=== PATIENT | male | born 1935 ===

== ENCOUNTER 2020-10-13 09:55 | Day surgery (SDC) | payer MEDICARE, SELFPAY ==
[2020-10-07 11:21] VITALS: BMI 21.2
--- NOTE | 2020-10-10 13:15 | MHC.SHP ---
Pre-Procedural Eval Section A The patient is an INPATIENT: No The History & Physical has been completed within 30 days and I have reviewed it.: Yes Section B Chief Complaint: Cataract Right Eye, Glaucoma Allergies: Allergies Allergy/AdvReac Type Severity Reaction Status Date / Time lisinopril Allergy Unknown Unknown Verified 10/07/20 10:38 Plan Diagnosis/Plan: Unchanged I have reviewed the history and physical and performed a pertinent physical examination on my patient. No changes have occurred unless specified.
--- NOTE | 2020-10-13 11:50 | HO.ANESPROP2 ---
HPI - Anesthesia Eval Consult details Narrative: 84 yo male patient for Right cataract extraction, IOL insertion PMFSH Active Problems Active Problems: All Active Problems (Updated 10/07/20 @ 11:04 by Sonia Herrera) Heart block (Acute) Normally functioning cardiac pacemaker present (Acute) Past Medical History Medical History (Updated 10/13/20 @ 12:31 by Patti Walsh) Barretts esophagus GERD (gastroesophageal reflux disease) Heart block Hiatal hernia History of back pain History of prostate cancer HTN (hypertension) Hypercholesterolemia Normally functioning cardiac pacemaker present Parkinsons disease Second degree heart block TIA (transient ischemic attack) Family History Family history of problems with anesthesia: No Surgical History Surgical History History of esophagogastroduodenoscopy (EGD) History of parathyroidectomy History of permanent cardiac pacemaker placement History of repair of hip fracture History of tonsillectomy Hx of colonoscopy Hx of prostatectomy History of Problems with Anesthesia: No Social History Social History Housing Other:: Resides at [facility] Are you a primary nurse wound care to a significant other at home: No Do you presently have visiting nurse or other home services: Yes (Has Home Health Aide from [employer]) Smoking Status: Never smoker Use of substances other than those prescribed or required for medical reasons: No Have you been hit, kicked, punched, or otherwise hurt by someone within the past year? If so, by whom?: No Advance Directives: No Advance Directives Information Provided: No Advance Directives on File: No Recently lost weight without trying: No Meds Allergies Allergy/AdvReac Type Severity Reaction Status Date / Time lisinopril Allergy Unknown Unknown Verified 10/07/20 10:38 Active Medications: Current Medications Generic Name Dose Route Start Last Admin Trade Name Freq PRN Reason Stop Dose Admin Sodium Chloride 500 mls @ 50 mls/hr 10/13/20 06:00 Ns IV 10/13/20 15:59 .Q10H IESHA Lactated Ringer's 500 mls @ 50 mls/hr 10/13/20 07:15 Lr IV .Q10H IESHA Povidone Iodine 1 appl 10/13/20 11:23 Povidone Iodine 5 % Ophth Soln 30 Ml Bottle EYE-RIGHT PREOP PRN Pre-Op Surgical Implant Prophy Home Medications Medication Instructions Recorded Confirmed Last Taken Type aspirin [Aspir-81] 81 mg PO DAILY 10/07/20 10/07/20 Unknown History calcitriol 0.5 mcg PO DAILY 10/07/20 10/07/20 Unknown History carbidopa-levodopa 1 tab PO BID 10/07/20 10/07/20 Unknown History furosemide 20 mg PO DAILY 10/07/20 10/07/20 Unknown History latanoprost drp 10/07/20 Unknown History melatonin 10 mg PO BEDTIME PRN 10/07/20 10/07/20 Unknown History omeprazole 1 cap PO DAILY 10/07/20 10/07/20 Unknown History timolol maleate 10/07/20 Unknown History triamcinolone acetonide appl TOPICAL 10/07/20 Unknown History Exam Exam Date and Time: October 13, 2020 1150 Height,Weight and Vital Signs: Height 5 ft 8 in Weight 63.503 kg Vital Signs Temp Pulse Resp BP Pulse Ox 10/13/20 12:11 97.1 F 69 18 162/79 H 99 Airway Mallampati Class: II TM Dist: >3cm Neck ROM: Limited Heart: RRR Lungs: CTAB Assessment and Plan Assessment Anesthesia Assessment: Anesthesia Plan Discussed and Chart Reviewed Final Anesthetic Review NPO: Yes ASA Class: III Final Preanesthetic Review: No Changes in Pt Med Stat, Meds/Allgs Chart Reviewed, Consent Obtained/Reviewed and Anes Risks/Benef Reviewed Patient Risk: Intermediate Procedure Risk: Low Assessment/Block/Sedation in SS: Assess/Block/Sedation-SS Anesthetic Plan Anesthetic Plan: MAC: Disposition: Standard PACU
[2020-10-13] MEDS: Tetracaine HCl/PF 0.5% Oph Sol 4 ML DROPS 1 DROP EYE-RIGHT (11:52)
[2020-10-13] MEDS: Tropicamide 1 % Ophth Sol 3 ML BTL 1 DROP EYE-RIGHT ×3 (11:57→12:04)
[2020-10-13] MEDS: Phenylephrine HCL 2.5% Oph SoL 2 ML BOTTLE 1 DROP EYE-RIGHT ×3 (11:59→12:06)
[2020-10-13 12:11] VITALS: BP 162/79; PULSE 69; RESP 18; TEMP 36.2; O2SAT 99
[2020-10-13] MEDS: Lactated Ringers 500 ML 50 ML IV (12:18)
--- NOTE | 2020-10-13 12:36 | P.PCNO_ITS ---
Ophthalmology Procedure Procedure Date of Service: 10/13/20 Ophthalmology Viscoelastic: Healon Duet Dual Pack Pro Ophthalmology Lenses: TECNIS [id number] (13.5) Procedure Notes: PREOPERATIVE DIAGNOSIS: Decreased visual acuity right eye secondary to cataract and glaucoma. POSTOPERATIVE DIAGNOSIS: Same PROCEDURE: Right cataract extraction with intraocular lens insertion and trabec ulectomy, right eye SURGEON: Dao Robledo M.D. ANESTHESIA: Topical/MAC ESTIMATED BLOOD LOSS: None COMPLICATIONS: None After obtaining informed consent, the patient was brought to the operating room suite and placed in the supine position. After adequate sedation per anesthesia, topical drops of Tetracaine were given to the right eye. The eye was then prepped and draped in the usual sterile fashion. The operating room microscope was then positioned over the right eye and a lid speculum placed. 2% Lidocaine was instilled subconjunctivally. After awaiting 30 seconds, a paracentesis was created superiorly. Hemostasis was then achieved using wet field cautery. Mitomycin .4mg/ml was then placed in the conjunctival pocket and held in place for two minutes. The subconjunctival pocket was then irrigated copiously with 20 mls of BSS. Paracentesis was then created. Viscoelastic was then instilled into the anterior chamber. A crescent blade was then utilized to create a partial thickness sclera wound followed by advancement to clear cornea with the crescent blade. A keratome was then utilized to enter the anterior chamber. Capsulotomy forceps were then utilized to create a continuous circular tear capsulotomy. Hydrodissection and hydrodelineation were carried out until adequate mobilization of the nucleus occurred. Phacoemulsification was utilized to remove the dense central nucleus followed by removal of remnant cortical material utilizing the automated aspiration irrigation unit. Viscoelastic was then instilled into the posterior capsular bag followed by placement of a posterior chamber intraocular lens. Attention was then directed to create a trabeculectomy. A Shahida punch was then utilized to create the trabeculectomy. The residual Viscoelastic was then removed utilizing the automated IA machine. The egress of aqueous was evaluated and found to be appropriate. The conjunctiva was then closed with a 9-0 vicryl suture. BSS was then instilled into the anterior chamber creating a superior bleb, without obvious leakage. Intracameral injection of Vigamox 0.3%, 0.1 ml and subtenon injection of Kenalog-40 0.2 ml was given followed by an atropine drop. The patient tolerated the procedure well and will be followed up in the a.m.
[2020-10-13 13:33] VITALS: BP 173/81; PULSE 68; RESP 20; TEMP 37.1; O2SAT 98
== END 2020-10-13 14:19 | disposition home or self-care (01) ==
PROVIDERS: PCP Internal Medicine; Visit Provider Ophthalmology
PROC: (CPT 66984; principal; 2020-10-13 12:30)
DX: H25.11 Age-related nuclear cataract, right eye (principal); H40.1131 Primary open-angle glaucoma, bilateral, mild stage; Z95.0 Presence of cardiac pacemaker; I10 Essential (primary) hypertension; Z79.899 Other long term (current) drug therapy; Z87.891 Personal history of nicotine dependence
CPT/HCPCS: 66984; 66170; J2250; J3010; J3300; J7315; V2632

== ENCOUNTER 2020-10-27 10:48 | Day surgery (SDC) | payer MEDICARE, SELFPAY ==
[2020-10-27] VITALS (7 sets, daily range): BP systolic 113–178; BP diastolic 54–81; PULSE 60–75; RESP 16–19; TEMP 36.7–36.8; O2SAT 96–98; BMI 23.3
--- NOTE | 2020-10-27 12:52 | P.CONAN_ITS ---
COUNT INCLUDES THE [facility] Active Problems Active Problems: All Active Problems (Updated 10/13/20 @ 12:31 by Patti boland) Heart block (Acute) Normally functioning cardiac pacemaker present (Acute) Past Medical History Medical History (Updated 10/13/20 @ 12:31 by Patti Walsh) Barretts esophagus GERD (gastroesophageal reflux disease) Heart block Hiatal hernia History of back pain History of prostate cancer HTN (hypertension) Hypercholesterolemia Normally functioning cardiac pacemaker present Parkinsons disease Second degree heart block TIA (transient ischemic attack) Surgical History Surgical History (Updated 10/23/20 @ 11:25 by Sonia Herrera) History of esophagogastroduodenoscopy (EGD) History of parathyroidectomy History of permanent cardiac pacemaker placement History of repair of hip fracture History of tonsillectomy Hx of colonoscopy Hx of prostatectomy Hx of right cataract extraction Social History Social History Smoking Status: Former smoker Use of substances other than those prescribed or required for medical reasons: No Advance Directives: No Advance Directives Information Provided: Yes Recently lost weight without trying: No Meds Allergies Allergy/AdvReac Type Severity Reaction Status Date / Time lisinopril Allergy Unknown Unknown Verified 10/07/20 10:38 Home Medications Medication Instructions Recorded Confirmed Last Taken Type aspirin [Aspir-81] 81 mg PO DAILY 10/07/20 10/07/20 Unknown History calcitriol 0.5 mcg PO DAILY 10/07/20 10/07/20 Unknown History carbidopa-levodopa 1 tab PO BID 10/07/20 10/07/20 Unknown History furosemide 20 mg PO DAILY 10/07/20 10/07/20 Unknown History latanoprost drp 10/07/20 Unknown History melatonin 10 mg PO BEDTIME PRN 10/07/20 10/07/20 Unknown History omeprazole 1 cap PO DAILY 10/07/20 10/07/20 Unknown History timolol maleate 10/07/20 Unknown History triamcinolone acetonide appl TOPICAL 10/07/20 Unknown History Exam Exam Date and Time: October 27, 2020 1252 Height,Weight and Vital Signs: Height 5 ft 6 in Weight 65.771 kg Last Vital Signs Temp 98.2 F 10/27/20 12:39 Pulse 60 10/27/20 12:39 Resp 16 10/27/20 12:39 BP 178/81 H 10/27/20 12:39 Pulse Ox 97 10/27/20 12:39 Airway Mallampati Class: III TM Dist: >3cm Neck ROM: Full Heart: RRR Lungs: CTA BL Assessment and Plan Assessment Anesthesia Assessment: Anesthesia Plan Discussed and Chart Reviewed Final Anesthetic Review NPO: Yes ASA Class: III Final Preanesthetic Review: No Changes in Pt Med Stat and Consent Obtained/Reviewed Patient Risk: Intermediate Procedure Risk: Intermediate Anesthetic Plan Anesthetic Plan: MAC: Disposition: Standard PACU
[2020-10-27] MEDS: Lactated Ringers 500 ML 20 ML IVCONT (13:07)
--- NOTE | 2020-10-27 20:58 | OP_ITS ---
SURGEON: Dao Robledo MD PREOPERATIVE DIAGNOSIS: Prolapsed iris through the trabeculectomy. POSTOPERATIVE DIAGNOSIS: Prolapsed iris through the trabeculectomy. PROCEDURE PERFORMED: Redeposition of iris tissue. ESTIMATED BLOOD LOSS: COMPLICATIONS: ANESTHESIA: MAC. ASSISTANTS: SPECIMENS: DESCRIPTION OF PROCEDURE: After obtaining informed consent, the patient was brought into the operating room suite and placed in supine position. After the right eye being prepped and draped in usual sterile fashion, the lid speculum was placed in the operating room, microscope positioned over the right eye. Paracentesis was then done, followed by instillation of lidocaine MPF 0.5 mL, followed by placement of Miochol. There was no movement of the iris out of the wound. We elected to take down the conjunctival sutures holding the superior bleb in place, and gently dissected away the iris from the conjunctiva. Viscoelastic was utilized to assist in positioning and placing the iris tissue back into the eye. 6-0 Vicryl was utilized to tighten the flap of the trabeculectomy. The conjunctiva was then closed with the 6-0 Vicryl as well. Vigamox 0.1 mL was then instilled intracamerally into the anterior chamber. The patient tolerated the procedure well. The speculum was removed and a shield was placed, and the patient will be seen in followup. Dao Robledo MD KH/MODL / [id number] MTDD
== END 2020-10-27 14:55 | disposition home or self-care (01) ==
PROVIDERS: PCP Internal Medicine; Visit Provider Ophthalmology
PROC: (CPT 66680; principal; 2020-10-27 13:30)
DX: S05.21XA Ocular laceration and rupture with prolapse or loss of intraocular tissue, right eye, initial encounter (principal); Z96.1 Presence of intraocular lens; H40.1131 Primary open-angle glaucoma, bilateral, mild stage; I10 Essential (primary) hypertension; G20 Parkinson's disease; I44.1 Atrioventricular block, second degree; Z95.0 Presence of cardiac pacemaker; Z79.899 Other long term (current) drug therapy; X58.XXXA Exposure to other specified factors, initial encounter; Y92.9 Unspecified place or not applicable; Y93.9 Activity, unspecified; Y99.8 Other external cause status; Z86.73 Personal history of transient ischemic attack (TIA), and cerebral infarction without residual deficits
CPT/HCPCS: 66680; J3010

== ENCOUNTER 2020-11-17 09:25 | Day surgery (SDC) | payer MEDICARE, SELFPAY ==
[2020-10-07 11:27] VITALS: BMI 21.2
--- NOTE | 2020-11-13 07:54 | MHC.SHP ---
Pre-Procedural Eval Section A The patient is an INPATIENT: No The History & Physical has been completed within 30 days and I have reviewed it.: Yes Section B Chief Complaint: Cataract Left Eye, glaucoma Allergies: Allergies Allergy/AdvReac Type Severity Reaction Status Date / Time lisinopril Allergy Unknown Unknown Verified 10/07/20 10:38 Plan Diagnosis/Plan: Unchanged I have reviewed the history and physical and performed a pertinent physical examination on my patient. No changes have occurred unless specified.
--- NOTE | 2020-11-14 08:40 | P.CONAN_ITS ---
Documented by User: Fanny Leblanc 11/14/20 08:41 HPI - Anesthesia Eval Consult details Narrative: 85yo M for Left Cataract Extraction IOL Insertion Right eye 10/13/20 with TIVA: Fent 50, Midaz 1 PMFSH Active Problems Active Problems: All Active Problems (Updated 10/13/20 @ 12:31 by Patti Walsh) Heart block (Acute) Normally functioning cardiac pacemaker present (Acute) Past Medical History Medical History Barretts esophagus GERD (gastroesophageal reflux disease) Heart block Hiatal hernia History of back pain History of prostate cancer HTN (hypertension) Hypercholesterolemia Normally functioning cardiac pacemaker present Parkinsons disease Second degree heart block TIA (transient ischemic attack) Surgical History Surgical History History of esophagogastroduodenoscopy (EGD) History of eye surgery History of parathyroidectomy History of permanent cardiac pacemaker placement History of repair of hip fracture History of tonsillectomy Hx of colonoscopy Hx of prostatectomy Hx of right cataract extraction Social History Social History Housing Other:: Resides in [facility] Are you a primary healthcare specialist to a significant other at home: No Do you presently have visiting nurse or other home services: Yes (TALENT DEVELOPMENT ANALYST- from [employer]) Smoking Status: Former smoker Use of substances other than those prescribed or required for medical reasons: No Have you been hit, kicked, punched, or otherwise hurt by someone within the past year? If so, by whom?: No Advance Directives Information Provided: No Advance Directives on File: No Recently lost weight without trying: No Meds Allergies Allergy/AdvReac Type Severity Reaction Status Date / Time lisinopril Allergy Unknown Unknown Verified 10/07/20 10:38 Home Medications Medication Instructions Recorded Confirmed Last Taken Type aspirin [Aspir-81] 81 mg PO DAILY 10/07/20 10/07/20 Unknown History calcitriol 0.5 mcg PO DAILY 10/07/20 10/07/20 Unknown History carbidopa-levodopa 1 tab PO BID 10/07/20 10/07/20 Unknown History furosemide 20 mg PO DAILY 10/07/20 10/07/20 Unknown History latanoprost drp 10/07/20 Unknown History melatonin 10 mg PO BEDTIME PRN 10/07/20 10/07/20 Unknown History omeprazole 1 cap PO DAILY 10/07/20 10/07/20 Unknown History timolol maleate 10/07/20 Unknown History triamcinolone acetonide appl TOPICAL 10/07/20 Unknown History Exam Exam Date and Time: November 14, 2020 0840 Height,Weight and Vital Signs: Height 5 ft 8 in Weight 63.503 kg Assessment and Plan Assessment Anesthesia Assessment: Chart Reviewed Documented by User: Patti Walsh 11/17/20 13:15 PMFSH Past Medical History Medical History Barretts esophagus GERD (gastroesophageal reflux disease) Heart block Hiatal hernia History of back pain History of prostate cancer HTN (hypertension) Hypercholesterolemia Normally functioning cardiac pacemaker present Parkinsons disease Second degree heart block TIA (transient ischemic attack) Family History Family history of problems with anesthesia: No Surgical History Surgical History History of esophagogastroduodenoscopy (EGD) History of eye surgery History of parathyroidectomy History of permanent cardiac pacemaker placement History of repair of hip fracture History of tonsillectomy Hx of colonoscopy Hx of prostatectomy Hx of right cataract extraction History of Problems with Anesthesia: No Social History Social History Housing Other:: Resides in [facility] Are you a primary healthcare specialist to a significant other at home: No Do you presently have visiting nurse or other home services: Yes (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) Smoking Status: Former smoker Use of substances other than those prescribed or required for medical reasons: No Have you been hit, kicked, punched, or otherwise hurt by someone within the past year? If so, by whom?: No Advance Directives Information Provided: No Advance Directives on File: No Recently lost weight without trying: No Meds Allergies Allergy/AdvReac Type Severity Reaction Status Date / Time lisinopril Allergy Unknown Unknown Verified 10/07/20 10:38 Home Medications Medication Instructions Recorded Confirmed Last Taken Type aspirin [Aspir-81] 81 mg PO DAILY 10/07/20 10/07/20 Unknown History calcitriol 0.5 mcg PO DAILY 10/07/20 10/07/20 Unknown History carbidopa-levodopa 1 tab PO BID 10/07/20 10/07/20 Unknown History furosemide 20 mg PO DAILY 10/07/20 10/07/20 Unknown History latanoprost drp 10/07/20 Unknown History melatonin 10 mg PO BEDTIME PRN 10/07/20 10/07/20 Unknown History omeprazole 1 cap PO DAILY 10/07/20 10/07/20 Unknown History timolol maleate 10/07/20 Unknown History triamcinolone acetonide appl TOPICAL 10/07/20 Unknown History Exam Height,Weight and Vital Signs: Vital Signs Temp Pulse Resp BP Pulse Ox 97.1 F 67 16 178/86 H 98 11/17/20 11:05 11/17/20 11:05 11/17/20 11:05 11/17/20 11:05 11/17/20 11:05 Narrative Narrative: A little vague, hard of hearing but responds appropriately when redirected. Airway Mallampati Class: II TM Dist: >3cm Neck ROM: Full Heart: RRR Lungs: CTAB Assessment and Plan Assessment Anesthesia Assessment: Anesthesia Plan Discussed and Chart Reviewed Final Anesthetic Review NPO: Yes ASA Class: III Final Preanesthetic Review: No Changes in Pt Med Stat, Meds/Allgs Chart Reviewed, Consent Obtained/Reviewed and Anes Risks/Benef Reviewed Patient Risk: Intermediate Procedure Risk: Low Assessment/Block/Sedation in SS: Assess/Block/Sedation-SS Anesthetic Plan Anesthetic Plan: MAC: Disposition: Standard PACU
[2020-11-17 11:05] VITALS: BP 178/86; PULSE 67; RESP 16; TEMP 36.2; O2SAT 98
[2020-11-17] MEDS: Tetracaine HCl/PF 0.5% Oph Sol 4 ML DROPS 1 DROP EYE-LEFT (11:13)
[2020-11-17] MEDS: Tropicamide 1 % Ophth Sol 3 ML BTL 1 DROP EYE-LEFT ×3 (11:14→11:32)
[2020-11-17] MEDS: Phenylephrine HCL 2.5% Oph SoL 2 ML BOTTLE 1 DROP EYE-LEFT ×3 (11:17→11:34)
[2020-11-17] MEDS: Lactated Ringers 500 ML 50 ML IV (11:47)
--- NOTE | 2020-11-17 13:06 | HO.PNOPHT ---
Ophthalmology Procedure Procedure Date of Service: 11/17/20 Ophthalmology Viscoelastic: Healon Duet Dual Pack Pro Ophthalmology Lenses: TECNIS [id number] (14.5) Procedure Notes: PREOPERATIVE DIAGNOSIS: Decreased visual acuity left eye secondary to cataract and glaucoma POSTOPERATIVE DIAGNOSIS: Same PROCEDURE: Left cataract extraction with intraocular lens insertion and trabeculectomy, left eye SURGEON: Dao Robledo M.D. ANESTHESIA: Topical/MAC ESTIMATED BLOOD LOSS: None COMPLICATIONS: None After obtaining informed consent, the patient was brought to the operating room suite and placed in the supine position. After adequate sedation per anesthesia, topical drops of Tetracaine were given to the left eye. The eye was then prepped and draped in the usual sterile fashion. The operating room microscope was then positioned over the left eye and a lid speculum placed. 2% Lidocaine was instilled subconjunctivally. After awaiting 30 seconds, a paracentesis was created superiorly. Hemostasis was then achieved using wet field cautery. Mitomycin .4mg/ml was then placed in the conjunctival pocket and held in place for two minutes. The subconjunctival pocket was then irrigated copiously with 20 mls of BSS. Paracentesis was then created. Viscoelastic was then instilled into the anterior chamber. A crescent blade was then utilized to create a partial thickness sclera wound followed by advancement to clear cornea with the crescent blade. A keratome was then utilized to enter the anterior chamber. Capsulotomy forceps were then utilized to create a continuous circular tear capsulotomy. Hydrodissection and hydrodelineation were carried out until adequate mobilization of the nucleus occurred. Phacoemulsification was utilized to remove the dense central nucleus followed by removal of remnant cortical material utilizing the automated aspiration irrigation unit. Viscoelastic was then instilled into the posterior capsular bag followed by placement of a posterior chamber intraocular lens. Attention was then directed to create a trabeculectomy. A Shahida punch was then utilized to create the trabeculectomy. The residual Viscoelastic was then removed utilizing the automated IA machine. The egress of aqueous was evaluated and found to be appropriate. The conjunctiva was then closed with a 9-0 vicryl suture. BSS was then instilled into the anterior chamber creating a superior bleb, without obvious leakage. Intracameral injection of Vigamox 0.3%, 0.1 ml and subtenon injection of Kenalog-40 0.2 ml was given followed by an atropine drop. The patient tolerated the procedure well and will be followed up in the a.m.
[2020-11-17 13:08] VITALS: BP 160/70; PULSE 86; RESP 16; TEMP 36.7; O2SAT 95
[2020-11-17] MEDS: Acetaminophen 325 MG TABLET 650 MG PO (13:15)
[2020-11-17 13:23] VITALS: BP 148/72; PULSE 80; RESP 18; O2SAT 96
[2020-11-17 13:28] VITALS: BP 141/76; PULSE 84; RESP 16; O2SAT 97
== END 2020-11-17 13:53 | disposition home or self-care (01) ==
PROVIDERS: PCP Internal Medicine; Visit Provider Ophthalmology
PROC: (CPT 66984; principal; 2020-11-17 12:20)
DX: H25.12 Age-related nuclear cataract, left eye (principal); H40.1131 Primary open-angle glaucoma, bilateral, mild stage; I10 Essential (primary) hypertension; G20 Parkinson's disease; Z86.73 Personal history of transient ischemic attack (TIA), and cerebral infarction without residual deficits; Z79.82 Long term (current) use of aspirin; Z79.899 Other long term (current) drug therapy; Z95.0 Presence of cardiac pacemaker
CPT/HCPCS: 66984; 66170; J2250; J3010; J3300; J7315; V2632

== ENCOUNTER → 2021-04-14 13:34 | Outpatient (BNVA) | payer MEDICARE, SELFPAY | PROVIDERS: PCP Internal Medicine; Visit Provider Internal Medicine | DX: Z45.018 Encounter for adjustment and management of other part of cardiac pacemaker (principal); I35.9 Nonrheumatic aortic valve disorder, unspecified; I47.2 Ventricular tachycardia | CPT/HCPCS: 93005; 99212 ==

== ENCOUNTER → 2022-04-13 13:06 | Outpatient (BNVA) | payer MEDICARE, SELFPAY | PROVIDERS: PCP Internal Medicine; Visit Provider Internal Medicine | DX: Z45.018 Encounter for adjustment and management of other part of cardiac pacemaker (principal); I35.9 Nonrheumatic aortic valve disorder, unspecified; I47.2 Ventricular tachycardia | CPT/HCPCS: 93005; 93280; 99212 ==

== ENCOUNTER 2023-01-03 12:53 | Emergency (ER) | payer MEDICARE, SELFPAY ==
--- NOTE | ~2023-01-03 | XR_ITS ---
EXAMINATION: Right ankle and right foot. CLINICAL INDICATION. Pain COMPARISON: None. TECHNIQUE: right ankle 2 views. Right foot 3 views. FINDINGS: Right foot: There is moderate hallux valgus deformity first MTP joint. There is no visible fracture, dislocation or subluxation. No bony erosive changes. No acute fracture or dislocation seen. The soft tissues are normal. There is diffuse osteopenia. Right ankle: The ankle mortise and subtalar joints are normal. No visible acute fracture, dislocation or subluxation seen.. There is diffuse osteopenia minimal medial ankle soft tissue swelling. XR/XR foot RT 2V IMPRESSION: 1. No acute fracture or dislocation right foot or right ankle. . 2. Moderate hallux valgus deformity first MTP joint. 3. Mild medial ankle soft tissue swelling. There is diffuse osteopenia in right foot and right ankle
--- NOTE | ~2023-01-03 | XR_ITS ---
EXAMINATION: Right ankle and right foot. CLINICAL INDICATION. Pain COMPARISON: None. TECHNIQUE: right ankle 2 views. Right foot 3 views. FINDINGS: Right foot: There is moderate hallux valgus deformity first MTP joint. There is no visible fracture, dislocation or subluxation. No bony erosive changes. No acute fracture or dislocation seen. The soft tissues are normal. There is diffuse osteopenia. Right ankle: The ankle mortise and subtalar joints are normal. No visible acute fracture, dislocation or subluxation seen.. There is diffuse osteopenia minimal medial ankle soft tissue swelling. XR/XR ankle RT 2V IMPRESSION: 1. No acute fracture or dislocation right foot or right ankle. . 2. Moderate hallux valgus deformity first MTP joint. 3. Mild medial ankle soft tissue swelling. There is diffuse osteopenia in right foot and right ankle
[2023-01-03 13:07] VITALS: BP 127/64; BP 138/81; PULSE 103; PULSE 70; RESP 18; TEMP 37; O2SAT 92; O2SAT 96; BMI 26.7
[2023-01-03 13:12] VITALS: BP 138/81; PULSE 103; RESP 18; TEMP 37; O2SAT 97
--- NOTE | 2023-01-03 13:14 | PC.NURSE ---
alert but slow to respond. 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 patient unable to ambualte. Able to move toes on both feet. feels sensations in both feet. ADAPTED PHYSICAL EDUCATION AIDE and resident report no trauma.
--- OUTSIDE RECORDS SUMMARY | 2023-01-03 13:30 | XMS_ITS | Continuity of Care Document ---
Author Name Unknown Organization [facility] ter Address [address] [place] [id number]- Care Team Providers Care Primary Substance Abuse Counselor Name Role Phone Dante Thomas MD Primary Care Physician [phone] Encounter [facility] [place] Date(s): 09/26/19 - 09/26/[address] [address]- [facility] Attending Physician: Dante Thomas MD Allergies, Adverse Reactions, Alerts Substance Reaction Severity Status lisinopril COUGH Active Immunizations Given and Recorded Vaccine Date Status Refusal Reason influenza virus vaccine, inactivated 05/07/19 Marquis rded influenza virus vaccine, inactivated 05/08/18 Marquis rded influenza virus vaccine, inactivated 05/08/15 Marquis rded pneumococcal 23-valent vaccine 05/24/17 Recorded pneumococcal 13-valent vaccine 07/07/12 Recorded Medications aspirin 81 mg oral tablet 2 tablet = 162 mg, By Mouth, Daily, # 30 tablet, 0 Refills, Maintenance, 12/14/18 15:59:57 EDT, Tablet Start Date: 12/14/18 Status: Ordered calcitriol 0.5 mcg oral capsule See Instructions, TAKE ONE CAPSULE BY MOUTH DAILY, # 30 Unknown, 5 Refills, Maintenance, [facility] # [facility], 168, cm, 07/19/19 11:25:00 EST, Height Start Date: 09/06/19 Status: Ordered calcitriol 0.5 mcg oral capsule 1 capsule = 0.5 mcg, By Mouth, Daily, # 30 capsule, 5 Refills, Maintenance, 02/21/19 11:47:18 EDT Start Date: 02/21/19 Status: Ordered cephalexin monohydrate 500 mg oral capsule 1 capsule = 500 mg, By Mouth, 3 times a day, # 21 capsule, 0 Refills, Maintenance, 07/19/19 11:56:42 EST, 168, cm, 07/19/19 11:25:06 EST, Height Start Date: 07/19/19 Status: Ordered docusate sodium 100 mg oral capsule 100 mg, 1, capsule, By Mouth, 2 times a day, PRN, # 20 capsule, Refills 0, Maintenance, for constipation, 09/22/18 11:34:15 EST Start Date: 09/22/18 Status: Ordered furosemide 20 mg oral tablet See Instructions, 1 tablet By Mouth Daily on Tuesday, Tuesday, and Tuesday., # 40 tablet, Refills 3, Tot. Refills 3, Maintenance, 04/19/19 11:34:16 EDT, Instructions Replace Required Details, Route to Pharmacy Electronically, [id number]... Start Date: 04/19/19 Status: Ordered ipratropium nasal 21 mcg/inh spray See Instructions, USE 2 SPRAYS IN EACH NOSTRIL TWO TIMES A DAY, # 30 mL, 0 Refills, Acute, [facility] # [facility], 43, USE 2 SPRAYS IN EACH NOSTRIL TWO TIMES A DAY, 168, cm, 07/19/19 11:25:00 EST, Height Start Date: 09/24/19 Status: Ordered Melatonin 10 mg oral capsule 1 capsule = 10 mg, By Mouth, Daily at bedtime, 0 Refills, Maintenance, 09/26/19 10:38:00 EST Start Date: 09/26/19 Status: Ordered melatonin 10 mg oral capsule 1 capsule = 10 mg, By Mouth, Daily at bedtime, # 30 capsule, 0 Refills, Maintenance, 09/26/19 11:00:00 EST Start Date: 09/26/19 Status: Ordered omeprazole 20 mg oral delayed release tablet 1 tablet = 20 mg, By Mouth, Daily, # 90 tablet, 1 Refills, Maintenance, 04/19/19 11:32:57 EDT, EC Tablet Start Date: 04/19/19 Status: Ordered Sinemet 25 mg-100 mg oral tablet 1 tablet, By Mouth, 3 times a day, # 270 tablet, 0 Refills, Maintenance, 06/04/19 9:31:03 EDT, Tablet Start Date: 06/04/19 Status: Ordered Timolol 0.5% Ophth See Instructions, 1 drop into affected eye qd, Refills 0, Maintenance, 08/02/18 10:29:56 EST, Instructions Replace Required Details Start Date: 08/02/18 Status: Ordered Travatan Z 0.004% ophthalmic solution See Instructions, 1 drops into affected eye Daily in PM, 0 Refills, Maintenance, 08/02/18 10:22:49 EST, Solution Start Date: 08/02/18 Status: Ordered triamcinolone 0.1% topical cream See Instructions, APPLY TOPICALLY TWO TIMES A DAY, # 60 Gm, 0 Refills, Maintenance, 09/10/19 9:18:00 EST, [facility] # [facility], 30, APPLY TOPICALLY TWO TIMES A DAY, 168, cm, 07/19/19 11:25:00 EST, Height Start Date: 09/10/19 Status: Ordered Tylenol 325 mg oral tablet 325 mg, 1, tablet, By Mouth, Daily at bedtime, Refills 0, Maintenance, 08/14/18 11:35:59 EST Start Date: 08/14/18 Status: Ordered Problem List Condition Effective Dates Status Health Status Inform ant Abnormal weight loss(Confirmed) Active Anemia(Confirmed) Active Barretts esophagus(Confirmed) Active Chronic kidney disease, stag e 3(Confirmed) Active Traumatic closed nondisplace d fracture of shaft of left clavicle with delayed healing(Confirmed) Active Atrial ectopy(Confirmed) Active Essential hypertension(Confirmed) Active First degree AV block(Confirmed) Active Glaucoma(Confirmed) Active H/O fracture of right hip(Confirmed) Active Hypercholesterolemia(Confirmed) Active Hyperparathyroidism(Confirmed) Active Lethargy(Confirmed) Active Prostate cancer(Confirmed) Active Pancreatic mass(Confirmed) Active Rhinorrhea(Confirmed) Active Parkinsons disease(Confirmed) Active Peripheral edema(Confirmed) Active Kidney mass(Confirmed) Active Right bundle branch block(Confirmed) Active Vitamin D deficiency(Confirmed) Active Social History Social History Type Response Smoking Status Former smoker, quit more than 30 days ago entered on: 08/14/18 Sex
--- OUTSIDE RECORDS SUMMARY | 2023-01-03 13:30 | XMS_ITS | Continuity of Care Document ---
Author Name Unknown Organization [facility] Curtis lt Address [address] [place] [address]- Care Team Providers Care Pierce And Shave Press Operator Name Role Phone Dante Thomas MD Primary Care Physician [phone] [place] [facility] Date(s): 03/31/22 - 05/22/22 [facility] [address] [place] [address]- Attending Physician: Dante Thomas MD Allergies, Adverse Reactions, Alerts Substance Reaction Severity Status lisinopril COUGH Active Immunizations Given and Recorded Vaccine Date Status Refusal Reason SARS-CoV-2 mRNA ([id number]) vax 11/27/21 Recorded SARS-CoV-2 (COVID-19) mRNA BNT-162b2 vac 05/11/21 Recorded SARS-CoV-2 (COVID-19) mRNA BNT-162b2 vac 09/11/20 Recorded SARS-CoV-2 (COVID-19) mRNA BNT-162b2 vac 08/21/20 Recorded Influenza Virus Vaccine (oldterm) 06/08/20 Recorde d influenza virus vaccine, inactivated 05/07/19 Marquis rded influenza virus vaccine, inactivated 05/26/18 Marquis rded influenza virus vaccine, inactivated 1 05/08/18 Re corded influenza virus vaccine, inactivated 05/08/18 Marquis rded influenza virus vaccine, inactivated 05/17/17 Marquis rded influenza virus vaccine, inactivated 05/10/16 Marquis rded influenza virus vaccine, inactivated 05/08/15 Marquis rded pneumococcal 23-valent vaccine 05/24/17 Recorded pneumococcal 13-valent vaccine 07/07/12 Recorded 1Result Comment: DUPLICATE Medications aspirin 81 mg oral delayed release tablet 81 mg, 1, tablet, By Mouth, Daily, # 90 tablet, Refills 0, Tot. Refills 0, Maintenance, 10/09/20 11:05:00 EST, Do Not Route, Partial fill upon patient request if the prescription is for a schedule IIopioid drug., 168, cm, 10/09/20 10:22:00 EST, Height Start Date: 10/09/20 Status: Ordered calcitriol 0.5 mcg oral capsule 1 capsule, By Mouth, Daily, # 90 capsule, 3 Refills, [facility] # [facility], 168, cm, 07/29/21 10:00:00 EST, Height Start Date: 03/02/22 Status: Ordered Cranberry 0 Refills, Maintenance, 10/09/20 10:26:00 EST, Partial fill upon patient request if the prescription is for a schedule II opioid drug. Start Date: 10/09/20 Status: Ordered Dulcolax Tablet 5 mg, By Mouth, Daily, Refills 0, Maintenance, 12/26/19 10:45:00 EDT Start Date: 12/26/19 Status: Ordered ipratropium nasal 21 mcg/inh spray See Instructions, USE 2 SPRAYS IN EACH NOSTRIL TWO TIMES A DAY, # 3 each, 3 Refills, Maintenance, 03/01/22 10:13:00 EDT, [facility] # [facility], USE 2 SPRAYS IN EACH NOSTRIL TWO TIMES A DAY, 168, cm, 07/29/21 10:00:00 EST, Height Start Date: 03/01/22 Status: Ordered magic mouthwash magic mouthwash, See Instructions, PRN Pain , Mild, # 100 mL, Refills 0, Tot. Refills 0, Maintenance, (30mg benadryl, 30ml lidocaine, 30ml maalox) 5-10ml every 4 hours PRN mouth pain, 07/29/21 11:25:00 EST, Compound, 168, cm, 07/29/21 10:00:00 EST, He... Start Date: 07/29/21 Status: Ordered melatonin 5 mg oral tablet 1 tablet = 5 mg, By Mouth, Daily at bedtime, 0 Refills, Maintenance, 04/30/21 9:17:00 EDT, Partial fill upon patient request if the prescription is for a schedule II opioid drug. Start Date: 04/30/21 Status: Ordered metoprolol 50 mg oral tablet, extended release 50 mg, 1, tablet, By Mouth, Daily at bedtime, Refills 0, Maintenance, 04/30/21 9:37:00 EDT, Partialfill upon patient request if the prescription is for a schedule II opioid drug. Start Date: 04/30/21 Status: Ordered MiraLax oral powder for reconstitution = 17 Gm, By Mouth, Daily, dissolve in water before taking, # 255 Gm, 5 Refills, Maintenance, 02/09/20 18:07:00 EDT, REC Powder, [facility] # [facility], 17 Gm By Mouth Daily,Instr:dissolve in water before taking, 168, cm, 12/26/19 10:39:00 EDT, Height Start Date: 02/09/20 Status: Ordered Mucinex = 600 mg, By Mouth, Every 12 hours, 0 Refills, Maintenance, 10/09/20 10:26:00 EST, Partial fill upon patient request if the prescription is for a schedule II opioid drug. Start Date: 10/09/20 Status: Ordered omeprazole 20 mg oral enteric coated capsule See Instructions, TAKE 1 CAPSULE BY MOUTH ONCE DAILY., # 90 capsule, 1 Refills, [facility] # [facility], 168, cm, 07/29/21 10:00:00 EST, Height Start Date: 12/11/21 Status: Ordered Sinemet 25 mg-100 mg oral tablet 1.5 tablets, By Mouth, 3 times a day, # 45 tablet, 0 Refills, Maintenance, 10/09/20 11:06:00 EST, Partial fill upon patient request if the prescription is for a schedule II opioid drug., 168, cm, 10/09/20 10:22:00 EST, Height Start Date: 10/09/20 Status: Ordered triamcinolone 0.1% topical cream See Instructions, APPLY TOPICALLY TWO TIMES A DAY, # 60 Gm, 1 Refills, Maintenance, 10/09/21 11:07:00 EST, [facility] # [facility], APPLY TOPICALLY TWO TIMES A DAY, 168, cm, 01/14/21 11:31:00 EDT, Height Start Date: 10/09/21 Status: Ordered Tylenol 325 mg oral tablet 325 mg, 1, tablet, By Mouth, Daily at bedtime, Refills 0, Maintenance, 08/14/18 11:35:59 EST Start Date: 08/14/18 Status: Ordered Problem List Condition Confirmation Course Effective Dates Status Health Status Informant Abnormal weight loss Confirmed Active Anemia Confirmed Active Barretts esophagus Confirmed Active Cataracts, bilateral Confirmed Active Chronic kidney disease, stage 3a 1 Confirmed Active Traumatic closed nondisplaced fracture of shaft of left clavicle with delayed healing Confirmed Active Constipation Confirmed Active Atrial ectopy Confirmed Active Essential hypertension Confirmed Active First degree AV block Confirmed Active Glaucoma Confirmed Active H/O fracture of right hip Confirmed Active Hypercholesterolemia Confirmed Active Hyperlipidemia Confirmed Active Hyperparathyroidism Confirmed Active Impaired fasting glucose Confirmed Active Lethargy Confirmed Active Prostate cancer Confirmed Active Pancreatic mass Confirmed Active Rhinorrhea Confirmed Active Parkinsons disease Confirmed Active Peripheral edema Confirmed Active Kidney mass Confirmed Active Right bundle branch block Confirmed Active Vitamin D deficiency Confirmed Active 1Per chart review meeting GFR criteria Social History Social History Type Response Smoking Status Former smoker, quit more than 30 days ago entered on: 08/14/18 Sex Patient Care team information Personnel Name: Martha BRYANT, Dante Lopez Address: Address: [address] [place] [id number]
--- OUTSIDE RECORDS SUMMARY | 2023-01-03 13:30 | XMS_ITS | Continuity of Care Document ---
Author Name Unknown Organization [facility] Address [address] [place] [address]- Care Team Providers Care City Collector Name Role Phone Martha BRYANT, Dante Lopez Primary Care Physician Encounter [facility] [place] Date(s): 12/11/21 - 01/10/22 [facility] Adult [address] [place] [address]- Allergies, Adverse Reactions, Alerts Substance Reaction Severity Status lisinopril COUGH Active Immunizations Given and Recorded Vaccine Date Status Refusal Reason SARS-CoV-2 (COVID-19) mRNA BNT-162b2 vac 05/11/21 Recorded SARS-CoV-2 (COVID-19) mRNA BNT-162b2 vac 09/11/20 Recorded SARS-CoV-2 (COVID-19) mRNA BNT-162b2 vac 08/21/20 Recorded Influenza Virus Vaccine (oldterm) 06/08/20 Recorde d influenza virus vaccine, inactivated 05/07/19 Marquis rded influenza virus vaccine, inactivated 05/26/18 Marquis rded influenza virus vaccine, inactivated 1 05/08/18 Re corded influenza virus vaccine, inactivated 05/17/17 Marquis rded [...] capsule, By Mouth, Daily, # 90 capsule, 1 Refills, [facility] # [facility], 168, cm, 07/29/21 10:00:00 EST, Height Start Date: 08/31/21 Status: Ordered Cranberry 0 Refills, Maintenance, 10/09/20 [...] TWO TIMES A DAY, # 3 each, 5 Refills, Maintenance, 10/09/20 11:09:00 EST, [facility] # [facility], USE 2 SPRAYS IN EACH NOSTRIL TWO TIMES A DAY, 168, cm, 10/09/20 10:22:00 EST, Height Start Date: 10/09/20 Status: Ordered magic mouthwash magic mouthwash, See [...] Refills, Maintenance, 02/09/20 18:07:00 EDT, REC Powder, [facility] # [facility], 17 Gm By Mouth [...] ONCE DAILY., # 90 capsule, 1 Refills, [facility] # [facility], 168, cm, 07/29/21 10:00:00 [...] Gm, 1 Refills, Maintenance, 10/09/21 11:07:00 EST, [facility] # [facility], APPLY TOPICALLY TWO TIMES [...] loss(Confirmed) Active Anemia(Confirmed) Active Barretts esophagus(Confirmed) Active Cataracts, bilateral(Confirmed) Active Chronic kidney disease, stag e 3(Confirmed) Active Traumatic closed nondisplace d fracture of shaft of left clavicle with delayed healing(Confirmed) Active Constipation(Confirmed) Active Atrial ectopy(Confirmed) Active Essential hypertension(Confirmed) Active First degree AV block(Confirmed) Active Glaucoma(Confirmed) Active H/O fracture of right hip(Confirmed) Active Hypercholesterolemia(Confirmed) Active Hyperlipidemia(Confirmed) Active Hyperparathyroidism(Confirmed) Active Impaired fasting glucose(Confirmed) Active Lethargy(Confirmed) Active Prostate cancer(Confirmed) Active Pancreatic mass(Confirmed) Active Rhinorrhea(Confirmed) Active Parkinsons disease(Confirmed) Active Peripheral edema(Confirmed) Active Kidney mass(Confirmed) Active Right bundle branch block(Confirmed) Active Vitamin D deficiency(Confirmed) Active Social History Social History Type Response Smoking Status Former smoker, quit more than 30 days ago entered on: 08/14/18 Sex
--- OUTSIDE RECORDS SUMMARY | 2023-01-03 13:30 | XMS_ITS | Continuity of Care Document ---
Author Name Unknown Organization [facility] Address [address] [place] [address]- Care Team Providers Care Grinder Set Up Operator Gear Tool Name Role Phone Martha BRYANT, Dante Lopez Primary Care Physician [phone] En[facility] [place] Date(s): 09/17/20 - 10/17/20 [facility] Adult [address] [place] [address]- Allergies, Adverse Reactions, Alerts Substance Reaction Severity Status lisinopril COUGH Active Immunizations Given and Recorded Vaccine Date Status Refusal Reason Influenza Virus Vaccine (oldterm) 06/08/20 Recorde d influenza virus vaccine, inactivated 05/07/19 Marquis rded influenza virus vaccine, inactivated 05/08/18 Marquis rded influenza virus vaccine, inactivated 05/08/15 Marquis rded pneumococcal 23-valent vaccine 05/24/17 Recorded pneumococcal 13-valent vaccine 07/07/12 Recorded Medications aspirin 81 mg oral delayed release [...] 1 capsule, By Mouth, Daily, # 90 Unknown, 1 Refills, Maintenance, 09/02/20 14:42:00 EST, [facility], 168, cm, 07/28/20 11:06:00 EST, Height Start Date: 09/02/20 Status: Ordered Cranberry 0 Refills, Maintenance, 10/09/20 [...] each, 5 Refills, Maintenance, 10/09/20 11:09:00 EST, [facility] # [facility], USE 2 SPRAYS IN EACH NOSTRIL TWO TIMES A DAY, 168, cm, 10/09/20 10:22:00 EST, Height Start Date: 10/09/20 Status: Ordered latanoprost 0.005% ophthalmic solution 1 drops, Eyes, Both, Daily before dinner, # 2.5 mL, 0 Refills, Maintenance, 10/09/20 11:07:00 EST, Partial fill upon patient request if the prescription is for a schedule II opioid drug., 168, cm, 10/09/20 10:22:00 EST, Height Start Date: 10/09/20 Status: Ordered melatonin 10 mg oral capsule 1 capsule = 10 mg, By Mouth, Daily at bedtime, # 30 capsule, 0 Refills, Maintenance, 09/26/19 11:00:00 EST Start Date: 09/26/19 Status: Ordered MiraLax oral powder for reconstitution = 17 Gm, By Mouth, Daily, dissolve in water before taking, # 255 Gm, 5 Refills, Maintenance, 02/09/20 18:07:00 EDT, REC Powder, [facility] # [facility], 17 Gm By Mouth Daily,Instr:dissolve in water before taking, 168, cm, 12/26/19 10:39:00 EDT, Height Start Date: 02/09/20 Status: Ordered Mucinex = 600 mg, By Mouth, Every 12 hours, 0 Refills, Maintenance, 10/09/20 10:26:00 EST, Partial fill upon patient request if the prescription is for a schedule II opioid drug. Start Date: 10/09/20 Status: Ordered omeprazole 20 mg oral delayed release tablet 1 tablet = 20 mg, By Mouth, Daily, # 90 tablet, 3 Refills, Maintenance, 04/10/20 13:29:00 EDT, EC Tablet, [facility] # [facility], 168, cm, 03/13/20 11:52:00 EDT, Height Start Date: 04/10/20 Status: Ordered Sinemet 25 mg-100 mg oral tablet 1.5 tablets, By Mouth, 3 times a day, # 45 tablet, 0 Refills, Maintenance, 10/09/20 11:06:00 EST, Partial fill upon patient request if the prescription is for a schedule II opioid drug., 168, cm, 10/09/20 10:22:00 EST, Height Start Date: 10/09/20 Status: Ordered Timolol 0.5% Ophth See Instructions, 1 drop into affected eye qd, Refills 0, Maintenance, 08/02/18 10:29:56 EST, Instructions Replace Required Details Start Date: 08/02/18 Status: Ordered triamcinolone 0.1% topical cream See Instructions, APPLY TOPICALLY TWO TIMES A DAY, # 60 Unknown, 11 Refills, Physician Stop 10/09/21 11:07:00 EST, 10/09/20 11:06:00 EST, 30, 168, cm, 10/09/20 10:22:00 EST, Height Start Date: 10/09/20 Stop Date: 10/09/21 Status: Ordered triamcinolone 0.1% topical cream See Instructions, APPLY TOPICALLY TWO TIMES A DAY, # 60 Unknown, 11 Refills, Physician Stop 10/09/21 11:08:00 EST, 10/09/21 11:07:00 EST, [facility] # [facility], 30, APPLY TOPICALLY TWO TIMES A DAY, 168, cm, 10/09/20 10:22:00 EST, Height Start Date: 10/09/21 Stop Date: 10/09/21 Status: Ordered Tylenol 325 mg [...]
--- OUTSIDE RECORDS SUMMARY | 2023-01-03 13:30 | XMS_ITS | Continuity of Care Document ---
Author Name Unknown Organization [facility] Address [address] [place] [address]- Care Team Providers Care Buffer Automatic Name Role Phone Martha BRYANT, Dante Lopez Primary Care Physician Encounter [facility] Date(s): 03/18/22 - 04/17/22 [facility] Adult [address] [place] [address]- Allergies, Adverse Reactions, Alerts Substance Reaction Severity Status lisinopril COUGH Active Immunizations Given and Recorded Vaccine Date Status Refusal Reason SARS-CoV-2 mRNA ([id number]) vax 11/27/21 Recorded SARS-CoV-2 (COVID-19) mRNA BNT-162b2 [...] Daily, # 90 capsule, 3 Refills, [facility] # [facility], 168, cm, 07/29/21 [...] 3 Refills, Maintenance, 03/01/22 10:13:00 EDT, [facility] # [facility], USE 2 SPRAYS [...] Refills, Maintenance, 02/09/20 18:07:00 EDT, REC Powder, [facility] # [facility], 17 Gm By Mouth [...] ONCE DAILY., # 90 capsule, 1 Refills, [facility] # [facility], 168, cm, 07/29/21 10:00:00 [...] Gm, 1 Refills, Maintenance, 10/09/21 11:07:00 EST, [facility] # [facility], APPLY TOPICALLY TWO TIMES [...] 30 days ago entered on: 08/14/18 Sex Care Team Personnel Name: Martha BRYANT, Dante Lopez Address: [address] [place] [id number]
--- OUTSIDE RECORDS SUMMARY | 2023-01-03 13:30 | XMS_ITS | Continuity of Care Document ---
Author Name Unknown Organization [facility] Address [address] [place] [address]- Care Team Providers Care Carton Maker Name Role Phone Martha BRYANT, Dante Lopez Primary Care Physician Encounter [facility] [place] Date(s): 02/02/21 - 03/04/21 [facility] Adult [address] [place] [address]- Allergies, Adverse Reactions, Alerts Substance Reaction Severity Status lisinopril COUGH Active Immunizations Given and Recorded Vaccine Date Status Refusal Reason SARS-CoV-2 (COVID-19) mRNA BNT-162b2 vac 09/11/20 Recorded [...] Unknown, 1 Refills, Maintenance, 09/02/20 14:42:00 EST, [facility], 168, cm, 07/28/20 11:06:00 EST, Height Start Date: 09/02/20 Status: Ordered cephalexin monohydrate 500 mg oral tablet 1 tablet = 500 mg, By Mouth, 3 times a day, # 21 tablet, 0 Refills, Maintenance, 02/02/21 15:56:00 EDT, [facility], Partial fill upon patient request if the prescription is for a schedule IIopioid drug., 168, cm, 01/14/21 11:31:00 EDT, Height Start Date: 02/02/21 Status: Ordered Cranberry 0 Refills, Maintenance, 10/09/20 [...] each, 5 Refills, Maintenance, 10/09/20 11:09:00 EST, [facility] # [facility], USE 2 SPRAYS [...] Refills, Maintenance, 02/09/20 18:07:00 EDT, REC Powder, [facility] # [facility], 17 Gm By Mouth Daily,Instr:dissolve in water before taking, 168, cm, 12/26/19 10:39:00 EDT, Height Start Date: 02/09/20 Status: Ordered Mucinex = 600 mg, By Mouth, Every 12 hours, 0 Refills, Maintenance, 10/09/20 10:26:00 EST, Partial fill upon patient request if the prescription is for a schedule II opioid drug. Start Date: 10/09/20 Status: Ordered MyKidz Iron oral liquid 0 Refills, Maintenance, 01/14/21 19:16:00 EDT, Partial fill upon patient request if the prescription is for a schedule II opioid drug. Start Date: 01/14/21 Status: Ordered omeprazole 20 mg oral delayed release tablet 1 tablet = 20 mg, By Mouth, Daily, # 90 tablet, 3 Refills, Maintenance, 04/10/20 13:29:00 EDT, EC Tablet, [facility] # [facility], 168, cm, 03/13/20 11:52:00 [...] Stop 10/09/21 11:08:00 EST, 10/09/21 11:07:00 EST, [facility] # 50, 30, APPLY TOPICALLY TWO TIMES A DAY, 168, cm, 10/09/20 10:22:00 EST, Height Start Date: 10/09/21 Stop Date: 10/09/21 Status: Ordered triamcinolone 0.1% topical cream See Instructions, APPLY TOPICALLY TWO TIMES A DAY, # 60 Gm, 1 Refills, Maintenance, 10/09/21 11:07:00 EST, [facility], APPLY TOPICALLY TWO TIMES [...]
--- OUTSIDE RECORDS SUMMARY | 2023-01-03 13:30 | XMS_ITS | Continuity of Care Document ---
Author Name Unknown Organization [facility] Curtis lt Address [address] [place] [address]- Care Team Providers Care Channel Marketing Specialist Name Role Phone Martha BRYANT, Dante Lopez Primary Care Physician [phone] [place] [facility] [place] 08[place]/20 [facility] Adult [address] [place] [address]- Attending Physician: Admtr, Ar8 Admitting Physician: Admtr, Ar8 Referring Physician: Admtr, Ar8 Allergies, Adverse Reactions, Alerts Substance Reaction Severity [...] TAKE ONE CAPSULE BY MOUTH DAILY, # 90 capsule, 1 Refills, 03/10/20 8:47:00 EDT, [facility] # [facility], 168, cm, 12/26/19 10:39:00 EDT, Height Start Date: 03/10/20 Status: Ordered Dulcolax Tablet 5 mg, By Mouth, Daily, Refills 0, Maintenance, 12/26/19 10:45:00 EDT Start Date: 12/26/19 Status: Ordered furosemide 20 mg oral tablet See Instructions, 1 tablet By Mouth Daily on Tuesday, Tuesday, and Tuesday., # 40 tablet, Refills 3, Tot. Refills 3, Maintenance, 04/30/20 12:02:00 EDT, Instructions Replace Required Details, Route to Pharmacy Electronically, [facility] # [facility], 168,... Start Date: 04/30/20 Status: Ordered ipratropium nasal 21 mcg/inh spray See Instructions, USE 2 SPRAYS IN EACH NOSTRIL TWO TIMES A DAY, # 3 each, 1 Refills, Maintenance, 06/03/20 10:39:00 EDT, [facility] # 50, USE 2 SPRAYS IN EACH NOSTRIL TWO TIMES A DAY, 168, cm, 03/13/20 11:52:00 EDT, Height Start Date: 06/03/20 Status: Ordered melatonin 10 mg oral capsule 1 capsule = 10 mg, By Mouth, Daily at bedtime, # 30 capsule, 0 Refills, Maintenance, 09/26/19 11:00:00 EST Start Date: 09/26/19 Status: Ordered MiraLax oral powder for reconstitution = 17 Gm, By Mouth, Daily, dissolve in water before taking, # 255 Gm, 5 Refills, Maintenance, 02/09/20 18:07:00 EDT, REC Powder, [facility] # 50, 17 Gm By Mouth Daily,Instr:dissolve in water before taking, 168, cm, 12/26/19 10:39:00 EDT, Height Start Date: 02/09/20 Status: Ordered omeprazole 20 mg oral delayed release tablet 1 tablet = 20 mg, By Mouth, Daily, # 90 tablet, 3 Refills, Maintenance, 04/10/20 13:29:00 EDT, EC Tablet, [facility] # 50, 168, cm, 03/13/20 [...] TWO TIMES A DAY, # 60 Unknown, 0 Refills, Acute, [facility] #[facility], 30, APPLY TOPICALLY TWO TIMES A DAY, 168, cm, 07/28/20 11:06:00 EST, Height Start Date: 08/12/20 Status: Ordered Tylenol 325 mg oral tablet [...]
--- OUTSIDE RECORDS SUMMARY | 2023-01-03 13:30 | XMS_ITS | Continuity of Care Document ---
Author Name Unknown Organization [facility] Curtis lt Address [address] [place] [address]- Care Team Providers Care Nut Sheller Machine Operator Name Role Phone Dante Thomas MD Primary Care Physician Encounter [facility] [place] Date(s): 08/15/20 - 09/14/20 [facility] Adult [address] [place] [address]- Allergies, Adverse Reactions, Alerts Substance Reaction Severity [...] EST, Height Start Date: 09/02/20 Status: Ordered Dulcolax Tablet 5 mg, By Mouth, Daily, Refills 0, Maintenance, 12/26/19 10:45:00 EDT Start Date: 12/26/19 Status: Ordered furosemide 20 mg oral tablet See Instructions, 1 tablet By Mouth Daily on Tuesday, Tuesday, and Tuesday., # 40 tablet, Refills 3, Tot. Refills 3, Maintenance, 04/30/20 12:02:00 EDT, Instructions Replace Required Details, Route to Pharmacy Electronically, [facility] # [facility], 168,... Start Date: 04/30/20 Status: Ordered ipratropium nasal 21 mcg/inh spray See Instructions, USE 2 SPRAYS IN EACH NOSTRIL TWO TIMES A DAY, # 3 each, 1 Refills, Maintenance, 06/03/20 10:39:00 EDT, [facility] # 50, USE 2 [...] Refills, Maintenance, 02/09/20 18:07:00 EDT, REC Powder, [facility] # 50, 17 Gm By Mouth Daily,Instr:dissolve in water before taking, 168, cm, 12/26/19 10:39:00 EDT, Height Start Date: 02/09/20 Status: Ordered omeprazole 20 mg oral delayed release tablet 1 tablet = 20 mg, By Mouth, Daily, # 90 tablet, 3 Refills, Maintenance, 04/10/20 13:29:00 EDT, EC Tablet, [facility] # 50, 168, cm, 03/13/20 11:52:00 [...]
--- OUTSIDE RECORDS SUMMARY | 2023-01-03 13:30 | XMS_ITS | Continuity of Care Document ---
Author Name Unknown Organization [facility] Curtis lt Address [address] [place] [address]- Care Team Providers Care Lead Application Architect Name Role Phone Dante Thomas MD Primary Care Physician [place] [facility] [place](s[place] 04/05/22 - 04/12/22 [facility] Adult [address] [place] [address]- Attending Physician: Dante Thomas MD Allergies, Adverse Reactions, Alerts Substance Reaction Severity Status lisinopril COUGH Active Immunizations Given and Recorded Vaccine Date Status Refusal Reason SARS-CoV-2 mRNA ([id number]-hydu-kgswy) vax 11/27/21 Recorded SARS-CoV-2 (COVID-19) mRNA BNT-162b2 [...] Mouth, Daily, # 90 capsule, 3 Refills, [facility] # 50, 168, cm, 07/29/21 [...] each, 3 Refills, Maintenance, 03/01/22 10:13:00 EDT, [facility] # 50, USE 2 SPRAYS [...] Refills, Maintenance, 02/09/20 18:07:00 EDT, REC Powder, [facility] # 50, 17 Gm By Mouth [...] ONCE DAILY., # 90 capsule, 1 Refills, [facility] # 50, 168, cm, 07/29/21 10:00:00 [...] Gm, 1 Refills, Maintenance, 10/09/21 11:07:00 EST, [facility] # 50, APPLY TOPICALLY TWO TIMES [...] branch block(Confirmed) Active Vitamin D deficiency(Confirmed) Active Vital Signs Most recent to oldest [Reference Range]: 1 Height 168.00 cm (04/05/22 12:51 PM) Weight 80.8 kg (04/05/22 12:51 PM) Body Mass Index [18.5-24.99] 28.63 *H* (04/05/22 12:51 PM) Weight Obtained Via Standing scale (04/05/22 12:51 PM) Social History Social History Type Response Smoking Status Former smoker, quit more than 30 days ago entered on: 08/14/18 Sex Care Team Personnel Name: Dante Thomas MD Address: [address] [place] [id number]
--- OUTSIDE RECORDS SUMMARY | 2023-01-03 13:31 | XMS_ITS | Continuity of Care Document ---
Author Name Unknown Organization [facility] Curtis lt Address [address] [place] [address]- Care Team Providers Care Aerial Photographer Name Role Phone Martha BRYANT, Dante Lopez Primary Care Physician Encounter [facility] [place] Date(s): 05/12/22 - 06/11/22 [facility] Adult [address] [place] [address]- Allergies, Adverse Reactions, Alerts Substance Reaction Severity Status lisinopril COUGH Active Immunizations Given and Recorded Vaccine Date Status Refusal Reason SARS-CoV-2 mRNA (xbwwxty-scat-tyobl) vax 11/27/21 Recorded SARS-CoV-2 (COVID-19) mRNA BNT-162b2 [...] Refills, Maintenance, 02/09/20 18:07:00 EDT, REC Powder, [facility] # 50, 17 Gm [...] oral enteric coated capsule See Instructions, TAKE ONE CAPSULE BY MOUTH ONCE DAILY, # 90 capsule, 0 Refills, Maintenance, 06/07/22 15:41:00 EDT, [facility] # 50, 168, cm, 04/05/22 12:51:00 EDT, Height Start Date: 06/07/22 Status: Ordered Sinemet 25 mg-100 mg oral [...] Name: Martha BRYANT, Dante Lopez Address: Address: [address] [place] [id number]
--- OUTSIDE RECORDS SUMMARY | 2023-01-03 13:31 | XMS_ITS | Continuity of Care Document ---
Author Name Unknown Organization [facility] Curtis lt Address [address] [place] [address]- Care Team Providers Care Junior Oracle Dba Name Role Phone Martha BRYANT, Dante Lopez Primary Care Physician [phone] Encounter [facility] [place] Date(s): 02/09/20 - 03/10/20 [facility] Adult [address] [place] [address]- [facility] Allergies, Adverse Reactions, Alerts Substance Reaction Severity [...] 90 capsule, 1 Refills, 03/10/20 8:47:00 EDT, [facility] # 50, 168, cm, 12/26/19 10:39:00 [...] Replace Required Details, Route to Pharmacy Electronically, [id number]... Start Date: 04/19/19 Status: Ordered ipratropium nasal 21 mcg/inh spray See Instructions, USE 2 SPRAYS IN EACH NOSTRIL TWO TIMES A DAY, # 30 mL, 0 Refills, Acute, [facility] # 50, 30, USE 2 SPRAYS IN EACH NOSTRIL TWO TIMES A DAY, 168, cm, 12/26/19 10:39:00 EDT, Height Start Date: 01/07/20 Status: Ordered melatonin 10 mg oral capsule 1 capsule = 10 mg, By Mouth, Daily at bedtime, # 30 capsule, 0 Refills, Maintenance, 09/26/19 11:00:00 EST Start Date: 09/26/19 Status: Ordered MiraLax oral powder for reconstitution = 17 Gm, By Mouth, Daily, dissolve in water before taking, # 255 Gm, 5 Refills, Maintenance, 02/09/20 18:07:00 EDT, REC Powder, [facility] # 50, 17 Gm By Mouth Daily,Instr:dissolve in water before taking, 168, cm, 12/26/19 10:39:00 EDT, Height Start Date: 02/09/20 Status: Ordered omeprazole 20 mg oral delayed release tablet 1 tablet = 20 mg, By Mouth, Daily, # 90 tablet, 0 Refills, Maintenance, 01/07/20 11:52:00 EDT, EC Tablet, [facility] # 50, 168, cm, 12/26/19 10:39:00 EDT, Height Start Date: 01/07/20 Status: Ordered Sinemet 25 mg-100 mg oral [...] DAY, # 60 Gm, 0 Refills, Maintenance, 01/29/20 12:57:00 EDT, [facility] # [facility], APPLY TOPICALLY TWO TIMES A DAY, 168, cm, 12/26/19 10:39:00 EDT, Height Start Date: 01/29/20 Status: Ordered Tylenol 325 mg oral tablet [...]
--- OUTSIDE RECORDS SUMMARY | 2023-01-03 13:31 | XMS_ITS | Continuity of Care Document ---
Author Name Unknown Organization [facility] Curtis lt Address [address] [place] [address]- Care Team Providers Care Clothespin Drier Operator Name Role Phone Martha BRYANT, Dante Lopez Primary Care Physician [phone] En[place] [facility] [place] Date(s): 03/13/20 - 04/12/20 [facility] Adult [address] [place] [address]- [facility] Attending Physician: Admtr, Ar8 Admitting Physician: Admtr, [...] Replace Required Details, Route to Pharmacy Electronically, [id number]... Start Date: 04/19/19 Status: Ordered ipratropium nasal 21 mcg/inh spray See Instructions, USE 2 SPRAYS IN EACH NOSTRIL TWO TIMES A DAY, # 30 mL, 0 Refills, Acute, [facility] # 50, 30, USE [...] Refills, Maintenance, 02/09/20 18:07:00 EDT, REC Powder, [facility] # 50, 17 Gm By Mouth Daily,Instr:dissolve in water before taking, 168, cm, 12/26/19 10:39:00 EDT, Height Start Date: 02/09/20 Status: Ordered omeprazole 20 mg oral delayed release tablet 1 tablet = 20 mg, By Mouth, Daily, # 90 tablet, 3 Refills, Maintenance, 04/10/20 13:29:00 EDT, EC Tablet, [facility] # 50, 168, cm, [...] DAY, # 60 Gm, 0 Refills, Maintenance, 03/28/20 9:43:00 EDT, [facility] # [facility], APPLY TOPICALLY TWO TIMES A DAY, 168, cm, 03/13/20 11:52:00 EDT, Height Start Date: 03/28/20 Status: Ordered Tylenol 325 mg oral tablet [...]
--- OUTSIDE RECORDS SUMMARY | 2023-01-03 13:31 | XMS_ITS | Continuity of Care Document ---
Author Name Unknown Organization [facility] Curtis lt Address [address] [place] [address]- Care Team Providers Care Port Engineer Name Role Phone Martha BRYANT, Dante Lopez Primary Care Physician Encounter [facility] Date(s): 04/30/20 - 05/30/20 [facility] Adult [address] [place] [address]- [facility] Allergies, Adverse Reactions, Alerts Substance [...] 90 capsule, 1 Refills, 03/10/20 8:47:00 EDT, [facility] # 50, 168, [...] Replace Required Details, Route to Pharmacy Electronically, [facility] # 50, 168,... Start Date: 04/30/20 Status: Ordered ipratropium nasal 21 mcg/inh spray See Instructions, USE 2 SPRAYS IN EACH NOSTRIL TWO TIMES A DAY, # 30 mL, 0 Refills, Acute, [facility] # 50, 30, [...] Refills, Maintenance, 02/09/20 18:07:00 EDT, REC Powder, [facility] # 50, 17 Gm By Mouth Daily,Instr:dissolve in water before taking, 168, cm, 12/26/19 10:39:00 EDT, Height Start Date: 02/09/20 Status: Ordered omeprazole 20 mg oral delayed release tablet 1 tablet = 20 mg, By Mouth, Daily, # 90 tablet, 3 Refills, Maintenance, 04/10/20 13:29:00 EDT, EC Tablet, [facility] # 50, 168, [...] A DAY, # 60 Gm, 0 Refills, Acute, [facility] # [facility], 30, APPLY TOPICALLY TWO TIMES A DAY, 168, cm, 03/13/20 11:52:00 EDT, Height Start Date: 05/15/20 Status: Ordered Tylenol 325 mg oral tablet [...]
--- OUTSIDE RECORDS SUMMARY | 2023-01-03 13:31 | XMS_ITS | Continuity of Care Document ---
Author Name Unknown Organization [facility] Curtis lt Address [address] [place] [address]- Care Team Providers Care Smoking Pipe Mounter Name Role Phone Dante Thomas MD Primary Care Physician Encounter [facility] Date(s): 09/07/22 - 10/07/22 [facility] Adult [address] [place] [address]- Allergies, Adverse Reactions, Alerts Substance Reaction Severity Status lisinopril COUGH Active Immunizations Given and Recorded Vaccine Date Status Refusal Reason tetanus/diphtheria/pertussis, acel(Tdap) 09/14/22 Given influenza virus vaccine, inactivated 05/21/22 Marquis rded influenza virus vaccine, inactivated 05/07/19 Marquis rded influenza virus vaccine, inactivated 05/26/18 Marquis rded influenza virus vaccine, inactivated 1 05/08/18 Re corded influenza virus vaccine, inactivated 05/08/18 Marquis rded influenza virus vaccine, inactivated 05/17/17 Marquis rded influenza virus vaccine, inactivated 05/10/16 Marquis rded influenza virus vaccine, inactivated 05/08/15 Marquis rded [id number] 12y+ bivalent booster vax 05/21/22 Recorded SARS-CoV-2 mRNA ([id number]-yike-tkqlo) vax 11/27/21 Recorded SARS-CoV-2 (COVID-19) mRNA BNT-162b2 vac 05/11/21 Recorded SARS-CoV-2 (COVID-19) mRNA BNT-162b2 vac 09/11/20 Recorded SARS-CoV-2 (COVID-19) mRNA BNT-162b2 vac 08/21/20 Recorded Influenza Virus Vaccine (oldterm) 06/08/20 Recorde d pneumococcal 23-valent vaccine 05/24/17 Recorded pneumococcal 13-valent vaccine 07/07/12 Recorded 1Result Comment: DUPLICATE Medications Albuterol (Eqv-ProAir HFA) 90 mcg/inh inhalation aerosol 2 puffs, Inhalation, 4 times a day, PRN NEEDED FOR WHEEZING, # 8.5 Gm, 0 Refills, Maintenance, 09/28/22 10:54:00 EST, [facility] # [facility], 25, INHALE 2 PUFFS BY MOUTH 4 TIMES A DAY NEEDED FOR WHEEZING, 168, cm, 09/14/22 10:23:00 EST, Height Start Date: 09/28/22 Status: Ordered aspirin 81 mg oral delayed release tablet [...] Mouth, Daily, # 90 capsule, 3 Refills, [facility] # [facility], 168, cm, 07/29/21 [...] each, 3 Refills, Maintenance, 03/01/22 10:13:00 EDT, [facility], USE 2 SPRAYS IN [...] Refills, Maintenance, 02/09/20 18:07:00 EDT, REC Powder, [facility] # 50, 17 Gm By Mouth Daily,Instr:dissolve in water before taking, 168, cm, 12/26/19 10:39:00 EDT, Height Start Date: 02/09/20 Status: Ordered Mucinex = 600 mg, By Mouth, Every 12 hours, 0 Refills, Maintenance, 10/09/20 10:26:00 EST, Partial fill upon patient request if the prescription is for a schedule II opioid drug. Start Date: 10/09/20 Status: Ordered nitrofurantoin macrocrystals 100 mg oral capsule 1 capsule = 100 mg, By Mouth, 2 times a day, # 14 capsule, 0 Refills, Maintenance, 09/19/22 16:52:00 EST, [facility] # 50, Partial fill upon patient request if the prescription is for a schedule II opioid drug., 168, cm, 09/14/22 10:23:00 EST, Height Start Date: 09/19/22 Status: Ordered omeprazole 20 mg oral enteric coated capsule See Instructions, TAKE ONE CAPSULE BY MOUTH ONCE DAILY, # 90 capsule, 0 Refills, Maintenance, 09/05/22 15:12:00 EST, [facility] # [facility], 168, cm, 04/05/22 12:51:00 EDT, Height Start Date: 09/05/22 Status: Ordered Sinemet 25 mg-100 mg oral [...] Gm, 1 Refills, Maintenance, 10/09/21 11:07:00 EST, [facility] # 50, APPLY TOPICALLY TWO TIMES [...] on: 08/14/18 Sex Patient Care team information Care Team Personnel Name: Dante Thomas MD Position: S Primary Care Physician Member Role: PCP Address: Address: [address] [place] [id number]- Care Team Related Persons Name: RAJAN PISANO Name: LAURA PISANO Name: GABBY PISANO
--- OUTSIDE RECORDS SUMMARY | 2023-01-03 13:31 | XMS_ITS | Continuity of Care Document ---
Author Name Unknown Organization [facility] Curtis lt Address [address] [place] [address]- Care Team Providers Care Vending Machine Collector Name Role Phone Dante Thomas MD Primary Care Physician [phone] Encounter [facility] [place] Date(s): 07/19/19 - 07/26/19 [facility] Adult [address] [place] [address]- [facility] Attending Physician: Dante Thomas MD Allergies, Adverse [...] Replace Required Details, Route to Pharmacy Electronically, [id number]... Start Date: 04/19/19 Status: Ordered ipratropium nasal 21 mcg/inh spray 2 sprays, Nares, Both, 2 times a day, # 1 each, 0 Refills, Maintenance, 02/26/19 14:05:28 EDT, 2 sprays Nares, Both 2 times a day Start Date: 02/26/19 Status: Ordered omeprazole 20 mg oral delayed [...] A DAY, # 60 Gm, 0 Refills, Soft Stop, 07/19/19 11:55:41EST, APPLY TOPICALLY TWO TIMES A DAY, 168, cm, 07/19/19 11:25:06 EST, Height Start Date: 07/19/19 Status: Ordered Tylenol 325 mg oral tablet [...] oldest [Reference Range]: 1 Height 168.00 cm (07/19/19 11:25 AM) Weight 75.3 kg (07/19/19 11:25 AM) Oxygen Saturation [94-100 %] 96 % (07/19/19 11:25 AM) Pulse Rate [55-90 bpm] 67 bpm (07/19/19 11:25 AM) Body Mass Index [18.5-24.99] 26.68 *H* (07/19/19 11:25 AM) Blood Pressure [90-138/55-84 mm Hg] 124/ 66mm Hg (07/19/19 11:25 AM) Respiratory Rate [16-30 br/min] 16 br/mi n (07/19/19 11:25 AM) Mode of Delivery (Oxygen) Room air (07/19/19 11:25 AM) Blood pressure sites Arm, right (07/19/19 11:25 AM) Weight Obtained Via Standing scale (07/19/19 11:25 AM) Social History Social History Type Response Smoking Status Former smoker, quit more than 30 days ago entered on: 08/14/18 Sex
--- OUTSIDE RECORDS SUMMARY | 2023-01-03 13:31 | XMS_ITS | Continuity of Care Document ---
Author Name Unknown Organization [facility] Curtis lt Address [address] [place] [address]- Care Team Providers Care Captain/Check Airman Name Role Phone Dante Thomas MD Primary Care Physician Encounter [facility] [place] Date(s): 07/28/20 - 08/04/20 [facility] Adult [address] [place] [address]- Attending Physician: Dante Thomas MD Allergies, Adverse [...] Replace Required Details, Route to Pharmacy Electronically, [facility] # [facility], 168,... Start Date: 04/30/20 Status: Ordered ipratropium nasal 21 mcg/inh spray See Instructions, USE 2 SPRAYS IN EACH NOSTRIL TWO TIMES A DAY, # 3 each, 1 Refills, Maintenance, 06/03/20 10:39:00 EDT, [facility] # 50, USE 2 SPRAYS [...] Refills, Maintenance, 02/09/20 18:07:00 EDT, REC Powder, [facility] # 50, 17 Gm By Mouth Daily,Instr:dissolve in water before taking, 168, cm, 12/26/19 10:39:00 EDT, Height Start Date: 02/09/20 Status: Ordered omeprazole 20 mg oral delayed release tablet 1 tablet = 20 mg, By Mouth, Daily, # 90 tablet, 3 Refills, Maintenance, 04/10/20 13:29:00 EDT, EC Tablet, [facility] # 50, 168, cm, 03/13/20 [...] oldest [Reference Range]: 1 Height 168.00 cm (07/28/20 11:06 AM) Social History Social History Type Response Smoking Status Former smoker, quit more than 30 days ago entered on: 08/14/18 Sex
--- OUTSIDE RECORDS SUMMARY | 2023-01-03 13:31 | XMS_ITS | Continuity of Care Document ---
Author Name Unknown Organization [facility] Curtis lt Address [address] [place] [address]- Care Team Providers Care Soft Hat Binder Name Role Phone Martha BRYANT, Dante Lopez Primary Care Physician Encounter [facility] [place] Date(s): 07/27/21 - 08/26/21 [facility] Adult [address] [place] [address]- Allergies, Adverse Reactions, Alerts Substance Reaction Severity [...] Mouth, Daily, # 90 capsule, 1 Refills, Maintenance, 03/17/21 10:53:00 EDT, [facility] # 50, 168, cm, 01/14/21 11:31:00 EDT, Height Start Date: 03/17/21 Status: Ordered Cranberry 0 Refills, Maintenance, 10/09/20 [...] each, 5 Refills, Maintenance, 10/09/20 11:09:00 EST, [facility] # 50, USE 2 SPRAYS [...] Refills, Maintenance, 02/09/20 18:07:00 EDT, REC Powder, [facility] # 50, 17 Gm By Mouth [...] See Instructions, TAKE ONE CAPSULE BY MOUTH EVERY DAY, # 90 capsule, 0 Refills, [facility] # 50, 168, cm, 06/02/21 9:10:00 EDT, Height Start Date: 06/16/21 Status: Ordered Sinemet 25 mg-100 mg oral [...] Gm, 1 Refills, Maintenance, 10/09/21 11:07:00 EST, [facility] # 50, APPLY TOPICALLY TWO TIMES [...]
--- OUTSIDE RECORDS SUMMARY | 2023-01-03 13:31 | XMS_ITS | Continuity of Care Document ---
Author Name Unknown Organization [facility] Curtis lt Address [address] [place] [address]- Care Team Providers Care Pickling Tank Operator Name Role Phone Dante Thomas MD Primary Care Physician Encounter [facility] [place] Date(s): 08/22/19 - 12/20/19 [facility] Adult [address] [place] [address]- [facility] Attending Physician: Dante Thomas MD [...] Replace Required Details, Route to Pharmacy Electronically, [id number]... Start Date: 04/19/19 Status: Ordered ipratropium nasal 21 mcg/inh spray See Instructions, USE 2 SPRAYS IN EACH NOSTRIL TWO TIMES A DAY, # 30 mL, 0 Refills, Acute, [facility] # [facility], 43, USE 2 SPRAYS IN EACH NOSTRIL TWO TIMES A DAY, 168, cm, 09/26/19 10:35:00 EST, Height Start Date: 12/04/19 Status: Ordered Melatonin 10 mg oral capsule [...] Daily, # 90 tablet, 0 Refills, Maintenance, 10/04/19 8:44:00 EST, EC Tablet, [facility], 168, cm, 09/26/19 10:35:00 EST, Height Start Date: 10/04/19 Status: Ordered Sinemet 25 mg-100 mg oral [...] TOPICALLY TWO TIMES A DAY, 168, cm, 09/26/19 10:35:00 EST, Height Start Date: 11/01/19 Status: Ordered Tylenol 325 mg oral tablet [...]
--- OUTSIDE RECORDS SUMMARY | 2023-01-03 13:31 | XMS_ITS | Continuity of Care Document ---
Author Name Unknown Organization [facility] Curtis lt Address [address] [place] [address]- Care Team Providers Care Hanging Flags Decorator Name Role Phone Dante Thomas MD Primary Care Physician [phone] Encounter [facility] [place] Date(s): 06/02/21 - 06/09/21 [facility] Adult [address] [place] [address]- Attending Physician: Dante Thomas MD Allergies, Adverse [...] capsule, 1 Refills, Maintenance, 03/17/21 10:53:00 EDT, [facility] # [facility], 168, cm, 01/14/21 11:31:00 [...] each, 5 Refills, Maintenance, 10/09/20 11:09:00 EST, [facility] # 50, USE 2 SPRAYS IN EACH NOSTRIL TWO TIMES A DAY, 168, cm, 10/09/20 10:22:00 EST, Height Start Date: 10/09/20 Status: Ordered melatonin 5 mg oral tablet [...] Refills, Maintenance, 02/09/20 18:07:00 EDT, REC Powder, [facility] # 50, 17 Gm By Mouth [...] EVERY DAY, # 90 capsule, 0 Refills, Maintenance, 03/20/21 16:23:00 EDT, [facility] # 50, 168, cm, 01/14/21 11:31:00 EDT, Height Start Date: 03/20/21 Status: Ordered Sinemet 25 mg-100 mg oral [...] Gm, 1 Refills, Maintenance, 10/09/21 11:07:00 EST, [facility] # 50, APPLY TOPICALLY [...] oldest [Reference Range]: 1 Height 168.00 cm (06/02/21 9:10 AM) Weight 68.18 kg (06/02/21 9:10 AM) Body Mass Index [18.5-24.99] 24.16 (06/02/21 9:10 AM) Weight Obtained Via Standing scale (06/02/21 9:10 AM) Social History Social History Type Response Smoking Status Former smoker, quit more than 30 days ago entered on: 08/14/18 Sex
--- OUTSIDE RECORDS SUMMARY | 2023-01-03 13:31 | XMS_ITS | Continuity of Care Document ---
Author Name Unknown Organization [facility] Curtis lt Address [address] [place] [address]- Care Team Providers Care Primer Expeditor And Drier Name Role Phone Martha BRYANT, Dante Lopez Primary Care Physician Encounter [facility] Date(s): 06/07/22 - 07/07/22 [facility] Adult [address] [place] [address]- Allergies, Adverse Reactions, Alerts Substance Reaction Severity Status lisinopril COUGH Active Immunizations Given and Recorded Vaccine Date Status Refusal Reason SARS-CoV-2 mRNA (afanftz-omvv-nbgma) vax 11/27/21 Recorded SARS-CoV-2 (COVID-19) mRNA BNT-162b2 [...] tablet, Refills 0, Tot. Refills 0, Maintenance, 03/04/21 11:05:00 EST, Do Not Route, Partial fill upon patient request if the prescription is for a schedule IIopioid drug., 168, cm, 10/09/20 10:22:00 EST, Height Start Date: 10/09/20 Status: Ordered calcitriol 0.5 mcg oral capsule 1 capsule, By Mouth, Daily, # 90 capsule, 3 Refills, [facility] # [facility], 168, cm, 07/29/21 [...] each, 3 Refills, Maintenance, 03/01/22 10:13:00 EDT, [facility] # 50, USE 2 [...] Refills, Maintenance, 02/09/20 18:07:00 EDT, REC Powder, [facility] # 50, 17 Gm By [...] capsule, 0 Refills, Maintenance, 06/07/22 15:41:00 EDT, [facility] # 50, 168, cm, 04/05/22 12:51:00 [...] Gm, 1 Refills, Maintenance, 10/09/21 11:07:00 EST, [facility] # 50, APPLY TOPICALLY TWO TIMES [...] Care Physician Member Role: PCP Address: Address: [address] [place] [id number] Care Team Related Persons Name: RAJAN PISANO Name: LAURA PISANO Name: GABBY PISANO
--- OUTSIDE RECORDS SUMMARY | 2023-01-03 13:31 | XMS_ITS | Continuity of Care Document ---
Author Name Unknown Organization [facility] Curtis lt Address [address] [place] [address]- Care Team Providers Care Leave Manager Name Role Phone Martha BRYANT, Dante Lopez Primary Care Physician Encounter [facility] [place] Date(s): 03/18/22 - 04/17/22 [facility] Adult [address] [place] [address]- Allergies, Adverse Reactions, Alerts Substance Reaction Severity Status lisinopril COUGH Active Immunizations Given and Recorded Vaccine Date Status Refusal Reason SARS-CoV-2 mRNA (gtdojsl-ccsc-lfosv) vax 11/27/21 Recorded SARS-CoV-2 (COVID-19) mRNA BNT-162b2 [...] Mouth, Daily, # 90 capsule, 3 Refills, [facility] # [facility], 168, cm, 07/29/21 [...] each, 3 Refills, Maintenance, 03/01/22 10:13:00 EDT, [facility] # [...] Refills, Maintenance, 02/09/20 18:07:00 EDT, REC Powder, [facility] # [facility], 17 Gm By Mouth [...] ONCE DAILY., # 90 capsule, 1 Refills, [facility] # [facility], 168, cm, 07/29/21 10:00:00 [...] Gm, 1 Refills, Maintenance, 10/09/21 11:07:00 EST, [facility] # [facility], APPLY TOPICALLY TWO TIMES [...] Personnel Name: Martha BRYANT, Dante Lopez Address: [address] [place] [id number]
--- OUTSIDE RECORDS SUMMARY | 2023-01-03 13:31 | XMS_ITS | Continuity of Care Document ---
Author Name Unknown Organization [facility] Curtis lt Address [address] [place] [address]- Care Team Providers Care Cold Header Operator Name Role Phone Martha BRYANT, Dante Lopez Primary Care Physician [phone] Encounter [facility] Date(s): 03/25/22 - 04/24/22 [facility] Adult [address] [place] [address]- Allergies, Adverse Reactions, Alerts Substance Reaction Severity Status lisinopril COUGH Active Immunizations Given and Recorded Vaccine Date Status Refusal Reason SARS-CoV-2 mRNA (pewgqqi-nosx-llvkc) vax 11/27/21 Recorded SARS-CoV-2 (COVID-19) mRNA BNT-162b2 [...] Mouth, Daily, # 90 capsule, 3 Refills, [facility] # [facility], 168, cm, 07/29/21 10:00:00 [...] each, 3 Refills, Maintenance, 03/01/22 10:13:00 EDT, [facility] # 50, USE 2 SPRAYS IN [...] Refills, Maintenance, 02/09/20 18:07:00 EDT, REC Powder, [facility] # [facility], 17 Gm By Mouth [...] ONCE DAILY., # 90 capsule, 1 Refills, [facility] # 50, 168, cm, 07/29/21 10:00:00 [...] Gm, 1 Refills, Maintenance, 10/09/21 11:07:00 EST, [facility] # 50, APPLY TOPICALLY TWO TIMES [...] Personnel Name: Martha BRYANT, Dante Lopez Address: [address] [place] [id number]
--- OUTSIDE RECORDS SUMMARY | 2023-01-03 13:31 | XMS_ITS | Continuity of Care Document ---
Author Name Unknown Organization [facility] Curtis lt Address [address] [place] [address]- Care Team Providers Care Medication Aide Name Role Phone Dante Thomas MD Primary Care Physician [phone] Encounter [facility] [place] Date(s): 09/26/19 - 10/03/19 [facility] Adult [address] [place] [address]- [facility] Attending Physician: Dante Thomsa MD Allergies, Adverse Reactions, Alerts Substance Reaction [...] Replace Required Details, Route to Pharmacy Electronically, [id number]... Start Date: 04/19/19 Status: Ordered ipratropium nasal [...] Gm, 0 Refills, Maintenance, 09/10/19 9:18:00 EST, [facility] # [facility], 30, APPLY TOPICALLY TWO [...] oldest [Reference Range]: 1 Height 168.00 cm (09/26/19 10:35 AM) Oxygen Saturation [94-100 %] 96 % (09/26/19 10:35 AM) Pulse Rate [55-90 bpm] 91 bpm *H* (09/26/19 10:35 AM) Blood Pressure [90-138/55-84 mm Hg] 106/ 62mm Hg (09/26/19 10:35 AM) Temperature [96.8-100.4 DegF] 98.0 DegF (09/26/19 10:35 AM) Mode of Delivery (Oxygen) Room air (09/26/19 10:35 AM) Blood pressure sites Arm, right (09/26/19 10:35 AM) Temperature Route Oral (09/26/19 10:35 AM) Social History Social History Type Response Smoking Status Former smoker, quit more than 30 days ago entered on: 08/14/18 Sex
--- OUTSIDE RECORDS SUMMARY | 2023-01-03 13:31 | XMS_ITS | Continuity of Care Document ---
Author Name Unknown Organization [facility] Curtis lt Address [address] [place] [address]- Care Team Providers Care Sql Engineer Name Role Phone Martha BRYANT, Dante Lopez Primary Care Physician [place] [facility] [place] 10[place]20[place]21 [place] 11/19/21 [facility] Adult [address] [place] [address]- Attending Physician: Admastrid, Edward8 Admitting Physician: AdmtrSeun Referring Physician: Admtr, Ar8 Allergies, Adverse Reactions, [...] Mouth, Daily, # 90 capsule, 1 Refills, [facility] # [...] Refills, Maintenance, 10/09/20 11:09:00 EST, [facility] # [facility], [...] Maintenance, 02/09/20 18:07:00 EDT, REC Powder, [facility] # 50, 17 Gm By [...] EVERY DAY, # 90 capsule, 0 Refills, 09/10/21 6:58:00 EST, [facility] # 50, 168, cm, 07/29/21 10:00:00 EST, Height Start Date: 09/10/21 Status: Ordered Sinemet 25 mg-100 mg oral [...] 1 Refills, Maintenance, 10/09/21 11:07:00 EST, [facility] # 50, APPLY TOPICALLY TWO [...]
--- OUTSIDE RECORDS SUMMARY | 2023-01-03 13:31 | XMS_ITS | Continuity of Care Document ---
Author Name Unknown Organization [facility] Curtis lt Address [address] [place] [address]- Care Team Providers Care Marine Diesel Technician Name Role Phone Martha BRYANT, Dante Lopez Primary Care Physician Encounter [facility] Date(s): 04/10/20 - 05/10/20 [facility] Adult [address] [place] [address]- [facility] Allergies, Adverse Reactions, Alerts Substance Reaction Severity [...] 90 capsule, 1 Refills, 03/10/20 8:47:00 EDT, [facility] # 50, 168, [...] Replace Required Details, Route to Pharmacy Electronically, [facility] # 50, 168,... Start Date: 04/30/20 Status: Ordered ipratropium nasal 21 mcg/inh spray See Instructions, USE 2 SPRAYS IN EACH NOSTRIL TWO TIMES A DAY, # 30 mL, 0 Refills, Acute, [facility] # 50, 30, [...] 02/09/20 18:07:00 EDT, REC Powder, [facility] # 50, 17 Gm By Mouth Daily,Instr:dissolve in water before taking, 168, cm, 12/26/19 10:39:00 EDT, Height Start Date: 02/09/20 Status: Ordered omeprazole 20 mg oral delayed release tablet 1 tablet = 20 mg, By Mouth, Daily, # 90 tablet, 3 Refills, Maintenance, 04/10/20 13:29:00 EDT, EC Tablet, [facility] # 50, 168, [...]
--- OUTSIDE RECORDS SUMMARY | 2023-01-03 13:31 | XMS_ITS | Continuity of Care Document ---
Author Name Unknown Organization [facility] Curtis lt Address [address] [place] [address]- Care Team Providers Care Chain Sales Consultant Name Role Phone Dante Thomas MD Primary Care Physician Encounter [facility] [place] Date(s): 09/08/22 - 10/08/22 [facility] Adult [address] [place] [address]- Allergies, Adverse Reactions, Alerts Substance Reaction Severity [...] influenza virus vaccine, inactivated 05/08/15 Marquis rded [id number] 12y+ bivalent booster vax 05/21/22 Recorded SARS-CoV-2 mRNA (firtfti-jtdf-olhat) vax 11/27/21 Recorded SARS-CoV-2 (COVID-19) mRNA BNT-162b2 [...] Gm, 0 Refills, Maintenance, 09/28/22 10:54:00 EST, [facility] # [facility], 25, INHALE 2 PUFFS [...] each, 3 Refills, Maintenance, 03/01/22 10:13:00 EDT, [facility], USE 2 SPRAYS [...] capsule, 0 Refills, Maintenance, 09/19/22 16:52:00 EST, [facility] # [facility], Partial fill upon patient request if the prescription is for a schedule II opioid drug., 168, cm, 09/14/22 10:23:00 EST, Height Start Date: 09/19/22 Status: Ordered omeprazole 20 mg oral enteric coated capsule See Instructions, TAKE ONE CAPSULE BY MOUTH ONCE DAILY, # 90 capsule, 0 Refills, Maintenance, 09/05/22 15:12:00 EST, [facility] # [facility], 168, cm, 04/05/22 12:51:00 [...] Gm, 1 Refills, Maintenance, 10/09/21 11:07:00 EST, [facility] # 50, APPLY TOPICALLY TWO TIMES [...] Care Physician Member Role: PCP Address: Address: [address] [place] [address]- Care Team Related Persons Name: RAJAN PISANO Name: LAURA PISANO Name: GABBY PISANO
--- OUTSIDE RECORDS SUMMARY | 2023-01-03 13:31 | XMS_ITS | Continuity of Care Document ---
Author Name Unknown Organization [facility] Curtis lt Address [address] [place] [address]- Care Team Providers Care Nurses Educator Name Role Phone Dante Thomas MD Primary Care Physician Encounter [facility] [place] Date(s): 10/10/20 - 02/07/21 [facility] Adult [address] [place] [address]- Attending Physician: Dante Thomas MD Allergies, Adverse [...] Unknown, 1 Refills, Maintenance, 09/02/20 14:42:00 EST, [facility] # [facility], 168, cm, 07/28/20 11:06:00 EST, Height Start Date: 09/02/20 Status: Ordered cephalexin monohydrate 500 mg oral tablet 1 tablet = 500 mg, By Mouth, 3 times a day, # 21 tablet, 0 Refills, Maintenance, 02/02/21 15:56:00 EDT, [facility] # [facility], Partial fill [...] Refills, Maintenance, 10/09/20 11:09:00 EST, [facility] # 50, USE 2 SPRAYS [...] 02/09/20 18:07:00 EDT, REC Powder, [facility] # 50, 17 Gm By [...] 04/10/20 13:29:00 EDT, EC Tablet, [facility] # 50, 168, cm, 03/13/20 [...] Stop 10/09/21 11:08:00 EST, 10/09/21 11:07:00 EST, [facility] # 50, 30, APPLY TOPICALLY [...]
--- OUTSIDE RECORDS SUMMARY | 2023-01-03 13:31 | XMS_ITS | Continuity of Care Document ---
Author Name Unknown Organization [facility] Curtis lt Address [address] [place] [address]- Care Team Providers Care Plasma Processor Name Role Phone Dante Thomas MD Primary Care Physician En[place] [facility] [place] Date(s): 04/17/21 - 08/15/21 [facility] Adult [address] [place] [address]- Attending Physician: Dante Thomas MD Allergies, Adverse [...] capsule, 1 Refills, Maintenance, 03/17/21 10:53:00 EDT, [facility] # [facility], 168, cm, 01/14/21 11:31:00 [...] each, 5 Refills, Maintenance, 10/09/20 11:09:00 EST, [facility] # [facility], USE 2 SPRAYS IN [...] Refills, Maintenance, 02/09/20 18:07:00 EDT, REC Powder, [facility] # 50, 17 Gm By Mouth [...] EVERY DAY, # 90 capsule, 0 Refills, [facility] # [facility], 168, cm, 06/02/21 9:10:00 [...] Gm, 1 Refills, Maintenance, 10/09/21 11:07:00 EST, [facility] # [facility], APPLY TOPICALLY TWO TIMES [...]
--- OUTSIDE RECORDS SUMMARY | 2023-01-03 13:31 | XMS_ITS | Continuity of Care Document ---
Author Name Unknown Organization [facility] Curtis lt Address [address] [place] [address]- Care Team Providers Care Fisheries Manager Name Role Phone Dante Thomas MD Primary Care Physician [phone] Encounter [facility] [place] Date(s): 09/14/22 - 09/21/22 [facility] Adult [address] [place] [address]- Attending Physician: Dante Thomas MD Allergies, Adverse [...] influenza virus vaccine, inactivated 05/08/15 Marquis rded [id number] 12y+ bivalent booster vax 05/21/22 Recorded SARS-CoV-2 mRNA (vficdax-czjj-nmeym) vax 11/27/21 Recorded SARS-CoV-2 (COVID-19) mRNA BNT-162b2 [...] Mouth, Daily, # 90 capsule, 3 Refills, [facility] # [facility], 168, cm, 07/29/21 [...] each, 3 Refills, Maintenance, 03/01/22 10:13:00 EDT, [facility] # [facility], USE [...] capsule, 0 Refills, Maintenance, 09/19/22 16:52:00 EST, [facility] # 50, Partial fill upon patient request if the prescription is for a schedule II opioid drug., 168, cm, 09/14/22 10:23:00 EST, Height Start Date: 09/19/22 Status: Ordered omeprazole 20 mg oral enteric coated capsule See Instructions, TAKE ONE CAPSULE BY MOUTH ONCE DAILY, # 90 capsule, 0 Refills, Maintenance, 09/05/22 15:12:00 EST, [facility], 168, cm, 04/05/22 12:51:00 [...] Gm, 1 Refills, Maintenance, 10/09/21 11:07:00 EST, [facility] # [facility], APPLY TOPICALLY TWO TIMES A DAY, 168, cm, 01/14/21 11:31:00 EDT, Height Start Date: 10/09/21 Status: Ordered Tylenol 325 mg oral tablet 325 mg, 1, tablet, By Mouth, Daily at bedtime, Refills 0, Maintenance, 08/14/18 11:35:59 EST Start Date: 08/14/18 Status: Ordered Ventolin HFA 108 mcg/inh inhalation aerosol with adapter 2 puffs, Inhalation, 4 times a day, PRN for wheezing, # 8.5 Gm, 0 Refills, Maintenance, 09/08/22 16:54:00 EST, Aerosol, [facility] # [facility], Partial fill upon patient request if the prescription is for a schedule II opioid drug., 168, cm, 04/05/22 12:... Start Date: 09/08/22 Status: Ordered Problem List Condition Confirmation Course [...] Active 1Per chart review meeting GFR criteria Vital Signs Most recent to oldest [Reference Range]: 1 Height 168.00 cm (09/14/22 10:23 AM) Weight 80.9 kg (09/14/22 10:23 AM) Oxygen Saturation [94-100 %] 96 % (09/14/22 10:23 AM) Pulse Rate [55-90 bpm] 60 bpm (09/14/22 10:23 AM) Body Mass Index [18.5-24.99 kg/m2] 28.66 kg/m2 *H* (09/14/22 10:23 AM) Blood Pressure [90-138/55-84 mm Hg] 104/ 78mm Hg (09/14/22 10:23 AM) Temperature [96.8-100.4 DegF] 98.6 DegF (09/14/22 10:23 AM) Mode of Delivery (Oxygen) Room air (09/14/22 10:23 AM) Blood pressure sites Arm, right (09/14/22 10:23 AM) Temperature Route Oral (09/14/22 10:23 AM) Weight Obtained Via Standing scale (09/14/22 10:23 AM) Social History Social History Type Response Smoking Status Former smoker, quit more than 30 days ago entered on: 08/14/18 Sex Patient Care team information Care Team Personnel Name: Martha BRYANT, Dante Lopez Position: S Primary Care Physician Member Role: PCP Address: Address: [address] [place] [address]- Care Team Related Persons Name: RAJAN PISANO Name: LAURA PISANO Name: GABBY PISANO
--- OUTSIDE RECORDS SUMMARY | 2023-01-03 13:31 | XMS_ITS | Continuity of Care Document ---
Author Name Unknown Organization [facility] Curtis lt Address [address] [place] [address]- Care Team Providers Care Ground Support Equipment Mechanic Name Role Phone Dante Thomas MD Primary Care Physician [place] [facility] [place] Date(s): 12/06/22 - 12/13/22 [facility] [place] Adult [address] [place] [address]- Attending Physician: Dante Thomas MD Allergies, Adverse [...] influenza virus vaccine, inactivated 05/08/15 Marquis rded [id number] 12y+ bivalent booster vax 05/21/22 Recorded SARS-CoV-2 mRNA (vilkkfp-mnrh-vehrq) vax 11/27/21 Recorded SARS-CoV-2 (COVID-19) mRNA BNT-162b2 [...] PRN NEEDED FOR WHEEZING, # 8.5 Gm, 2 Refills, Maintenance, 10/17/22 20:49:00 EDT, [facility] # [facility], 25, INHALE 2 PUFFS BY MOUTH 4 TIMES A DAY NEEDED FOR WHEEZING, 168, cm, 09/14/22 10:23:00 EST, Height Start Date: 10/17/22 Status: Ordered aspirin 81 mg oral delayed [...] Mouth, Daily, # 90 capsule, 3 Refills, [facility] # [facility], 168, cm, 07/29/21 10:00:00 [...] each, 3 Refills, Maintenance, 03/01/22 10:13:00 EDT, [facility] # [facility], USE 2 SPRAYS IN [...] Refills, Maintenance, 02/09/20 18:07:00 EDT, REC Powder, [facility] # [facility], 17 Gm By Mouth [...] capsule, 0 Refills, Maintenance, 09/19/22 16:52:00 EST, [facility] # [facility], Partial fill upon patient request if the prescription is for a schedule II opioid drug., 168, cm, 09/14/22 10:23:00 EST, Height Start Date: 09/19/22 Status: Ordered omeprazole 20 mg oral enteric coated capsule 1 capsule, By Mouth, Daily, # 90 capsule, 0 Refills, Maintenance, 12/02/22 8:28:00 EDT, [facility] # [facility], 168, cm, 09/14/22 10:23:00 EST, Height Start Date: 12/02/22 Status: Ordered Sinemet 25 mg-100 mg oral [...] Gm, 1 Refills, Maintenance, 10/09/21 11:07:00 EST, [facility] # [facility], APPLY TOPICALLY TWO TIMES [...] oldest [Reference Range]: 1 Height 168.00 cm (12/06/22 11:28 AM) Weight 80.9 kg (12/06/22 11:28 AM) Oxygen Saturation [94-100 %] 95 % (12/06/22 11:28 AM) Pulse Rate [55-90 bpm] 55 bpm (12/06/22 11:28 AM) Body Mass Index [18.5-24.99 kg/m2] 28.66 kg/m2 *H* (12/06/22 11:28 AM) Blood Pressure [90-138/55-84 mm Hg] 107/ 58mm Hg (12/06/22 11:28 AM) Mode of Delivery (Oxygen) Room air (12/06/22 11:28 AM) Blood pressure sites Arm, right (12/06/22 11:28 AM) Temperature Route Oral (12/06/22 11:28 AM) Weight Obtained Via Standing scale (12/06/22 11:28 AM) Social History Social History Type Response Smoking Status Former smoker, quit more than 30 days ago entered on: 08/14/18 Sex Patient Care team information Care Team Personnel Name: Martha BRYANT, Dante Lopez Position: S Primary Care Physician Member Role: PCP Address: Address: [address] [place] [address]- Care Team Related Persons Name: RAJAN PISANO Name: LAURA PISANO Name: GABBY PISANO
--- OUTSIDE RECORDS SUMMARY | 2023-01-03 13:31 | XMS_ITS | Continuity of Care Document ---
Author Name Unknown Organization [facility] Curtis lt Address [address] [place] [address]- Care Team Providers Care Life Claims Examiner Name Role Phone Martha BRYANT, Dante Lopez Primary Care Physician [place] [facility] [place]s): 05/27/21 - 06/26/21 [facility] Adult [address] [place] [address]- Allergies, Adverse Reactions, Alerts Substance Reaction Severity [...] Refills, Maintenance, 03/17/21 10:53:00 EDT, [facility] # [facility], 168, cm, 01/14/21 11:31:00 [...] Refills, Maintenance, 10/09/20 11:09:00 EST, [facility] # 50, USE [...] EVERY DAY, # 90 capsule, 0 Refills, [facility] # [facility], 168, cm, 06/02/21 9:10:00 [...] Refills, Maintenance, 10/09/21 11:07:00 EST, [facility] # 50, APPLY [...]
--- OUTSIDE RECORDS SUMMARY | 2023-01-03 13:31 | XMS_ITS | Continuity of Care Document ---
Author Name Unknown Organization [facility] Curtis lt Address [address] [place] [address]- Care Team Providers Care Machine Stone Polisher Name Role Phone Martha BRYANT, Dante Lopez Primary Care Physician Encounter [facility] Date(s): 03/31/22 - 04/30/22 [facility] Adult [address] [place] [address]- Allergies, Adverse Reactions, Alerts Substance Reaction Severity Status lisinopril COUGH Active Immunizations Given and Recorded Vaccine Date Status Refusal Reason SARS-CoV-2 mRNA (fopsedx-kumo-vukzf) vax 11/27/21 Recorded SARS-CoV-2 (COVID-19) mRNA BNT-162b2 [...] # 90 capsule, 3 Refills, [facility] # [facility], 168, cm, 07/29/21 [...] Refills, Maintenance, 03/01/22 10:13:00 EDT, [facility] # 50, USE 2 SPRAYS [...] Refills, Maintenance, 02/09/20 18:07:00 EDT, REC Powder, [facility] # [facility], 17 Gm By Mouth [...] ONCE DAILY., # 90 capsule, 1 Refills, [facility] # [facility], 168, cm, 07/29/21 10:00:00 [...] Gm, 1 Refills, Maintenance, 10/09/21 11:07:00 EST, [facility] # 50, APPLY TOPICALLY TWO TIMES [...] Personnel Name: Martha BRYANT, Dante Lopez Address: [address] [place] [id number]
--- OUTSIDE RECORDS SUMMARY | 2023-01-03 13:31 | XMS_ITS | Continuity of Care Document ---
Author Name Unknown Organization [facility] Curtis lt Address [address] [place] [address]- Care Team Providers Care Non Destructive Testing Technician Name Role Phone Martha BRYANT, Dante Lopez Primary Care Physician [phone] [place] [facility] [place] 09/23/20 - 11/22/20 [facility] Adult [address] [place] [address]- Attending Physician: Jaimie BRYANT, Jarret Valdes Referring Physician: Dao Robledo MD Allergies, Adverse Reactions, Alerts Substance Reaction [...] each, 5 Refills, Maintenance, 10/09/20 11:09:00 EST, [facility] # [facility], USE 2 SPRAYS IN [...] Refills, Maintenance, 02/09/20 18:07:00 EDT, REC Powder, [facility] # [facility], 17 Gm By Mouth [...] Refills, Maintenance, 04/10/20 13:29:00 EDT, EC Tablet, [facility] # [facility], 168, cm, 03/13/20 11:52:00 [...] Stop 10/09/21 11:08:00 EST, 10/09/21 11:07:00 EST, [facility] # 50, 30, APPLY TOPICALLY TWO [...]
--- OUTSIDE RECORDS SUMMARY | 2023-01-03 13:31 | XMS_ITS | Continuity of Care Document ---
Author Name Unknown Organization [facility] Curtis lt Address [address] [place] [address]- Care Team Providers Care Possum Trapper Name Role Phone Martha BRYANT, Dante Lopez Primary Care Physician [phone] [place] [facility] [place](s): 10/09/20 - 10/16/20 [facility] Adult [address] [place] [address]- Attending Physician: Jaimie BRYANT, Jarret Valdes Allergies, Adverse Reactions, Alerts Substance Reaction Severity [...] each, 5 Refills, Maintenance, 10/09/20 11:09:00 EST, [facility] # [facility], USE [...] Refills, Maintenance, 04/10/20 13:29:00 EDT, EC Tablet, [facility] # [facility], 168, cm, 03/13/20 11:52:00 [...] Stop 10/09/21 11:08:00 EST, 10/09/21 11:07:00 EST, [facility] # 50, 30, APPLY TOPICALLY TWO [...] oldest [Reference Range]: 1 Height 168.00 cm (10/09/20 10:22 AM) Oxygen Saturation [94-100 %] 97 % (10/09/20 10:22 AM) Pulse Rate [55-90 bpm] 60 bpm (10/09/20 10:22 AM) Blood Pressure [90-138/55-84 mm Hg] 130/ 70mm Hg (10/09/20 10:22 AM) Temperature [96.8-100.4 DegF] 98.2 DegF (10/09/20 10:22 AM) Blood pressure sites Arm, left (10/09/20 10:22 AM) Temperature Route Oral (10/09/20 10:22 AM) Weight Obtained Via Standing scale (10/09/20 10:22 AM) Social History Social History Type Response Smoking Status Former smoker, quit more than 30 days ago entered on: 08/14/18 Sex
--- OUTSIDE RECORDS SUMMARY | 2023-01-03 13:31 | XMS_ITS | Continuity of Care Document ---
Author Name Unknown Organization [facility] Curtis lt Address [address] [place] [address]- Care Team Providers Care Eyewear Consultant Name Role Phone Martha BRYANT, Dante Lopez Primary Care Physician Encounter [facility] [place] Date(s): 03/22/22 - 04/21/22 [facility] Adult [address] [place] [address]- Allergies, Adverse Reactions, Alerts Substance Reaction Severity Status lisinopril COUGH Active Immunizations Given and Recorded Vaccine Date Status Refusal Reason SARS-CoV-2 mRNA (tfczlom-zhbv-tjyvp) vax 11/27/21 Recorded SARS-CoV-2 (COVID-19) mRNA BNT-162b2 [...] Refills, Maintenance, 02/09/20 18:07:00 EDT, REC Powder, [facility] # [facility], 17 Gm By Mouth [...] ONCE DAILY., # 90 capsule, 1 Refills, [facility], 168, cm, 07/29/21 10:00:00 [...] Gm, 1 Refills, Maintenance, 10/09/21 11:07:00 EST, [facility] # [facility], APPLY TOPICALLY TWO TIMES [...] Personnel Name: Martha BRYANT, Dante Lopez Address: [address] [place] [address]
--- OUTSIDE RECORDS SUMMARY | 2023-01-03 13:31 | XMS_ITS | Continuity of Care Document ---
Author Name Unknown Organization [facility] Curtis Address [address] [place] [address]- Care Team Providers Care Aligning Inspector Name Role Phone Martha BRYANT, Dnate Lopez Primary Care Physician Encounter [facility] [place] Date(s): 10/10/20 - 11/09/20 [facility] Adult [address] [place] [address]- Allergies, Adverse Reactions, Alerts Substance Reaction Severity [...] each, 5 Refills, Maintenance, 10/09/20 11:09:00 EST, [facility] # [facility], USE 2 [...] Refills, Maintenance, 02/09/20 18:07:00 EDT, REC Powder, [facility] # [facility], 17 Gm By [...] Refills, Maintenance, 04/10/20 13:29:00 EDT, EC Tablet, [facility] # [facility], 168, cm, 03/13/20 11:52:00 [...] Stop 10/09/21 11:08:00 EST, 10/09/21 11:07:00 EST, [facility] # [facility], 30, APPLY TOPICALLY TWO [...]
--- OUTSIDE RECORDS SUMMARY | 2023-01-03 13:31 | XMS_ITS | Continuity of Care Document ---
Author Name Unknown Organization [facility] Curtis lt Address [address] [place] [address]- Care Team Providers Care Client Account Representative Name Role Phone Dante Thomas MD Primary Care Physician [place] [facility] [place] 10/21/22 [facility] Adult [address] [place] [address]- Allergies, Adverse Reactions, Alerts Substance Reaction Severity [...] influenza virus vaccine, inactivated 05/08/15 Marquis rded [id number] 12y+ bivalent booster vax 05/21/22 Recorded SARS-CoV-2 mRNA (vqfdipz-nfrj-ksnpu) vax 11/27/21 Recorded SARS-CoV-2 (COVID-19) mRNA BNT-162b2 [...] Gm, 2 Refills, Maintenance, 10/17/22 20:49:00 EDT, [facility] # [facility], 25, INHALE 2 PUFFS [...] Mouth, Daily, # 90 capsule, 3 Refills, [facility] # [facility], 168, cm, 07/29/21 10:00:00 [...] each, 3 Refills, Maintenance, 03/01/22 10:13:00 EDT, [facility], USE 2 SPRAYS [...] Refills, Maintenance, 02/09/20 18:07:00 EDT, REC Powder, [facility] # [facility], 17 Gm By Mouth [...] capsule, 0 Refills, Maintenance, 09/19/22 16:52:00 EST, [facility] # [facility], Partial fill upon patient request if the prescription is for a schedule II opioid drug., 168, cm, 09/14/22 10:23:00 EST, Height Start Date: 09/19/22 Status: Ordered omeprazole 20 mg oral enteric coated capsule See Instructions, TAKE ONE CAPSULE BY MOUTH ONCE DAILY, # 90 capsule, 0 Refills, Maintenance, 09/05/22 15:12:00 EST, [facility] # [facility], 168, cm, 04/05/22 12:51:00 [...] Gm, 1 Refills, Maintenance, 10/09/21 11:07:00 EST, [facility] # [facility], APPLY TOPICALLY TWO TIMES [...] Care Physician Member Role: PCP Address: Address: [address] [place] [address]- Care Team Related Persons Name: RAJAN PISANO Name: LAURA PISANO Name: GABBY PISANO
--- OUTSIDE RECORDS SUMMARY | 2023-01-03 13:31 | XMS_ITS | Continuity of Care Document ---
Author Name Unknown Organization [facility] Curtis lt Address [address] [place] [address]- Care Team Providers Care Rn Transitional Name Role Phone Dante Thomas MD Primary Care Physician Encounter [facility] [place] Date(s): 09/30/22 - 10/30/22 [facility] Adult [address] [place] [address]- Allergies, Adverse Reactions, Alerts Substance Reaction Severity [...] influenza virus vaccine, inactivated 05/08/15 Marquis rded [id number] 12y+ bivalent booster vax 05/21/22 Recorded SARS-CoV-2 mRNA (zsyguad-zgtj-vnmob) vax 11/27/21 Recorded SARS-CoV-2 (COVID-19) mRNA BNT-162b2 [...] Gm, 2 Refills, Maintenance, 10/17/22 20:49:00 EDT, [facility] # [facility], 25, INHALE 2 PUFFS [...] Mouth, Daily, # 90 capsule, 3 Refills, [facility] # [facility], 168, cm, 07/29/21 10:00:00 [...] each, 3 Refills, Maintenance, 03/01/22 10:13:00 EDT, [facility] # [facility], USE 2 SPRAYS [...] capsule, 0 Refills, Maintenance, 09/05/22 15:12:00 EST, [facility] # [facility], 168, cm, 04/05/22 12:51:00 [...] Gm, 1 Refills, Maintenance, 10/09/21 11:07:00 EST, [facility] # [facility], APPLY TOPICALLY TWO TIMES [...] Care Physician Member Role: PCP Address: Address: [address] [place] [address]- Care Team Related Persons Name: RAJAN PISANO Name: LAURA PISANO Name: GABBY PISANO
--- OUTSIDE RECORDS SUMMARY | 2023-01-03 13:31 | XMS_ITS | Continuity of Care Document ---
Author Name Unknown Organization [facility] Curtis lt Address [address] [place] [address]- Care Team Providers Care Director Sales And Marketing Name Role Phone Dante Thomas MD Primary Care Physician [phone] Encounter [facility] [place] Date(s): 03/13/20 - 03/20/20 [facility] Adult [address] [place] [address]- [facility] Attending Physician: Dante Thomas MD Allergies, Adverse [...] 90 capsule, 1 Refills, 03/10/20 8:47:00 EDT, [facility] # [facility], 168, cm, 12/26/19 10:39:00 [...] Replace Required Details, Route to Pharmacy Electronically, [id number]... Start Date: 04/19/19 Status: Ordered ipratropium nasal 21 mcg/inh spray See Instructions, USE 2 SPRAYS IN EACH NOSTRIL TWO TIMES A DAY, # 30 mL, 0 Refills, Acute, [facility], 30, USE 2 SPRAYS [...] EDT, Height Start Date: 02/09/20 Status: Ordered Sinemet 25 mg-100 mg oral [...] Gm, 0 Refills, Maintenance, 01/29/20 12:57:00 EDT, [facility] # [facility], APPLY [...] oldest [Reference Range]: 1 Height 168.00 cm (03/13/20 11:52 AM) Social History Social History Type Response Smoking Status Former smoker, quit more than 30 days ago entered on: 08/14/18 Sex
--- OUTSIDE RECORDS SUMMARY | 2023-01-03 13:31 | XMS_ITS | Continuity of Care Document ---
Author Name Unknown Organization [facility] Curtis lt Address [address] [place] [address]- Care Team Providers Care Insulation Supervisor Name Role Phone Dante Thomas MD Primary Care Physician Encounter [facility] [place] Date(s): 07/29/21 - 08/05/21 [facility] Adult [address] [place] [address]- Attending Physician: Dante Thomas MD Allergies, Adverse [...] capsule, 1 Refills, Maintenance, 03/17/21 10:53:00 EDT, [facility] # [facility], 168, cm, 01/14/21 11:31:00 [...] each, 5 Refills, Maintenance, 10/09/20 11:09:00 EST, [facility] # [facility], USE 2 SPRAYS IN [...] Refills, Maintenance, 02/09/20 18:07:00 EDT, REC Powder, [facility] # [facility], 17 Gm By Mouth [...] EVERY DAY, # 90 capsule, 0 Refills, [facility] # [facility], 168, [...] Gm, 1 Refills, Maintenance, 10/09/21 11:07:00 EST, [facility] # [facility], APPLY TOPICALLY [...] oldest [Reference Range]: 1 Height 168.00 cm (07/29/21 10:00 AM) Oxygen Saturation [94-100 %] 96 % (07/29/21 10:00 AM) Pulse Rate [55-90 bpm] 95 bpm *H* (07/29/21 10:00 AM) Blood Pressure [90-138/55-84 mm Hg] 114/ 58mm Hg (07/29/21 10:00 AM) Respiratory Rate [16-30 br/min] 16 br/mi n (07/29/21 10:00 AM) Temperature [96.8-100.4 DegF] 97.5 DegF (07/29/21 10:00 AM) Mode of Delivery (Oxygen) Room air (07/29/21 10:00 AM) Blood pressure sites Arm, right (07/29/21 10:00 AM) Temperature Route Oral (07/29/21 10:00 AM) Weight Obtained Via Standing scale (07/29/21 10:00 AM) Social History Social History Type Response Smoking Status Former smoker, quit more than 30 days ago entered on: 08/14/18 Sex
--- OUTSIDE RECORDS SUMMARY | 2023-01-03 13:31 | XMS_ITS | Continuity of Care Document ---
Author Name Unknown Organization [facility] [place] Curtis lt Address [address] [place] [address]- Care Team Providers Care [facility] Shift Lead Name Role Phone Martha BRYANT, Dante Lopez Primary Care Physician [place] [facility] [place](s): 12/10/20 - 01/09/21 [facility] [place] Adult [address] [place] [address]- Allergies, Adverse Reactions, Alerts Substance Reaction Severity [...] Refills, Maintenance, 04/10/20 13:29:00 EDT, EC Tablet, [facility] # [facility], 168, cm, 03/13/20 11:52:00 [...] Stop 10/09/21 11:08:00 EST, 10/09/21 11:07:00 EST, [facility] # [facility], 30, APPLY TOPICALLY TWO [...]
--- OUTSIDE RECORDS SUMMARY | 2023-01-03 13:32 | XMS_ITS | Continuity of Care Document ---
Author Name Unknown Organization [facility] Curtis lt Address [address] [place] [address]- Care Team Providers Care University Relations Vice President Name Role Phone Dante Thomas MD Primary Care Physician [place] [facility] [place] 12/26/19 - 01/02/20 [facility] Adult [address] [place] [address]- [facility] Attending Physician: Dante Thomas MD Allergies, [...] EST, Height Start Date: 09/06/19 Status: Ordered Dulcolax Tablet 5 mg, By Mouth, Daily, Refills 0, Maintenance, 12/26/19 10:45:00 EDT Start Date: 12/26/19 Status: Ordered furosemide 20 mg oral tablet See Instructions, 1 tablet By Mouth Daily on Tuesday, Tuesday, and Tuesday., # 40 tablet, Refills 3, Tot. Refills 3, Maintenance, 04/19/19 11:34:16 EDT, Instructions Replace Required Details, Route to Pharmacy Electronically, [id number]... Start Date: 04/19/19 Status: Ordered ipratropium nasal 21 mcg/inh spray See Instructions, USE 2 SPRAYS IN EACH NOSTRIL TWO TIMES A DAY, # 30 mL, 0 Refills, Acute, [facility] # [facility], 43, USE 2 SPRAYS IN EACH NOSTRIL TWO TIMES A DAY, 168, cm, 09/26/19 10:35:00 EST, Height Start Date: 12/04/19 Status: Ordered melatonin 10 mg oral capsule 1 capsule = 10 mg, By Mouth, Daily at bedtime, # 30 capsule, 0 Refills, Maintenance, 09/26/19 11:00:00 EST Start Date: 09/26/19 Status: Ordered MiraLax oral powder for reconstitution = 17 Gm, By Mouth, Daily, dissolve in water before taking, # 255 Gm, 1 Refills, Maintenance, 12/26/19 11:56:00 EDT, REC Powder, [facility] # [facility], 17 Gm By Mouth Daily,Instr:dissolve in water before taking, 168, cm, 12/26/19 10:39:00 EDT, Height Start Date: 12/26/19 Status: Ordered omeprazole 20 mg oral delayed release tablet 1 tablet = 20 mg, By Mouth, Daily, # 90 tablet, 0 Refills, Maintenance, 10/04/19 8:44:00 EST, EC Tablet, [facility] # [facility], 168, cm, 09/26/19 10:35:00 [...] cm, 09/26/19 10:35:00 EST, Height Start Date: 12/21/19 Status: Ordered Tylenol 325 mg oral tablet [...] oldest [Reference Range]: 1 Height 168.00 cm (12/26/19 10:39 AM) Social History Social History Type Response Smoking Status Former smoker, quit more than 30 days ago entered on: 08/14/18 Sex
--- OUTSIDE RECORDS SUMMARY | 2023-01-03 13:32 | XMS_ITS | Continuity of Care Document ---
Author Name Unknown Organization [facility] Curtis lt Address [address] [place] [address]- Care Team Providers Care Hospital Pharmacy Director Name Role Phone Dante Thomas MD Primary Care Physician [place] [facility] [place](s): 01/14/21 - 01/21/21 [facility] Adult [address] [place] [address]- Attending Physician: Dante Thomas MD Allergies, Adverse [...] Unknown, 1 Refills, Maintenance, 09/02/20 14:42:00 EST, [facility] # [facility], 168, cm, 07/28/20 11:06:00 [...] each, 5 Refills, Maintenance, 10/09/20 11:09:00 EST, [facility] # [facility], USE 2 [...] Refills, Maintenance, 02/09/20 18:07:00 EDT, REC Powder, [facility] # [facility], 17 Gm [...] Refills, Maintenance, 04/10/20 13:29:00 EDT, EC Tablet, [facility] # [facility], 168, cm, [...] Stop 10/09/21 11:08:00 EST, 10/09/21 11:07:00 EST, [facility] # [facility], 30, APPLY TOPICALLY TWO TIMES A DAY, 168, cm, 10/09/20 10:22:00 EST, Height Start Date: 10/09/21 Stop Date: 10/09/21 Status: Ordered triamcinolone 0.1% topical cream See Instructions, APPLY TOPICALLY TWO TIMES A DAY, # 60 Gm, 1 Refills, Maintenance, 10/09/21 11:07:00 EST, [facility], APPLY TOPICALLY TWO [...] branch block(Confirmed) Active Vitamin D deficiency(Confirmed) Active Procedures Procedure Date Related Diagnosis Body Site Status Cataract extraction 1 Com pleted 1BILATERAL 2020 DR SMITH Vital Signs Most recent to oldest [Reference Range]: 1 Height 168.00 cm (01/14/21 11:31 AM) Weight 66.7 kg (01/14/21 11:31 AM) Oxygen Saturation [94-100 %] 95 % (01/14/21 11:31 AM) Pulse Rate [55-90 bpm] 70 bpm (01/14/21 11:31 AM) Body Mass Index [18.5-24.99] 23.63 (01/14/21 11:31 AM) Blood Pressure [90-138/55-84 mm Hg] 116/ 72mm Hg (01/14/21 11:31 AM) Respiratory Rate [16-30 br/min] 16 br/mi n (01/14/21 11:31 AM) Temperature [96.8-100.4 DegF] 98.0 DegF (01/14/21 11:31 AM) Mode of Delivery (Oxygen) Room air (01/14/21 11:31 AM) Blood pressure sites Arm, right (01/14/21 11:31 AM) Temperature Route Oral (01/14/21 11:31 AM) Weight Obtained Via Standing scale (01/14/21 11:31 AM) Social History Social History Type Response Smoking Status Former smoker, quit more than 30 days ago entered on: 08/14/18 Sex
--- OUTSIDE RECORDS SUMMARY | 2023-01-03 13:32 | XMS_ITS | Continuity of Care Document ---
Author Name Unknown Organization [facility] Curtis lt Address [address] [place] [address]- Care Team Providers Care Technical Implementation Lead Name Role Phone Martha BRYANT, Dante Lopez Primary Care Physician [phone] [place] [facility] [place](s): 10/08/20 - 11/07/20 [facility] Adult [address] [place] [address]- Allergies, Adverse Reactions, Alerts Substance Reaction Severity [...] each, 5 Refills, Maintenance, 10/09/20 11:09:00 EST, [facility] # [facility], USE 2 SPRAYS [...] Refills, Maintenance, 04/10/20 13:29:00 EDT, EC Tablet, [facility], 168, cm, 03/13/20 11:52:00 [...] Stop 10/09/21 11:08:00 EST, 10/09/21 11:07:00 EST, [facility] # [facility], 30, APPLY TOPICALLY TWO [...]
--- OUTSIDE RECORDS SUMMARY | 2023-01-03 13:32 | XMS_ITS | Continuity of Care Document ---
Author Name Unknown Organization [facility] Curtis lt Address [address] [place] [address]- Care Team Providers Care Recruitment Specialist Name Role Phone Martha BRYANT, Dante Lopez Primary Care Physician [phone] Encounter [facility] Date(s): 04/10/20 - 05/10/20 [facility] Adult [address] [place] [address]- [facility] Allergies, Adverse Reactions, Alerts Substance Reaction [...] 90 capsule, 1 Refills, 03/10/20 8:47:00 EDT, [facility] # [facility], 168, cm, 12/26/19 10:39:00 [...] Replace Required Details, Route to Pharmacy Electronically, [facility] # [facility], 168,... Start Date: 04/30/20 Status: Ordered ipratropium nasal 21 mcg/inh spray See Instructions, USE 2 SPRAYS IN EACH NOSTRIL TWO TIMES A DAY, # 30 mL, 0 Refills, Acute, [facility] # [facility], 30, USE 2 SPRAYS [...] Refills, Maintenance, 04/10/20 13:29:00 EDT, EC Tablet, [facility] # [facility], 168, cm, [...]
--- OUTSIDE RECORDS SUMMARY | 2023-01-03 13:32 | XMS_ITS | Continuity of Care Document ---
Author Name Unknown Organization [facility] Curtis lt Address [address] [place] [address]- Care Team Providers Care Gluing Machine Offbearer Name Role Phone aMrtha BRYANT, Dante Lopez Primary Care Physician En[place] [facility] [place] Date(s): 03/28/20 - 04/27/20 [facility] Adult [address] [place] [address]- [facility] Allergies, Adverse Reactions, Alerts Substance [...] 90 capsule, 1 Refills, 03/10/20 8:47:00 EDT, [facility] # [facility], 168, cm, 12/26/19 [...] Replace Required Details, Route to Pharmacy Electronically, [id number]... Start Date: 04/19/19 Status: Ordered ipratropium nasal 21 mcg/inh spray See Instructions, USE 2 SPRAYS IN EACH NOSTRIL TWO TIMES A DAY, # 30 mL, 0 Refills, Acute, [facility] # [facility], 30, USE 2 [...] Refills, Maintenance, 02/09/20 18:07:00 EDT, REC Powder, [facility] # [facility], 17 Gm By Mouth Daily,Instr:dissolve in water before taking, 168, cm, 12/26/19 10:39:00 EDT, Height Start Date: 02/09/20 Status: Ordered omeprazole 20 mg oral delayed release tablet 1 tablet = 20 mg, By Mouth, Daily, # 90 tablet, 3 Refills, Maintenance, 04/10/20 13:29:00 EDT, EC Tablet, [facility] # [facility], 168, cm, [...]
--- OUTSIDE RECORDS SUMMARY | 2023-01-03 13:32 | XMS_ITS | Continuity of Care Document ---
Author Name Unknown Organization [facility] Curtis lt Address [address] [place] [address]- Care Team Providers Care Twisting Department End Finder Name Role Phone Martha BRYANT, Dante Lopez Primary Care Physician [phone] Encounter [facility] [place] Date(s): 02/02/21 - 03/04/21 [facility] Adult [address] [place] [address]- Allergies, Adverse Reactions, Alerts Substance Reaction Severity [...]
--- OUTSIDE RECORDS SUMMARY | 2023-01-03 13:32 | XMS_ITS | Continuity of Care Document ---
Author Name Unknown Organization [facility] Curtis lt Address [address] [place] [address]- Care Team Providers Care Leadership Coach Name Role Phone Martha BRYANT, Dante Lopez Primary Care Physician [place] [facility] [place] Date(s): 12/01/22 - 12/31/22 [facility] Adult [address] [place] [address]- Allergies, Adverse Reactions, Alerts Substance Reaction Severity [...] influenza virus vaccine, inactivated 05/08/15 Marquis rded [id number] 12y+ bivalent booster vax 05/21/22 Recorded SARS-CoV-2 mRNA (zrgaxbb-aemh-hortz) vax 11/27/21 Recorded SARS-CoV-2 (COVID-19) mRNA BNT-162b2 [...] Gm, 2 Refills, Maintenance, 10/17/22 20:49:00 EDT, [facility] # [facility], 25, INHALE 2 PUFFS [...] Mouth, Daily, # 90 capsule, 3 Refills, [facility] # [facility], 168, cm, 07/29/21 10:00:00 [...] each, 3 Refills, Maintenance, 03/01/22 10:13:00 EDT, [facility] # [facility], USE 2 SPRAYS IN [...] Refills, Maintenance, 02/09/20 18:07:00 EDT, REC Powder, [facility] # [facility], 17 Gm By Mouth [...] capsule, 0 Refills, Maintenance, 09/19/22 16:52:00 EST, [facility] # [facility], Partial fill upon patient request if the prescription is for a schedule II opioid drug., 168, cm, 09/14/22 10:23:00 EST, Height Start Date: 09/19/22 Status: Ordered omeprazole 20 mg oral enteric coated capsule 1 capsule, By Mouth, Daily, # 90 capsule, 0 Refills, Maintenance, 12/02/22 8:28:00 EDT, [facility] # [facility], 168, cm, 09/14/22 10:23:00 [...] Gm, 1 Refills, Maintenance, 10/09/21 11:07:00 EST, [facility] # [facility], APPLY TOPICALLY TWO TIMES [...] Personnel Name: Dante Thomas MD Position: S Physician - Primary Care Member Role: PCP Address: Address: [address] [place] [address]- Care Team Related Persons Name: RAJAN PISANO Name: LAURA PISANO Name: GABBY PISANO
--- OUTSIDE RECORDS SUMMARY | 2023-01-03 13:32 | XMS_ITS | Continuity of Care Document ---
Author Name Unknown Organization [facility] Curtis lt Address [address] [place] [address]- Care Team Providers Care Annual Giving Director Name Role Phone Dante Thomas MD Primary Care Physician Encounter [facility] [place] Date(s): 07/29/21 - 11/19/21 [facility] Adult [address] [place] [address]- Attending Physician: Dante Thomas MD Allergies, Adverse [...] Refills, Maintenance, 02/09/20 18:07:00 EDT, REC Powder, [facility] # [facility], 17 Gm By Mouth [...] 90 capsule, 0 Refills, 09/10/21 6:58:00 EST, [facility] # [facility], 168, cm, 07/29/21 10:00:00 [...] Gm, 1 Refills, Maintenance, 10/09/21 11:07:00 EST, [facility] # [facility], APPLY TOPICALLY TWO TIMES [...]
--- OUTSIDE RECORDS SUMMARY | 2023-01-03 13:32 | XMS_ITS | Continuity of Care Document ---
Author Name Unknown Organization [facility] Curtis lt Address [address] [place] [address]- Care Team Providers Care Rehabilitation Case Coordinator Name Role Phone Dante Thomsa MD Primary Care Physician [phone] En[place] [facility] [place](s): 03/12/20 - 03/19/20 [facility] Adult [address] [place] [address]- [facility] Attending [...] capsule, 1 Refills, 03/10/20 8:47:00 EDT, [facility] # [facility], 168, cm, 12/26/19 10:39:00 [...] Replace Required Details, Route to Pharmacy Electronically, [id number]... Start Date: 04/19/19 Status: Ordered ipratropium nasal 21 mcg/inh spray See Instructions, USE 2 SPRAYS IN EACH NOSTRIL TWO TIMES A DAY, # 30 mL, 0 Refills, Acute, [facility], 30, USE 2 [...] Refills, Maintenance, 02/09/20 18:07:00 EDT, REC Powder, [facility] # [facility], 17 Gm By [...] Gm, 0 Refills, Maintenance, 01/29/20 12:57:00 EDT, [facility] # [facility], APPLY TOPICALLY TWO [...] oldest [Reference Range]: 1 Height 168.00 cm (03/12/20 9:03 AM) Social History Social History Type Response Smoking Status Former smoker, quit more than 30 days ago entered on: 08/14/18 Sex
--- OUTSIDE RECORDS SUMMARY | 2023-01-03 13:32 | XMS_ITS | Continuity of Care Document ---
Author Name Unknown Organization [facility] Curtis lt Address [address] [place] [address]- Care Team Providers Care Gear Changer Name Role Phone Dante Thomas MD Primary Care Physician [phone] Encounter [facility] [place] Date(s): 09/28/19 - 01/26/20 [facility] Adult [address] [place] [address]- [facility] Attending Physician: Dante Thomas MD [...] By Mouth Daily on Tuesday, Tuesday, and Mikel., # 40 tablet, Refills 3, Tot. Refills 3, Maintenance, 04/19/19 11:34:16 EDT, Instructions Replace Required Details, Route to Pharmacy Electronically, [id number]... Start Date: 04/19/19 Status: Ordered ipratropium nasal [...] Refills, Maintenance, 12/26/19 11:56:00 EDT, REC Powder, [facility] # [facility], 17 Gm By Mouth Daily,Instr:dissolve in water before taking, 168, cm, 12/26/19 10:39:00 EDT, Height Start Date: 12/26/19 Status: Ordered omeprazole 20 mg oral delayed release tablet 1 tablet = 20 mg, By Mouth, Daily, # 90 tablet, 0 Refills, Maintenance, 01/07/20 11:52:00 EDT, EC Tablet, [facility] [...]
--- OUTSIDE RECORDS SUMMARY | 2023-01-03 13:32 | XMS_ITS | Continuity of Care Document ---
Author Name Unknown Organization [facility] Curtis lt Address [address] [place] [address]- Care Team Providers Care Senior Actuarial Analyst Name Role Phone Martha BRYANT, Dante Lopez Primary Care Physician [phone] Encounter [facility] Date(s): 02/28/22 - 03/30/22 [facility] Adult [address] [place] [address]- Allergies, Adverse Reactions, Alerts Substance Reaction Severity Status lisinopril COUGH Active Immunizations Given and Recorded Vaccine Date Status Refusal Reason SARS-CoV-2 mRNA ([id number]) vax 11/27/21 Recorded SARS-CoV-2 (COVID-19) mRNA BNT-162b2 [...] Refills, Maintenance, 02/09/20 18:07:00 EDT, REC Powder, [facility] # [facility], 17 Gm By Mouth [...] ONCE DAILY., # 90 capsule, 1 Refills, [facility], 168, cm, 07/29/21 10:00:00 [...] Gm, 1 Refills, Maintenance, 10/09/21 11:07:00 EST, [facility] # [facility], APPLY TOPICALLY TWO TIMES [...]
--- OUTSIDE RECORDS SUMMARY | 2023-01-03 13:32 | XMS_ITS | Patient Health Record ---
Author Name Unknown Organization 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 [id number] Problem Venous insufficiency of both lower extremities I87.2 confirmed [id number] ALLERGIES Allergen (clinical drug ingredient) Drug/Non Drug Allergy documented on EMR Reaction Allergy Type Onset Date Status lisinopril Lisinopril Unknown Drug Allergy Activ e ENCOUNTERS from 1934 to 2023-01-03 Encounter Location Date Provider Diagnosis [address] [address] December, Kailey Odonnell Tinea unguium B35.1 ; Pain in toe of left foot M79.675 ; Pain in toe of right foot M79.674 and Unspecified atherosclerosis of soboba arteries of extremities, bilateral legs I70.[address] [address] Nov, Kailey Odonnell [address] [address] Aug, Kailey Odonnell Tinea unguium B35.1 ; Pain in toe of left foot M79.675 ; Pain in toe of right foot M79.674 and Unspecified atherosclerosis of soboba arteries of extremities, bilateral legs I70.[address] [address] Feb, Tony Jones [address] [address] Oct, Tony Jones Tinea unguium B35.1 ; Pain in toe of left foot M79.675 ; Pain in toe of right foot M79.674 ; Unspecified atherosclerosis of soboba arteries of extremities, bilateral legs I70.203 and Venous insufficiency of both lower extremities I87.[address] [address] Sep, [facility] [address] [address] Aug, Kailey Perica [address] [address] May, Tony Jones Tinea unguium B35.1 ; Pain in toe of left foot M79.675 ; Pain in toe of right foot M79.674 and Unspecified atherosclerosis of soboba arteries of extremities, bilateral legs I70.[address] [address] Mar, Kailey Uribebrian Generalized edema R60.1 ; Ingrown nail L60.0 ; Tinea unguium B35.1 ; Pain in toe of left foot M79.675 and Pain in toe of right foot M79.674 IMMUNIZATIONS Vaccine Route Administration Date Status COVID-19 Pfizer BioNTech Vaccine Unknown May 11, 2021 Administered SOCIAL HISTORY Tobacco Use: Social History Observation Description Date Details (start date - stop date) Former Smoker Sex Assigned At : Social History Observation Description Sex Assigned At Unknown Alcohol Screen Question Answer Notes Did you have a drink containing alcohol in the p ast year? No Points 0 Interpretation Negative Tobacco Use/Smoking Question Answer Notes Additional Findings: Tobacco Non-User Ex-cigaret te smoker Are you a: former smoker Tobacco use other than smoking: Question Answer Notes Are you an other tobacco user? No REASON FOR REFERRAL No Information VITAL SIGNS from 1934 to 2023-01-03 Height 5 ft 6 in in December, Weight 170 lbs December, BMI 27.44 kg/m2 December, MEDICATIONS Medication SIG (Take, Route, Frequency, Duration) Notes Start Date End Date Status Ipratropium [place] 0.03 % 2 sprays in each nostril Nasally Twice a day for 30 day(s) Active Stool Softener 2x daily as needed Active Metoprolol Succinate 50 MG 1 capsule Orally Once a day for 30 day(s) Active Sinemet 150mg, 2x daily Acti ve Cranberry Extract Ac tive Triamcinolone Acetonide 0.1 % 1 application Externally Once a day Active Aspirin 81 MG 1 tablet Orally Once a day for 30 day(s) Active Melatonin 10 MG as directed Orally Active zzzCompression Stockings 20-30mm Hg . . . for . Active Omeprazole 20 MG 1 capsule 30 minutes before morning meal Orally Once a day for 30 day(s) Active REASON FOR VISIT No Information MEDICAL (GENERAL) HISTORY Type Description Date Medical History Anxiety Medical History Back,Hip,and Knee pain Medical History Cancer Medical History Cataracts Medical History Depression Medical History Glaucoma Medical History Kidney disease Medical History Parkinsons disease Medical History Psoriasis/eczema Medical History Reflux ( GERD) Medical History chronic sinusitis Medical History Joint implants/screws Surgical History tonsillectomy Surgical History prostatectomy, cancer 2006 Surgical History pacemaker 03/2018 Surgical History 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 04/2018 Surgical History broken hip surgery 07/2018 Surgical History cataract removal - glaucoma cur ed 10/2020 MENTAL STATUS No Information ASSESSMENTS Encounter Date Diagnosis Assessment Notes Treatment Notes Treatment Clinical Notes December, Pain in toe of left foot (ICD-10 - M79.675) December, Tinea unguium (ICD-1 0 - B35.1) December, Pain in toe of right foot (ICD-10 - M79.674) December, Unspecified atherosclerosis of soboba arteries of extremities, bilateral legs (ICD-10 - I70.203) Aug, Tinea unguium (ICD-1 0 - B35.1) Aug, Pain in toe of left foot (ICD-10 - M79.675) Aug, Pain in toe of right foot (ICD-10 - M79.674) Aug, Unspecified atherosclerosis of soboba arteries of extremities, bilateral legs (ICD-10 - I70.203) Feb, Tinea unguium (ICD-1 0 - B35.1) Feb, Pain in toe of left foot (ICD-10 - M79.675) Feb, Pain in toe of right foot (ICD-10 - M79.674) Feb, Unspecified atherosclerosis of soboba arteries of extremities, bilateral legs (ICD-10 - I70.203) Feb, Venous insufficiency of both lower extremities (ICD-10 - I87.2) Oct, Pain in toe of left foot (ICD-10 - M79.675) Oct, Tinea unguium (ICD-1 0 - B35.1) Oct, Pain in toe of right foot (ICD-10 - M79.674) Oct, Unspecified atherosclerosis of soboba arteries of extremities, bilateral legs (ICD-10 - I70.203) Oct, Venous insufficiency of both lower extremities (ICD-10 - I87.2) Aug, Pain in toe of left foot (ICD-10 - M79.675) Aug, Tinea unguium (ICD-1 0 - B35.1) Aug, Pain in toe of right foot (ICD-10 - M79.674) Aug, Unspecified atherosclerosis of soboba arteries of extremities, bilateral legs (ICD-10 - I70.203) May, Pain in toe of left foot (ICD-10 - M79.675) May, Tinea unguium (ICD-1 0 - B35.1) May, Pain in toe of right foot (ICD-10 - M79.674) May, Unspecified atherosclerosis of soboba arteries of extremities, bilateral legs (ICD-10 - I70.203) Mar, Ingrown nail (ICD-10 - L60.0) Mar, Generalized edema (ICD-10 - R60.1) Mar, Tinea unguium (ICD-1 0 - B35.1) Mar, Pain in toe of left foot (ICD-10 - M79.675) 06 Aug, 2021 Pain in toe of right foot (ICD-10 - M79.674) PLAN OF TREATMENT Next Appt Details 3 Months Reason: Provider Name:Kailey torres, 2023-03-09 11:00:00 AM, [address] [place], [address], Insurance Providers Payer Name Payer Address Payer Phone Insured Name Patient Relationship to Insured Coverage Start Date Coverage End Date Subscriber Number Group Number Medicare National Govt Sv[employer] [address] [facility] [phone] Nichole Traylor Self - patient is the insured [id number] [employer] Blue [employer] [address] [facility] [address] [phone] Nichole Traylor Self - patient is the insured [id number]
--- OUTSIDE RECORDS SUMMARY | 2023-01-03 13:32 | XMS_ITS | Continuity of Care Document ---
Author Name Unknown Organization [facility] [place] Address [address] [place] [address]- Care Team Providers Care Engine Mechanic Name Role Phone Dante Thomas MD Primary Care Physician Encounter [facility] Date(s): 04/30/21 - 05/07/21 [facility] Adult [address] [place] [address]- Attending Physician: Dante Thomas MD Allergies, Adverse [...] capsule, 1 Refills, Maintenance, 03/17/21 10:53:00 EDT, [facility], [...] 01/14/21 Status: Ordered omeprazole 20 mg oral enteric coated capsule See Instructions, TAKE ONE CAPSULE BY MOUTH EVERY DAY, # 90 capsule, 0 Refills, Maintenance, 03/20/21 16:23:00 EDT, [facility], 168, cm, 01/14/21 11:31:00 [...] Gm, 1 Refills, Maintenance, 10/09/21 11:07:00 EST, [facility] # [facility], APPLY TOPICALLY TWO TIMES [...] oldest [Reference Range]: 1 Height 168.00 cm (04/30/21 9:04 AM) Weight 68.18 kg (04/30/21 9:04 AM) Oxygen Saturation [94-100 %] 95 % (04/30/21 9:04 AM) Pulse Rate [55-90 bpm] 60 bpm (04/30/21 9:04 AM) Body Mass Index [18.5-24.99] 24.16 (04/30/21 9:04 AM) Blood Pressure [90-138/55-84 mm Hg] 116/ 56mm Hg (04/30/21 9:04 AM) Respiratory Rate [16-30 br/min] 16 br/mi n (04/30/21 9:04 AM) Temperature [96.8-100.4 DegF] 98.1 DegF (04/30/21 9:04 AM) Mode of Delivery (Oxygen) Room air (04/30/21 9:04 AM) Blood pressure sites Arm, right (04/30/21 9:04 AM) Temperature Route Temporal (04/30/21 9:04 AM) Weight Obtained Via Standing scale (04/30/21 9:04 AM) Social History Social History Type Response Smoking Status Former smoker, quit more than 30 days ago entered on: 08/14/18 Sex
--- OUTSIDE RECORDS SUMMARY | 2023-01-03 13:32 | XMS_ITS | Continuity of Care Document ---
Author Name Unknown Organization [facility] Curtis [place] Address [address] [place] [address]- Care Team Providers Care Product Assembler Name Role Phone Dante Thomas MD Primary Care Physician [place] [facility]21 - 05/27/21 [facility] Adult [address] [place] [address]- Allergies, Adverse Reactions, Alerts Substance Reaction Severity [...] Refills, Maintenance, 03/17/21 10:53:00 EDT, [facility], 168, cm, 01/14/21 [...] capsule, 0 Refills, Maintenance, 03/20/21 16:23:00 EDT, [facility], 168, cm, 01/14/21 11:31:00 [...] Gm, 1 Refills, Maintenance, 10/09/21 11:07:00 EST, [facility] # [facility], APPLY TOPICALLY TWO TIMES [...]
--- OUTSIDE RECORDS SUMMARY | 2023-01-03 13:32 | XMS_ITS | Continuity of Care Document ---
Author Name Unknown Organization [facility] [place] Curtis [place] Address [address] [place] [address]- Care Team Providers Care Licensed Sales Producer Name Role Phone Dante Thomas MD Primary Care Physician Encounter [facility] Date(s): 03/11/22 - 03/18/22 [facility] [place] Adult [address] [place] [address]- Attending Physician: Dante Thomas MD Allergies, Adverse Reactions, Alerts Substance Reaction Severity Status lisinopril COUGH Active Immunizations Given and Recorded Vaccine Date Status Refusal Reason SARS-CoV-2 mRNA ([id number]-smzk-jymzq) vax 11/27/21 Recorded SARS-CoV-2 (COVID-19) mRNA BNT-162b2 [...] Mouth, Daily, # 90 capsule, 3 Refills, [facility], 168, [...] each, 3 Refills, Maintenance, 03/01/22 10:13:00 EDT, [facility], [...] Refills, Maintenance, 02/09/20 18:07:00 EDT, REC Powder, [facility], 17 Gm By Mouth [...] ONCE DAILY., # 90 capsule, 1 Refills, [facility], 168, cm, 07/29/21 10:00:00 [...] Gm, 1 Refills, Maintenance, 10/09/21 11:07:00 EST, [facility], APPLY TOPICALLY TWO TIMES A DAY, 168, cm, 01/14/21 11:31:00 EDT, Height Start Date: 10/09/21 Status: Ordered Tylenol 325 mg oral tablet 325 mg, 1, tablet, By Mouth, Daily at bedtime, Refills 0, Maintenance, 08/14/18 11:35:59 EST Start Date: 1/7/19 Status: Ordered Problem List Condition Effective Dates [...] oldest [Reference Range]: 1 Height 168.00 cm (03/11/22 10:30 AM) Weight 80.8 kg (03/11/22 10:30 AM) Oxygen Saturation [94-100 %] 98 % (03/11/22 10:30 AM) Pulse Rate [55-90 bpm] 86 bpm (03/11/22 10:30 AM) Body Mass Index [18.5-24.99] 28.63 *H* (03/11/22 10:30 AM) Blood Pressure [90-138/55-84 mm Hg] 110/ 68mm Hg (03/11/22 10:30 AM) Temperature [96.8-100.4 DegF] 97.7 DegF (03/11/22 10:30 AM) Mode of Delivery (Oxygen) Room air (03/11/22 10:30 AM) Blood pressure sites Arm, right (03/11/22 10:30 AM) Weight Obtained Via Standing scale (03/11/22 10:30 AM) Social History Social History Type Response Smoking Status Former smoker, quit more than 30 days ago entered on: 08/14/18 Sex
--- OUTSIDE RECORDS SUMMARY | 2023-01-03 13:32 | XMS_ITS | Continuity of Care Document ---
Author Name Unknown Organization [facility] Curtis [place] Address [address] [place] [address]- Care Team Providers Care Mold Repair Technician Name Role Phone Martha BRYANT, Dante Lopez Primary Care Physician [phone] [place]counter [facility] [place](s): 03/17/21 - 04/16/21 [facility] Adult [address] [place] [address]- Allergies, Adverse Reactions, Alerts Substance Reaction Severity [...] 1 Refills, Maintenance, 03/17/21 10:53:00 EDT, [facility], 168, cm, 01/14/21 11:31:00 EDT, Height Start Date: 03/17/21 Status: Ordered cephalexin monohydrate 500 mg oral tablet 1 tablet = 500 mg, By Mouth, 3 times a day, # 21 tablet, 0 Refills, Maintenance, 02/02/21 15:56:00 EDT, [facility], Partial fill upon [...] 5 Refills, Maintenance, 10/09/20 11:09:00 EST, [facility], USE 2 SPRAYS [...] EDT, REC Powder, [facility], 17 Gm By Mouth [...] capsule, 0 Refills, Maintenance, 03/20/21 16:23:00 EDT, [facility], 168, cm, 01/14/21 [...] Stop 10/09/21 11:08:00 EST, 10/09/21 11:07:00 EST, [facility], 30, APPLY TOPICALLY TWO TIMES A DAY, 168, cm, 10/09/20 10:22:00 EST, Height Start Date: 10/09/21 Stop Date: 10/09/21 Status: Ordered triamcinolone 0.1% topical cream See Instructions, APPLY TOPICALLY TWO TIMES A DAY, # 60 Gm, 1 Refills, Maintenance, 10/09/21 11:07:00 EST, [facility], APPLY TOPICALLY [...]
--- OUTSIDE RECORDS SUMMARY | 2023-01-03 13:32 | XMS_ITS | Continuity of Care Document ---
Author Name Unknown Organization [facility] Curtis [place] Address [address] [place] [address]- Care Team Providers Care Frame Catcher Name Role Phone Dante Thomas MD Primary Care Physician Encounter [facility] [place] Date(s): 11/13/20 - 12/13/20 [facility] Adult [address] [place] [address]- Allergies, Adverse Reactions, Alerts Substance Reaction Severity [...] 10/09/20 11:09:00 EST, [facility] # [...] Maintenance, 04/10/20 13:29:00 EDT, EC Tablet, [facility], [...] Stop 10/09/21 11:08:00 EST, 10/09/21 11:07:00 EST, [facility], 30, APPLY TOPICALLY TWO [...]
--- NOTE | 2023-01-03 13:37 | ED_ITS ---
HPI - Extremity Injury (Lower) General Chief Complaint: Extremity Injury, Lower Stated Complaint: right foot pain, per ems Time Seen by Provider: 01/03/23 13:02 Source: patient Mode of arrival: EMS Limitations: no limitations History of Present Illness HPI Narrative: Patient comes to emergency room complaining of right-sided foot pain. Patient states that approximately 3 days ago his foot started hurting on the dorsum, denies any injury. Patient states that today he was unable to ambulate due to the pain. Denies fever chills. Related Data Home Medications Medication Instructions Recorded Confirmed aspirin 81 mg tablet,delayed 81 mg PO DAILY 10/07/20 04/13/22 release calcitriol 0.5 mcg capsule 0.5 mcg PO DAILY 10/07/20 04/13/22 omeprazole 20 mg capsule,delayed 1 cap PO DAILY 10/07/20 04/13/22 release triamcinolone acetonide 0.1 % appl topical 10/07/20 04/13/22 topical cream carbidopa 25 mg-levodopa 100 mg 1.5 tab PO TID 04/14/21 04/13/22 tablet cranberry 400 mg capsule 400 mg PO DAILY 04/14/21 04/13/22 docusate sodium 100 mg capsule 100 mg PO BID 04/14/21 04/13/22 (Stool Softener) melatonin 5 mg capsule 5 mg PO DAILY 04/14/21 04/13/22 Previous Rx's Medication Instructions Recorded metoprolol succinate 50 mg 50 mg PO DAILY #90 tabs 06/28/22 tablet,extended release 24 hr meloxicam 7.5 mg tablet 7.5 mg PO DAILY #7 tabs 01/03/23 prednisone 20 mg tablet 20 mg PO DAILY #5 tabs 01/03/23 tramadol 50 mg tablet 50 mg PO BID PRN pain #6 tabs 01/03/23 Allergies Allergy/AdvReac Type Severity Reaction Status Date / Time lisinopril Allergy Unknown Unknown Verified 04/13/22 13:21 Review of Systems Review of Systems: Constitutional : No Weight loss, No Fever, No Chills, No Night Sweats, No Fatigue, No Malaise ENT/Mouth : No Hearing loss, No Ear Pain, No Nasal Congestion, No Sinus Pain, No Hoarseness, No sore throat, No Rhinorrhea, No Swallowing Difficulty Eyes: No Eye Pain, No Swelling, No Redness, No Foreign Body, No Discharge, No Vision Changes Cardiovascular : No Chest Pain, No SOB, No Dyspnea on Exertion, No Orthopnea, No Edema, No Palpitations Respiratory : No Cough, No Sputum, No Wheezing, No Smoke Exposure, No Dyspnea Gastrointestinal : No Nausea, No Vomiting, No Diarrhea, No Constipation, No abdominal Pain, No Hematochezia, No Melena Genitourinary : no irregular bleeding, No Dysuria, No Urinary Frequency, No Anjel turia, No Urinary Incontinence, No Urgency, No Flank Pain, No Urinary Flow Changes, No Hesitancy Musculoskeletal : Complaining pain in the dorsum the right foot, No Myalgias, No Joint Swelling Skin : No Skin Lesions, No rash Neuro : No Weakness, No Numbness, No Paresthesias, No Loss of Consciousness, No Dizziness, No Headache Psych : No Anxiety/Panic, No Depression, No SI/HI/AH/VH, No Social Issues, Heme/Lymph: No Bruising, No Bleeding,No Lymphadenopathy Endocrine : No Polyuria, No Polydipsia, No Temperature Intolerance [facility] Past Medical History Medical History Barretts esophagus GERD (gastroesophageal reflux disease) Heart block Hiatal hernia History of back pain History of prostate cancer HTN (hypertension) Hypercholesterolemia 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 Mother No problems noted. Social History Social History Housing Other:: Resides in [facility] Are you a primary managed care manager to a significant other at home: No Do you presently have visiting nurse or other home services: Yes (SUBSTANCE ABUSE SERVICES DIRECTOR[facility] Alcohol intake: former Patient Tobacco Use Status: Never used Tobacco Smoked in Last 30 Days: No Advance Directives: Yes Advance Directives on File: Yes Advance Directives Date on File: 10/28/20 Physical Exam Vital Signs: Vital Signs: Last Vital Signs Temp 98.6 F 01/03/23 13:12 Pulse 97 01/03/23 14:45 Resp 20 01/03/23 14:45 BP 159/72 H 01/03/23 14:45 Pulse Ox 97 01/03/23 14:45 O2 Del Method Nasal Cannula 01/03/23 14:45 O2 Flow Rate 2 01/03/23 14:45 Oxygen Flow Rate 2 01/03/23 13:07 BMI result Body Mass Index 26.7 Const: Other: Appearance: Alert. Oriented X3. No acute distress. Eyes: Pupils equal, round and reactive to light. ENT: Pharynx normal. Neck: Normal inspection. Neck supple. No lymph nodes noted. No crepitus CVS: Normal heart rate and rhythm. Pulses normal. Normal S1 and S2 Respiratory: No respiratory distress. Breath sounds normal. No Wheezing. No rales Abdomen: Soft and nontender. No rigidity. No distention. Skin: Skin warm and dry. See extremity below Extremities: No lower extremity edema. No Lacerations. No Rash, dorsum of right foot is erythematous, there is swelling present compared to the other foot, warm to touch, patient complains of pain to very slight touch. No pain over the medial or lateral malleoli, no pain on the heel Neuro: Oriented X 3. No motor deficit. No sensory deficit. Moving all extremities. No slurred speech. CN 2 through 12 grossly intact Psych: calm, cooperative, normal affect Course Course Course Narrative: -of patient's labs and imaging pending Medical Decision Making Medical Decision Making [facility] Narrative: -x-rays of the foot and ankle my interpretation: No fracture or dislocation -white blood cell count within normal limits, uric acid slightly elevated -he does not seem to have cellulitis, most likely gout. Patient given prednisone in the emergency room -patient's only in the dorsum of foot. Patient has no pain in the toes, ankle or above, DVT not suspected Differential Diagnosis Differential Diagnoses: The differential diagnosis associated with the presentation includes (Gout, cellulitis) Lab Data [facility] Lab Attestation statement: I reviewed the patient's lab results. 01/03/23 14:08 01/03/23 14:08 Labs: Lab Results 01/03/23 01/03/23 01/03/23 Range/Units 14:08 14:08 14:10 WBC 7.0 (4.8-10.8) X10*3/uL RBC 4.40 L (4.60-5.80) X10*6/uL Hgb 13.6 L (14.0-18.0) g/dl Hct 41.0 L (42.0-52.0) % MCV 93.2 (80.0-98.0) fL MCH 30.9 (27.0-33.0) pg MCHC 33.2 (31.0-36.0) g/dl RDW 13.0 (11.0-16.0) % Plt Count 180 (160-400) X10*3/uL MPV 9.1 L (9.4-12.4) fL Immature Gran % (Auto) 0.3 (0.0-0.4) % Neut % (Auto) 71.8 (45-73) % Lymph % (Auto) 13.3 L (20-40) % [place] % (Auto) 12.9 H (2-11) % Eos % (Auto) 1.1 (0-4) % Baso % (Auto) 0.6 (0-2) % Lymph # (Auto) 0.9 L (1.2-4.9) X10*3/uL [place] # (Auto) 0.9 (0.1-1.2) X10*3/uL Eos # (Auto) 0.1 (0.0-0.4) X10*3/uL Baso # (Auto) 0.0 (0.0-0.2) X10*3/uL Abs Immat Gran (auto) 0.02 (0.00-0.03) X10*3/uL Absolute Neuts (auto) 5.0 (2.0-8.3) x10*3/uL Absolute Nucleated RBC 0.000 (0.0-0.012) X10*3/uL Nucleated RBC % (auto) 0.0 (0.0-0.2) /100WBC Sodium 137 (135-145) mmol/L Potassium 4.4 (3.3-5.1) mmol/L Chloride 103 (96-108) mmol/L Carbon Dioxide 26 (22-29) mmol/L Anion Gap 12 (12-20) BUN 27 H (9-16) mg/dL Creatinine 1.47 H (0.5-1.4) mg/dL Estim Creat Clear Calc 32.4 Estimated GFR 45 Random Glucose 114 (60-115) mg/dL Lactic Acid 1.1 (0.5-2.0) mmol/L Uric Acid 8.1 H (3.4-7.0) mg/dL Calcium 9.1 (8.4-10.2) mg/dL Total Bilirubin 1.0 (0.0-1.0) mg/dL Direct Bilirubin 0.3 (0.0-0.5) mg/dL AST 16 (5-37) U/L ALT < 5 (0-40) U/L Alkaline Phosphatase 104 (39-117) U/L C-Reactive Protein 4.54 H (< or = 0.50) mg/dL Total Protein 6.9 (6.5-8.0) g/dL Albumin 3.7 (3.5-5.0) g/dL Discharge Plan Discharge Clinical Impression: Gout attack Patient Disposition: Home, Self-Care Instructions: Gout (ED) Additional Instructions: Please follow-up with your primary care physician tomorrow. If you have any worsening or new symptoms, please return to the emergency room or call 911 Prescriptions: New prednisone 20 mg tablet 20 mg PO DAILY Qty: 5 0RF meloxicam 7.5 mg tablet 7.5 mg PO DAILY Qty: 7 0RF tramadol 50 mg tablet 50 mg PO BID PRN (Reason: pain) Qty: 6 0RF Rx Instructions: Avoid taking tramadol, only if ibuprofen does not work No Action metoprolol succinate 50 mg tablet extended release 24 hr 50 mg PO DAILY Qty: 90 3RF triamcinolone acetonide 0.1 % cream topical calcitriol 0.5 mcg capsule 0.5 mcg PO DAILY omeprazole 20 mg capsule,delayed release(DR/EC) 1 cap PO DAILY aspirin [Aspir-81] 81 mg Tablet,Delayed Release (Dr/Ec) 81 mg PO DAILY carbidopa-levodopa 25-100 mg tablet 1.5 tab PO TID melatonin 5 mg capsule 5 mg PO DAILY cranberry 400 mg capsule 400 mg PO DAILY Rx Instructions: administer with a meal docusate sodium [Stool Softener] 100 mg capsule 100 mg PO BID
--- NOTE | 2023-01-03 13:58 | PC.NURSE ---
Difficult IV stick, tech to attempt (third tech to attempt) Pt came with IV from EMS, patent
--- NOTE | 2023-01-03 14:12 | MHC.EDTECH ---
Labs and cultures drawn and sent
[2023-01-03 14:14] LABS: MANUAL DIFF FLAG NO
[2023-01-03 14:16] LABS: Basophils Percent Auto 0.6 % (0-2); Eosinophils Absolute Auto 0.1 X10*3/uL (0.0-0.4); Eosinophils Percent Auto 1.1 % (0-4); Hemoglobin 13.6 g/dl (14.0-18.0); Imm Gran Abs Auto 0.02 X10*3/uL (0.00-0.03); Imm Gran Pct Auto 0.3 % (0.0-0.4); Lymphocytes Absolute Auto 0.9 X10*3/uL (1.2-4.9); Lymphocytes Percent Auto 13.3 % (20-40); Mean Corpuscular HGB Conc 33.2 g/dl (31.0-36.0); Mean Corpuscular Hemoglobin 30.9 pg (27.0-33.0); Mean Corpuscular Volume 93.2 fL (80.0-98.0); Mean Platelet Volume 9.1 fL (9.4-12.4); Monocytes Absolute Auto 0.9 X10*3/uL (0.1-1.2); Monocytes Percent Auto 12.9 % (2-11); Neutrophils Percent Auto 71.8 % (45-73); Platelet Count 180 X10*3/uL (160-400)
[2023-01-03 14:27] LABS: Lactic Acid 1.1 mmol/L (0.5-2.0)
[2023-01-03 14:32] LABS: Alanine Aminotransferase < 5 U/L (0-40); Albumin Level 3.7 g/dL (3.5-5.0); Alkaline Phosphatase 104 U/L (39-117); Anion Gap 12 (12-20); Aspartate Amino Transferase 16 U/L (5-37); Bilirubin Direct 0.3 mg/dL (0.0-0.5); Blood Urea Nitrogen 27 mg/dL (9-16); C Reactive Protein 4.54 mg/dL (< or = 0.50); Calcium 9.1 mg/dL (8.4-10.2); Carbon Dioxide 26 mmol/L (22-29); Chloride 103 mmol/L (96-108); Creatinine Clr Calc Pharmacy 32.4; Estimated Glomerular Filt Rate 45; Glucose Random 114 mg/dL (60-115); Potassium 4.4 mmol/L (3.3-5.1); Sodium 137 mmol/L (135-145); Total Protein 6.9 g/dL (6.5-8.0); Uric Acid 8.1 mg/dL (3.4-7.0)
[2023-01-03 14:45] VITALS: BP 159/72; PULSE 97; RESP 20; O2SAT 97
[2023-01-03 15:03] LABS: Erythrocyte Sedimentation Rate 53 MM/HR (0-15)
[2023-01-03] MEDS: predniSONE 20 MG TABLET 60 MG PO (15:52)
[2023-01-03] MEDS: Ibuprofen 600 MG TABLET PO (15:52)
--- NOTE | 2023-01-03 16:00 | PC.NURSE ---
Alert and oriented. Medicated per orders. Son and supervisory cbp officer aware of discharge instructions as well as patient.
--- NOTE | 2023-01-03 16:09 | PC.NURSE ---
report given to [facility]
== END 2023-01-03 16:00 | disposition home or self-care (01) ==
PROVIDERS: Emergency Provider Emergency Medicine; PCP Internal Medicine
DX: M10.071 Idiopathic gout, right ankle and foot (principal); M79.671 Pain in right foot; Z79.899 Other long term (current) drug therapy
CPT/HCPCS: 36415; 73600; 73620; 80048; 80076; 83605; 84550; 85025; 85652; 86140; 87040; 99284

== ENCOUNTER 2023-03-26 12:38 | Inpatient (IN) | payer MEDICARE, SELFPAY ==
--- NOTE | ~2023-03-26 | MR_ITS ---
EXAMINATION: MR BRAIN WITHOUT CONTRAST CLINICAL INFORMATION: Transient ischemic attack. Encephalopathy. COMPARISON: CT angiogram of the head and neck 03/26/2023. TECHNIQUE: Multiplanar MR imaging of the brain was performed without contrast. FINDINGS: There is loss of parenchymal volume with ex vacuo enlargement of the ventricles. There are numerous foci of T2 FLAIR signal hyperintensity within the periventricular white matter, basal ganglia, thalami, and stacia. No acute territorial infarct. No pathological magnetic susceptibility artifact. Intracranial vascular flow voids are grossly maintained. There is no intracranial mass effect or midline shift. No abnormal extra-axial collection. Midline structures including the cervicomedullary junction are normal. No acute bone marrow signal changes. There is no mastoid or middle ear effusion. Mild paranasal sinus disease primarily affecting the ethmoid air cells. Globes and orbits are symmetric. MR/MR head/brain wo con IMPRESSION: There is global parenchymal volume loss and numerous chronic small vessel ischemic changes within the periventricular white matter, basal ganglia, thalami, and stacia. No evidence of acute territorial infarct or hemorrhage.
--- NOTE | ~2023-03-26 | CT_ITS ---
EXAMINATION: CT ANGIOGRAM HEAD CT ANGIOGRAM NECK CLINICAL INFORMATION: weakness COMPARISON: Head CT 05/28/2019 TECHNIQUE: Test bolus sequences followed by intravenous administration 70 mL of Omnipaque 350. Helical imaging was performed in the axial plane from the aortic arch to the skull vertex. Delayed postcontrast imaging of the head was also performed. The data was processed at the biotechnologist's workstation for generation of MIP sequences. Angled MIPs and volume rendered reformatted images were also generated at an offline 3D workstation. Stenoses are assessed in accordance with Llamas et al. Quantification of Carotid Stenosis on CT Angiography. AJR 2006. 27(1):13-19. This CT examination was performed using dose optimization techniques as appropriate, variously including the following: *Automated exposure control *Adjustment of mA and/or kV according to patient size (this includes techniques or standardized protocols for targeted exams where dose is matched to indication/reason for exam; i.e. extremities or head) *Use of iterative reconstruction technique DLP: 2220 mGy-cm FINDINGS: CT HEAD: Progression of significant global cerebral volume loss with a predilection for the left greater than right temporal lobes and disproportionate ventriculomegaly favored to be on the basis of deep white matter volume loss. Redemonstrated confluent periventricular and deep white matter hypoattenuation, nonspecific but most suggestive of severe chronic microangiopathy, again seen chronic lacunar infarcts within the deep brooks nuclei. Query new hypodensity within the left pontomesencephalic junction suspicious for age-indeterminate ischemia (image 51, series 21). No acute intracranial hemorrhage or extra-axial fluid collection. Partially empty sella. No mass lesion, significant mass effect, or herniation pattern. No pathologic intra-axial enhancement or regional oligemia. Increased AP dimension of the globe suggestive of axial myopia. Angulated rightward deviation of the nasal septum. Paranasal sinuses and mastoid air cells are well aerated. Osseous structures are intact. Increased plaque-like dermal thickening along the right temporal scalp and a 1.0 cm, previously 0.6 cm for which correlation with direct inspection is advised. CTA HEAD: Significant venous contamination compromises diagnostic assessment. Severe long segment and likely occlusive stenoses of the left P2 and P3 KNOCKER OUT with oligemia of the distal left KNOCKER OUT territory. Moderate stenosis of the right P2 KNOCKER OUT. Mild focal stenosis of the left A1 JULIANA. Extradural origin of the right PICA, a normal anatomic. Dolichoectasia of anterior and posterior circulation related to chronic underlying hypertension. 2 mm inferiorly projecting saccular aneurysm versus infundibulum arising from the terminal segment of the left ICA. No high flow vascular malformations. Timing of the contrast bolus allows assessment of the major dural venous sinuses, which all opacify normally CTA NECK: Classic 3 vessel branching pattern of the aortic arch. Mild atherosclerotic disease of the aortic arch and great vessel origins. Origins of the great vessels are widely patent. Fibrofatty plaque/mural thickening of the common carotid arteries which remain widely patent. Fibrofatty plaque of the right greater than left carotid bifurcations with associated calcifications on the right contributes to mild (less than 50%) luminal narrowing of the right proximal ICA without significant stenosis on the left. The left vertebral artery is dominant. Nondiagnostic assessment of the bilateral vertebral artery origins and proximal V1 segments, with otherwise preserved opacification throughout their extracranial course. Right main pulmonary artery up to 3.5 cm compatible with chronic pulmonary hypertension. CT NECK: Advanced bilateral TMJ osteoarthrosis. Surgical clips along the posterior aspect of the right thyroid gland. Biapical pleural parenchymal scarring. Multilevel cervical spondylosis. CT/CT angio head neck IMPRESSION: 1. Query new hypodensity within the left pontomesencephalic junction suspicious for age-indeterminate ischemia (image 51, series 21) on a background of advanced presumably chronic microangiopathic changes. Redemonstrated chronic lacunar infarcts within the basal ganglia. 2. Severe long segment and likely occlusive stenoses of the left P2 and P3 KNOCKER OUT with oligemia of the distal left KNOCKER OUT territory. Moderate stenosis of the right P2 KNOCKER OUT. 3. 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 4. Nondiagnostic assessment of the bilateral vertebral artery origins and proximal V1 segments, without significant steno-occlusive disease in the neck 5. Progression of significant global cerebral volume loss with a predilection for the left greater than right temporal lobes and disproportionate ventriculomegaly favored to be on the basis of deep white matter volume loss. 6. Increased plaque-like dermal thickening along the right temporal scalp and a 1.0 cm, previously 0.6 cm for which correlation with direct inspection is advised. 7. Right main pulmonary artery up to 3.5 cm compatible with chronic pulmonary hypertension. This critical result was discussed with Dr. Fernando at 4:00 PM on 03/26/2023 and it was ascertained that the content and urgency of the report was understood at the time of direct communication.
--- NOTE | ~2023-03-26 | XR_ITS ---
EXAMINATION: XR CHEST CLINICAL INFORMATION: Cough. COMPARISON: Chest 05/28/2019 TECHNIQUE: Frontal view of the chest was obtained. FINDINGS: There is mild elevated right hemidiaphragm. Otherwise both lungs are somewhat expanded and clear. The heart size is enlarged. Pulmonary vascularity is normal. There are dual pacer electrodes in right atrium and right ventricle. XR/XR chest 1V IMPRESSION: Mild cardiomegaly. No acute process seen.
--- NOTE | 2023-03-26 12:40 | ECG_ITS ---
Test Reason : AMS Blood Pressure : / mmHG Vent. Rate : 076 BPM Atrial Rate : 076 BPM P-R Int : 256 ms QRS Dur : 138 ms QT Int : 398 ms P-R-T Axes : 005 -25 -39 degrees QTc Int : 447 ms Sinus rhythm with 1st degree A-V block Right bundle branch block T wave abnormality, consider inferolateral ischemia Abnormal ECG When compared with ECG of 28-MAY-2019 12:21, T wave inversion now evident in Lateral leads Referred By: Faith Fernando Electronically Signed By:JOSEPHINE MCGEE
[2023-03-26 12:48] VITALS: BP 170/74; BP 173/73; PULSE 70; PULSE 77; RESP 16; TEMP 37.1; O2SAT 90; BMI 27.3
--- NOTE | 2023-03-26 12:50 | ED.NEUROSD ---
HPI - Neuro Symptoms/Deficit General Chief Complaint: Altered Mental Status Stated Complaint: Poss stroke per EMS Time Seen by Provider: 03/26/23 12:40 Source: patient and EMS Mode of arrival: EMS Limitations: no limitations History of Present Illness HPI Narrative: 87 yo male with PMH of NSVT, heart block, GERD, TIA, parkinsons, here with c/o confusion, difficulty with speech, and possible R eyelid drooping last seen last night ([facility]) - EMS notes he felt hot to touch and temporal temp was 100.8. They were told he was treated for UTI on 03/23 but unsure where (not at [facility] after calling). He has a cough. He is confused to the time but otherwise intact he states he just doesn't feel well and cannot tell me much more. EMS denies any other history. son denies he was diagnosed with UTI Onset (ago): unknown (seen last normal last night) Timing confirmed by: caregiver Location: speech and right face History of same: No Severity: mild Quality: weak Relieving factors: none Exacerbating factors: none Context: other (unsure) On Anticoagulants: No Associated symptoms: cough, loss of appetite and malaise Treatments Prior to Arrival: none Related Data Home Medications Medication Instructions Recorded Confirmed aspirin 81 mg tablet,delayed 81 mg PO DAILY 10/07/20 04/13/22 release calcitriol 0.5 mcg capsule 0.5 mcg PO DAILY 10/07/20 04/13/22 omeprazole 20 mg capsule,delayed 1 cap PO DAILY 10/07/20 04/13/22 release triamcinolone acetonide 0.1 % appl topical 10/07/20 04/13/22 topical cream carbidopa 25 mg-levodopa 100 mg 1.5 tab PO TID 04/14/21 04/13/22 tablet cranberry 400 mg capsule 400 mg PO DAILY 04/14/21 04/13/22 docusate sodium 100 mg capsule 100 mg PO BID 04/14/21 04/13/22 (Stool Softener) melatonin 5 mg capsule 5 mg PO DAILY 04/14/21 04/13/22 Previous Rx's Medication Instructions Recorded metoprolol succinate 50 mg 50 mg PO DAILY #90 tabs 06/28/22 tablet,extended release 24 hr meloxicam 7.5 mg tablet 7.5 mg PO DAILY #7 tabs 01/03/23 prednisone 20 mg tablet 20 mg PO DAILY #5 tabs 01/03/23 tramadol 50 mg tablet 50 mg PO BID PRN pain #6 tabs 01/03/23 Allergies Allergy/AdvReac Type Severity Reaction Status Date / Time lisinopril Allergy Unknown Unknown Verified 04/13/22 13:21 Review of Systems Review of Systems: Constitutional : No Weight loss, No Fever, No Chills, pos fatigue pos malaise ENT/Mouth : No sore throat, No Rhinorrhea Eyes: No Swelling, No Redness Cardiovascular : No Chest Pain, No SOB, NoEdema Respiratory : pos Cough, No Sputum, No Wheezing Gastrointestinal : Positive Nausea, no Vomiting, no Diarrhea, no abdominal Pain, No Hematochezia, No Melena Genitourinary : No Dysuria, No Urinary Frequency, No Hematuria, No Urgency Musculoskeletal : No joint pain, No Myalgias, No Joint Swelling Skin : No Skin Lesions, No rash Neuro : pos Weakness, No Numbness, No Dizziness, No Headache All other systems reviewed and are negative. [facility] Past Medical History Source: old records reviewed Medical History Barretts esophagus GERD (gastroesophageal reflux disease) Heart block Hiatal hernia History of back pain History of prostate cancer HTN (hypertension) Hypercholesterolemia 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 Mother No problems noted. Social History Social History Housing Other:: Resides in [facility] Are you a primary child care associate teacher to a significant other at home: No Do you presently have visiting nurse or other home services: Yes ([employer]SE[employer]- from [employer]) Alcohol intake: former Patient Tobacco Use Status: Never used Tobacco Smoked in Last 30 Days: No Use of substances other than those prescribed or required for medical reasons: No Advance Directives: Yes Advance Directives on File: Yes Advance Directives Date on File: 10/28/20 Physical Exam Vital Signs: Vital Signs: Last Vital Signs Temp 97.8 F 03/26/23 16:10 Pulse 69 03/26/23 16:10 Resp 20 03/26/23 16:10 BP 184/94 H 03/26/23 16:10 Pulse Ox 93 03/26/23 16:10 O2 Del Method Room Air 03/26/23 16:10 BMI result Body Mass Index 27.3 Appearance: Alert. Oriented X2 (confused on time). No acute distress. Eyes: Pupils equal, round and reactive to light. ENT: Pharynx normal. Neck: Normal inspection. Neck supple. CVS: Normal heart rate and rhythm. Pulses normal. Respiratory: No respiratory distress. Breath sounds coarse and diminished in the bases. Abdomen: Soft and nontender. Skin: Skin warm and dry. Normal skin color. Normal skin turgor. Extremities: No lower extremity edema. Neuro: Oriented X 2 (confused on time). No motor deficit. No sensory deficit. Course Course Course Narrative: urine is not impressive at this time CXR to la shows left lung opacity. Medications Administered Generic Name Dose Route Start Last Admin Trade Name Freq PRN Reason Stop Dose Admin Azithromycin 500 mg/ Sodium 250 mls @ 125 mls/hr 03/26/23 15:36 03/26/23 16:04 Chloride IV 03/26/23 17:35 125 mls/hr ONCE ONE Administration Discontinued Medications Generic Name Dose Route Start Last Admin Trade Name Freq PRN Reason Stop Dose Admin Aspirin 81 mg 03/26/23 16:17 03/26/23 16:26 Aspirin 81 Mg Tab.Chew PO 03/26/23 16:18 81 mg ONCE ONE Administration Sodium Chloride 1,000 mls @ 999 mls/hr 03/26/23 12:45 03/26/23 14:56 Ns IVCONT 03/26/23 13:45 Infused .Q1H1M IESHA Infusion Ceftriaxone Sodium 1 gm/ 50 mls @ 100 mls/hr 03/26/23 13:02 03/26/23 14:16 Sodium Chloride IV 03/26/23 13:31 Infused ONCE ONE Infusion Medical Decision Making Medical Decision Making MDM Narrative: 87 yo male with PMH of NSVT, heart block, GERD, TIA, parkinsons, here with c/o weakness, cough, possible pre hospital fever and low O2 sats - caregiver also feels he has word finding difficulties which I did not appreciate he does have some mild R eyelid droop but otherwise he is intact. at this time labs, cultures, UA/CXR for UTI and pneumonia, CT head and CTA - he would be out of the window for tPa and I do not suspect LVO. He will be given fluids, tylenol and empiric ceftriaxone. Likely admission I am calling around hospitals for recent visit for UTI as aide does not know. Differential Diagnosis Differential Diagnoses: The differential diagnosis associated with the presentation includes pneumonia, UTI, stroke, TIA, Admission/Observation Consideration of admission/observation: Escalation of care including admission/observation considered not at baseline will admit for further workup and infection Consult Healthcare Provider Management of the patient was discussed with: Hospitalist agrees to admit Lab Data MDM Lab Attestation statement: I reviewed the patient's lab results. 03/26/23 13:09 03/26/23 13:09 Labs: Lab Results 03/26/23 03/26/23 03/26/23 Range/Units 13:09 13:09 13:09 WBC 14.4 H (4.8-10.8) X10*3/uL RBC 4.18 L (4.60-5.80) X10*6/uL Hgb 12.9 L (14.0-18.0) g/dl Hct 37.3 L (42.0-52.0) % MCV 89.2 (80.0-98.0) fL MCH 30.9 (27.0-33.0) pg MCHC 34.6 (31.0-36.0) g/dl RDW 13.1 (11.0-16.0) % Plt Count 155 L (160-400) X10*3/uL MPV 8.8 L (9.4-12.4) fL Immature Gran % (Auto) 0.6 H (0.0-0.4) % Neut % (Auto) 83.0 H (45-73) % Lymph % (Auto) 5.4 L (20-40) % Cassia % (Auto) 10.6 (2-11) % Eos % (Auto) 0.1 (0-4) % Baso % (Auto) 0.3 (0-2) % Lymph # (Auto) 0.8 L (1.2-4.9) X10*3/uL Cassia # (Auto) 1.5 H (0.1-1.2) X10*3/uL Eos # (Auto) 0.0 (0.0-0.4) X10*3/uL Baso # (Auto) 0.0 (0.0-0.2) X10*3/uL Abs Immat Gran (auto) 0.08 H (0.00-0.03) X10*3/uL Absolute Neuts (auto) 12.0 H (2.0-8.3) x10*3/uL Absolute Nucleated RBC 0.000 (0.0-0.012) X10*3/uL Nucleated RBC % (auto) 0.0 (0.0-0.2) /100WBC Smear Tech's Comments VERIFIED PT (11.1-13.3) SEC INR (0.9-1.1) Sodium 130 L (135-145) mmol/L Potassium 4.1 (3.3-5.1) mmol/L Chloride 100 (96-108) mmol/L Carbon Dioxide 22 (22-29) mmol/L Anion Gap 12 (12-20) BUN 25 H (9-16) mg/dL Creatinine 1.12 (0.5-1.4) mg/dL Estim Creat Clear Calc 47.0 Estimated GFR > 60 Random Glucose 90 (60-115) mg/dL Lactic Acid 0.7 (0.5-2.0) mmol/L Calcium 9.3 (8.4-10.2) mg/dL Magnesium 1.8 (1.6-2.6) mg/dL Total Bilirubin 1.2 H (0.0-1.0) mg/dL Direct Bilirubin 0.5 (0.0-0.5) mg/dL AST 16 (5-37) U/L ALT < 5 (0-40) U/L Alkaline Phosphatase 84 (39-117) U/L Troponin I High Sens (<3.5-35.0) ng/L Total Protein 6.7 (6.5-8.0) g/dL Albumin 3.3 L (3.5-5.0) g/dL Lipase 9 (8-78) U/L Urine Color Urine Appearance Urine pH (5.0-9.0) Ur Specific Mertens (1.005-1.025) Urine Protein (Neg-Trace) mg/dL Urine Glucose (UA) (Negative) mg/dL Urine Ketones (Negative) mg/dL Urine Blood (Negative) Urine Nitrite (Negative) Ur Leukocyte Esterase (Negative) Urine RBC (0-2) /HPF Urine WBC (0-5) /HPF Ur Squamous Epith Cells (0-2) /HPF Urine Bacteria (None Seen) Hyaline Casts (0-2) /LPF COVID-19 ([facility]) (Negative) COVID-19 Clin Com 03/26/23 03/26/23 03/26/23 Range/Units 13:09 13:09 13:09 WBC (4.8-10.8) X10*3/uL RBC (4.60-5.80) X10*6/uL Hgb (14.0-18.0) g/dl Hct (42.0-52.0) % MCV (80.0-98.0) fL MCH (27.0-33.0) pg MCHC (31.0-36.0) g/dl RDW (11.0-16.0) % Plt Count (160-400) X10*3/uL MPV (9.4-12.4) fL Immature Gran % (Auto) (0.0-0.4) % Neut % (Auto) (45-73) % Lymph % (Auto) (20-40) % Cassia % (Auto) (2-11) % Eos % (Auto) (0-4) % Baso % (Auto) (0-2) % Lymph # (Auto) (1.2-4.9) X10*3/uL Cassia # (Auto) (0.1-1.2) X10*3/uL Eos # (Auto) (0.0-0.4) X10*3/uL Baso # (Auto) (0.0-0.2) X10*3/uL Abs Immat Gran (auto) (0.00-0.03) X10*3/uL Absolute Neuts (auto) (2.0-8.3) x10*3/uL Absolute Nucleated RBC (0.0-0.012) X10*3/uL Nucleated RBC % (auto) (0.0-0.2) /100WBC Smear Tech's Comments PT 13.8 H (11.1-13.3) SEC INR 1.1 (0.9-1.1) Sodium (135-145) mmol/L Potassium (3.3-5.1) mmol/L Chloride (96-108) mmol/L Carbon Dioxide (22-29) mmol/L Anion Gap (12-20) BUN (9-16) mg/dL Creatinine (0.5-1.4) mg/dL Estim Creat Clear Calc Estimated GFR Random Glucose (60-115) mg/dL Lactic Acid (0.5-2.0) mmol/L Calcium (8.4-10.2) mg/dL Magnesium (1.6-2.6) mg/dL Total Bilirubin (0.0-1.0) mg/dL Direct Bilirubin (0.0-0.5) mg/dL AST (5-37) U/L ALT (0-40) U/L Alkaline Phosphatase (39-117) U/L Troponin I High Sens 8.8 (<3.5-35.0) ng/L Total Protein (6.5-8.0) g/dL Albumin (3.5-5.0) g/dL Lipase (8-78) U/L Urine Color Urine Appearance Urine pH (5.0-9.0) Ur Specific Mertens (1.005-1.025) Urine Protein (Neg-Trace) mg/dL Urine Glucose (UA) (Negative) mg/dL Urine Ketones (Negative) mg/dL Urine Blood (Negative) Urine Nitrite (Negative) Ur Leukocyte Esterase (Negative) Urine RBC (0-2) /HPF Urine WBC (0-5) /HPF Ur Squamous Epith Cells (0-2) /HPF Urine Bacteria (None Seen) Hyaline Casts (0-2) /LPF COVID-19 ([facility]) Negative (Negative) COVID-19 Clin Com See Note 03/26/23 Range/Units 14:13 WBC (4.8-10.8) X10*3/uL RBC (4.60-5.80) X10*6/uL Hgb (14.0-18.0) g/dl Hct (42.0-52.0) % MCV (80.0-98.0) fL MCH (27.0-33.0) pg MCHC (31.0-36.0) g/dl RDW (11.0-16.0) % Plt Count (160-400) X10*3/uL MPV (9.4-12.4) fL Immature Gran % (Auto) (0.0-0.4) % Neut % (Auto) (45-73) % Lymph % (Auto) (20-40) % Cassia % (Auto) (2-11) % Eos % (Auto) (0-4) % Baso % (Auto) (0-2) % Lymph # (Auto) (1.2-4.9) X10*3/uL Cassia # (Auto) (0.1-1.2) X10*3/uL Eos # (Auto) (0.0-0.4) X10*3/uL Baso # (Auto) (0.0-0.2) X10*3/uL Abs Immat Gran (auto) (0.00-0.03) X10*3/uL Absolute Neuts (auto) (2.0-8.3) x10*3/uL Absolute Nucleated RBC (0.0-0.012) X10*3/uL Nucleated RBC % (auto) (0.0-0.2) /100WBC Smear Tech's Comments PT (11.1-13.3) SEC INR (0.9-1.1) Sodium (135-145) mmol/L Potassium (3.3-5.1) mmol/L Chloride (96-108) mmol/L Carbon Dioxide (22-29) mmol/L Anion Gap (12-20) BUN (9-16) mg/dL Creatinine (0.5-1.4) mg/dL Estim Creat Clear Calc Estimated GFR Random Glucose (60-115) mg/dL Lactic Acid (0.5-2.0) mmol/L Calcium (8.4-10.2) mg/dL Magnesium (1.6-2.6) mg/dL Total Bilirubin (0.0-1.0) mg/dL Direct Bilirubin (0.0-0.5) mg/dL AST (5-37) U/L ALT (0-40) U/L Alkaline Phosphatase (39-117) U/L Troponin I High Sens (<3.5-35.0) ng/L Total Protein (6.5-8.0) g/dL Albumin (3.5-5.0) g/dL Lipase (8-78) U/L Urine Color Yellow Urine Appearance Cloudy Urine pH 6.0 (5.0-9.0) Ur Specific Mertens 1.020 (1.005-1.025) Urine Protein 30 (1+) H (Neg-Trace) mg/dL Urine Glucose (UA) Negative (Negative) mg/dL Urine Ketones Trace (Negative) mg/dL Urine Blood Negative (Negative) Urine Nitrite Negative (Negative) Ur Leukocyte Esterase Trace H (Negative) Urine RBC 0-2 (0-2) /HPF Urine WBC 0-5 (0-5) /HPF Ur Squamous Epith Cells 0-2 (0-2) /HPF Urine Bacteria 4+ (None Seen) Hyaline Casts 0-2 (0-2) /LPF COVID-19 ([facility]) (Negative) COVID-19 Clin Com Independent Interpretation I performed an independent interpretation of an: EKG, Plain X-Ray (L lower lung opacity) and CT Scan (no ICH) Interpretation: Rate: 76 Rhythm: NSR with 1st degree AVB [place]: left Normal P waves. Normal LILLIAN. RBBB ST T wave : no LORRIE inverted t waves inf leads and V1-V6 qTC: normal prior studies: no sig change from 2019 The study has been interpreted contemporaneously by me. . Radiology Impression Discussion of test interpretation with radiology: I discussed test interpretation with the radiologist and I have reviewed the radiologist's reading. 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 History obtained from or confirmed by: EMS and Other External Record Review External record reviewed: Inpatient record Discharge Plan Discharge Clinical Impression: Encephalopathy acute, Hypoxia Pneumonia Qualifiers: Pneumonia type: due to unspecified organism Laterality: left Lung location: lower lobe of lung Qualified Code(s): J18.9 - Pneumonia, unspecified organism Elevated WBC count Qualifiers: Leukocytosis type: unspecified Qualified Code(s): D72.829 - Elevated white blood cell count, unspecified Drooping eyelid Qualifiers: Laterality: right Qualified Code(s): H02.401 - Unspecified ptosis of right eyelid Patient Disposition: Admitted As Inpatient
[2023-03-26 13:19] LABS: Basophils Percent Auto 0.3 % (0-2); Eosinophils Percent Auto 0.1 % (0-4); Hematocrit 37.3 % (42.0-52.0); Hemoglobin 12.9 g/dl (14.0-18.0); Imm Gran Abs Auto 0.08 X10*3/uL (0.00-0.03); Imm Gran Pct Auto 0.6 % (0.0-0.4); Lymphocytes Absolute Auto 0.8 X10*3/uL (1.2-4.9); Lymphocytes Percent Auto 5.4 % (20-40); MANUAL DIFF FLAG SCAN; Mean Corpuscular HGB Conc 34.6 g/dl (31.0-36.0); Mean Corpuscular Hemoglobin 30.9 pg (27.0-33.0); Mean Corpuscular Volume 89.2 fL (80.0-98.0); Mean Platelet Volume 8.8 fL (9.4-12.4); Monocytes Absolute Auto 1.5 X10*3/uL (0.1-1.2); Monocytes Percent Auto 10.6 % (2-11); Platelet Count 155 X10*3/uL (160-400); Red Blood Count 4.18 X10*6/uL (4.60-5.80); Red Cell Distribution Width 13.1 % (11.0-16.0); SCAN SMEAR FLAG 1; White Blood Count 14.4 X10*3/uL (4.8-10.8)
[2023-03-26] MEDS: 0.9 % Sodium Chloride 1,000 ML 999 ML IVCONT (13:31)
[2023-03-26 13:32] LABS: Lactic Acid 0.7 mmol/L (0.5-2.0)
[2023-03-26 13:34] LABS: INTERNATIONAL NORM RATIO 1.1 (0.9-1.1); Prothrombin Time 13.8 SEC (11.1-13.3)
[2023-03-26 13:35] LABS: COVID-19 Test Negative (Negative); IDNOW Serial# 08D9AD1C
[2023-03-26] MEDS: cefTRIAXone sodium 1 GM in 0.9 % Sodium Chloride 50 ML IV (13:36)
[2023-03-26 13:37] LABS: Alanine Aminotransferase < 5 U/L (0-40); Albumin Level 3.3 g/dL (3.5-5.0); Alkaline Phosphatase 84 U/L (39-117); Anion Gap 12 (12-20); Aspartate Amino Transferase 16 U/L (5-37); Bilirubin Direct 0.5 mg/dL (0.0-0.5); Bilirubin Total 1.2 mg/dL (0.0-1.0); Blood Urea Nitrogen 25 mg/dL (9-16); Calcium 9.3 mg/dL (8.4-10.2); Carbon Dioxide 22 mmol/L (22-29); Chloride 100 mmol/L (96-108); Estimated Glomerular Filt Rate > 60; Glucose Random 90 mg/dL (60-115); Lipase 9 U/L (8-78); Magnesium 1.8 mg/dL (1.6-2.6); Potassium 4.1 mmol/L (3.3-5.1); Sodium 130 mmol/L (135-145); Total Protein 6.7 g/dL (6.5-8.0)
[2023-03-26 13:42] LABS: SLIDE REVIEW VERIFIED
[2023-03-26 13:43] LABS: Troponin-I High Sensitivity 8.8 ng/L (<3.5-35.0)
--- OUTSIDE RECORDS SUMMARY | 2023-03-26 13:50 | XMS_ITS | Continuity of Care Document ---
Author Name Unknown Organization [facility] Address [address] [place] [address]- Care Team Providers Care Medicaid Billing Specialist Name Role Phone Martha BRYANT, Dante Lopez Primary Care Physician [place] [facility] [place]23 [place] 02/[place]/23 [facility] [address] [place] [address]- Allergies, Adverse Reactions, Alerts Substance Reaction Severity [...] influenza virus vaccine, inactivated 05/08/15 Marquis rded [id number] 12y+ bivalent booster vax 05/21/22 Recorded SARS-CoV-2 mRNA ([id number]) vax 11/27/21 Recorded SARS-CoV-2 (COVID-19) mRNA BNT-162b2 [...] Gm, 2 Refills, Maintenance, 10/17/22 20:49:00 EDT, [facility], 25, INHALE 2 PUFFS [...] Mouth, Daily, # 90 capsule, 3 Refills, [facility], 168, cm, 07/29/21 10:00:00 [...] each, 3 Refills, Maintenance, 03/01/22 10:13:00 EDT, [facility], USE 2 SPRAYS IN [...] Refills, Maintenance, 02/09/20 18:07:00 EDT, REC Powder, [facility], 17 Gm By Mouth [...] capsule, 0 Refills, Maintenance, 09/19/22 16:52:00 EST, [facility], Partial fill upon patient request if the prescription is for a schedule II opioid drug., 168, cm, 09/14/22 10:23:00 EST, Height Start Date: 09/19/22 Status: Ordered omeprazole 20 mg oral enteric coated capsule 1 capsule, By Mouth, Daily, # 90 capsule, 0 Refills, Maintenance, 12/02/22 8:28:00 EDT, [facility], 168, cm, 09/14/22 10:23:00 [...] Gm, 1 Refills, Maintenance, 10/09/21 11:07:00 EST, [facility], APPLY TOPICALLY TWO TIMES [...] Primary Care Member Role: PCP Address: Address: [address] [place] [address]- Care Team Related Persons Name: RAJAN PISANO Name: LAURA PISANO Name: GABBY PISANO
--- OUTSIDE RECORDS SUMMARY | 2023-03-26 13:50 | XMS_ITS | Continuity of Care Document ---
Author Name Unknown Organization [facility] Address [address] [place] [address]- Care Team Providers Care Front End Java Developer Name Role Phone Martha BRYANT, Dante Lopez Primary Care Physician [phone] Encounter [facility] [place] Date(s): 01/18/23 - 02/17/23 [facility] [address] [place] [address]- Allergies, Adverse Reactions, Alerts Substance Reaction Severity [...] influenza virus vaccine, inactivated 05/08/15 Marquis rded [id number] 12y+ bivalent booster vax 05/21/22 Recorded SARS-CoV-2 mRNA ([id number]) vax 11/27/21 Recorded SARS-CoV-2 (COVID-19) mRNA BNT-162b2 [...] Gm, 2 Refills, Maintenance, 10/17/22 20:49:00 EDT, [facility], 25, INHALE 2 PUFFS [...] Mouth, Daily, # 90 capsule, 3 Refills, [facility], 168, cm, 07/29/21 10:00:00 [...] each, 3 Refills, Maintenance, 03/01/22 10:13:00 EDT, [facility], USE 2 SPRAYS IN [...] Refills, Maintenance, 02/09/20 18:07:00 EDT, REC Powder, [facility], 17 Gm By Mouth [...] capsule, 0 Refills, Maintenance, 09/19/22 16:52:00 EST, [facility], Partial fill upon patient request if the prescription is for a schedule II opioid drug., 168, cm, 09/14/22 10:23:00 EST, Height Start Date: 09/19/22 Status: Ordered omeprazole 20 mg oral enteric coated capsule 1 capsule, By Mouth, Daily, # 90 capsule, 0 Refills, Maintenance, 12/02/22 8:28:00 EDT, [facility], 168, cm, 09/14/22 10:23:00 [...] Gm, 1 Refills, Maintenance, 10/09/21 11:07:00 EST, [facility], APPLY TOPICALLY TWO TIMES [...] Primary Care Member Role: PCP Address: Address: [address] [place] [address]- Care Team Related Persons Name: RAJAN PISANO Name: LAURA PISANO Name: GABBY PISANO
--- OUTSIDE RECORDS SUMMARY | 2023-03-26 13:52 | XMS_ITS | Patient Health Record ---
Author Name Unknown [facility] Address [address] [place] [address] Care Team Providers Care Histology Manager Name Role Phone Dante Thomas Primary Care Provider Kailey Camp Unavailable [phone] ALLERGIES Allergen (clinical drug ingredient) Drug/Non Drug Allergy documented on EMR Reaction Allergy Type Onset Date Status lisinopril Lisinopril Unknown Drug Allergy Activ e REASON FOR REFERRAL No Information MEDICATIONS Medication SIG (Take, Route, Frequency, Duration) Notes Start Date End Date Status Stool Softener 2x daily as needed Active Sinemet 150mg, 2x daily Acti ve zzzCompression Stockings 20-30mm Hg . . . for . Active Triamcinolone Acetonide 0.1 % 1 application Externally Once a day Active Melatonin 10 MG as directed Orally Active Ipratropium Gabriels 0.03 % 2 sprays in each nostril Nasally Twice a day for 30 day(s) Active Omeprazole 20 MG 1 capsule 30 minutes before morning meal Orally Once a day for 30 day(s) Active Metoprolol Succinate 50 MG 1 capsule Orally Once a day for 30 day(s) Active Cranberry Extract Ac tive Aspirin 81 MG 1 tablet Orally Once a day for 30 day(s) Active IMMUNIZATIONS Vaccine Route Administration Date Status Comme nts COVID-19 Pfizer BioNTech Vaccine Unknown 05/11/2021 Administered 1st 08/21/2020 2nd 10/09/2020 SOCIAL HISTORY Tobacco Use: Social History Observation Description Date Details (start date - stop date) Former Smoker NA - NA Sex Assigned At : Social History Observation Description Sex Assigned At Unknown Tobacco Use/Smoking Question Answer Notes Are you a: former smoker Additional Findings: Tobacco Non-User Ex-cigaret te smoker Alcohol Screen Question Answer Notes Did you have a drink containing alcohol in the p ast year? No Points 0 Interpretation Negative Tobacco use other than smoking: Question Answer Notes Are you an other tobacco user? No PROBLEMS Problem Type ICD Code Onset Dates Problem Status W/U Status Risk SNOMED Code Notes Problem Unspecified atherosclerosis of [place] arteries of extremities, bilateral legs (I70.203) Active confirmed Atherosclerosis of [place] arteries of the extremities ([id number]) Problem Venous insufficiency of both lower extremities (I87.2) Active confirmed [id number] Encounters Encounter Location Date Provider Diagnosis [facility] [address] 08/24/2022 Kailey Perica Tinea unguium B35.1 ; Pain in toe of left foot M79.675 ; Pain in toe of right foot M79.674 and Unspecified atherosclerosis of [place] arteries of extremities, bilateral legs I70.[address] [address] 11/19/[address] [address] 11/19/[address] [address] 12/08/2022 Kailey Perica Tinea unguium B35.1 ; Pain in toe of left foot M79.675 ; Pain in toe of right foot M79.674 and Unspecified atherosclerosis of [place] arteries of extremities, bilateral legs I70.[address] [address] 03/09/2023 Kailey Perica Tinea unguium B35.1 ; Pain in toe of left foot M79.675 ; Pain in toe of right foot M79.674 and Unspecified atherosclerosis of [place] arteries of extremities, bilateral legs I70.203 ASSESSMENTS Encounter Date Diagnosis Assessment Notes Treatment Notes Treatment Clinical Notes 08/24/2022 Tinea unguium (ICD-1 0 - B35.1) 12/08/2022 Tinea unguium (ICD-1 0 - B35.1) 12/08/2022 Pain in toe of left foot (ICD-10 - M79.675) 03/09/2023 Tinea unguium (ICD-1 0 - B35.1) 03/09/2023 Pain in toe of left foot (ICD-10 - M79.675) 03/09/2023 Pain in toe of right foot (ICD-10 - M79.674) 12/08/2022 Pain in toe of right foot (ICD-10 - M79.674) 08/24/2022 Pain in toe of left foot (ICD-10 - M79.675) 08/24/2022 Pain in toe of right foot (ICD-10 - M79.674) 12/08/2022 Unspecified atherosclerosis of [place] arteries of extremities, bilateral legs (ICD-10 - I70.203) 03/09/2023 Unspecified atherosclerosis of [place] arteries of extremities, bilateral legs (ICD-10 - I70.203) 08/24/2022 Unspecified atherosclerosis of [place] arteries of extremities, bilateral legs (ICD-10 - I70.203) PLAN OF TREATMENT Next Appt Details Provider Name:Kailey torres, 06/08/2023 11:00:00 AM, [address] [facility], [place], [address], Insurance Providers Payer Name Payer Address Payer Phone Subscriber Number Group Number Insured Name Patient Relationship to Insured Coverage Start Date Coverage End Date Medicare National [employer] [address] [place] [phone] [id number] Siddhartha Traylor Self - patient is the insured [facility] [address] [place] [address] [phone] [id number] Siddhartha Traylor Self - patient is the insured MEDICAL (GENERAL) HISTORY Medical History History ICD Code Anxiety Back,Hip,and Knee pain Cancer Cataracts Depression Glaucoma Kidney disease Parkinsons disease Psoriasis/eczema Reflux ( GERD) chronic sinusitis Joint implants/screws Surgical History Surgery Date(Month/Year) tonsillectomy prostatectomy, cancer 2007 pacemaker 03/2018 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 0 04/2018 broken hip surgery 07/2018 cataract removal - glaucoma cured
[2023-03-26 14:19] LABS: Appearance Urine Cloudy; Color Urine Yellow; Glucose Urine UA Negative (Negative); Leukocyte Esterase Urine Trace (Negative); Nitrite Urine Negative (Negative); UMIC TRIGGER UACC YES; Urine Blood Negative (Negative); Urine Ketones Trace mg/dL (Negative); Urine Protein 30 (1+) mg/dL (Neg-Trace)
--- NOTE | 2023-03-26 14:20 | PC.NURSE ---
pt calm and cooperative, awake and alert but disoriented, confused, and not responding to verbal stimuli. pt son and caregiver at bedside. reports this is not the pt's baseline. pt resides at [facility] and brought in for altered mental status. treated for UTI 03/23. 22G IV placed to the pt's LAC by jose juan Galvez. labs drawn and sent. pt straight cathed, per MD orders. UA sent to lab. pt resting quietly on stretcher in no apparent distress. rr even/unlabored. call corey within pt reach. all pt needs met destiny
[2023-03-26 14:29] LABS: Bacteria Urine 4+ (None Seen); Hyaline Casts Urine 0-2 /LPF (0-2); RBC Urine 0-2 /HPF (0-2); Squamous Epithelial Cell Urine 0-2 /HPF (0-2); WBC Urine 0-5 /HPF (0-5)
[2023-03-26] MEDS: Azithromycin 500 MG in 0.9 % Sodium Chloride 250 ML 125 MG IV (16:04)
[2023-03-26 16:10] VITALS: BP 184/94; PULSE 69; RESP 20; TEMP 36.6; O2SAT 93
[2023-03-26] MEDS: Aspirin 81 MG TAB.CHEW PO (16:26)
[2023-03-26 17:40] VITALS: BP 177/99; PULSE 80; RESP 18; TEMP 37.1; O2SAT 96
--- NOTE | 2023-03-26 17:52 | PHA.MEDREC ---
Pharmacy Consult ? Medication Reconciliation Pharmacy has completed the medication reconciliation. spoke with patients caregiver and family member to confirm medications. Also utilized medication list and claim history as well. Caregiver reports that he took his morning medications today. He also uses magic mouthwash prn, just unsure on how to enter it in the system.
--- NOTE | 2023-03-26 18:00 | P.HPHOSP_ITS ---
Pt seen and examined with MARK I agree with note, assemssment and plan Presentation concerning for acute stroke unable to obtain MRI due to hx of pacemaker . COncern for possible stroke in multiple location. Neuro consult,Echocardiogram FOr full note please see H&P History of Present Illness Date of Service: 03/26/23 Attending physician on admission: Dillon Torres Chief Complaint: facial droop 87-year-old male with history of complete heart block s/p pacemaker placement, dysphagia on pureed diet with thickened liquids, GERD, history CVA, hypertension, Parkinson's disease, history hyperparathyroidism s/p parathyroidectomy presents the ED from [facility] where he resides accompanied by his son who assists with history for evaluation of slurred speech and right eye droop noted by [facility] staff. He does have 24 hour BAKERY DECORATOR in his apartment who states last known well time was night. Yesterday, she noted the patient to be quite weak and very difficult to transfer. He typically walks at baseline and is a relatively easy assist with transfers. However yesterday she noted the patient favoring the left lower extremity almost dragging when walking. This morning, he was noted to have right-sided lid drooping and slurred speech. He has also had increased shortness of breath with decreased appetite with O2 saturation ranging from 89- 95% per EMS. His son notes that he has had cough but states that this has been chronic since the parathyroidectomy. He was also noted to be gurgling though he was not observed to have aspirated per the son. The patient is typically more alert and oriented and answers questions at baseline. On exma, he is very lethargic appearing and not speaking much though does follow commands. He is also incontinent of urine though son reports this is baseline. Pt's son also tells me the patient's son papssed away 2 weeks ago and questions whether grief is contributing to symptoms. On arrival, patient is hypertensive to 184/94, vitals otherwise stable. He is noted by ED staff during saturations dropping to the high 80s but quickly rebounding and maintaining around 94-95% on room air. He has leukocytosis of 14.4. Stable normocytic anemia. Platelets 155. Creatinine 1.12, BUN 25. Electrolytes normal except for a hyponatremia of 130. Troponin 8.8. Urinalysis with trace leukocytes, 1+ protein, trace ketones, 4+ bacteria. Negative for COVID-19. Chest x-ray is read as having cardiomegaly but on my read shows left lower lobe infiltrate. CTA of the head/neck shows possible new hypodensity within the left ponsomesencephalic junction suspicious for age-indeterminate ischemia on the background of advanced presumably chronic microangiopathic changes as well as redemonstrated chronic lacunar infarcts within the basal ganglia. 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 Assessment of the bilateral vertebral artery origins and proximal V1 segments are nondiagnostic further without significance steno occlusive disease in the neck. In the ED, given 81mg asa, 1L IV NS, 1g IV cetriaxone, and 500mg IV azithromycin. Review of Systems Review of Systems: Yes Unobtainable due to mental status [facility]LY [facility], [facility] Medical History Barretts esophagus GERD (gastroesophageal reflux disease) Heart block Hiatal hernia History of back pain History of prostate cancer HTN (hypertension) Hypercholesterolemia Normally functioning cardiac pacemaker present Parkinsons disease Second degree heart block TIA (transient ischemic attack) Family History Father No problems noted. Mother No problems noted. 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[email or web address]) Alcohol intake: former Patient Tobacco Use Status: Never used Tobacco Smoked in Last 30 Days: No Use of substances other than those prescribed or required for medical reasons: No Advance Directives: Yes Advance Directives on File: Yes Advance Directives Date on File: 10/28/20 Meds Allergies Allergy/AdvReac Type Severity Reaction Status Date / Time lisinopril Allergy Unknown Unknown Verified 04/13/22 13:21 Active Medications: Current Medications Acetaminophen (Acetaminophen 325 Mg Tablet) 650 mg PO Q6H PRN PRN Reason: Pain, Mild (Pain Scale 1-3) Docusate Sodium (Docusate Sodium 100 Mg Capsule) 100 mg PO DAILY PRN PRN Reason: Constipation Ceftriaxone Sodium 1 gm/ (Sodium Chloride) 50 mls @ 100 mls/hr IV Q24H IESHA Azithromycin 500 mg/ Sodium (Chloride) 250 mls @ 125 mls/hr IV Q24H IESHA Ondansetron HCl (Ondansetron Hcl 4 Mg/2 Ml Vial) 4 mg IVPUSH Q8H PRN PRN Reason: Nausea and Vomiting Pharmacy Consult (Consult Rx Perform Med Rec) 1 each MISCELLANE ONCE PRN PRN Reason: Consult order Sodium Chloride (0.9 % Sodium Chloride Flush 3 Ml Syringe) 3 ml IVFLUSH QSHIFT [facility] Home Medications Medication Instructions Recorded Confirmed Last Taken Type aspirin 81 mg tablet,delayed 81 mg PO DAILY 10/07/20 03/26/23 Unknown History release calcitriol 0.5 mcg capsule 0.5 mcg PO DAILY 10/07/20 03/26/23 Unknown History omeprazole 20 mg capsule,delayed 1 cap PO DAILY 10/07/20 03/26/23 Unknown History release carbidopa 25 mg-levodopa 100 mg 2 tab PO TID 04/14/21 03/26/23 03/26/23 History tablet cranberry 400 mg capsule 400 mg PO DAILY 04/14/21 03/26/23 Unknown History docusate sodium 100 mg capsule 100 mg PO BEDTIME 04/14/21 03/26/23 Unknown History (Stool Softener) melatonin 5 mg capsule 5 mg PO DAILY 04/14/21 03/26/23 Unknown History acetaminophen 325 mg tablet 325 mg PO BEDTIME PRN Fever Or Pain 03/26/23 03/26/23 Unknown History (Tylenol) albuterol sulfate 90 mcg/actuation 2 puff inhalation QID PRN 03/26/23 03/26/23 Unknown History aerosol inhaler Shortness Of Breath Or Wheezing bisacodyl 5 mg tablet,delayed 5 mg PO DAILY 08/19/23 08/19/23 Unknown History release (Dulcolax (bisacodyl)) ipratropium bromide 21 mcg (0.03 2 spray intranasal BID PRN Allergy 03/26/23 03/26/23 Unknown History %) nasal spray Symptoms polyethylene glycol 3350 17 17 g PO DAILY PRN Constipation 03/26/23 03/26/23 Unknown History gram/dose oral powder (Miralax) white petrolatum 46.5 % topical 1 appl topical DAILY PRN Dry Skin 03/26/23 03/26/23 Unknown History ointment (CeraVe Healing) Physical Exam Vital Signs and Narrative: Vital Signs: Last Vital Signs Temp 98.7 F 03/26/23 17:40 Pulse 80 03/26/23 17:40 Resp 18 03/26/23 17:40 BP 177/99 H 03/26/23 17:40 Pulse Ox 96 03/26/23 17:40 O2 Del Method Room Air 03/26/23 17:40 BMI result Body Mass Index 27.3 Constitutional - Awake but lethargic, No apparent distress Eyes - PERRLA, EOMI Cardiovascular - S1S2, RRR, No edema Respiratory - Normal lung expansion, Normal respiratory effort, No respiratory distress, scattered wheezes bilaterally, diminished lung sound LLL Gastrointestinal - NT / ND; +BS; No rebound or guarding Extremities - no calf tenderness bilaterally, no swelling Musculoskeletal - Normal inspection, normal ROM Skin - Warm/Dry Neurological - Lethargic and oriented to self and place, drooping of the right upper eye lid without swelling, otherwise CN II-XII in tact, 4/5 strength BLE and 5/5 strength BUE Results Labs 03/26/23 13:09 03/26/23 13:09 Labs: Laboratory Results - last 24 hr 03/26/23 03/26/23 03/26/23 13:09 13:09 13:09 MCV 89.2 MCH 30.9 MCHC 34.6 RDW 13.1 Plt Count 155 L MPV 8.8 L Immature Gran % (Auto) 0.6 H Neut % (Auto) 83.0 H Lymph % (Auto) 5.4 L Collin % (Auto) 10.6 Eos % (Auto) 0.1 Baso % (Auto) 0.3 Lymph # (Auto) 0.8 L Collin # (Auto) 1.5 H Eos # (Auto) 0.0 Baso # (Auto) 0.0 Abs Immat Gran (auto) 0.08 H Absolute Neuts (auto) 12.0 H Absolute Nucleated RBC 0.000 Nucleated RBC % (auto) 0.0 Smear Tech's Comments VERIFIED PT INR Anion Gap 12 Estim Creat Clear Calc 47.0 Estimated GFR > 60 Random Glucose 90 Lactic Acid 0.7 Calcium 9.3 Magnesium 1.8 Total Bilirubin 1.2 H Direct Bilirubin 0.5 AST 16 ALT < 5 Alkaline Phosphatase 84 Total Protein 6.7 Albumin 3.3 L Lipase 9 Urine Color Urine Appearance Urine pH Ur Specific [place] Urine Protein Urine Glucose (UA) Urine Ketones Urine Blood Urine Nitrite Ur Leukocyte Esterase Urine RBC Urine WBC Ur Squamous Epith Cells Urine Bacteria Hyaline Casts COVID-19 ([facility]) COVID-19 Clin Com 03/26/23 03/26/23 03/26/23 13:09 13:09 14:13 MCV MCH MCHC RDW Plt Count MPV Immature Gran % (Auto) Neut % (Auto) Lymph % (Auto) Collin % (Auto) Eos % (Auto) Baso % (Auto) Lymph # (Auto) Collin # (Auto) Eos # (Auto) Baso # (Auto) Abs Immat Gran (auto) Absolute Neuts (auto) Absolute Nucleated RBC Nucleated RBC % (auto) Smear Tech's Comments PT 13.8 H INR 1.1 Anion Gap Estim Creat Clear Calc Estimated GFR Random Glucose Lactic Acid Calcium Magnesium Total Bilirubin Direct Bilirubin AST ALT Alkaline Phosphatase Total Protein Albumin Lipase Urine Color Yellow Urine Appearance Cloudy Urine pH 6.0 Ur Specific [place] 1.020 Urine Protein 30 (1+) H Urine Glucose (UA) Negative Urine Ketones Trace Urine Blood Negative Urine Nitrite Negative Ur Leukocyte Esterase Trace H Urine RBC 0-2 Urine WBC 0-5 Ur Squamous Epith Cells 0-2 Urine Bacteria 4+ Hyaline Casts 0-2 COVID-19 ([facility]) Negative COVID-19 Clin Com See Note Imaging Radiologist's Impressions: Impressions Chest X-Ray 03/26/23 13:21 IMPRESSION: Mild cardiomegaly. No acute process seen. Head/Neck CTA 03/26/23 15:26 IMPRESSION: 1. Query new hypodensity within the left pontomesencephalic junction suspicious for age-indeterminate ischemia (image 51, series 21) on a background of advanced presumably chronic microangiopathic changes. Redemonstrated chronic lacunar infarcts within the basal ganglia. 2. Severe long segment and likely occlusive stenoses of the left P2 and P3 JUMPBASTING MACHINE OPERATOR with oligemia of the distal left JUMPBASTING MACHINE OPERATOR territory. Moderate stenosis of the right P2 JUMPBASTING MACHINE OPERATOR. 3. 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 4. Nondiagnostic assessment of the bilateral vertebral artery origins and proximal V1 segments, without significant steno-occlusive disease in the neck 5. Progression of significant global cerebral volume loss with a predilection for the left greater than right temporal lobes and disproportionate ventriculomegaly favored to be on the basis of deep white matter volume loss. 6. Increased plaque-like dermal thickening along the right temporal scalp and a 1.0 cm, previously 0.6 cm for which correlation with direct inspection is advised. 7. Right main pulmonary artery up to 3.5 cm compatible with chronic pulmonary hypertension. This critical result was discussed with Dr. Fernando at 4:00 PM on 03/26/2023 and it was ascertained that the content and urgency of the report was understood at the time of direct communication. Assessment and Plan (1) Encephalopathy acute: Status: Acute (2) Pneumonia: Qualifiers: Laterality: left Lung location: lower lobe of lung Pneumonia type: due to unspecified organism Qualified Code(s): J18.9 - Pneumonia, unspecified organism Status: Acute (3) Drooping eyelid: Qualifiers: Laterality: right Qualified Code(s): H02.401 - Unspecified ptosis of right eyelid Status: Acute Plan 87-year-old male with history of complete heart block s/p pacemaker placement, dysphagia on pureed diet with thickened liquids, GERD, history CVA, hypertension, Parkinson's disease, history hyperparathyroidism s/p parathyroidectomy admitted for acute metabolic encephalopathy with ?TIA vs CVA and probable pneumonia. #Acute metabolic encephalopathy -?r/t infection vs stroke vs hypertensive -Renal function and lytes normal, except hyponatremia (mild), no hypoxia -Head CT negative for acute intracranial abnormality except for possible new hypodensity in the ponsmesencephalic junction -Continue abx as below -Monitor mentation -aspiration precautions #Right eye-lid droop this morning/LLE weakness yesterday- ?TIA vs CVA -no other focal neuro deficit on exam and varying onset of symptoms reported, however has extensive cerebrovascular disease -Last known well time night -Since then has had LLE weakness (resolved) and slurred speech reported by [facility] staff, but not present on exam -Head CT acute intracranial abnormality except for possible new hypodensity in the ponsmesencephalic junction; has extensive severe cerebro-vascular disease -Will order MRI but may not be able to be performed as pt has pacemaker -Given 81mg asa, continue 81mg asa daily -Initiate atorvastatin 40mg, lipid panel pending -Nursing swallow eval, keep npo -Stroke edu -Neuro consult -Echo at the recommendation of neuro -Monitor on telemetry #Acute LLL pneumonia -Leukocytosis 14, no other SIRS criteria -Son reported gurgling , ?aspiration -IV unasyn and azithromycin -symptomatic management -Legionella ag, strep pneumo ag, sputum culture -Follow cbc, culture #Asymptomatic bacteriuria -abx as above -await cultures #Hypertension -hold on antihypertensives at this time given ?stroke #GERD -continue ppi #Parkinsons disease -continue sinemet #Grief reaction -son passed 2 weeks ago, ?related to current state -consider psych consult DT prophylaxis-Lovenox Full code, son Sukhi is HCP Patient requires inpatient stay of at least 2 midnights due to acute metabolic encephalopathy likely related to infection but with question of TIA vs CVA Time Spent With Patient Time: Total time managing care of this patient today ____ minutes. Quality Stroke Does the patient have a stroke diagnosis?: Yes Reason for No Anti-thrombotic by Day Two: Drug treatment not indicated VTE Prior VTE?: No VTE Risk Level:: Medical - moderate - high VTE Device Contraindication: Treatment Not Indicated VTE Drug Contraindication: N/A - Med Ordered
[2023-03-26] MEDS: 0.9 % Sodium Chloride 1,000 ML 75 ML IVCONT (18:57)
[2023-03-26] MEDS: Ampicillin Sodium/Sulbactam Na 3 GM in 0.9 % Sodium Chloride 100 ML IV (20:39)
[2023-03-26] MEDS: Enoxaparin Sodium 40 MG/0.4 ML SYRINGE SUBCUT (20:41)
[2023-03-26] MEDS: Melatonin 3 MG TABLET 6 MG PO (20:41)
[2023-03-26] MEDS: Carbidopa/Levodopa 25/100 TABLET 2 TAB PO (20:41)
[2023-03-26] MEDS: Docusate Sodium 100 MG CAPSULE PO (20:42)
--- NOTE | 2023-03-26 20:53 | PC.NURSE ---
pt assessed, Virginiae reported that the pt take his med one at a time and use thickit nectar consistency . pt tolerated well
--- NOTE | 2023-03-26 23:34 | PC.NURSE ---
family requested that the pt wears a brief
[2023-03-27] VITALS (9 sets, daily range): BP systolic 132–212; BP diastolic 65–108; PULSE 67–93; RESP 14–20; TEMP 36.4–37.1; O2SAT 92–95; BMI 24.7
[2023-03-27] MEDS: Ampicillin Sodium/Sulbactam Na 3 GM in 0.9 % Sodium Chloride 100 ML IV ×3 (04:01→21:46)
[2023-03-27 05:12] LABS: MANUAL DIFF FLAG NO
[2023-03-27 05:14] LABS: Basophils Percent Auto 0.4 % (0-2); Eosinophils Absolute Auto 0.1 X10*3/uL (0.0-0.4); Eosinophils Percent Auto 0.6 % (0-4); Hemoglobin 11.8 g/dl (14.0-18.0); Imm Gran Abs Auto 0.05 X10*3/uL (0.00-0.03); Imm Gran Pct Auto 0.5 % (0.0-0.4); Lymphocytes Absolute Auto 0.8 X10*3/uL (1.2-4.9); Mean Corpuscular HGB Conc 33.7 g/dl (31.0-36.0); Mean Corpuscular Hemoglobin 31.2 pg (27.0-33.0); Mean Corpuscular Volume 92.6 fL (80.0-98.0); Mean Platelet Volume 9.3 fL (9.4-12.4); Monocytes Absolute Auto 1.2 X10*3/uL (0.1-1.2); Monocytes Percent Auto 11.9 % (2-11); Neutrophils Percent Auto 78.6 % (45-73); Platelet Count 140 X10*3/uL (160-400); Red Blood Count 3.78 X10*6/uL (4.60-5.80); Red Cell Distribution Width 13.2 % (11.0-16.0); White Blood Count 10.2 X10*3/uL (4.8-10.8)
[2023-03-27 05:28] LABS: Anion Gap 13 (12-20); Blood Urea Nitrogen 23 mg/dL (9-16); Calcium 8.5 mg/dL (8.4-10.2); Carbon Dioxide 21 mmol/L (22-29); Chloride 104 mmol/L (96-108); Cholesterol 133 mg/dL; Creatinine Clr Calc Pharmacy 44.6; Estimated Glomerular Filt Rate 58; Glucose Random 70 mg/dL (60-115); HDL Cholesterol 25 mg/dL; LDL Cholesterol Calculated 90 mg/dl; Potassium 3.9 mmol/L (3.3-5.1); Sodium 134 mmol/L (135-145); Triglycerides 93 mg/dL
[2023-03-27] MEDS: calcitrioL 0.25 MCG CAPSULE 0.5 MCG PO (07:54)
[2023-03-27] MEDS: Carbidopa/Levodopa 25/100 TABLET 2 TAB PO ×3 (07:54→21:45)
[2023-03-27] MEDS: Omeprazole 20 MG CAPSULE.DR PO (07:54)
[2023-03-27] MEDS: bisacodyL 5 MG TABLET.DR PO (07:55)
[2023-03-27] MEDS: 0.9 % Sodium Chloride 1,000 ML 75 ML IVCONT (07:55)
[2023-03-27] MEDS: Atorvastatin Calcium 40 MG TABLET PO (07:55)
[2023-03-27] MEDS: Aspirin Enteric Coated 81 MG TABLET.DR PO (07:55)
--- NOTE | 2023-03-27 08:30 | PC.NURSE ---
patient medicated this morning, water with thickener in it. patient took meds and water well. patient has button inspector at bedside, patient able to make needs known, shows no signs of distress.
--- NOTE | 2023-03-27 11:18 | P.PNIM_ITS ---
Subjective Subjective Date of Service: 03/27/23 Interval History: Patient seen examined at bedside. Has no acute complaints this morning. No worsening symptoms. No overnight event. Still has drooping of his right eye, denies any new numbness weakness or tingling. Has a cough. No fever chills. Review of Systems Review of Systems: Yes all other systems are reviewed and are negative Physical Exam Vital Signs: Vital Signs: Last Vital Signs Temp 98.1 F 03/27/23 09:45 Pulse 69 03/27/23 09:45 Resp 16 03/27/23 09:45 BP 170/76 H 03/27/23 09:45 Pulse Ox 94 03/27/23 09:45 O2 Del Method Room Air 03/27/23 09:45 BMI result Body Mass Index 24.7 Const: Other: Patient alert oriented to self and place, not to time Eyes: Other: Right eye lid drooping, PERRL Resp: Other: Right-sided crackle GI: Other: Abdomen is soft, nontender Neuro: Other: Has 4/5 strengthin the left upper and lower extremities Objective Data Active Medications Acetaminophen (Acetaminophen 325 Mg Tablet) 650 mg PO Q6H PRN PRN Reason: Pain, Mild (Pain Scale 1-3) Albuterol Sulfate (Albuterol Sulfate (0.083%) 2.5 Mg/3 Ml Vial.Neb) 2.5 mg INHALE RQ4H PRN PRN Reason: sob and wheezing Albuterol Sulfate (Albuterol Sulfate 90 Mcg 8 Gm Inhaler) 2 puff INHALE RQID PRN PRN Reason: Shortness Of Breath Or Wheezing Aspirin (Aspirin Enteric Coated 81 Mg Tablet.) 81 mg PO DAILY [facility] Last Admin: 03/27/23 07:55 Dose: 81 mg Documented By: EZE Atorvastatin Calcium (Atorvastatin Calcium 40 Mg Tablet) 40 mg PO DAILY [facility] Last Admin: 03/27/23 07:55 Dose: 40 mg Documented By: EZE Bisacodyl (Bisacodyl 5 Mg Tablet.) 5 mg PO DAILY [facility] Last Admin: 03/27/23 07:55 Dose: 5 mg Documented By: EZE Calcitriol (Calcitriol 0.25 Mcg Capsule) 0.5 mcg PO DAILY [facility] Last Admin: 03/27/23 07:54 Dose: 0.5 mcg Documented By: EZE Carbidopa/Levodopa (Carbidopa/Levodopa 25/100 Tablet) 2 tab PO TID [facility] Last Admin: 03/27/23 07:54 Dose: 2 tab Documented By: EZE Docusate Sodium (Docusate Sodium 100 Mg Capsule) 100 mg PO DAILY PRN PRN Reason: Constipation Docusate Sodium (Docusate Sodium 100 Mg Capsule) 100 mg PO BEDTIME [facility] Last Admin: 03/26/23 20:42 Dose: 100 mg Documented By: ROYAL Enoxaparin Sodium (Enoxaparin Sodium 40 Mg/0.4 Ml Syringe) 40 mg SUBCUT Q24H [facility] Last Admin: 03/26/23 20:41 Dose: 40 mg Documented By: ROYAL Azithromycin 500 mg/ Sodium (Chloride) 250 mls @ 125 mls/hr IV Q24H [facility] Ampicillin Sodium/Sulbactam (Sodium 3 gm/ Sodium Chloride) 100 mls @ 200 mls/hr IV Q8H [facility] Last Infusion: 03/27/23 04:33 Dose: 0 mls/hr Documented By: ROYAL Sodium Chloride (Ns) 1,000 mls @ 75 mls/hr IVCONT .[id number] [facility] Last Admin: 03/27/23 07:55 Dose: 75 mls/hr Documented By: EZE Ipratropium Gibbs (Ipratropium Gibbs Rj 0.03 % 30 Ml [place]) 2 spray NOSTRIL-B BID PRN PRN Reason: Allergy Symptoms Melatonin (Melatonin 3 Mg Tablet) 6 mg PO BEDTIME [facility] Last Admin: 03/26/23 20:41 Dose: 6 mg Documented By: ROYAL Omeprazole (Omeprazole 20 Mg Capsule.Dr) 20 mg PO DAILY@0630 [facility] Last Admin: 03/27/23 07:54 Dose: 20 mg Documented By: EZE Ondansetron HCl (Ondansetron Hcl 4 Mg/2 Ml Vial) 4 mg IVPUSH Q8H PRN PRN Reason: Nausea and Vomiting Pharmacy Consult (Consult Rx Perform Med Rec) 1 each MISCELLANE ONCE PRN PRN Reason: Consult order Polyethylene Glycol (Polyethylene Glycol 3350 17 Gm Powd.Pack) 17 gm PO DAILY PRN PRN Reason: Constipation Sodium Chloride (0.9 % Sodium Chloride Flush 3 Ml Syringe) 3 ml IVFLUSH QSHIFT [facility] Last Admin: 03/27/23 06:55 Dose: Not Given Documented By: EZE Non-Admin Reason: IV Running Labs 03/27/23 05:06 03/27/23 05:06 Labs: Laboratory Results - last 24 hr 03/26/23 03/26/23 03/26/23 13:09 13:09 13:09 MCV 89.2 MCH 30.9 MCHC 34.6 RDW 13.1 Plt Count 155 L MPV 8.8 L Immature Gran % (Auto) 0.6 H Neut % (Auto) 83.0 H Lymph % (Auto) 5.4 L [place] % (Auto) 10.6 Eos % (Auto) 0.1 Baso % (Auto) 0.3 Lymph # (Auto) 0.8 L [place] # (Auto) 1.5 H Eos # (Auto) 0.0 Baso # (Auto) 0.0 Abs Immat Gran (auto) 0.08 H Absolute Neuts (auto) 12.0 H Absolute Nucleated RBC 0.000 Nucleated RBC % (auto) 0.0 Smear Tech's Comments VERIFIED PT INR Anion Gap 12 Estim Creat Clear Calc 47.0 Estimated GFR > 60 Random Glucose 90 Lactic Acid 0.7 Calcium 9.3 Magnesium 1.8 Total Bilirubin 1.2 H Direct Bilirubin 0.5 AST 16 ALT < 5 Alkaline Phosphatase 84 Total Protein 6.7 Albumin 3.3 L Triglycerides Cholesterol LDL Cholesterol, Calc HDL Cholesterol Lipase 9 Urine Color Urine Appearance Urine pH Ur Specific [place] Urine Protein Urine Glucose (UA) Urine Ketones Urine Blood Urine Nitrite Ur Leukocyte Esterase Urine RBC Urine WBC Ur Squamous Epith Cells Urine Bacteria Hyaline Casts COVID-19 ([facility]) COVID-19 Clin Com 03/26/23 03/26/23 03/26/23 13:09 13:09 14:13 MCV MCH MCHC RDW Plt Count MPV Immature Gran % (Auto) Neut % (Auto) Lymph % (Auto) [place] % (Auto) Eos % (Auto) Baso % (Auto) Lymph # (Auto) [place] # (Auto) Eos # (Auto) Baso # (Auto) Abs Immat Gran (auto) Absolute Neuts (auto) Absolute Nucleated RBC Nucleated RBC % (auto) Smear Tech's Comments PT 13.8 H INR 1.1 Anion Gap Estim Creat Clear Calc Estimated GFR Random Glucose Lactic Acid Calcium Magnesium Total Bilirubin Direct Bilirubin AST ALT Alkaline Phosphatase Total Protein Albumin Triglycerides Cholesterol LDL Cholesterol, Calc HDL Cholesterol Lipase Urine Color Yellow Urine Appearance Cloudy Urine pH 6.0 Ur Specific [place] 1.020 Urine Protein 30 (1+) H Urine Glucose (UA) Negative Urine Ketones Trace Urine Blood Negative Urine Nitrite Negative Ur Leukocyte Esterase Trace H Urine RBC 0-2 Urine WBC 0-5 Ur Squamous Epith Cells 0-2 Urine Bacteria 4+ Hyaline Casts 0-2 COVID-19 ([facility]) Negative COVID-19 Clin Com See Note 03/27/23 03/27/23 05:06 05:06 MCV 92.6 MCH 31.2 MCHC 33.7 RDW 13.2 Plt Count 140 L MPV 9.3 L Immature Gran % (Auto) 0.5 H Neut % (Auto) 78.6 H Lymph % (Auto) 8.0 L [place] % (Auto) 11.9 H Eos % (Auto) 0.6 Baso % (Auto) 0.4 Lymph # (Auto) 0.8 L [place] # (Auto) 1.2 Eos # (Auto) 0.1 Baso # (Auto) 0.0 Abs Immat Gran (auto) 0.05 H Absolute Neuts (auto) 8.0 Absolute Nucleated RBC 0.000 Nucleated RBC % (auto) 0.0 Smear Tech's Comments PT INR Anion Gap 13 Estim Creat Clear Calc 44.6 Estimated GFR 58 Random Glucose 70 Lactic Acid Calcium 8.5 D Magnesium Total Bilirubin Direct Bilirubin AST ALT Alkaline Phosphatase Total Protein Albumin Triglycerides 93 Cholesterol 133 LDL Cholesterol, Calc 90 HDL Cholesterol 25 Lipase Urine Color Urine Appearance Urine pH Ur Specific [place] Urine Protein Urine Glucose (UA) Urine Ketones Urine Blood Urine Nitrite Ur Leukocyte Esterase Urine RBC Urine WBC Ur Squamous Epith Cells Urine Bacteria Hyaline Casts COVID-19 ([facility]) COVID-19 Clin Com Assessment and Plan (1) Encephalopathy acute: Status: Acute (2) Pneumonia: Status: Acute (3) Drooping eyelid: Status: Acute (4) CVA (cerebral vascular accident): Status: Acute Plan 7-year-old male with history of complete heart block s/p pacemaker placement, dysphagia on pureed diet with thickened liquids, GERD, history CVA, hypertension, Parkinson's disease, history hyperparathyroidism s/p parathyroidectomy admitted for acute metabolic encephalopathy with ?TIA vs CVA and probable pneumonia. Spoke to son at bedside #Acute metabolic encephalopathy - appears to have resolved - has evidence of CVA on head CT , also PNA. BP improived - Head CT shows new hypodensity in the ponsmesencephalic junction - Continue abx as below - Monitor mentation - aspiration precautions #Right eye-lid droop this morning/LLE weakness yesterday- ?TIA vs CVA - slurred speech reported by [facility] staff, but not present on exam - Head CT acute intracranial abnormality except for possible new hypodensity in the ponsmesencephalic junction; has extensive severe cerebro-vascular disease - Will order MRI but may not be able to be performed as pt has pacemaker - Continue 81mg asa daily, high dose statin - Neuro eval - Stroke edu - Echo at the recommendation of neuro - Monitor on telemetry #Acute LLL pneumonia -Leukocytosis 14, no other SIRS criteria -Son reported gurgling , ?aspiration, evidence of cough on exam -Continue IV unasyn and azithromycin- -Legionella ag, strep pneumo ag, sputum culture- pending -Follow cbc, culture # Asymptomatic bacteriuria - abx as above - await cultures # Hypertension -hold on antihypertensives at this time given ?stroke #GERD -continue ppi #Parkinsons disease -continue sinemet #Grief reaction -son passed 2 weeks ago, ?related to current state -consider psych consult DT prophylaxis-Lovenox Full code, son Sukhi is HCP Patient requires inpatient stay of at least 2 midnights due to acute metabolic encephalopathy likely related to infection but with question of TIA vs CVA Time Spent With Patient Time: Total time managing care of this patient today ____ minutes. Quality Stroke Does the patient have a stroke diagnosis?: Yes Reason for No Anti-thrombotic by Day Two: Drug treatment not indicated VTE Prior VTE?: No VTE Risk Level:: Medical - moderate - high VTE Device Contraindication: Treatment Not Indicated VTE Drug Contraindication: N/A - Med Ordered
--- NOTE | 2023-03-27 11:55 | MHC.SL.SWA ---
Speech Pathologist Impression: Risk of Aspiration Due to: Neurological Condition Dysphasia Diet Status: Liquid Consistency and Strategies for Safe Swallow: Liquid Intake Recommendation: [place] Thick Liquid Intake Strategies: Small Sips No Straws Solid Food Consistency: Dietary Recommendations: Chopped/Advanced (NDD3) Additional Modifications to Solid Foods: Add sauces and gravies and blend well. Avoid mixed textures. Alternate bites of food with sips of liquid. Patient is able to feed self, but would benefit from supervision during meals due to confusion, potential for spilling food on self, and to monitor for any clinical signs of aspiration during meal. Oral Medication Intake: Whole with Puree Please contact the pharmacy regarding appropriate crushable or liquid drug formulations that are available whenever modified delivery is recommended. Compensatory Strategies and Precautions to be Taken for Safe Swallow: Sitting Upright (90 deg) No Straw Liquids from Cup Small Bites and Sips Alternate Liquids/Solids Supervision While Eating and Drinking for Safe Swallow: Total Supervision (1:1) Foods to Avoid: Mixed consistencies, tough, difficult to chew solids, foods with crumbly textures. Swallowing Recommended Treatments: Compens. Strategy Educat. Recommendation for Speech: Inpatient Speech Therapy Comment: Patient presents with most aspects of oral motor function WFL. On all textures and consistencies, incomplete laryngeal elevation was palpated, with greater laryngeal excursion palpated on R v. L., and frequently noted audible swallow. Patient has history of parathyroidectomy, with baseline diet of [place] Thick liquids and Chopped foods, per family and caregiver. Patient presented with other aspects of swallow WFL, although had mild delay on chopped texture due to mildly prolonged mastication. Recommend START diet of Chopped/Advanced (NDD3) with NECTAR THICK liquids, pills whole with NECTAR THICK liquids or with puree. Patient is able to feed self, however would benefit from full supervision during meals at this time, due to noted mild confusion, and to monitor for clinical signs of aspiration. Discontinue if patient evidences coughing, excessive throat clearing, upper airway noise (clinical signs of aspiration) and do not attempt if patient is lethargic, not engaged in meal. MD, Stroke RN, RD notified of recommendations by secure text, RN in person, white board in patients room changed to reflect diet recommendations. OCCUPATIONAL HEALTH TECHNICIAN will continue to follow. Frequency/Duration: Date Range for Service Req: Timeline to reassess: Reuse Technician Clinican/Clinical Fellow: No Supervisory Statement: I have reviewed and agree with the student/clinical fellow's documentation: N/A Speech Language Pathologist: Elisha Pierce M.A., CCC-OCCUPATIONAL HEALTH TECHNICIAN
--- NOTE | 2023-03-27 15:51 | MHC.CM.PN ---
IMM 03/27. Pt admitted with ? TIA, pneumonia, and encephalopathy. CM me with pt and his private duty caregiver at bedside. Pt lives at [facility] independent living facility with 24/7 private duty aides, pt uses a walker and wheelchair. HCP/[facility] on file. This CM called pts son/HCP Sukhi at [phone] and left a message. D/C plan to return to [facility] with resumption of 24/7 care. Transport via B[facility]. PCP: Dante Thomas
[2023-03-27] MEDS: Azithromycin 500 MG in 0.9 % Sodium Chloride 250 ML 125 MG IV (15:55)
[2023-03-27] MEDS: 0.9 % Sodium Chloride Flush 3 ML SYRINGE IVFLUSH (16:02)
[2023-03-27] MEDS: Albuterol Sulfate (0.083%) 2.5 MG/3 ML VIAL.NEB INHALE (20:44)
[2023-03-27] MEDS: Enoxaparin Sodium 40 MG/0.4 ML SYRINGE SUBCUT (21:44)
[2023-03-27] MEDS: Acetaminophen 325 MG TABLET 650 MG PO (21:45)
[2023-03-27] MEDS: Melatonin 3 MG TABLET 6 MG PO (21:58)
--- NOTE | 2023-03-27 23:16 | PM.EVENT ---
Event Note Date of Service: 03/27/23 Event Note: RN notified provider of malodorous diarrhea x 3. Cdiff pcr and gi panel ordered Time Spent With Patient Time: Total time managing care of this patient today ____ minutes.
[2023-03-28] VITALS (8 sets, daily range): BP systolic 140–190; BP diastolic 72–90; PULSE 69–96; RESP 16–20; TEMP 36.4–36.9; O2SAT 92–97
[2023-03-28] MEDS: 0.9 % Sodium Chloride Flush 3 ML SYRINGE IVFLUSH ×2 (00:05→09:27)
[2023-03-28 00:17] LABS: CDiff Gene PCR NEGATIVE (Negative)
[2023-03-28] MEDS: Ampicillin Sodium/Sulbactam Na 3 GM in 0.9 % Sodium Chloride 100 ML IV ×3 (04:51→20:49)
[2023-03-28] MEDS: Omeprazole 20 MG CAPSULE.DR PO (06:20)
[2023-03-28] MEDS: 0.9 % Sodium Chloride 1,000 ML 75 ML IVCONT (06:21)
[2023-03-28] MEDS: calcitrioL 0.25 MCG CAPSULE 0.5 MCG PO (09:26)
[2023-03-28] MEDS: Aspirin Enteric Coated 81 MG TABLET.DR PO (09:26)
[2023-03-28] MEDS: Carbidopa/Levodopa 25/100 TABLET 2 TAB PO ×3 (09:27→21:05)
[2023-03-28] MEDS: Atorvastatin Calcium 40 MG TABLET PO (09:27)
[2023-03-28] MEDS: bisacodyL 5 MG TABLET.DR PO (09:27)
--- NOTE | 2023-03-28 12:27 | PM.NEUROCN ---
History of Present Illness Data of Consult Service Date: 03/28/23 Primary Care Provider: Nonstaff Physician ARELY Reason for consult: ? TIA This is a 87-year-old male with history of complete heart block s/p pacemaker placement, dysphagia on pureed diet with thickened liquids, GERD, CVA, hypertension, mild dementia, ?Parkinson's disease, hyperparathyroidism s/p parathyroidectomy presents the ED from [facility] because of slurred speech and right eye droop noted by [facility] staff.? He does have 24 hour FUNDS TRANSFER CLERK in his apartment who states last known well time was night.? Yesterday, she noted the patient to be quite weak and very difficult to transfer.? He typically walks at baseline and is a relatively easy assist with transfers.? However yesterday she noted the patient favoring the left lower extremity almost dragging when walking.?He has also had increased shortness of breath with decreased appetite with O2 saturation ranging from 89-95% per EMS.? His son notes that he has had cough but states that this has been chronic since the parathyroidectomy. Review of Systems Review of Systems: Constitutional : No Weight loss, No Fever, No Chills, pos fatigue pos malaise ENT/Mouth : No sore throat, No Rhinorrhea Eyes: No Swelling, No Redness Cardiovascular : No Chest Pain, No SOB, NoEdema Respiratory : pos Cough, No Sputum, No Wheezing Gastrointestinal : Positive Nausea, no Vomiting, no Diarrhea, no abdominal Pain, No Hematochezia, No Melena Genitourinary : No Dysuria, No Urinary Frequency, No Hematuria, No Urgency Musculoskeletal : No joint pain, No Myalgias, No Joint Swelling Skin : No Skin Lesions, No rash Neuro : pos Weakness, No Numbness, No Dizziness, No Headache All other systems reviewed and are negative. Yes all other systems are reviewed and are negative and Unobtainable due to mental status PMFSH Past Medical History Medical History Barretts esophagus GERD (gastroesophageal reflux disease) Heart block Hiatal hernia History of back pain History of prostate cancer HTN (hypertension) Hypercholesterolemia Normally functioning cardiac pacemaker present Parkinsons disease Second degree heart block TIA (transient ischemic attack) Family History Family History Father No problems noted. Mother No problems noted. Surgical History Surgical History History of esophagogastroduodenoscopy (EGD) History of eye surgery History of parathyroidectomy History of permanent cardiac pacemaker placement History of repair of hip fracture History of tonsillectomy Hx of colonoscopy Hx of prostatectomy Hx of right cataract extraction Social History Social History Household Members: None and Other Household Members Other:: [employer] Housing: Assisted Living Facility Housing Other:: Resides in [facility] Are you a primary acute care clinical nurse specialist to a significant other at home: No Do you presently have visiting nurse or other home services: No Alcohol intake: former Patient Tobacco Use Status: Never used Tobacco Advance Directives Date on File: 10/28/20 service: No Meds Allergies Allergy/AdvReac Type Severity Reaction Status Date / Time lisinopril Allergy Unknown Unknown Verified 04/13/22 13:21 Active Medications: Current Medications Acetaminophen (Acetaminophen 325 Mg Tablet) 650 mg PO Q6H PRN PRN Reason: Pain, Mild (Pain Scale 1-3) Last Admin: 03/27/23 21:45 Dose: 650 mg Albuterol Sulfate (Albuterol Sulfate (0.083%) 2.5 Mg/3 Ml Vial.Maritza) 2.5 mg INHALE RQ4H PRN PRN Reason: sob and wheezing Last Admin: 03/27/23 20:44 Dose: 2.5 mg Albuterol Sulfate (Albuterol Sulfate 90 Mcg 8 Gm Inhaler) 2 puff INHALE RQID PRN PRN Reason: Shortness Of Breath Or Wheezing Aspirin (Aspirin Enteric Coated 81 Mg Tablet.) 81 mg PO DAILY [facility] Last Admin: 03/28/23 09:26 Dose: 81 mg Atorvastatin Calcium (Atorvastatin Calcium 40 Mg Tablet) 40 mg PO DAILY [facility] Last Admin: 03/28/23 09:27 Dose: 40 mg Bisacodyl (Bisacodyl 5 Mg Tablet.) 5 mg PO DAILY [facility] Last Admin: 03/28/23 09:27 Dose: 5 mg Calcitriol (Calcitriol 0.25 Mcg Capsule) 0.5 mcg PO DAILY [facility] Last Admin: 08/21/23 09:26 Dose: 0.5 mcg Carbidopa/Levodopa (Carbidopa/Levodopa 25/100 Tablet) 2 tab PO TID [facility] Last Admin: 03/28/23 09:27 Dose: 2 tab Docusate Sodium (Docusate Sodium 100 Mg Capsule) 100 mg PO DAILY PRN PRN Reason: Constipation Docusate Sodium (Docusate Sodium 100 Mg Capsule) 100 mg PO BEDTIME [facility] Last Admin: 03/27/23 21:59 Dose: Not Given Enoxaparin Sodium (Enoxaparin Sodium 40 Mg/0.4 Ml Syringe) 40 mg SUBCUT Q24H [facility] Last Admin: 03/27/23 21:44 Dose: 40 mg Azithromycin 500 mg/ Sodium (Chloride) 250 mls @ 125 mls/hr IV Q24H [facility] Last Infusion: 03/27/23 18:35 Dose: Infused Ampicillin Sodium/Sulbactam (Sodium 3 gm/ Sodium Chloride) 100 mls @ 200 mls/hr IV Q8H [facility] Last Infusion: 03/28/23 05:22 Dose: Infused Sodium Chloride (Ns) 1,000 mls @ 75 mls/hr IVCONT .[id number] [facility] Last Admin: 03/28/23 06:21 Dose: 75 mls/hr Ipratropium [place] (Ipratropium [place] Rj 0.03 % 30 Ml [place]) 2 spray NOSTRIL-B BID PRN PRN Reason: Allergy Symptoms Melatonin (Melatonin 3 Mg Tablet) 6 mg PO BEDTIME [facility] Last Admin: 03/27/23 21:58 Dose: 6 mg Omeprazole (Omeprazole 20 Mg Capsule.Dr) 20 mg PO DAILY@0630 [facility] Last Admin: 03/28/23 06:20 Dose: 20 mg Ondansetron HCl (Ondansetron Hcl 4 Mg/2 Ml Vial) 4 mg IVPUSH Q8H PRN PRN Reason: Nausea and Vomiting Pharmacy Consult (Consult Rx Perform Med Rec) 1 each MISCELLANE ONCE PRN PRN Reason: Consult order Polyethylene Glycol (Polyethylene Glycol 3350 17 Gm Powd.Pack) 17 gm PO DAILY PRN PRN Reason: Constipation Sodium Chloride (0.9 % Sodium Chloride Flush 3 Ml Syringe) 3 ml IVFLUSH QSHIFT [facility] Last Admin: 03/28/23 09:27 Dose: 3 ml Home Medications Medication Instructions Recorded Confirmed Last Taken Type aspirin 81 mg tablet,delayed 81 mg PO DAILY 03/02/21 08/19/23 Unknown History release calcitriol 0.5 mcg capsule 0.5 mcg PO DAILY 10/07/20 03/26/23 Unknown History omeprazole 20 mg capsule,delayed 1 cap PO DAILY 10/07/20 03/26/23 Unknown History release carbidopa 25 mg-levodopa 100 mg 2 tab PO TID 04/14/21 03/26/23 03/26/23 History tablet cranberry 400 mg capsule 400 mg PO DAILY 04/14/21 03/26/23 Unknown History docusate sodium 100 mg capsule 100 mg PO BEDTIME 04/14/21 03/26/23 Unknown History (Stool Softener) melatonin 5 mg capsule 5 mg PO DAILY 04/14/21 03/26/23 Unknown History acetaminophen 325 mg tablet 325 mg PO BEDTIME PRN Fever Or Pain 03/26/23 03/26/23 Unknown History (Tylenol) albuterol sulfate 90 mcg/actuation 2 puff inhalation QID PRN 03/26/23 03/26/23 Unknown History aerosol inhaler Shortness Of Breath Or Wheezing bisacodyl 5 mg tablet,delayed 5 mg PO DAILY 03/26/23 03/26/23 Unknown History release (Dulcolax (bisacodyl)) ipratropium bromide 21 mcg (0.03 2 spray intranasal BID PRN Allergy 03/26/23 03/26/23 Unknown History %) nasal spray Symptoms polyethylene glycol 3350 17 17 g PO DAILY PRN Constipation 03/26/23 03/26/23 Unknown History gram/dose oral powder (Miralax) white petrolatum 46.5 % topical 1 appl topical DAILY PRN Dry Skin 03/26/23 03/26/23 Unknown History ointment (CeraVe Healing) Physical Exam Vital Signs: Vital Signs: Last Vital Signs Temp 98.4 F 03/28/23 10:57 Pulse 79 03/28/23 10:57 Resp 16 03/28/23 10:57 BP 140/81 H 03/28/23 10:57 Pulse Ox 96 03/28/23 10:57 O2 Del Method Room Air 03/28/23 10:57 BMI result Body Mass Index 24.7 Const: Other: Patient alert oriented to self and place, not to time Eyes: Other: Right eye lid drooping, PERRL Resp: Other: Right-sided crackle GI: Other: Abdomen is soft, nontender Neuro: Other: Disoriented to day, date month and year. Normal cranial nerves . No drift or weakness. Plantars flexor. Results Labs 03/27/23 05:06 03/27/23 05:06 Microbiology Microbiology Results: Microbiology 03/26/23 13:09 Blood - Venous Blood Culture - Preliminary No growth after 24 hours. 03/26/23 13:09 Blood - Venous Blood Culture - Preliminary No growth after 24 hours. Assessment and Plan (1) CVA (cerebral vascular accident): Status: Acute Non focal exam. Pacemaker precludes MRI. 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 Atrophy of brain. Aspirin 81mg/ day (2) Encephalopathy acute: Status: Acute (3) Pneumonia: Qualifiers: Laterality: left Lung location: lower lobe of lung Pneumonia type: due to unspecified organism Qualified Code(s): J18.9 - Pneumonia, unspecified organism Status: Acute (4) Drooping eyelid: Qualifiers: Laterality: right Qualified Code(s): H02.401 - Unspecified ptosis of right eyelid Status: Acute Plan 7-year-old male with history of complete heart block s/p pacemaker placement, dysphagia on pureed diet with thickened liquids, GERD, history CVA, hypertension, Parkinson's disease, history hyperparathyroidism s/p parathyroidectomy admitted for acute metabolic encephalopathy with ?TIA vs CVA and probable pneumonia. Spoke to son at bedside #Acute metabolic encephalopathy - appears to have resolved - has evidence of CVA on head CT , also PNA. BP improived - Head CT shows new hypodensity in the ponsmesencephalic junction - Continue abx as below - Monitor mentation - aspiration precautions #Right eye-lid droop this morning/LLE weakness yesterday- ?TIA vs CVA - slurred speech reported by [facility] staff, but not present on exam - Head CT acute intracranial abnormality except for possible new hypodensity in the ponsmesencephalic junction; has extensive severe cerebro-vascular disease - Will order MRI but may not be able to be performed as pt has pacemaker - Continue 81mg asa daily, high dose statin - Neuro eval - Stroke edu - Echo at the recommendation of neuro - Monitor on telemetry #Acute LLL pneumonia -Leukocytosis 14, no other SIRS criteria -Son reported gurgling , ?aspiration, evidence of cough on exam -Continue IV unasyn and azithromycin- -Legionella ag, strep pneumo ag, sputum culture- pending -Follow cbc, culture # Asymptomatic bacteriuria - abx as above - await cultures # Hypertension -hold on antihypertensives at this time given ?stroke #GERD -continue ppi #Parkinsons disease -continue sinemet #Grief reaction -son passed 2 weeks ago, ?related to current state -consider psych consult DT prophylaxis-Lovenox Full code, son Sukhi is HCP Patient requires inpatient stay of at least 2 midnights due to acute metabolic encephalopathy likely related to infection but with question of TIA vs CVA Time Spent With Patient Time: Total time managing care of this patient today ____ minutes. Procedures Date of Service Date of Service: 03/28/23
--- NOTE | 2023-03-28 13:43 | MHC.CM.PN ---
EMR REVIEWED AND PER MD ROUNDS ,PT IS NOT MEDICALLY CLEARED FOR DC (ENCEPHALOPATHY, NEURO TO SEE) P.T. IS RECOMMENDING STR, REFERRAL SENT TO [facility] (PART OF THE [address] [facility] [facility] WHERE HE LIVES) THEY HAVE EXCEPTED FOR ADMISSION ON DC, SON GABBY/HCP MADE AWARE AND IS AGREEABLE TO THIS PLAN. CM WILL CONTINUE TO FOLLOW FOR ANY CHANGE IN PLAN/DC NEEDS.
[2023-03-28] MEDS: Azithromycin 500 MG in 0.9 % Sodium Chloride 250 ML 125 MG IV (15:38)
--- NOTE | 2023-03-28 16:37 | P.PNIM_ITS ---
Subjective Subjective Date of Service: 03/28/23 Interval History: No acute issues. Remains pleasantly confused Review of Systems Unable to obtain Physical Exam Vital Signs: Vital Signs: Last Vital Signs Temp 98.3 F 03/28/23 15:05 Pulse 83 03/28/23 15:05 Resp 18 03/28/23 15:05 BP 190/83 H 03/28/23 15:05 Pulse Ox 97 03/28/23 15:05 O2 Del Method Room Air 03/28/23 15:05 BMI result Body Mass Index 24.7 Const: Other: No acute distress Resp: Other: Clear to auscultation bilaterally no rales rhonchi or wheezes Cardio: Other: No S4; positive S1-S2; no S3 murmurs rubs or gallops GI: Other: Soft nontender nondistended normoactive bowel sounds Extrem: Other: No edema bilateral Objective Data Active Medications Acetaminophen (Acetaminophen 325 Mg Tablet) 650 mg PO Q6H PRN PRN Reason: Pain, Mild (Pain Scale 1-3) Last Admin: 03/27/23 21:45 Dose: 650 mg Documented By: ANITA Albuterol Sulfate (Albuterol Sulfate (0.083%) 2.5 Mg/3 Ml Vial.Maritza) 2.5 mg INHALE RQ4H PRN PRN Reason: sob and wheezing Last Admin: 03/27/23 20:44 Dose: 2.5 mg Documented By: JUANCARLOS Albuterol Sulfate (Albuterol Sulfate 90 Mcg 8 Gm Inhaler) 2 puff INHALE RQID PRN PRN Reason: Shortness Of Breath Or Wheezing Aspirin (Aspirin Enteric Coated 81 Mg Tablet.) 81 mg PO DAILY [facility] Last Admin: 03/28/23 09:26 Dose: 81 mg Documented By: ÁLVARO Atorvastatin Calcium (Atorvastatin Calcium 40 Mg Tablet) 40 mg PO DAILY [facility] Last Admin: 03/28/23 09:27 Dose: 40 mg Documented By: ÁLVARO Bisacodyl (Bisacodyl 5 Mg Tablet.) 5 mg PO DAILY [facility] Last Admin: 03/28/23 09:27 Dose: 5 mg Documented By: ÁLVARO Calcitriol (Calcitriol 0.25 Mcg Capsule) 0.5 mcg PO DAILY [facility] Last Admin: 03/28/23 09:26 Dose: 0.5 mcg Documented By: ÁLVARO Carbidopa/Levodopa (Carbidopa/Levodopa 25/100 Tablet) 2 tab PO TID [facility] Last Admin: 03/28/23 13:54 Dose: 2 tab Documented By: ÁLVARO Docusate Sodium (Docusate Sodium 100 Mg Capsule) 100 mg PO DAILY PRN PRN Reason: Constipation Docusate Sodium (Docusate Sodium 100 Mg Capsule) 100 mg PO BEDTIME [facility] Last Admin: 03/27/23 21:59 Dose: Not Given Documented By: ANITA Non-Admin Reason: inc x2 bm's this evening. Enoxaparin Sodium (Enoxaparin Sodium 40 Mg/0.4 Ml Syringe) 40 mg SUBCUT Q24H [facility] Last Admin: 03/27/23 21:44 Dose: 40 mg Documented By: ANITA Azithromycin 500 mg/ Sodium (Chloride) 250 mls @ 125 mls/hr IV Q24H [facility] Last Admin: 03/28/23 15:38 Dose: 125 mls/hr Documented By: MONSERRAT Ampicillin Sodium/Sulbactam (Sodium 3 gm/ Sodium Chloride) 100 mls @ 200 mls/hr IV Q8H [facility] Last Infusion: 03/28/23 13:49 Dose: 0 mls/hr Documented By: ÁLVARO Sodium Chloride (Ns) 1,000 mls @ 75 mls/hr IVCONT .[id number] [facility] Last Admin: 03/28/23 06:21 Dose: 75 mls/hr Documented By: ANITA Ipratropium [place] (Ipratropium [place] Rj 0.03 % 30 Ml [place]) 2 spray N OSTRIL-B BID PRN PRN Reason: Allergy Symptoms Melatonin (Melatonin 3 Mg Tablet) 6 mg PO BEDTIME [facility] Last Admin: 03/27/23 21:58 Dose: 6 mg Documented By: ANITA Omeprazole (Omeprazole 20 Mg Capsule.) 20 mg PO DAILY@0630 [facility] Last Admin: 03/28/23 06:20 Dose: 20 mg Documented By: ANITA Ondansetron HCl (Ondansetron Hcl 4 Mg/2 Ml Vial) 4 mg IVPUSH Q8H PRN PRN Reason: Nausea and Vomiting Polyethylene Glycol (Polyethylene Glycol 3350 17 Gm Powd.Pack) 17 gm PO DAILY PRN PRN Reason: Constipation Sodium Chloride (0.9 % Sodium Chloride Flush 3 Ml Syringe) 3 ml IVFLUSH QSHIFT [facility] Last Admin: 03/28/23 15:24 Dose: Not Given Documented By: MONSERRAT Non-Admin Reason: IV Running Labs 03/27/23 05:06 03/27/23 05:06 Labs: Laboratory Results - last 24 hr 03/27/23 22:45 C. difficile Tox B Gene NEGATIVE Microbiology Microbiology Results: Microbiology 03/26/23 13:09 Blood Culture - Preliminary Blood - Venous No growth after 48 hours. 03/26/23 13:09 Blood Culture - Preliminary Blood - Venous No growth after 48 hours. Assessment and Plan (1) Encephalopathy acute: Status: Acute (2) CVA (cerebral vascular accident): Status: Acute Plan 7-year-old male with history of complete heart block s/p pacemaker placement, dysphagia on pureed diet with thickened liquids, GERD, history CVA, hypertension, Parkinson's disease, history hyperparathyroidism s/p parathyroidectomy admitted for acute metabolic encephalopathy with ?TIA vs CVA and probable pneumonia. 1.Acute metabolic encephalopathy -resolved -treat underlying pathologies 2.TIA vs CVA - CT negative; not candidate for MRI given pacemaker -appreciate Neuro input -ASA 81 mg daily 3.Acute LLL pneumonia -Unasyn/azithromycin(3) -follow cbc, culture 4.Hypertension -resume outpatient therapies -adjust as indicated Lovenox Full code Requires ongoing hospitalization for IV antibiotics to treat pneumonia Time Spent With Patient Time: Total time managing care of this patient today ____ minutes. Quality Stroke Does the patient have a stroke diagnosis?: Yes Reason for No Anti-thrombotic by Day Two: Drug treatment not indicated VTE Prior VTE?: No VTE Risk Level:: Medical - moderate - high VTE Device Contraindication: Treatment Not Indicated VTE Drug Contraindication: N/A - Med Ordered
[2023-03-28] MEDS: hydrALAZINE HCl 20 MG/ML VIAL 5 MG IVPUSH (20:48)
[2023-03-28] MEDS: Enoxaparin Sodium 40 MG/0.4 ML SYRINGE SUBCUT (21:05)
[2023-03-28] MEDS: Melatonin 3 MG TABLET 6 MG PO (21:17)
--- NOTE | 2023-03-28 23:01 | PC.NURSE ---
BP 190/89, hyrdalizine 5 mg Iv administered as per DR Seals
[2023-03-29 03:45] VITALS: BP 183/91; PULSE 92; RESP 20; TEMP 36.8; O2SAT 93
[2023-03-29] MEDS: Ampicillin Sodium/Sulbactam Na 3 GM in 0.9 % Sodium Chloride 100 ML IV ×2 (03:47→11:01)
[2023-03-29 03:52] VITALS: BP 158/72
[2023-03-29] MEDS: Omeprazole 20 MG CAPSULE.DR PO (06:09)
[2023-03-29 07:05] LABS: MANUAL DIFF FLAG NO
[2023-03-29 07:09] LABS: Basophils Percent Auto 0.5 % (0-2); Eosinophils Absolute Auto 0.2 X10*3/uL (0.0-0.4); Eosinophils Percent Auto 1.9 % (0-4); Hematocrit 36.6 % (42.0-52.0); Hemoglobin 12.5 g/dl (14.0-18.0); Imm Gran Abs Auto 0.05 X10*3/uL (0.00-0.03); Imm Gran Pct Auto 0.6 % (0.0-0.4); Lymphocytes Absolute Auto 0.6 X10*3/uL (1.2-4.9); Lymphocytes Percent Auto 7.7 % (20-40); Mean Corpuscular HGB Conc 34.2 g/dl (31.0-36.0); Mean Corpuscular Hemoglobin 30.9 pg (27.0-33.0); Mean Corpuscular Volume 90.4 fL (80.0-98.0); Mean Platelet Volume 9.5 fL (9.4-12.4); Monocytes Percent Auto 12.6 % (2-11); Neutrophils Absolute Auto 5.9 x10*3/uL (2.0-8.3); Neutrophils Percent Auto 76.7 % (45-73); Platelet Count 183 X10*3/uL (160-400); Red Blood Count 4.05 X10*6/uL (4.60-5.80); Red Cell Distribution Width 12.8 % (11.0-16.0); White Blood Count 7.8 X10*3/uL (4.8-10.8)
[2023-03-29 07:17] VITALS: BP 150/90; PULSE 84; RESP 16; TEMP 36.7; O2SAT 94
[2023-03-29 07:31] LABS: Alanine Aminotransferase < 5 U/L (0-40); Albumin Level 3.1 g/dL (3.5-5.0); Alkaline Phosphatase 90 U/L (39-117); Anion Gap 14 (12-20); Aspartate Amino Transferase 17 U/L (5-37); Bilirubin Total 0.6 mg/dL (0.0-1.0); Blood Urea Nitrogen 11 mg/dL (9-16); Calcium 8.8 mg/dL (8.4-10.2); Carbon Dioxide 24 mmol/L (22-29); Chloride 102 mmol/L (96-108); Creatinine Clr Calc Pharmacy 54.9; Estimated Glomerular Filt Rate > 60; Glucose Fasting 107 mg/dL (60-99); Potassium 3.5 mmol/L (3.3-5.1); Sodium 136 mmol/L (135-145); Total Protein 6.4 g/dL (6.5-8.0)
--- NOTE | 2023-03-29 10:49 | MHC.SPEECHCO ---
Pt off floor for MRI. Per visiting RN, Pt tolerating his baseline diet of Chopped/Advanced Solids (NDD3) and [place]-thick Liquids. MANAGER CUSTOMER SERVICE will continue to follow.
[2023-03-29] MEDS: calcitrioL 0.25 MCG CAPSULE 0.5 MCG PO (10:57)
[2023-03-29] MEDS: Carbidopa/Levodopa 25/100 TABLET 2 TAB PO ×2 (10:57→15:37)
[2023-03-29] MEDS: Atorvastatin Calcium 40 MG TABLET PO (10:57)
[2023-03-29] MEDS: Metoprolol Succinate ER 50 MG TAB.ER.24H PO (10:57)
[2023-03-29] MEDS: bisacodyL 5 MG TABLET.DR PO (10:58)
[2023-03-29] MEDS: Aspirin Enteric Coated 81 MG TABLET.DR PO (10:58)
[2023-03-29 11:19] VITALS: BP 145/95; PULSE 88; RESP 16; TEMP 37.2; O2SAT 95
--- NOTE | 2023-03-29 11:55 | MHC.CM.PN ---
Addendum entered by Elisha Cruz RN 03/29/23 12:13: PT WILL DC HOME W/NEW VNA SERVICES. PT'S SON DECLINES STR AND FEELS PT WILL DO BETTER AT HOME Original Note: PER HOSPITALIST PT MEDICALLY CLEARED FOR D/C HOME W/24HR [employer]IVATE [employer] W/[facility], PT WILL NEED BLS TRANSPORT.
[2023-03-29] MEDS: Azithromycin 500 MG in 0.9 % Sodium Chloride 250 ML 125 MG IV (15:38)
[2023-03-29 15:43] VITALS: BP 185/90; PULSE 83; RESP 20; TEMP 37; O2SAT 93
--- NOTE | 2023-03-29 15:46 | PM.DS ---
DS: Providers Provider Date of Service: 03/29/23 Date of admission: 03/26/23 17:40 Date of discharge: 03/29/23 Primary care physician: Dante Thomas MD Consults: 03/26/23 17:42 Consult to Neurology Routine Consulting Provider: Sully Paz Reason for consultation: right lid droop, ?TIA DS: Diagnosis Discharge Diagnosis (1) Encephalopathy acute: Status: Acute (2) CVA (cerebral vascular accident): Status: Acute DS: Summary Hospital Course Hospital Course: 87-year-old male with history of complete heart block s/p pacemaker placement, dysphagia on pureed diet with thickened liquids, GERD, history CVA, hypertension, Parkinson's disease, history hyperparathyroidism s/p parathyroidectomy presents the ED from [facility] where he resides accompanied by his son who assists with history for evaluation of slurred speech and right eye droop noted by [facility] staff.? He does have 24 hour SKATE BOARDER in his apartment who states last known well time was night.? Yesterday, she noted the patient to be quite weak and very difficult to transfer.? He typically walks at baseline and is a relatively easy assist with transfers.? However yesterday she noted the patient favoring the left lower extremity almost dragging when walking.? This morning, he was noted to have right-sided lid drooping and slurred speech.? He has also had increased shortness of breath with decreased appetite with O2 saturation ranging from 89-95% per EMS.? His son notes that he has had cough but states that this has been chronic since the parathyroidectomy. He was also noted to be gurgling though he was not observed to have aspirated per the son. The patient is typically more alert and oriented and answers questions at baseline. On exma, he is very lethargic appearing and not speaking much though does follow commands.? He is also incontinent of urine though son reports this is baseline. Pt's son also tells me the patient's son papssed away 2 weeks ago and questions whether grief is contributing to symptoms. On arrival, patient is hypertensive to 184/94, vitals otherwise stable.? He is noted by ED staff during saturations dropping to the high 80s but quickly rebounding and maintaining around 94-95% on room air.? He has leukocytosis of 14.4.? Stable normocytic anemia.? Platelets 155.? Creatinine 1.12, BUN 25.? Electrolytes normal except for a hyponatremia of 130.? Troponin 8.8.? Urinalysis with trace leukocytes, 1+ protein, trace ketones, 4+ bacteria.? Negative for COVID-19.? Chest x-ray is read as having cardiomegaly but on my read shows left lower lobe infiltrate.? CTA of the head/neck shows possible new hypodensity within the left ponsomesencephalic junction suspicious for age-indeterminate ischemia on the background of advanced presumably chronic microangiopathic changes as well as redemonstrated chronic lacunar infarcts within the basal ganglia.? 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 Assessment of the bilateral vertebral artery origins and proximal V1 segments are nondiagnostic further without significance steno occlusive disease in the neck. In the ED, given 81mg asa, 1L IV NS, 1g IV cetriaxone, and 500mg IV azithromycin. [facility] Admitted to telemetry and continued on IV antibiotics; chest x-ray formally read as negative in urine with minimal active sediment. His continue empirically on IV antibiotics until culture was negative. Seen in consultation by Neurology. MRI was unobtainable secondary to pacemaker. 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 Neurology's recommendation was aspirin 81 mg daily and no other intervention. At this point in time, his ready for discharge back to assisted living with AIRCONDITIONING PLANT OPERATOR support Time Spent with Patient Time attestation: Total time managing care of this patient today ____ minutes. Discharge coordination time: Greater than 30 minutes Quality: Safe Use of Opioids Does Pt have an Active Cancer Diagnosis on the Problem List?: No Quality: Stroke Does the patient have a stroke diagnosis?: No Physical Exam Vital Signs: Vital Signs: Last Vital Signs Temp 98.9 F 03/29/23 11:19 Pulse 88 03/29/23 11:19 Resp 16 03/29/23 11:19 BP 145/95 H 03/29/23 11:19 Pulse Ox 95 03/29/23 11:19 O2 Del Method Room Air 03/29/23 11:19 BMI result Body Mass Index 24.7 Const: Other: No acute distress Resp: Other: Clear to auscultation bilaterally no rales rhonchi or wheezes Cardio: Other: No S4; positive S1-S2; no S3 murmurs rubs or gallops GI: Other: Soft nontender nondistended normoactive bowel sounds Extrem: Other: No edema bilateral DS: Data Data Completed and Pending Labs on day of discharge: Laboratory Results - last 24 hr 03/29/23 03/29/23 06:19 06:19 WBC 7.8 RBC 4.05 L Hgb 12.5 L Hct 36.6 L MCV 90.4 MCH 30.9 MCHC 34.2 RDW 12.8 Plt Count 183 D MPV 9.5 Immature Gran % (Auto) 0.6 H Neut % (Auto) 76.7 H Lymph % (Auto) 7.7 L Dickson % (Auto) 12.6 H Eos % (Auto) 1.9 Baso % (Auto) 0.5 Lymph # (Auto) 0.6 L Dickson # (Auto) 1.0 Eos # (Auto) 0.2 Baso # (Auto) 0.0 Abs Immat Gran (auto) 0.05 H Absolute Neuts (auto) 5.9 Absolute Nucleated RBC 0.000 Nucleated RBC % (auto) 0.0 Sodium 136 Potassium 3.5 Chloride 102 Carbon Dioxide 24 Anion Gap 14 BUN 11 Creatinine 0.96 Estim Creat Clear Calc 54.9 Estimated GFR > 60 Fasting Glucose 107 H Calcium 8.8 Total Bilirubin 0.6 AST 17 ALT < 5 Alkaline Phosphatase 90 Total Protein 6.4 L Albumin 3.1 L Preliminary micro results at discharge 03/26/23 13:09 Blood Culture - Preliminary Blood - Venous No growth after 48 hours. 03/26/23 13:09 Blood Culture - Preliminary Blood - Venous No growth after 48 hours. Discharge Plan Discharge Anticipated Discharge Date/Time: 03/29/23 15:42 Patient Disposition: Home Health Service Discharge Diagnosis: Acute CVA Referrals: [facility] [Outside] - 1 Day (RETIREMENT, HOME OT/PT) aDnte Thomas MD [Primary Care Provider] - 1 Week Discharge Medications: Continued metoprolol succinate 50 mg tablet extended release 24 hr 50 mg PO DAILY Qty: 90 3RF calcitriol 0.5 mcg capsule 0.5 mcg PO DAILY omeprazole 20 mg capsule,delayed release(DR/EC) 1 cap PO DAILY aspirin 81 mg Tablet,Delayed Release (Dr/Ec) 81 mg PO DAILY carbidopa-levodopa 25-100 mg tablet 2 tab PO TID acetaminophen [Tylenol] 325 mg Tablet 325 mg PO BEDTIME PRN (Reason: Fever Or Pain) polyethylene glycol 3350 [Miralax] 17 gram/dose Powder 17 g PO DAILY PRN (Reason: Constipation) albuterol sulfate 90 mcg/actuation HFA aerosol inhaler 2 puff inhalation QID PRN (Reason: Shortness Of Breath Or Wheezing) ipratropium bromide 21 mcg (0.03 %) spray,non-aerosol 2 spray intranasal BID PRN (Reason: Allergy Symptoms) CeraVe Healing 46.5 % ointment 1 appl topical DAILY PRN (Reason: Dry Skin) bisacodyl [Dulcolax (bisacodyl)] 5 mg Tablet,Delayed Release (Dr/Ec) 5 mg PO DAILY melatonin 5 mg capsule 5 mg PO DAILY cranberry 400 mg capsule 400 mg PO DAILY Rx Instructions: administer with a meal docusate sodium [Stool Softener] 100 mg capsule 100 mg PO BEDTIME Discharge Orders: Discharge Order (Routine); Ordered 03/29/23 Ordered By: Dao Bear Diet: Advance to usual diet Activity on Discharge: As tolerated Stand Alone Forms: Patient Portal Discharge page Care Plan Goals: Resume all therapies as prior to hospital Health Concerns: Continue all medicines including aspirin 81 mg daily Plan of Treatment: Follow-up with PCP next available appointment Assessment: See discharge summary
--- NOTE | 2023-03-29 16:40 | PC.NURSE ---
informed md of pt's BP. per md pt to monitor at home, no new orders at this time, pt to be discharged. pt d/c'ed at a later time d/t d/c order not being placed at the [facility]. time EMS arrived.
--- NOTE | 2023-03-30 13:45 | MHC.STROKE ---
LATE ENTRY, I SPOKE WITH DR. NOBLES AND PATIENT SHOULD BE ON ATORVASTATIN 40 MG QD, THIS MEDICATION WAS NOT ON THE DISCHARGE SUMMARY. I CALLED THE PATIENT'S PCP DR. TAYLOR AND SPOKE WITH MARGARITA. SHE WILL CONTACT [facility] AND TAKE CARE OF ORDERING THIS. ALL STROKE MEASURES MET, LATE ENTRY FOR STROKE EDUCATION WILL ALSO DONE PRIOR TO DISCHARGE.
[2023-03-31 05:09] LABS: Legionella Ag Urine Not Detected (Not Detected)
--- NOTE | 2023-03-31 12:10 | P.CDIM_ITS ---
PROVIDER RESPONSE TEXT: To clarify, the appropriate diagnosis supported by the clinical indicators: Hyponatremia resolved QUERY TEXT: PHYSICIAN'S DOCUMENTATION REQUEST Date of Query: 03/29/2023 08:04 AM EDT Patient Name: Siddhartha Traylor Admit Date: 03/26/2023 Dear Dao Bear, A review of the medical record indicates additional documentation may be needed. Please review below and update the documentation accordingly. Clinical Indicators: LABS 03/26 - sodium 130 L IV fluids Based on the above, is there a diagnosis that correlates to the lab findings: Hyponatremia resolved Labs indicate a diagnosis of (please specify) please specify Other (explain)Clinically unable to determine (explain)Thank you, Irish Hardy, CCS, CDIS Use of terms such as suspected, likely, concern for, or probable (associated with a specific diagnosi s that is being evaluated, monitored, or treated as if it exists) are acceptable and can be coded in the inpatient se tting, when documented at the time of discharge. Please use your independent medical judgment in providing your response. THIS QUERY IS PART OF THE PERMANENT MEDICAL RECORD
--- NOTE | 2023-03-31 12:10 | P.CDIM_ITS ---
PROVIDER RESPONSE TEXT: To clarify, the appropriate diagnosis supported by the clinical indicators: Aspiration Pneumonia, (treating, not treating) QUERY TEXT: PHYSICIAN'S DOCUMENTATION REQUEST Date of Query: 03/29/2023 08:00 AM EDT Patient Name: Siddhartha Traylor Admit Date: 03/26/2023 Dear Dao Bear, A review of the medical record indicates additional documentation may be needed. Please review below and update the documentation accordingly. Clinical Indicators: H&P 03/26 - Acute LLL pneumonia Leukocytosis 14, so other SIRS criteria Son reported gurgling ? aspiration, evidence of cough on exam. IV unasyn and azithromycin Legionella ag, strep pneumo ag, sputum culture Speech: Total supervision when eating is recommended. Based on the above, could you clarify in the Progress Notes further specificity regarding the most li sacha type of pneumonia you suspect you are treating (even if specific organism may not be known)? Aspiration Pneumonia, (treating, not treating) Pneumonia Other (explain)Clinically unable to determine (explain)Thank you, Irish Hardy, CCS, CDIS Use of terms such as suspected, likely, concern for, or probable (associated with a specific diagnosi s that is being evaluated, monitored, or treated as if it exists) are acceptable and can be coded in the inpatient se tting, when documented at the time of discharge. Please use your independent medical judgment in providing your response. THIS QUERY IS PART OF THE PERMANENT MEDICAL RECORD
--- NOTE | 2023-03-31 12:42 | P.F2F_ITS ---
Service Date Service Date: 03/31/23 Encounter Date of encounter: 03/29/23 Encounter: Acute hospitalization Reasons for Services Signs and symptoms assessed: Confusion and unsteadiness Reason for residential: neurological assessment and medication management Reason for physical therapy: home safety and mobility, therapeutic exercises and gait/transfer training Homebound: Leaving the home is medically contraindicated at this time without the asist of a device and/or another person due th the listed conditions above and below. Reason homebound: unsteady gait / fall risk, weakness related to hospital stay and unable to drive Certification: Based on the above findings, I certify that this patient is confined to the home and needs intermittent residential care, physical therapy and/or speech therapy, or continues to need occupational therapy. The patient is under my care, and I have initiated the establishment of the plan of care. The patient will be followed by a physician who will periodically review the plan of care. Time Spent With Patient Time: Total time managing care of this patient today ____ minutes.
[2023-03-31 18:29] LABS: Strep Pneumo Ag urine Not Detected (Not Detected)
== END 2023-03-29 16:39 | disposition home health service (06) | DRG 64 ==
LOC: HO.ED 16:08 → HO.EDOVER 17:48 → HO.IMC 03-27 07:51
PROVIDERS: Admitting Provider Physician Assistant; Emergency Provider Emergency Medicine; PCP Internal Medicine; Visit Provider Hospitalist
DX: I63.9 Cerebral infarction, unspecified (principal); G93.41 Metabolic encephalopathy; J69.0 Pneumonitis due to inhalation of food and vomit; E87.1 Hypo-osmolality and hyponatremia; I47.1 Supraventricular tachycardia; G20 Parkinson's disease; D72.829 Elevated white blood cell count, unspecified; F02.A0 Dementia in other diseases classified elsewhere, mild, without behavioral disturbance, psychotic disturbance, mood disturbance, and anxiety; I10 Essential (primary) hypertension; K21.9 Gastro-esophageal reflux disease without esophagitis; F43.20 Adjustment disorder, unspecified; H02.401 Unspecified ptosis of right eyelid; Z95.0 Presence of cardiac pacemaker; Z20.822 Contact with and (suspected) exposure to COVID-19; Z79.82 Long term (current) use of aspirin; Z79.899 Other long term (current) drug therapy
CPT/HCPCS: 36415; 70496; 70498; 70551; 71045; 80048; 80053; 80061; 80076; 81001; 83605; 83690; 83735; 84484; 85025; 85610; 87040; 87449; 87493; 87635; 87899; 92610; 93005; 94640; 97162; 97166; 99285; J0295; J0456; J0696; J1650

== ENCOUNTER → 2023-03-26 17:40 | Outpatient (BNV) | payer MEDICARE, SELFPAY | PROVIDERS: Admitting Provider Physician Assistant; Emergency Provider Emergency Medicine; Visit Provider Physician Assistant | DX: G93.40 Encephalopathy, unspecified (principal); I63.9 Cerebral infarction, unspecified | CPT/HCPCS: 99223; 99233; 99239; 99499; G0180 ==

== ENCOUNTER → 2023-03-31 23:59 | Outpatient (BNV) | payer MEDICARE, SELFPAY ==
--- NOTE | 2023-04-02 12:44 | MHC.OFFVIS ---
Intake Intake Visit Reasons: Remote Device Check- [facility] Allergies lisinopril Allergy (Unknown, Verified 04/13/22 13:21) Unknown [facility] Medical History Barretts esophagus GERD (gastroesophageal reflux disease) Heart block Hiatal hernia History of back pain History of prostate cancer HTN (hypertension) Hypercholesterolemia Normally functioning cardiac pacemaker present Parkinsons disease Second degree heart block TIA (transient ischemic attack) Surgical History History of esophagogastroduodenoscopy (EGD) History of eye surgery History of parathyroidectomy History of permanent cardiac pacemaker placement History of repair of hip fracture History of tonsillectomy Hx of colonoscopy Hx of prostatectomy Hx of right cataract extraction Family History Father No problems noted. Mother No problems noted. 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 Overall normal device function. [id number] Cardiac Device Interrogation, pacemaker Procedure code (CPT) selection complete Assessment & Plan Assessment & Plan (1) Heart block: Code(s): I45.9 - Conduction disorder, unspecified Coding Level of Care Code Procedure Only Diagnoses Heart block I45.9 CPT Codes Cardiac Device Check - Cardiac Device 12: [id number] Cardiac Device Interrogation, pacemaker ([id number])
== END ==
PROVIDERS: PCP Internal Medicine; Visit Provider Internal Medicine
DX: I45.9 Conduction disorder, unspecified (principal); Z95.0 Presence of cardiac pacemaker
CPT/HCPCS: 93294

== ENCOUNTER 2023-04-13 13:55 | Outpatient (AMB) | payer MEDICARE, SELFPAY ==
--- NOTE | 2023-04-13 14:08 | A.OFFVIS_ITS ---
Intake Vital Signs 04/13/23 14:09 Height 5 ft 10 in BMI Reason not done Patient refused/unable BP 110/80 Blood Pressure Location Lt brachial Position Sitting Pulse 57 Intake Visit Reasons: 1 yr f/up Intake Note: 1 year follow up [place] Required: No Accompanied by: Son Allergies lisinopril Allergy (Unknown, Verified 04/13/23 14:11) Unknown Medication List - Last Reconciled 04/13/23 by Mynor Field MD acetaminophen (Tylenol) 325 mg PO BEDTIME PRN albuterol sulfate 90 mcg/actuation 2 puffs inhalation QID PRN aspirin 81 mg PO DAILY bisacodyl (Dulcolax (bisacodyl)) 5 mg PO DAILY calcitriol 0.5 mcg PO DAILY carbidopa-levodopa 25-100 mg 2 tabs PO TID cranberry 400 mg PO DAILY docusate sodium (Stool Softener) 100 mg PO BEDTIME ipratropium bromide 2 sprays intranasal BID PRN melatonin 5 mg PO DAILY metoprolol succinate ER 50 mg PO DAILY omeprazole 20 mg PO DAILY polyethylene glycol 3350 (Miralax) 17 grams PO DAILY PRN white petrolatum 46.5% (CeraVe Healing) 1 appl topical DAILY PRN HPI HPI Comments History of Present Illness Details Siddhartha returns for follow-up regarding his pacemaker. To recall, in 2018, he was admitted for complaints of failure to thrive, lethargy and weakness. Multiple falls. At that time, he had Mobitz type 2 second-degree heart block. Underwent permanent pacemaker implantation. He also had hypercalcemia that time which led to parathyroidectomy. Also has Parkinson's disease. Son comes with him for the appointment. He states that patient has been somewhat depressed as he lost one of his other sons from COPD few weeks back. Otherwise, from cardiac no specific issues. [facility] Medical History Barretts esophagus CVA (cerebral vascular accident) GERD (gastroesophageal reflux disease) Heart block Hiatal hernia History of back pain History of prostate cancer HTN (hypertension) Hypercholesterolemia Normally functioning cardiac pacemaker present Parkinsons disease Second degree heart block TIA (transient ischemic attack) Surgical History History of esophagogastroduodenoscopy (EGD) History of eye surgery History of parathyroidectomy History of permanent cardiac pacemaker placement History of repair of hip fracture History of tonsillectomy Hx of colonoscopy Hx of prostatectomy Hx of right cataract extraction Family History Father No problems noted. Mother No problems noted. 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 Housing: Assisted Living Facility Housing Other:: Resides in [facility] Are you a primary patient care director to a significant other at home: No Do you presently have visiting nurse or other home services: No Alcohol intake: former Patient Tobacco Use Status: Never used Tobacco Advance Directives Date on File: 10/28/20 service: No Review of Systems Const Denies chills, Denies fatigue, Denies fever(s), Denies frequent falls, Denies weakness, Denies weight gain and Denies weight loss ENT Denies dizziness Card Denies chest pain, Denies leg edema, Denies lightheadedness, Denies palpitations, Denies dyspnea, Denies dyspnea on exertion, Denies orthopnea and Denies other (Loss of consciousness) Resp Denies cough, Denies dyspnea and Denies dyspnea on exertion GI Denies hematochezia and Denies change in bowel habits Reports no additional complaints and Reports as per HPI Musc Denies abnormal gait, Denies muscle weakness, Denies numbness, Denies radiating pain into limb and Denies tingling Skin/Breast Reports system reviewed and no additional complaints, except as documented and Reports as per HPI Neuro Denies abnormal gait, Denies dizziness, Denies frequent falls, Denies numbness, Denies tingling and Denies weakness Psych Reports no additional complaints and Reports as per HPI Endo Denies fatigue and Denies palpitations Anjel/Lymph Reports no additional complaints and Reports as per HPI Physical Exam Vital Signs: Last Vital Signs Pulse 57 04/13/23 14:09 BP 110/80 04/13/23 14:09 Const General: comfortable and no acute distress Orientation/consciousness: patient oriented x3 HEENT Other: Unremarkable Head: Yes normal to inspection Neck Neck: Yes normal visual inspection Chest Chest palpation & inspection: normal inspection of the chest Resp Auscultation: clear to auscultation bilaterally Cardio Palpation: normal PMI Heart sounds: S1 normal heart sound present, S2 normal heart sound present, no gallops, no murmurs and no rubs GI Palpation (GI): Soft to palpation Back/Spine/Pelvis Other: unremarkable Skin General skin exam: no rashes or lesions noted Neuro General: patient oriented x3 Extrem General: Yes normal to inspection Psych Mental Status: mental status grossly normal Assessment & Plan Assessment & Plan (1) Normally functioning cardiac pacemaker present: Code(s): Z95.0 - Presence of cardiac pacemaker Plan: Being followed remotely. Based on the most recent remote check, battery status more than 4 years. Atrial pacing 46% and ventricular pacing 60%. (2) Aortic valve calcification: Code(s): I35.9 - Nonrheumatic aortic valve disorder, unspecified Plan: Echocardiogram from 2018 showed moderately calcified aortic valve without any significant stenosis. Per family preference, we have not done any workup beyond that. We can recheck to assess for any aortic stenosis. Discussed with son about this today specifically. He states he would like some care but nothing too aggressive. Orders: Orders CA echo transthoracic complete Today I35.9 - Nonrheumatic aortic valve disorder, unspecified Coding Level of Care Code Est Pt Level 3 (30202) Diagnoses Normally functioning cardiac pacemaker present Z95.0 Aortic valve calcification I35.9
[2023-04-13 14:09] VITALS: BP 110/80; PULSE 57
== END 2023-04-13 14:28 | disposition home or self-care (01) ==
PROVIDERS: PCP Internal Medicine; Referring Provider Internal Medicine; Visit Provider Internal Medicine
DX: Z95.0 Presence of cardiac pacemaker (principal); I35.9 Nonrheumatic aortic valve disorder, unspecified
CPT/HCPCS: 99213

== ENCOUNTER → 2023-04-13 13:55 | Outpatient (BNVA) | payer MEDICARE, SELFPAY | PROVIDERS: PCP Internal Medicine; Referring Provider Internal Medicine; Visit Provider Internal Medicine | DX: I35.9 Nonrheumatic aortic valve disorder, unspecified (principal); Z95.0 Presence of cardiac pacemaker | CPT/HCPCS: 99212 ==

== ENCOUNTER → 2023-06-16 10:46 | Outpatient (REF) | payer MEDICARE, SELFPAY ==
--- NOTE | 2023-06-16 10:48 | CA_ITS ---
Transthoracic Echocardiogram Patient (Last, First, Middle): Siddhartha Traylor N Gender: Male Date of : 1935 Age: 87 Procedure Date: 06/16/2023 Procedure Type: Transthoracic Echocardiogram Location: OP Height: 170.18 cm Weight: 74.84 kg BSA: 1.86 m2 Heart Rate: bpm BP: 148 / 88 mmHg Sole Rougher: SB Referring MD: Mynor Field MD Nurse Anesthesia Program Director: Tevin Rothman MD Symptoms: I35.9 - Nonrheumatic aortic valve disorder, unspecified Study Quality: Technically Difficult ECG Rhythm: Paced Conclusions: - 1. Technically limited study with off axis views 2. Normal LV ejection fraction 55-60% with impaired relaxation filling pattern 3. Calcified aortic valve with [id number] aortic stenosis 4. Ascending it was not entirely visualized but there is mild-to moderate enlargement 5. No gross pericardial effusion Findings Procedure Information The quality of the study was technically difficult. Left Ventricle The left ventricle was not well visualized. Normal left ventricular cavity size. The left ventricular systolic function is normal. The visually estimated ejection fraction is between 55-60%. Spectral Doppler is indicative of an impaired relaxation filling pattern. Right Ventricle The right ventricle was not well visualized. Atria The left atrium is normal in size. Interatrial shunt cannot be excluded. The right atrium was not well visualized. Aortic Valve The aortic valve was not well visualized. There is moderate calcification of the aortic valve. There is mild to moderate aortic valve stenosis. The mean gradient is 13 mmHg. The aortic valve area is 1.26 cm2. There is no aortic valve regurgitation. Mitral Valve There is mild anterior and posterior mitral leaflet thickening. There is trace mitral valve regurgitation. There is no mitral valve stenosis. Pulmonic Valve The pulmonic valve was not well visualized. Tricuspid Valve The tricuspid valve was not well visualized. Tricuspid regurgitation envelope is inadequate for calculation of right ventricular systolic pressure. Great Vessels The aorta was not well visualized. The pulmonary artery was not well visualized. There is mild dilatation of the ascending aorta measuring 4.40 cm. Venous The inferior vena cava was not well visualized. Pericardium/Pleural There is no evidence of pericardial effusion. Prior Study Comparison Changes noted compared to prior study dated: 03/25/2018. [id number] aortic stenosis is present Measurements 2D Linear Measurements IVSd: 1.39 0.6-0.9/0.6-1.0 cm LVIDd: 3.73 3.9-5.3/4.2-5.9 cm LVIDd Index: 2.01 2.4-3.2/2.2-3.1 cm/m2 LVIDs: 2.21 2.0-3.6 cm LVPWd: 1.01 0.7-1.1 cm LA Diam: 3.20 2.7-3.8/3.0-4.0 cm LAIDs Index: 1.72 1.5-2.3 cm/m2 LV Mass: 185.59 67-162/88-224 g LV Mass Index: 99.78 43-95/49-115 g/m2 LVOT Diam: 2.00 3.0+(-)1.3 cm Mitral Valve MV VTI: 0.49 MV Pk Krish: 1.58 MV Mn Krish: 0.89 MV Pk Grad: 10.00 MV Mn Grad: 4.00 MV Pk E: 0.83 MV PK A: 1.35 MV Decel Time: 309.00 E/A: 0.60 E'Lateral: 4.38 E'Medial: 5.00 E/E' Med: 16.50 E/E' Lat: 18.90 PHT: 90.00 MVA PHT: 2.44 MVA Continuity: 1.60 Decel Holmes: 2.67 Aortic Valve AoV Pk Krish: 2.73 AoV Mn Krish: 1.69 AoV VTI: 0.62 AoV Pk Grad: 30.00 Aov Mn Grad: 13.00 SHANE Cont.VTI: 1.26 LVOT LVOT Pk Krish: 1.19 LVOT Mn Krish: 0.84 LVOT VTI: 0.25 LVOT Pk Grad: 6.00 LVOT Mn Grad: 3.00 LVOT Diam: 2.00 LVOT Area: 3.14 Diastolic Function MV Pk E: 0.83 MV Pk A: 1.35 E/A: 0.60 E'Medial: 5.00 E/E' Med: 16.50 E' Laterial: 4.38 E/E' Lat: 18.90 Right Ventricle TAPSE (mm): 12.20 Great Vessels Aorta Sinus of Valsalva: 3.40 2.0-3.5 cm Ao Asc: 4.40 2.1-3.4 cm Pulmonary Valve PV Pk Krish: 1.06 Peak PV Grad: 4.00 Updated in Other Vendor System with Status of Final Tevin Rothman MD electronically signed on 06/17/2023 4:29:00 PM with status of Final
== END ==
LOC: HO.CARD 10:46
PROVIDERS: PCP Internal Medicine; Visit Provider Internal Medicine
DX: I35.9 Nonrheumatic aortic valve disorder, unspecified (principal)
CPT/HCPCS: 93306

== ENCOUNTER → 2023-06-16 10:48 | Outpatient (BNV) | payer MEDICARE, SELFPAY | PROVIDERS: PCP Internal Medicine; Visit Provider Internal Medicine Cardiovascular Disease | DX: I35.0 Nonrheumatic aortic (valve) stenosis (principal) | CPT/HCPCS: 93306 ==

== ENCOUNTER → 2023-06-30 23:59 | Outpatient (BNV) | payer MEDICARE, SELFPAY ==
--- NOTE | 2023-07-05 12:40 | A.OFFVIS_ITS ---
Intake Intake Visit Reasons: Remote Device Check- [facility] Allergies lisinopril Allergy (Unknown, Verified 04/13/23 14:11) Unknown [facility] Medical History Barretts esophagus CVA (cerebral vascular accident) GERD (gastroesophageal reflux disease) Heart block Hiatal hernia History of back pain History of prostate cancer HTN (hypertension) Hypercholesterolemia Normally functioning cardiac pacemaker present Parkinsons disease Second degree heart block TIA (transient ischemic attack) Surgical History History of esophagogastroduodenoscopy (EGD) History of eye surgery History of parathyroidectomy History of permanent cardiac pacemaker placement History of repair of hip fracture History of tonsillectomy Hx of colonoscopy Hx of prostatectomy Hx of right cataract extraction Family History Father No problems noted. Mother No problems noted. 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 Overall normal device function. [id number] Cardiac Device Interrogation, pacemaker Procedure code (CPT) selection complete Assessment & Plan Assessment & Plan (1) Heart block: Code(s): I45.9 - Conduction disorder, unspecified Coding Level of Care Code Procedure Only Diagnoses Heart block I45.9 CPT Codes Cardiac Device Check - Cardiac Device 12: [id number] Cardiac Device Interrogation, pacemaker ([id number])
== END ==
PROVIDERS: PCP Internal Medicine; Visit Provider Internal Medicine
DX: I44.1 Atrioventricular block, second degree (principal); Z95.0 Presence of cardiac pacemaker
CPT/HCPCS: 93294

== ENCOUNTER → 2023-09-29 23:59 | Outpatient (BNV) | payer MEDICARE, SELFPAY ==
--- NOTE | 2023-10-03 19:53 | A.OFFVIS_ITS ---
Intake Intake Visit Reasons: Remote Device Check- [facility] Allergies lisinopril Allergy (Unknown, Verified 04/13/23 14:11) Unknown [facility] Medical History Barretts esophagus CVA (cerebral vascular accident) GERD (gastroesophageal reflux disease) Heart block Hiatal hernia History of back pain History of prostate cancer HTN (hypertension) Hypercholesterolemia Normally functioning cardiac pacemaker present Parkinsons disease Second degree heart block TIA (transient ischemic attack) Surgical History History of esophagogastroduodenoscopy (EGD) History of eye surgery History of parathyroidectomy History of permanent cardiac pacemaker placement History of repair of hip fracture History of tonsillectomy Hx of colonoscopy Hx of prostatectomy Hx of right cataract extraction Family History Father No problems noted. Mother No problems noted. 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 Overall normal device function. [id number] Cardiac Device Interrogation, pacemaker Procedure code (CPT) selection complete Assessment & Plan Assessment & Plan (1) Heart block: Code(s): I45.9 - Conduction disorder, unspecified (2) Normally functioning cardiac pacemaker present: Code(s): Z95.0 - Presence of cardiac pacemaker Plan x Coding Level of Care Code Procedure Only Diagnoses Heart block I45.9 Normally functioning cardiac pacemaker present Z95.0 CPT Codes Cardiac Device Check - Cardiac Device 12: [id number] Cardiac Device Interrogation, pacemaker ([id number])
== END ==
PROVIDERS: PCP Internal Medicine; Visit Provider Internal Medicine
DX: I45.9 Conduction disorder, unspecified (principal); Z95.0 Presence of cardiac pacemaker
CPT/HCPCS: 93294

== ENCOUNTER 2023-10-08 13:16 | Inpatient (IN) | payer MEDICARE, SELFPAY ==
--- NOTE | ~2023-10-08 | US_ITS ---
EXAMINATION: US ABDOMEN LIMITED CLINICAL INFORMATION: Elevated liver function tests. COMPARISON: None available. TECHNIQUE: Real-time imaging of the right upper quadrant abdominal viscera. FINDINGS: Technically very limited study, difficult examination due to bowel gas, body habitus. PANCREAS: Pancreas not visualized, obscured by bowel gas. LIVER: The liver is not well seen, not well evaluated. There is very limited visualization. Question heterogeneity of the visualized liver parenchyma. GALLBLADDER: Limited visualization of the gallbladder. The gallbladder appears contracted. Question gallstones, evaluation limited. The gallbladder wall appears prominent measuring 0.37 cm, nonspecific, could be related to lack of distention. Shipping Track Supervisor reports no tenderness in the area of the gallbladder. COMMON BILE DUCT: Not visualized. RIGHT KIDNEY: Not visualized. FREE FLUID: No large free fluid seen. US/US abdomen limited IMPRESSION: Technically very limited study. Very difficult examination due to body habitus, bowel gas. Structures are not reliably evaluated. 1. The gallbladder is not well seen, appearing contracted. CT demonstrated gallstones, not well seen on ultrasound. Gallbladder wall is prominent measuring 0.37 cm, nonspecific. This could be related to lack of distention. Technologist reports no tenderness in the area of the gallbladder. If there is clinical concern for cholecystitis, further evaluation with HIDA scan can be obtained. 2. Pancreas not visualized. 3. CBD not visualized. Further evaluation with MRI/MRCP as clinically indicated. 4. Right kidney is not visualized.
--- NOTE | ~2023-10-08 | CT_ITS ---
EXAMINATION: CT ABDOMEN AND PELVIS WITHOUT CONTRAST CLINICAL INFORMATION: Vague abdomen pain. Vomiting COMPARISON: Portions of a previous CT 05/27/18 TECHNIQUE: Multidetector volumetric imaging was performed from the superior aspect of the liver through the pubic symphysis. Sagittal and coronal reformatted images were obtained on the technologist's workstation. This CT examination was performed using dose optimization techniques as appropriate, variously including the following: *Automated exposure control *Adjustment of mA and/or kV according to patient size (this includes techniques or standardized protocols for targeted exams where dose is matched to indication/reason for exam; i.e. extremities or head) *Use of iterative reconstruction technique DLP: 744 mGy-cm FINDINGS: LUNG BASES: Extensive metallic artifact related to cardiac leads. There is calcification of the mitral annulus. There is extensive coronary calcification. Motion limits assessment of the lung bases. Calcified granuloma in the left base is unchanged since 05/27/18 and does not require any further evaluation. LIVER, GALLBLADDER, AND BILIARY TREE: Unusual configuration with colon interposing between the diaphragm and the right lobe. No large focal lesion. There is cholelithiasis. There may be a distal common bile duct calculus measuring approximately 0.5 cm PANCREAS: No suspicious abnormality. SPLEEN: Within normal limits. ADRENAL GLANDS: Bilateral adrenal nodules which appear low attenuating. Stability since at least 2018. These do not require specific imaging follow-up. KIDNEYS AND URETERS: Limited by motion. Probable cysts. There is deformity of the lower left kidney similar to previous. BLADDER: The bladder is moderately distended. No focal mass demonstrated GASTROINTESTINAL TRACT: There is a large fecal bolus distending the rectum. The rectal wall is slightly thickened. There is no evidence of high-grade small bowel obstruction. The stomach is not distended. ABDOMINAL WALL: Fat protrudes into the left inguinal canal. Trace fat-containing umbilical hernia. There is a mass with fat attenuation in the right flank. This measures approximately 11.0 x 4.5 x 10.8 cm and appears to interpose between the oblique muscles. On 05/27/18 this measured approximately 7.9 x 1.5 x 8.1 cm. There has been definite interval increase. LYMPH NODES: There are no measurably enlarged abdominal or pelvic lymph nodes. There is no free peritoneal fluid. VASCULAR: There is no abdominal aortic aneurysm. PELVIC VISCERA: The prostate is not demonstrated. OSSEOUS STRUCTURES: Previous instrumentation right proximal femur. CT/CT abdomen pelvis wo IV con IMPRESSION: The study is limited by motion. There is distention of the rectum with rectal wall thickening. No evidence of high-grade small bowel obstruction or free intraperitoneal gas. There is cholelithiasis. There may be a calculus in the distal common bile duct Enlarging fat attenuating right flank wall mass. Imaging cannot distinguish between low-grade fatty tumors. Specifically low-grade neoplasm of the flank cannot be excluded. Fleischner guidelines were followed.
--- NOTE | ~2023-10-08 | XR_ITS ---
EXAMINATION: XR CHEST CLINICAL INFORMATION: Weakness, fatigue COMPARISON: 03/26/2023 TECHNIQUE: Frontal view of the chest was obtained. FINDINGS: Opacity seen in the bilateral lung bases consistent with pleural effusions, atelectasis and/or airspace opacities. Heart is enlarged. Left subclavian pacemaker is in good position. There is chronic elevation of the right hemidiaphragm. XR/XR chest 1V IMPRESSION: Bibasilar opacities consistent with pleural effusions, atelectasis and/or airspace opacities.
--- NOTE | ~2023-10-08 | NM_ITS ---
BILIARY TRACT IMAGING STUDY CLINICAL INDICATION: Gallbladder wall thickening, right upper quadrant pain. PROCEDURE: Scintillation camera images were obtained over the abdomen for an observation of 60 minutes following the intravenous administration of 5 millicuries technetium 99m mebrofenin. Additional views were obtained at 2 hours. Patient refused images at 4 hours. COMPARISON: CT abdomen/pelvis and abdominal ultrasound 10/08/2023. FINDINGS: There is good concentration of activity in the liver by 5 minutes post injection. Biliary activity is well visualized by 15 minutes, and there is good visualization of small bowel activity by 20 minutes. The gallbladder is not well visualized. Images were obtained at 2 hours without visualization of the gallbladder. The patient refused 4 hours imaging. NM/NM hepatobiliary wo pharm IMPRESSION: Nonvisualization of the gallbladder suggests an obstructive cystic duct and acute cholecystitis, although findings could also be related with chronic cholecystitis. Patient refused the 4 hours delayed imaging which would be helpful in further distinguish acute versus chronic cholecystitis. The common bile duct is patent. Liver function appears normal.
[2023-10-08 13:29] VITALS: BP 152/67; PULSE 64; RESP 16; TEMP 36.4; O2SAT 94; BMI 26.6
--- NOTE | 2023-10-08 13:32 | ECG_ITS ---
Test Reason : WEAKNESS Blood Pressure : / mmHG Vent. Rate : 065 BPM Atrial Rate : 065 BPM P-R Int : 230 ms QRS Dur : 180 ms QT Int : 484 ms P-R-T Axes : -04 -71 086 degrees QTc Int : 503 ms Atrial-sensed ventricular-paced rhythm with prolonged AV conduction Abnormal ECG When compared with ECG of 26-MAR-2023 12:53, Electronic ventricular pacemaker has replaced Sinus rhythm Referred By: Generic ED Physician Electronically Signed By:ARTURO MORRIS
[2023-10-08 13:50] LABS: MANUAL DIFF FLAG NO
[2023-10-08 13:56] LABS: Basophils Percent Auto 0.5 % (0-2); Eosinophils Absolute Auto 0.2 X10*3/uL (0.0-0.4); Eosinophils Percent Auto 3.3 % (0-4); Hemoglobin 12.3 g/dl (14.0-18.0); Imm Gran Abs Auto 0.03 X10*3/uL (0.00-0.03); Imm Gran Pct Auto 0.5 % (0.0-0.4); Lymphocytes Absolute Auto 0.8 X10*3/uL (1.2-4.9); Lymphocytes Percent Auto 12.6 % (20-40); Mean Corpuscular HGB Conc 33.2 g/dl (31.0-36.0); Mean Corpuscular Volume 93.2 fL (80.0-98.0); Mean Platelet Volume 9.5 fL (9.4-12.4); Monocytes Percent Auto 14.3 % (2-11); Neutrophils Absolute Auto 4.6 x10*3/uL (2.0-8.3); Neutrophils Percent Auto 68.8 % (45-73); Platelet Count 138 X10*3/uL (160-400); Red Blood Count 3.97 X10*6/uL (4.60-5.80); Red Cell Distribution Width 13.8 % (11.0-16.0); White Blood Count 6.7 X10*3/uL (4.8-10.8)
[2023-10-08 14:07] LABS: Alanine Aminotransferase 76 U/L (0-40); Albumin Level 3.4 g/dL (3.5-5.0); Alkaline Phosphatase 523 U/L (39-117); Anion Gap 14 (12-20); Aspartate Amino Transferase 318 U/L (5-37); Bilirubin Total 2.5 mg/dL (0.0-1.0); Blood Urea Nitrogen 23 mg/dL (9-16); Calcium 8.8 mg/dL (8.4-10.2); Carbon Dioxide 23 mmol/L (22-29); Chloride 103 mmol/L (96-108); Creatinine Clr Calc Pharmacy 44.5; Estimated Glomerular Filt Rate > 60; Glucose Random 96 mg/dL (60-115); Potassium 3.8 mmol/L (3.3-5.1); Sodium 136 mmol/L (135-145); Total Protein 6.6 g/dL (6.5-8.0)
[2023-10-08 14:14] LABS: Troponin-I High Sensitivity 6.5 ng/L (<3.5-35.0)
[2023-10-08 15:11] LABS: Influenza A PCR NEGATIVE (Negative); Influenza B PCR NEGATIVE (Negative); Resp Syncy Virus RNA Qual PCR NEGATIVE (Negative); SARS COV2 PCR INHOUSE NEGATIVE (Negative)
[2023-10-08 16:06] VITALS: BP 194/80; PULSE 73; RESP 20; TEMP 36.6; O2SAT 94
--- NOTE | 2023-10-08 16:07 | ED_ITS ---
HPI - General Adult General Chief complaint: Weakness Stated complaint: Weakness Time Seen by Provider: 10/08/23 16:06 Source: patient, family (GLOBAL MOBILITY SPECIALIST and caregiver) and EMS Mode of arrival: EMS Limitations: no limitations History of Present Illness HPI narrative: 87-year-old male brought in by ambulance after noticed to have generalized weakness. Patient lives home mostly need security assistant have GLOBAL MOBILITY SPECIALIST 28/02, patient was walking earlier today to get lunch with his GLOBAL MOBILITY SPECIALIST when he suddenly started to complain of generalized weakness, patient was noticed by GLOBAL MOBILITY SPECIALIST becoming pale and he asked to sit down as he was fatigued and tired then vomited and complained of generalized weakness hence ambulance was called to bring him to the hospital for further evaluation. patient has no complaint of chest pain, abdominal pain, nausea, vomiting, had bowel movement in the emergency department as per nurse was solid with normal brown color no blood in. GLOBAL MOBILITY SPECIALIST is questioning malodorous urine. Related Data Home Medications Medication Instructions Recorded Confirmed aspirin 81 mg tablet,delayed 81 mg PO DAILY 10/07/20 04/13/23 release calcitriol 0.5 mcg capsule 0.5 mcg PO DAILY 10/07/20 04/13/23 carbidopa 25 mg-levodopa 100 mg 2 tab PO TID 04/14/21 04/13/23 tablet cranberry 400 mg capsule 400 mg PO DAILY 04/14/21 04/13/23 docusate sodium 100 mg capsule 100 mg PO BEDTIME 04/14/21 04/13/23 (Stool Softener) melatonin 5 mg capsule 5 mg PO DAILY 04/14/21 04/13/23 acetaminophen 325 mg tablet 325 mg PO BEDTIME PRN Fever Or Pain 03/26/23 04/13/23 (Tylenol) albuterol sulfate 90 mcg/actuation 2 puff inhalation QID PRN 03/26/23 04/13/23 aerosol inhaler Shortness Of Breath Or Wheezing bisacodyl 5 mg tablet,delayed 5 mg PO DAILY 03/26/23 04/13/23 release (Dulcolax (bisacodyl)) ipratropium bromide 21 mcg (0.03 2 spray intranasal BID PRN Allergy 03/26/23 04/13/23 %) nasal spray Symptoms polyethylene glycol 3350 17 17 g PO DAILY PRN Constipation 03/26/23 04/13/23 gram/dose oral powder (Miralax) white petrolatum 46.5 % topical 1 appl topical DAILY PRN Dry Skin 03/26/23 04/13/23 ointment (CeraVe Healing) omeprazole 20 mg capsule,delayed 20 mg PO DAILY 04/13/23 04/13/23 release atorvastatin 40 mg tablet 40 mg PO BEDTIME 04/14/23 Previous Rx's Medication Instructions Recorded metoprolol succinate 50 mg 50 mg PO DAILY #90 tabs 07/04/23 tablet,extended release 24 hr Allergies Allergy/AdvReac Type Severity Reaction Status Date / Time lisinopril Allergy Unknown Unknown Verified 10/08/23 13:29 Review of Systems 2 Review of Systems: All other systems are reviewed and are negative Constitutional: Reports as per HPI and Reports no additional constitutional complaints Eyes: Reports as per HPI and Reports no additional eye complaints Reports system reviewed and no additional complaints, except as documented Cardiovascular: Reports as per HPI and Reports no additional cardiovascular complaints Respiratory: Reports as per HPI and Reports no additional respiratory complaints Gastrointestinal: Reports as per HPI and Reports no additional gastrointestinal complaints Genitourinary: Reports no additional female genitourinary complaints Musculoskeletal: Reports no additional musculoskeletal complaints Skin/Breast: Reports system reviewed and no additional complaints, except as docu Psychiatric: Reports no additional psychiatric complaints Endocrine: Reports no additional endocrine complaints Hematologic/Lymphatic: Reports no additional hematologic/lymphatic complaints Allergic/Immunologic: Reports no additional allergic/immunologic complaints Reports system reviewed and no additional complaints, except as documented and Reports Abnormal speech present [facility] Past Medical History Medical History CVA (cerebral vascular accident) Parkinsons disease History of back pain Hiatal hernia Barretts esophagus GERD (gastroesophageal reflux disease) TIA (transient ischemic attack) History of prostate cancer Hypercholesterolemia Second degree heart block HTN (hypertension) Heart block Normally functioning cardiac pacemaker present Surgical History History of eye surgery Hx of right cataract extraction History of repair of hip fracture Hx of colonoscopy History of esophagogastroduodenoscopy (EGD) History of parathyroidectomy History of tonsillectomy Hx of prostatectomy History of permanent cardiac pacemaker placement Family History Family History Father No problems noted. Mother No problems noted. 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 Housing: Assisted Living Facility Housing Other:: Resides in [facility] Are you a primary property caretaker to a significant other at home: No Do you presently have visiting nurse or other home services: No Alcohol intake: former Patient Tobacco Use Status: Never used Tobacco Smoked in Last 30 Days: No Use of substances other than those prescribed or required for medical reasons: No Advance Directives: Yes Advance Directives on File: Yes Advance Directives Date on File: 10/28/20 service: No Physical Exam ED Vital Signs: Vital Signs - 24 hr 10/08/23 13:29 10/08/23 16:06 10/08/23 19:33 Temperature 97.6 F 97.9 F 98.2 F Pulse Rate 64 73 65 Respiratory Rate 16 20 19 Blood Pressure 152/67 H 194/80 H 171/81 H Pulse Oximetry 94 94 94 Oxygen Delivery Method Room Air Room Air Room Air BMI result Body Mass Index 26.6 Vital signs have been reviewed and appear to be correct. Blood pressure elevated. Heart rate normal. Respiratory rate normal. Temperature normal. Oxygen saturation normal. Appearance: Alert. Oriented X3. No acute distress. Head: Normal external exam. Normocephalic. Atraumatic. No Harper signs noted. No raccoon eyes noted Eyes: PERRLA. EOMI. Conjunctiva and sclera normal. Eyelids normal. ENT: TM's Normal. Pharynx normal. Uvula midline. Moist mucous membranes. No trismus noted. No drooling noted. No muffled voice noted. Neck: Normal inspection. Neck supple. FROM. No adenopathy. Thyroid Normal. No meningeal signs. No neck mass noted. CVS: Normal heart rate and rhythm. Heart sound normal. No murmurs noted. Pulses normal throughout. Respiratory: No respiratory distress. Painless inspiration. Breath sounds normal. No wheezes/rales/rhonchi noted. Chest nontender. No accessory muscle usage noted or decreased air movement noted. Abdomen: Soft and nontender. Bowel sounds normal in all 4 quadrants. No distention noted. No organomegaly noted. No visible injury noted. Back: No CVA tenderness. Full range of motion noted. Skin: Skin warm and dry. Normal skin color. Normal skin turgor. No rashes/lesions/lacerations noted. Extremities: No lower extremity edema. Extremities exhibit normal range of motion. Extremities nontender. Neuro: Oriented X 3. Cranial nerve exam: II-XII are grossly intact No motor deficit. No sensory deficit. Reflexes normal. Course Reevaluation(s) Reevaluation #1: 87-year-old male came in after a vague episode of feeling tired and fatigued with becoming pale and diaphoretic with vomiting. Labs was reviewed with acute elevation of LFTs, CT abdomen and pelvis showed cholelithiasis with possible stone in the common bile duct without dilatation, ultrasound showed contracted gallbladder and was nondiagnostic, the case discussed with Dr. Villafana who evaluated the patient at the bedside and recommended to admit the patient to medical service for further GI evaluation and MRCP tomorrow. CT described constipation and stool in the rectal vault, Patient had a large bowel movement while in the emergency department Time: 20:24 Medical Decision Making Differential Diagnosis Differential Diagnoses: The differential diagnosis associated with the presentation includes (ACS, pneumonia, pneumothorax, pleural effusion, rib fracture, electrolyte derangement, severe anemia, UTI, constipation, obstructive biliary disease, acute cholecystitis, choledocholithiasis.) Admission/Observation Consideration of admission/observation: Escalation of care including admission/observation considered Consult Healthcare Provider Management of the patient was discussed with: Hospitalist (Dr. Leahy) and Master Control Engineer (Dr. Villafana) Lab Data MDM Lab Attestation statement: I reviewed the patient's lab results. 10/08/23 13:43 10/08/23 13:43 Labs: Lab Results 10/08/23 10/08/23 Range/Units 13:43 16:10 WBC 6.7 (4.8-10.8) X10*3/uL RBC 3.97 L (4.60-5.80) X10*6/uL Hgb 12.3 L (14.0-18.0) g/dl Hct 37.0 L (42.0-52.0) % MCV 93.2 (80.0-98.0) fL MCH 31.0 (27.0-33.0) pg MCHC 33.2 (31.0-36.0) g/dl RDW 13.8 (11.0-16.0) % Plt Count 138 L (160-400) X10*3/uL MPV 9.5 (9.4-12.4) fL Immature Gran % (Auto) 0.5 H (0.0-0.4) % Neut % (Auto) 68.8 (45-73) % Lymph % (Auto) 12.6 L (20-40) % Reagan % (Auto) 14.3 H (2-11) % Eos % (Auto) 3.3 (0-4) % Baso % (Auto) 0.5 (0-2) % Lymph # (Auto) 0.8 L (1.2-4.9) X10*3/uL Reagan # (Auto) 1.0 (0.1-1.2) X10*3/uL Eos # (Auto) 0.2 (0.0-0.4) X10*3/uL Baso # (Auto) 0.0 (0.0-0.2) X10*3/uL Abs Immat Gran (auto) 0.03 (0.00-0.03) X10*3/uL Absolute Neuts (auto) 4.6 (2.0-8.3) x10*3/uL Absolute Nucleated RBC 0.000 (0.0-0.012) X10*3/uL Nucleated RBC % (auto) 0.0 (0.0-0.2) /100WBC Sodium 136 (135-145) mmol/L Potassium 3.8 (3.3-5.1) mmol/L Chloride 103 (96-108) mmol/L Carbon Dioxide 23 (22-29) mmol/L Anion Gap 14 (12-20) BUN 23 H (9-16) mg/dL Creatinine 1.11 (0.5-1.4) mg/dL Estim Creat Clear Calc 44.5 Estimated GFR > 60 Random Glucose 96 (60-115) mg/dL Calcium 8.8 (8.4-10.2) mg/dL Total Bilirubin 2.5 H (0.0-1.0) mg/dL AST 318 H (5-37) U/L ALT 76 H (0-40) U/L Alkaline Phosphatase 523 H (39-117) U/L Troponin I High Sens 6.5 (<3.5-35.0) ng/L Total Protein 6.6 (6.5-8.0) g/dL Albumin 3.4 L (3.5-5.0) g/dL Urine Color Dark Yellow Urine Appearance Turbid Urine pH 6.0 (5.0-9.0) Ur Specific [place] 1.015 (1.005-1.025) Urine Protein Negative (Neg-Trace) mg/dL Urine Glucose (UA) Negative (Negative) mg/dL Urine Ketones Negative (Negative) mg/dL Urine Blood Negative (Negative) Urine Nitrite Negative (Negative) Ur Leukocyte Esterase Trace H (Negative) Urine RBC 0-2 (0-2) /HPF Urine WBC 0-5 (0-5) /HPF Ur Squamous Epith Cells 0-2 (0-2) /HPF Urine Bacteria 3+ (None Seen) Hyaline Casts 0-2 (0-2) /LPF Influenza Type A (PCR) NEGATIVE (Negative) Influenza Type B (PCR) NEGATIVE (Negative) RSV RNA Qual (PCR) NEGATIVE (Negative) SARS-CoV-2 RNA (RT-PCR) NEGATIVE (Negative) Independent Interpretation I performed an independent interpretation of an: EKG (Atrial sensed ventricular paced at 65 beats per minute.), Plain X-Ray (Chest:Bibasilar opacities consistent with pleural effusions, atelectasis and/or airspace opacities. ), Ultrasound (Gallbladder:1. The gallbladder is not well seen, appearing contracted. CT demonstrated gallstones, not well seen on ultrasound. Gallbladder wall is prominent measuring 0.37 cm, nonspecific. This could be related to lack of distention. Technologist reports no tenderness in the area of the gallbladder) and CT Scan (Abdomen pelvis:The study is limited by motion. There is distention of the rectum with rectal wall thickening. No evidence of high- grade small bowel obstruction or free intraperitoneal gas. There is cholelithiasis. There may be a calculus in the distal common bile duct Enlarging fat attenuati) Radiology Impression Discussion of test interpretation with radiology: I have reviewed the radiologist's reading. Discharge Plan Discharge Clinical Impression: Transaminitis, Choledocholithiasis Patient Disposition: Admitted As Inpatient Prescriptions: No Action atorvastatin 40 mg tablet 40 mg PO BEDTIME metoprolol succinate 50 mg tablet extended release 24 hr 50 mg PO DAILY Qty: 90 3RF calcitriol 0.5 mcg capsule 0.5 mcg PO DAILY aspirin 81 mg Tablet,Delayed Release (Dr/Ec) 81 mg PO DAILY carbidopa-levodopa 25-100 mg tablet 2 tab PO TID omeprazole 20 mg capsule,delayed release(DR/EC) 20 mg PO DAILY acetaminophen [Tylenol] 325 mg Tablet 325 mg PO BEDTIME PRN (Reason: Fever Or Pain) polyethylene glycol 3350 [Miralax] 17 gram/dose Powder 17 g PO DAILY PRN (Reason: Constipation) albuterol sulfate 90 mcg/actuation HFA aerosol inhaler 2 puff inhalation QID PRN (Reason: Shortness Of Breath Or Wheezing) ipratropium bromide 21 mcg (0.03 %) spray,non-aerosol 2 spray intranasal BID PRN (Reason: Allergy Symptoms) CeraVe Healing 46.5 % ointment 1 appl topical DAILY PRN (Reason: Dry Skin) bisacodyl [Dulcolax (bisacodyl)] 5 mg Tablet,Delayed Release (Dr/Ec) 5 mg PO DAILY melatonin 5 mg capsule 5 mg PO DAILY cranberry 400 mg capsule 400 mg PO DAILY Rx Instructions: administer with a meal docusate sodium [Stool Softener] 100 mg capsule 100 mg PO BEDTIME
[2023-10-08 16:23] LABS: Appearance Urine Turbid; Color Urine Dark Yellow; Glucose Urine UA Negative (Negative); Leukocyte Esterase Urine Trace (Negative); Nitrite Urine Negative (Negative); Specific Gravity - Urine 1.015 (1.005-1.025); UMIC TRIGGER UACC YES; Urine Blood Negative (Negative); Urine Ketones Negative (Negative); Urine Protein Negative (Neg-Trace)
[2023-10-08 16:52] LABS: Bacteria Urine 3+ (None Seen); Hyaline Casts Urine 0-2 /LPF (0-2); Squamous Epithelial Cell Urine 0-2 /HPF (0-2); WBC Urine 0-5 /HPF (0-5)
[2023-10-08 16:55] LABS: RBC Urine 0-2 /HPF (0-2)
--- NOTE | 2023-10-08 17:03 | PC.NURSE ---
PT HAS BEEN A&OX3 SINCE ARRIVAL, ABLE TO ANSWER MOST QUESTIONS, THOUGH SLIGHTLY DELAYED. VS HAVE REMAINED WNL. LS SLIGHTLY DIM IN LLL, NO SOB. DENIES PAIN ANYWHERE, NO N/V/D. INCONTINENT OF URINE AND STOOL, LINENS CHANGED. CURRENTLY AWAITING IMAGING.
[2023-10-08 19:33] VITALS: BP 171/81; PULSE 65; RESP 19; TEMP 36.8; O2SAT 94
--- NOTE | 2023-10-08 20:13 | PM.CNGS ---
History of Present Illness Consult details Consult date: 10/08/23 Requesting physician: Al Torres Narrative: 87-year-old male patient presenting to the emergency department with generalized weakness noted by his CLINICAL APPLICATION MANAGER. Patient was found to become pale and subsequently developed nausea and vomiting. He complained of some abdominal pain mainly in the right upper quadrant which improved after the vomiting. Patient has a history of dementia, heart block, and aortic valve calcification. Workup in the emergency department revealed elevated LFTs. The patient recently started on a statin drug. Workup for the elevated LFTs with CT and ultrasound revealed gallstones within the gallbladder with a contracted gallbladder. Ultrasound revealed a contracted gallbladder but no definite stones. The possibility of a common bile duct stone was noted on CT. Review of Systems Review of Systems: Yes Unobtainable due to mental status Neurologic: Reports confusion Psychiatric: Psychiatric: Reports confusion PMFSH Past Medical History Medical History CVA (cerebral vascular accident) Parkinsons disease History of back pain Hiatal hernia Barretts esophagus GERD (gastroesophageal reflux disease) TIA (transient ischemic attack) History of prostate cancer Hypercholesterolemia Second degree heart block HTN (hypertension) Heart block Normally functioning cardiac pacemaker present Family History Family History Father No problems noted. Mother No problems noted. 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 Housing: Assisted Living Facility Housing Other:: Resides in [facility] Are you a primary adult caregiver to a significant other at home: No Do you presently have visiting nurse or other home services: No Alcohol intake: former Patient Tobacco Use Status: Never used Tobacco Smoked in Last 30 Days: No Use of substances other than those prescribed or required for medical reasons: No Advance Directives: Yes Advance Directives on File: Yes Advance Directives Date on File: 10/28/20 service: No Meds Allergies Allergy/AdvReac Type Severity Reaction Status Date / Time lisinopril Allergy Unknown Unknown Verified 10/08/23 13:29 Home Medications Medication Instructions Recorded Confirmed Last Taken Type aspirin 81 mg tablet,delayed 81 mg PO DAILY 10/07/20 04/13/23 Unknown History release calcitriol 0.5 mcg capsule 0.5 mcg PO DAILY 10/07/20 04/13/23 Unknown History carbidopa 25 mg-levodopa 100 mg 2 tab PO TID 04/14/21 04/13/23 03/26/23 History tablet cranberry 400 mg capsule 400 mg PO DAILY 04/14/21 04/13/23 Unknown History docusate sodium 100 mg capsule 100 mg PO BEDTIME 04/14/21 04/13/23 Unknown History (Stool Softener) melatonin 5 mg capsule 5 mg PO DAILY 04/14/21 04/13/23 Unknown History acetaminophen 325 mg tablet 325 mg PO BEDTIME PRN Fever Or Pain 03/26/23 04/13/23 Unknown History (Tylenol) albuterol sulfate 90 mcg/actuation 2 puff inhalation QID PRN 03/26/23 04/13/23 Unknown History aerosol inhaler Shortness Of Breath Or Wheezing bisacodyl 5 mg tablet,delayed 5 mg PO DAILY 03/26/23 04/13/23 Unknown History release (Dulcolax (bisacodyl)) ipratropium bromide 21 mcg (0.03 2 spray intranasal BID PRN Allergy 03/26/23 04/13/23 Unknown History %) nasal spray Symptoms polyethylene glycol 3350 17 17 g PO DAILY PRN Constipation 03/26/23 04/13/23 Unknown History gram/dose oral powder (Miralax) white petrolatum 46.5 % topical 1 appl topical DAILY PRN Dry Skin 03/26/23 04/13/23 Unknown History ointment (CeraVe Healing) omeprazole 20 mg capsule,delayed 20 mg PO DAILY 04/13/23 04/13/23 Unknown History release atorvastatin 40 mg tablet 40 mg PO BEDTIME 04/14/23 Unknown History Physical Exam Vital Signs: Vital Signs: Last Vital Signs Temp 98.2 F 10/08/23 19:33 Pulse 65 10/08/23 19:33 Resp 19 10/08/23 19:33 BP 171/81 H 10/08/23 19:33 Pulse Ox 94 10/08/23 19:33 O2 Del Method Room Air 10/08/23 19:33 BMI result Body Mass Index 26.6 Const: General: awake and confusion Nutritional Appearance: well nourished Orientation/consciousness: confusion HEENT: Head: Yes normocephalic and Yes atraumatic Resp: Effort & Inspection: normal respiratory effort, no audible wheezes and no cough Auscultation: no crackles and no rales GI: Inspection: Yes normal to inspection Palpation (GI): Soft to palpation, Firmness to palpation present (GI), nontender, no guarding, not rigid and No hepatosplenomegaly present Percussion: Yes normal to percussion Auscultation: normal bowel sounds Rectal Exam - Male: Yes deferred Skin: Other: Warm, dry, no rashes Neuro: General: confusion Extrem: Other: No pedal edema Results Labs 10/08/23 13:43 10/08/23 13:43 Labs: Abnormal lab results 10/08/23 10/08/23 Range/Units 13:43 16:10 RBC 3.97 L (4.60-5.80) X10*6/uL Hgb 12.3 L (14.0-18.0) g/dl Hct 37.0 L (42.0-52.0) % Plt Count 138 L (160-400) X10*3/uL Immature Gran % (Auto) 0.5 H (0.0-0.4) % Lymph % (Auto) 12.6 L (20-40) % [place] % (Auto) 14.3 H (2-11) % Lymph # (Auto) 0.8 L (1.2-4.9) X10*3/uL BUN 23 H (9-16) mg/dL Total Bilirubin 2.5 H (0.0-1.0) mg/dL AST 318 H (5-37) U/L ALT 76 H (0-40) U/L Alkaline Phosphatase 523 H (39-117) U/L Albumin 3.4 L (3.5-5.0) g/dL Ur Leukocyte Esterase Trace H (Negative) Short CBC 10/08/23 Range/Units 13:43 WBC 6.7 (4.8-10.8) X10*3/uL Hgb 12.3 L (14.0-18.0) g/dl Hct 37.0 L (42.0-52.0) % Plt Count 138 L (160-400) X10*3/uL BMP 10/08/23 13:43 Sodium 136 Potassium 3.8 Chloride 103 Carbon Dioxide 23 BUN 23 H Creatinine 1.11 Calcium 8.8 Liver Function 10/08/23 Range/Units 13:43 Total Bilirubin 2.5 H (0.0-1.0) mg/dL AST 318 H (5-37) U/L ALT 76 H (0-40) U/L Alkaline Phosphatase 523 H (39-117) U/L Albumin 3.4 L (3.5-5.0) g/dL Urine 10/08/23 Range/Units 16:10 Urine Color Dark Yellow Urine Appearance Turbid Urine pH 6.0 (5.0-9.0) Ur Specific [facility] 1.015 (1.005-1.025) Urine Protein Negative (Neg-Trace) mg/dL Urine Glucose (UA) Negative (Negative) mg/dL All other labs normal. Imaging Abdomen CT scan report/results: image reviewed CT scan - pelvis: image reviewed Abdominal ultrasound report/results: image reviewed Assessment and Plan (1) Cholelithiasis: Qualifiers: Cholelithiasis location: gallbladder and bile duct Cholecystitis presence: without cholecystitis Biliary obstruction: with biliary obstruction Qualified Code(s): K80.71 - Calculus of gallbladder and bile duct without cholecystitis with obstruction Status: Acute (2) Choledocholithiasis: Status: Acute Plan 87-year-old male patient presenting with a recent onset of weakness, abdominal pain, right upper quadrant, nausea and vomiting found to have elevated liver function tests. Several gallstones within the gallbladder and common bile duct without gallbladder distention or evidence of common bile duct dilatation were noted by CT. Ultrasound could not confirm the gallstones however the gallbladder was noted to be contracted and the patient was nontender over the gallbladder (negative sonographic Mary sign). Patient also recently started a statin drug. Clinically the patient does not have acute cholecystitis however the gallstone in the common bile duct is of concern especially given the elevated LFTs. Would recommend further evaluation with MRCP and if positive GI consultation. Discussed with Dr. Torres. Also discussed with patient's son, Sukhi Traylor, who also is his healthcare proxy. Procedures Date of Service Date of Service: 10/08/23
[2023-10-08 20:25] LABS: Glucose, Whole Blood 131 mg/dL (60-115)
--- NOTE | 2023-10-08 20:46 | PM.IMHP ---
History of Present Illness Date of Service: 10/08/23 Attending physician on admission: Tenzin Leahy Chief Complaint: ruq pain 79-year-old male with history of CVA, Parkinson's disease, Chavarria's esophagus, GERD, second-degree AV rodrigo block, history of prostate cancer, hyperlipidemia presents to the ED earlier today from [facility] with CREATIVE SERVICES SPECIALIST who assists with history reporting right upper quadrant pain. He has also had some nausea but no vomiting. Denies any radiation of the pain and currently reports as moderate. No fevers, chills, diarrhea, constipation, melena, hematochezia, urinary symptoms, shortness of breath, lightheadedness, palpitations, chest pain. Denies any changes in appetite. On arrival, vital signs stable though slightly hypertensive to 171/81 on admission. No leukocytosis. Baseline normocytic anemia. Renal function baseline, electrolyte levels normal. Total bilirubin 2.1, AST 318, ALT 76, alkaline phosphatase 523. Troponin 6.5. Urinalysis unremarkable. Negative for COVID-19, RSV, influenza. CXR shows bibasilar opacities consistent with pleural effusions, atelectasis, and/or airspace opacities. CT abdomen/pelvis shows distention of the rectum with rectal wall thickening but no evidence of high-grade small bowel obstruction or free air. There is also cholelithiasis and possibly calculus in the distal common bile duct. There is also an enlarging fat attenuating right flank wall mass and low-grade neoplasm of the flank can not be excluded. Abdominal ultrasound reveals poorly visualized gallbladder with gallstones not well seen on ultrasound. Gallbladder wall measuring 0.37 cm which is nonspecific possibly related to lack of distention. Negative Mary sign, can consider HIDA scan. CBD not visualized. Further evaluation with MRI/MRCP as clinically indicated. Of note, patient was also recently started on statin. Review of Systems Review of Systems: General: No fevers, malaise, unintentional weight loss HEENT: No blurred vision, diplopia. No sore throat, nasal congestion, rhinorrhea, sinus pain, ear pain Cardiovascular: No chest pain, palpitations, or leg edema Respiratory: No shortness of breath, wheezing, cough GI: +RUQ pain, +nausea. No abdominal pain, vomiting, diarrhea, constipation, melena, hematochezia : No dysuria, hematuria, increased urinary frequency, decreased urinary output MSK: No myalgia, back pain Neuro: No headaches, weakness, paresthesias Skin: No rashes or lesions [facility] Medical History CVA (cerebral vascular accident) Parkinsons disease History of back pain Hiatal hernia Barretts esophagus GERD (gastroesophageal reflux disease) TIA (transient ischemic attack) History of prostate cancer Hypercholesterolemia Second degree heart block HTN (hypertension) Heart block Normally functioning cardiac pacemaker present Family History Father No problems noted. Mother No problems noted. 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 Housing: Assisted Living Facility Housing Other:: Resides in [facility] Are you a primary home care chaplain to a significant other at home: No Do you presently have visiting nurse or other home services: No Alcohol intake: former Patient Tobacco Use Status: Never used Tobacco Smoked in Last 30 Days: No Use of substances other than those prescribed or required for medical reasons: No Advance Directives: Yes Advance Directives on File: Yes Advance Directives Date on File: 10/28/20 service: No Meds Allergies Allergy/AdvReac Type Severity Reaction Status Date / Time lisinopril Allergy Unknown Unknown Verified 10/08/23 13:29 Home Medications Medication Instructions Recorded Confirmed Last Taken Type aspirin 81 mg tablet,delayed 81 mg PO DAILY 10/07/20 10/08/23 10/08/23 09:00 History release calcitriol 0.5 mcg capsule 0.5 mcg PO DAILY 10/07/20 10/08/23 10/08/23 09:00 History carbidopa 25 mg-levodopa 100 mg 2 tab PO TID 04/14/21 10/08/23 10/08/23 09:00 History tablet cranberry 400 mg capsule 400 mg PO DAILY 04/14/21 10/08/23 10/08/23 09:00 History docusate sodium 100 mg capsule 100 mg PO BEDTIME 04/14/21 10/08/23 10/08/23 09:00 History (Stool Softener) melatonin 5 mg capsule 5 mg PO DAILY 04/14/21 10/08/23 10/08/23 09:00 History acetaminophen 325 mg tablet 325 mg PO BEDTIME PRN Fever Or Pain 03/26/23 10/08/23 10/08/23 09:00 History (Tylenol) albuterol sulfate 90 mcg/actuation 2 puff inhalation QID PRN 03/26/23 10/08/23 10/08/23 09:00 History aerosol inhaler Shortness Of Breath Or Wheezing bisacodyl 5 mg tablet,delayed 5 mg PO DAILY 03/26/23 10/08/23 10/08/23 09:00 History release (Dulcolax (bisacodyl)) ipratropium bromide 21 mcg (0.03 2 spray intranasal BID PRN Allergy 03/26/23 10/08/23 10/08/23 09:00 History %) nasal spray Symptoms polyethylene glycol 3350 17 17 g PO DAILY PRN Constipation 03/26/23 10/08/23 10/08/23 09:00 History gram/dose oral powder (Miralax) white petrolatum 46.5 % topical 1 appl topical DAILY PRN Dry Skin 03/26/23 10/08/23 10/08/23 09:00 History ointment (CeraVe Healing) omeprazole 20 mg capsule,delayed 20 mg PO DAILY 04/13/23 10/08/23 10/08/23 09:00 History release atorvastatin 40 mg tablet 40 mg PO BEDTIME 04/14/23 10/08/23 10/08/23 09:00 History Physical Exam Vital Signs and Narrative: Vital Signs: Last Vital Signs Temp 98.2 F 10/08/23 19:33 Pulse 65 10/08/23 19:33 Resp 19 10/08/23 19:33 BP 171/81 H 10/08/23 19:33 Pulse Ox 94 10/08/23 19:33 O2 Del Method Room Air 10/08/23 19:33 BMI result Body Mass Index 26.6 Constitutional - Awake and Alert, No apparent distress Eyes - PERRLA, EOMI Cardiovascular - S1S2, RRR, No edema Respiratory - Normal lung expansion, Normal respiratory effort, No respiratory distress, CTA bilaterally Gastrointestinal - RUQ ttp without guarding or rebound, negative mary sign. ND; +BS Extremities - no calf tenderness bilaterally, no swelling Skin - Warm/Dry Neurological - Alert & oriented x3 Psychological - Appropriate affect Results Labs 10/08/23 13:43 10/08/23 13:43 Labs: Laboratory Results - last 24 hr 10/08/23 10/08/23 10/08/23 13:43 16:10 20:20 MCV 93.2 MCH 31.0 MCHC 33.2 RDW 13.8 Plt Count 138 L MPV 9.5 Immature Gran % (Auto) 0.5 H Neut % (Auto) 68.8 Lymph % (Auto) 12.6 L [place] % (Auto) 14.3 H Eos % (Auto) 3.3 Baso % (Auto) 0.5 Lymph # (Auto) 0.8 L [place] # (Auto) 1.0 Eos # (Auto) 0.2 Baso # (Auto) 0.0 Abs Immat Gran (auto) 0.03 Absolute Neuts (auto) 4.6 Absolute Nucleated RBC 0.000 Nucleated RBC % (auto) 0.0 Anion Gap 14 Estim Creat Clear Calc 44.5 Estimated GFR > 60 POC Glucose 131 H Random Glucose 96 Calcium 8.8 Total Bilirubin 2.5 H AST 318 H ALT 76 H Alkaline Phosphatase 523 H Troponin I High Sens 6.5 Total Protein 6.6 Albumin 3.4 L Urine Color Dark Yellow Urine Appearance Turbid Urine pH 6.0 Ur Specific [place] 1.015 Urine Protein Negative Urine Glucose (UA) Negative Urine Ketones Negative Urine Blood Negative Urine Nitrite Negative Ur Leukocyte Esterase Trace H Urine RBC 0-2 Urine WBC 0-5 Ur Squamous Epith Cells 0-2 Urine Bacteria 3+ Hyaline Casts 0-2 Influenza Type A (PCR) NEGATIVE Influenza Type B (PCR) NEGATIVE RSV RNA Qual (PCR) NEGATIVE SARS-CoV-2 RNA (RT-PCR) NEGATIVE Imaging Radiologist's Impressions: Impressions Chest X-Ray 10/08/23 14:14 IMPRESSION: Bibasilar opacities consistent with pleural effusions, atelectasis and/or airspace opacities. Abdomen/Pelvis CT 10/08/23 16:26 IMPRESSION: The study is limited by motion. There is distention of the rectum with rectal wall thickening. No evidence of high-grade small bowel obstruction or free intraperitoneal gas. There is cholelithiasis. There may be a calculus in the distal common bile duct Enlarging fat attenuating right flank wall mass. Imaging cannot distinguish between low-grade fatty tumors. Specifically low-grade neoplasm of the flank cannot be excluded. Fleischner guidelines were followed. Abdomen Ultrasound 10/08/23 18:35 IMPRESSION: Technically very limited study. Very difficult examination due to body habitus, bowel gas. Structures are not reliably evaluated. 1. The gallbladder is not well seen, appearing contracted. CT demonstrated gallstones, not well seen on ultrasound. Gallbladder wall is prominent measuring 0.37 cm, nonspecific. This could be related to lack of distention. Technologist reports no tenderness in the area of the gallbladder. If there is clinical concern for cholecystitis, further evaluation with HIDA scan can be obtained. 2. Pancreas not visualized. 3. CBD not visualized. Further evaluation with MRI/MRCP as clinically indicated. 4. Right kidney is not visualized. Assessment and Plan (1) Choledocholithiasis: Status: Acute (2) Transaminitis: Status: Acute Plan 79-year-old male with history of CVA, Parkinson's disease, Chavarria's esophagus, GERD, second-degree AV rodrigo block s/p pacemaker, history of prostate cancer, hyperlipidemia admitted for choledocolithiasis. #Acute choledocolithiasis -CT abd/pelvis shows several gallstones and possibly in CBD without gallbladder distension or +mary sign. U/s poorly visualized gallbladder/cbd -unable to perform MRCP due to pacemaker in place -GI consult, General surgery consult -HIDA scan ordered -NPO after midnight -follow LFTs #Elevated LFTs -Possibly due to above vs new statin initiation -hold statin -plan as above -follow lfts #Parkinsons disease -continue sinemet #HTN -continue metoprolol #HLD -hold statin as abbove #GERD -ppi dvt prophylaxis- heparin full code pt requires inpt stay at least 2 midnights due to choledocolithiasis with elevated LFTS requiring expert consultation, close monitoring of hepatic function Quality Stroke Does the patient have a stroke diagnosis?: No VTE Prior VTE?: No VTE Risk Level:: Medical - moderate - high VTE Device Contraindication: Treatment Not Indicated VTE Drug Contraindication: N/A - Med Ordered
--- NOTE | 2023-10-08 21:01 | PC.NURSE ---
med rec done with daughter yessy. per family pt tolerates po meds and regular diet needs nectar thick liquids.
[2023-10-08] MEDS: Carbidopa/Levodopa 25/100 TABLET 2 TAB PO (21:27)
[2023-10-08] MEDS: Melatonin 3 MG TABLET 6 MG PO (21:27)
[2023-10-08] MEDS: Docusate Sodium 100 MG CAPSULE PO (21:27)
[2023-10-08] MEDS: Heparin Sodium,Porcine 5,000 UNIT/ML VIAL 5000 UNIT SUBCUT (21:27)
--- NOTE | 2023-10-08 22:16 | PC.NURSE ---
pt medicated per mar tolerated po meds one by one with nectar thick water. nad. resting comfortable. home caregiver at bedside. call corey within reach.
[2023-10-08 23:51] VITALS: BP 133/45; PULSE 70; RESP 22; O2SAT 92
[2023-10-09 05:18] LABS: MANUAL DIFF FLAG NO
[2023-10-09 05:22] LABS: Basophils Percent Auto 0.6 % (0-2); Eosinophils Absolute Auto 0.3 X10*3/uL (0.0-0.4); Hematocrit 38.5 % (42.0-52.0); Hemoglobin 13.1 g/dl (14.0-18.0); Imm Gran Abs Auto 0.02 X10*3/uL (0.00-0.03); Imm Gran Pct Auto 0.3 % (0.0-0.4); Lymphocytes Absolute Auto 0.7 X10*3/uL (1.2-4.9); Lymphocytes Percent Auto 11.1 % (20-40); Mean Corpuscular Hemoglobin 31.3 pg (27.0-33.0); Mean Corpuscular Volume 92.1 fL (80.0-98.0); Mean Platelet Volume 9.7 fL (9.4-12.4); Monocytes Absolute Auto 0.8 X10*3/uL (0.1-1.2); Monocytes Percent Auto 12.4 % (2-11); Neutrophils Absolute Auto 4.5 x10*3/uL (2.0-8.3); Neutrophils Percent Auto 71.6 % (45-73); Platelet Count 138 X10*3/uL (160-400); Red Blood Count 4.18 X10*6/uL (4.60-5.80); Red Cell Distribution Width 13.8 % (11.0-16.0); White Blood Count 6.2 X10*3/uL (4.8-10.8)
[2023-10-09 05:33] LABS: Anion Gap 12 (12-20); Blood Urea Nitrogen 19 mg/dL (9-16); Carbon Dioxide 23 mmol/L (22-29); Chloride 104 mmol/L (96-108); Creatinine Clr Calc Pharmacy 53.6; Estimated Glomerular Filt Rate > 60; Glucose Random 84 mg/dL (60-115); Sodium 135 mmol/L (135-145)
--- NOTE | 2023-10-09 06:19 | PC.NURSE ---
pt ripped out iv previously inserted by ems. new iv R. wrist.
[2023-10-09 06:58] VITALS: BP 197/82; PULSE 68; RESP 22; TEMP 36.8; O2SAT 97
[2023-10-09 07:37] LABS: MANUAL DIFF FLAG NO
[2023-10-09 07:46] LABS: Hemoglobin 12.7 g/dl (14.0-18.0); Imm Gran Abs Auto 0.03 X10*3/uL (0.00-0.03); Mean Platelet Volume 9.7 fL (9.4-12.4); PLT CLUMP 1; SCAN SMEAR FLAG 1
[2023-10-09 07:48] LABS: Basophils Percent Auto 0.5 % (0-2); Eosinophils Absolute Auto 0.2 X10*3/uL (0.0-0.4); Eosinophils Percent Auto 3.7 % (0-4); Hematocrit 37.9 % (42.0-52.0); Imm Gran Pct Auto 0.5 % (0.0-0.4); Lymphocytes Absolute Auto 0.6 X10*3/uL (1.2-4.9); Lymphocytes Percent Auto 8.5 % (20-40); Mean Corpuscular HGB Conc 33.5 g/dl (31.0-36.0); Mean Corpuscular Volume 92.4 fL (80.0-98.0); Monocytes Absolute Auto 0.8 X10*3/uL (0.1-1.2); Monocytes Percent Auto 11.9 % (2-11); Neutrophils Absolute Auto 4.9 x10*3/uL (2.0-8.3); Neutrophils Percent Auto 74.9 % (45-73); Red Cell Distribution Width 13.8 % (11.0-16.0)
[2023-10-09 07:51] LABS: Platelet Count 136 X10*3/uL (160-400); White Blood Count 6.5 X10*3/uL (4.8-10.8)
[2023-10-09 07:52] LABS: Alanine Aminotransferase 131 U/L (0-40); Albumin Level 3.3 g/dL (3.5-5.0); Alkaline Phosphatase 517 U/L (39-117); Anion Gap 12 (12-20); Aspartate Amino Transferase 178 U/L (5-37); Bilirubin Total 1.5 mg/dL (0.0-1.0); Blood Urea Nitrogen 17 mg/dL (9-16); Calcium 8.5 mg/dL (8.4-10.2); Carbon Dioxide 25 mmol/L (22-29); Chloride 102 mmol/L (96-108); Creatinine Clr Calc Pharmacy 53.6; Estimated Glomerular Filt Rate > 60; Glucose Random 90 mg/dL (60-115); Lipase 15 U/L (8-78); Potassium 3.5 mmol/L (3.3-5.1); Sodium 135 mmol/L (135-145); Total Protein 6.4 g/dL (6.5-8.0)
[2023-10-09 08:32] VITALS: BP 177/81; PULSE 67; RESP 19; TEMP 36.9; O2SAT 97
--- NOTE | 2023-10-09 08:34 | PC.NURSE ---
PER DR NOBLES - HOLD AM PO MEDS UNTIL PT HAS COMPLETED HIDA SCAN
--- NOTE | 2023-10-09 08:43 | PC.NURSE ---
dr bear made aware of pt BP 177/81 - per Dr Bear - ok for now, given AM meds after HIDA scan
[2023-10-09] MEDS: Heparin Sodium,Porcine 5,000 UNIT/ML VIAL 5000 UNIT SUBCUT (08:44)
[2023-10-09] MEDS: 0.9 % Sodium Chloride Flush 3 ML SYRINGE IVFLUSH ×3 (08:45→20:46)
--- NOTE | 2023-10-09 08:51 | PM.PNGS ---
Subjective Subjective Date of Service: 10/09/23 Patient reports: no new complaints Physical Exam Vital Signs: Vital Signs: Last Vital Signs Temp 98.4 F 10/09/23 08:32 Pulse 67 10/09/23 08:32 Resp 19 10/09/23 08:32 BP 177/81 H 10/09/23 08:32 Pulse Ox 97 10/09/23 08:32 O2 Del Method Room Air 10/09/23 08:32 BMI result Body Mass Index 26.6 Const: General: no acute distress and confusion Nutritional Appearance: well nourished Orientation/consciousness: confusion Resp: Effort & Inspection: normal respiratory effort, no audible wheezes and no cough GI: Palpation (GI): Soft to palpation, nontender, no guarding and not rigid Neuro: General: confusion Extrem: General: No edema Objective Data Active Medications Acetaminophen (Acetaminophen 325 Mg Tablet) 650 mg PO Q6H PRN PRN Reason: Pain, Mild (Pain Scale 1-3) Albuterol Sulfate (Albuterol Sulfate 90 Mcg 8 Gm Inhaler) 2 puff INHALE RQID PRN PRN Reason: Shortness Of Breath Or Wheezing Aspirin (Aspirin Enteric Coated 81 Mg Tablet.Dr) 81 mg PO DAILY [facility] Bisacodyl (Bisacodyl 5 Mg Tablet.Dr) 5 mg PO DAILY [facility] Calcitriol (Calcitriol 0.25 Mcg Capsule) 0.5 mcg PO DAILY [facility] Carbidopa/Levodopa (Carbidopa/Levodopa 25/100 Tablet) 2 tab PO TID [facility] Last Admin: 10/08/23 21:27 Dose: 2 tab Documented By: ROHAN Docusate Sodium (Docusate Sodium 100 Mg Capsule) 100 mg PO BEDTIME [facility] Last Admin: 10/08/23 21:27 Dose: 100 mg Documented By: ROHAN Heparin Sodium (Porcine) (Heparin Sodium,Porcine 5,000 Unit/Ml Vial) 5,000 unit SUBCUT Q12H [facility] Last Admin: 10/09/23 08:44 Dose: 5,000 unit Documented By: VLADIMIR Ipratropium [place] (Ipratropium [place] Rj 0.03 % 30 Ml [place]) 2 spray NOSTRIL-B BID PRN PRN Reason: Allergy Symptoms Melatonin (Melatonin 3 Mg Tablet) 6 mg PO BEDTIME [facility] Last Admin: 10/08/23 21:27 Dose: 6 mg Documented By: ROHAN Metoprolol Succinate (Metoprolol Succinate Er 50 Mg Tab.Er.24h) 50 mg PO DAILY [facility]; Protocol Ondansetron HCl (Ondansetron Hcl 4 Mg/2 Ml Vial) 4 mg IVPUSH Q8H PRN PRN Reason: Nausea and Vomiting Polyethylene Glycol (Polyethylene Glycol 3350 17 Gm Powd.Pack) 17 gm PO DAILY PRN PRN Reason: Constipation Senna (Sennosides 8.6 Mg Tablet) 17.2 mg PO BEDTIME PRN PRN Reason: Constipation Sodium Chloride (0.9 % Sodium Chloride Flush 3 Ml Syringe) 3 ml IVFLUSH QSHIFT [facility] Last Admin: 10/09/23 08:45 Dose: 3 ml Documented By: VLADIMIR Labs 10/09/23 07:34 10/09/23 07:34 Labs: Laboratory Results - last 24 hr 10/08/23 10/08/23 10/08/23 13:43 16:10 20:20 MCV 93.2 MCH 31.0 MCHC 33.2 RDW 13.8 Plt Count 138 L MPV 9.5 Immature Gran % (Auto) 0.5 H Neut % (Auto) 68.8 Lymph % (Auto) 12.6 L [place] % (Auto) 14.3 H Eos % (Auto) 3.3 Baso % (Auto) 0.5 Lymph # (Auto) 0.8 L [place] # (Auto) 1.0 Eos # (Auto) 0.2 Baso # (Auto) 0.0 Abs Immat Gran (auto) 0.03 Absolute Neuts (auto) 4.6 Absolute Nucleated RBC 0.000 Nucleated RBC % (auto) 0.0 Anion Gap 14 Estim Creat Clear Calc 44.5 Estimated GFR > 60 POC Glucose 131 H Random Glucose 96 Calcium 8.8 Total Bilirubin 2.5 H AST 318 H ALT 76 H Alkaline Phosphatase 523 H Troponin I High Sens 6.5 Total Protein 6.6 Albumin 3.4 L Lipase Urine Color Dark Yellow Urine Appearance Turbid Urine pH 6.0 Ur Specific [place] 1.015 Urine Protein Negative Urine Glucose (UA) Negative Urine Ketones Negative Urine Blood Negative Urine Nitrite Negative Ur Leukocyte Esterase Trace H Urine RBC 0-2 Urine WBC 0-5 Ur Squamous Epith Cells 0-2 Urine Bacteria 3+ Hyaline Casts 0-2 Influenza Type A (PCR) NEGATIVE Influenza Type B (PCR) NEGATIVE RSV RNA Qual (PCR) NEGATIVE SARS-CoV-2 RNA (RT-PCR) NEGATIVE 10/09/23 10/09/23 04:54 07:34 MCV 92.1 92.4 MCH 31.3 31.0 MCHC 34.0 33.5 RDW 13.8 13.8 Plt Count 138 L 136 L MPV 9.7 9.7 Immature Gran % (Auto) 0.3 0.5 H Neut % (Auto) 71.6 74.9 H Lymph % (Auto) 11.1 L 8.5 L [place] % (Auto) 12.4 H 11.9 H Eos % (Auto) 4.0 3.7 Baso % (Auto) 0.6 0.5 Lymph # (Auto) 0.7 L 0.6 L [place] # (Auto) 0.8 0.8 Eos # (Auto) 0.3 0.2 Baso # (Auto) 0.0 0.0 Abs Immat Gran (auto) 0.02 0.03 Absolute Neuts (auto) 4.5 4.9 Absolute Nucleated RBC 0.000 0.000 Nucleated RBC % (auto) 0.0 0.0 Anion Gap 12 12 Estim Creat Clear Calc 53.6 53.6 Estimated GFR > 60 > 60 POC Glucose Random Glucose 84 90 Calcium 9.0 8.5 Total Bilirubin 1.5 H AST 178 H ALT 131 H Alkaline Phosphatase 517 H Troponin I High Sens Total Protein 6.4 L Albumin 3.3 L Lipase 15 Urine Color Urine Appearance Urine pH Ur Specific [place] Urine Protein Urine Glucose (UA) Urine Ketones Urine Blood Urine Nitrite Ur Leukocyte Esterase Urine RBC Urine WBC Ur Squamous Epith Cells Urine Bacteria Hyaline Casts Influenza Type A (PCR) Influenza Type B (PCR) RSV RNA Qual (PCR) SARS-CoV-2 RNA (RT-PCR) Procedures Date of Service Date of Service: 10/09/23 Progress Note: A&P Assessment and plan (1) Choledocholithiasis: Status: Acute (2) Transaminitis: Status: Acute Plan 87 year old male patient with weakness, nausea and vomiting found to have cholelithiasis and choleducholithiasis by CT but no CBD dilation. Patient is awaiting HIDA to be sure CBD is not obstructed. Discussed with Dr. Bear. Time Spent With Patient Time: Total time managing care of this patient today ____ minutes. Quality Stroke Does the patient have a stroke diagnosis?: No VTE Prior VTE?: No VTE Risk Level:: Medical - moderate - high VTE Device Contraindication: Treatment Not Indicated VTE Drug Contraindication: N/A - Med Ordered
--- NOTE | 2023-10-09 09:43 | PHA.MEDREC ---
Pharmacy Consult ? Medication Reconciliation Pharmacy has completed the medication reconciliation. spoke with patients daughter Nessa over the phone to confirm medications.
--- NOTE | 2023-10-09 10:40 | PC.NURSE ---
pt restign in bed, requesting food at this time, made aware that he is NPO until after his scan this afternoon. plan to hold AM PO meds per MD ordoñez. pts 28/02 FISHING MANAGER at bedside.
--- NOTE | 2023-10-09 10:57 | P.CNGI_ITS ---
History of Present Illness Data of Consult Service Date: 10/09/23 Requesting physician: Hillary Nicole Primary Care Provider: Unknown Physician HPI Reason for consult: Choledocholithiasis 79 YM with history of CVA, Parkinson's disease, Chavarria's esophagus, GERD, second-degree AV rodrigo block, history of prostate cancer, hyperlipidemia seen at [facility] on 10/08/23 with RUQ pain. Pt complained of nausea and denied vomiting, fevers, chills, diarrhea, constipation, melena, hematochezia, urinary symptoms, shortness of breath, lightheadedness, palpitations, chest pain. He complained of moderate pain without any radiation. On arrival, vital signs stable though slightly hypertensive to 171/81 on admission. No leukocytosis. Baseline normocytic anemia. Renal function baseline, electrolyte levels normal. Total bilirubin 2.1, AST 318, ALT 76, alkaline phosphatase 523. Troponin 6.5. Urinalysis unremarkable. Negative for COVID-19, RSV, influenza. CXR shows bibasilar opacities consistent with pleural effusions, atelectasis, and/or airspace opacities. Pt reports his abdominal pain has resolved. Pt denies smoking and takes wine occasionally. He lives in an independant apartment at [place] with 24 hour care. Pt denies known family hx of colon polyps or GI malignnacy. Labs in the ED showed elevated LFTs - improved on FU labs today 10/08/[address] SCAN SHOWED: The study is limited by motion. There is distention of the rectum with rectal wall thickening. No evidence of high-grade small bowel obstruction or free intraperitoneal gas. There is cholelithiasis. There may be a calculus in the distal common bile duct Enlarging fat attenuating right flank wall mass. Imaging cannot distinguish between low-grade fatty tumors. Specifically low-grade neoplasm of the flank cannot be excluded. 10/09/23 ABD US SHOWED: Technically very limited study. Very difficult examination due to body habitus, bowel gas. Structures are not reliably evaluated. 1. The gallbladder is not well seen, appearing contracted. CT demonstrated gallstones, not well seen on ultrasound. Gallbladder wall is prominent measuring 0.37 cm, nonspecific. This could be related to lack of distention. Technologist reports no tenderness in the area of the gallbladder. If there is clinical concern for cholecystitis, further evaluation with HIDA scan can be obtained. 10/09/23 HIDA SCAN SHOWED: Nonvisualization of the gallbladder suggests an obstructive cystic duct and acute cholecystitis, although findings could also be related with chronic cholecystitis. Patient refused the 4 hours delayed imaging which would be helpful in further distinguish acute versus chronic cholecystitis. The common bile duct is patent. Liver function appears normal. Review of Systems 2 Review of Systems: General: No fevers, malaise, unintentional weight loss HEENT: No blurred vision, diplopia. No sore throat, nasal congestion, rhinorrhea, sinus pain, ear pain Cardiovascular: No chest pain, palpitations, or leg edema Respiratory: No shortness of breath, wheezing, cough GI: +RUQ pain, +nausea. No abdominal pain, vomiting, diarrhea, constipation, melena, hematochezia : No dysuria, hematuria, increased urinary frequency, decreased urinary output MSK: No myalgia, back pain Neuro: No headaches, weakness, paresthesias Skin: No rashes or lesions PMFSH Past Medical History Medical History CVA (cerebral vascular accident) Parkinsons disease History of back pain Hiatal hernia Barretts esophagus GERD (gastroesophageal reflux disease) TIA (transient ischemic attack) History of prostate cancer Hypercholesterolemia Second degree heart block HTN (hypertension) Heart block Normally functioning cardiac pacemaker present Family History Family History Father No problems noted. Mother No problems noted. Surgical History Surgical History History of eye surgery Hx of right cataract extraction History of repair of hip fracture Hx of colonoscopy History of esophagogastroduodenoscopy (EGD) History of parathyroidectomy History of tonsillectomy Hx of prostatectomy History of permanent cardiac pacemaker placement Social History Social History Household Members: None Household Members Other:: [employer] Housing: Half-Way Housing Other:: [facility] Are you a primary care attendant to a significant other at home: No Do you presently have visiting nurse or other home services: No Alcohol intake: former Comment: private service 28/02 at bedside Patient Tobacco Use Status: Never used Tobacco Smoked in Last 30 Days: No Use of substances other than those prescribed or required for medical reasons: No Currently Displaying Signs/Symptoms of Drug Intoxication Withdrawal: No Have you been hit, kicked, punched, or otherwise hurt by someone within the past year? If so, by whom?: No Do you feel safe in your current relationship?: No Current Relationship Is there a partner from a previous relationship who is making you feel unsafe now?: No Advance Directives: Yes Advance Directives on File: Yes Advance Directives Date on File: 10/28/20 Do you have thoughts of harming others: None Do you have a plan to hurt others: No Plan Recently lost weight without trying: No Nutrition Risks: No Nutritional Risk Poor oral hygiene: No service: No Meds Allergies Allergy/AdvReac Type Severity Reaction Status Date / Time lisinopril Allergy Unknown Unknown Verified 10/08/23 13:29 Active Medications: Current Medications Acetaminophen (Acetaminophen 325 Mg Tablet) 650 mg PO Q6H PRN PRN Reason: Pain, Mild (Pain Scale 1-3) Albuterol Sulfate (Albuterol Sulfate 90 Mcg 8 Gm Inhaler) 2 puff INHALE RQID PRN PRN Reason: Shortness Of Breath Or Wheezing Aspirin (Aspirin Enteric Coated 81 Mg Tablet.) 81 mg PO DAILY [facility] Bisacodyl (Bisacodyl 5 Mg Tablet.) 5 mg PO DAILY [facility] Calcitriol (Calcitriol 0.25 Mcg Capsule) 0.5 mcg PO DAILY [facility] Carbidopa/Levodopa (Carbidopa/Levodopa 25/100 Tablet) 2 tab PO TID [facility] Last Admin: 10/08/23 21:27 Dose: 2 tab Docusate Sodium (Docusate Sodium 100 Mg Capsule) 100 mg PO BEDTIME [facility] Last Admin: 10/08/23 21:27 Dose: 100 mg Heparin Sodium (Porcine) (Heparin Sodium,Porcine 5,000 Unit/Ml Vial) 5,000 unit SUBCUT Q12H [facility] Last Admin: 10/09/23 08:44 Dose: 5,000 unit Ipratropium [place] (Ipratropium [place] Rj 0.03 % 30 Ml [place]) 2 spray NOSTRIL-B BID PRN PRN Reason: Allergy Symptoms Melatonin (Melatonin 3 Mg Tablet) 6 mg PO BEDTIME [facility] Last Admin: 10/08/23 21:27 Dose: 6 mg Metoprolol Succinate (Metoprolol Succinate Er 50 Mg Tab.Er.24h) 50 mg PO DAILY [facility]; Protocol Ondansetron HCl (Ondansetron Hcl 4 Mg/2 Ml Vial) 4 mg IVPUSH Q8H PRN PRN Reason: Nausea and Vomiting Polyethylene Glycol (Polyethylene Glycol 3350 17 Gm Powd.Pack) 17 gm PO DAILY PRN PRN Reason: Constipation Senna (Sennosides 8.6 Mg Tablet) 17.2 mg PO BEDTIME PRN PRN Reason: Constipation Sodium Chloride (0.9 % Sodium Chloride Flush 3 Ml Syringe) [facility] Last Admin: 10/09/23 08:45 Dose: 3 ml Home Medications Medication Instructions Recorded Confirmed Last Taken Type aspirin 81 mg tablet,delayed 81 mg PO QAM 10/07/20 10/09/23 10/08/23 09:00 History release calcitriol 0.5 mcg capsule 0.5 mcg PO DAILY 10/07/20 10/08/23 10/08/23 09:00 History carbidopa 25 mg-levodopa 100 mg 2 tab PO TID 04/14/21 10/08/23 10/08/23 09:00 History tablet cranberry 400 mg capsule 400 mg PO DAILY 04/14/21 10/08/23 10/08/23 09:00 History docusate sodium 100 mg capsule 100 mg PO BID 04/14/21 10/09/23 10/08/23 09:00 History (Stool Softener) melatonin 5 mg capsule 5 mg PO BEDTIME 04/14/21 10/09/23 10/08/23 09:00 History acetaminophen 325 mg tablet 325 mg PO BEDTIME PRN Fever Or Pain 03/26/23 10/08/23 10/08/23 09:00 History (Tylenol) albuterol sulfate 90 mcg/actuation 2 puff inhalation QID PRN 03/26/23 10/08/23 10/08/23 09:00 History aerosol inhaler Shortness Of Breath Or Wheezing ipratropium bromide 21 mcg (0.03 2 spray intranasal BID PRN Allergy 03/26/23 10/08/23 10/08/23 09:00 History %) nasal spray Symptoms polyethylene glycol 3350 17 17 g PO DAILY PRN Constipation 03/26/23 10/08/23 10/08/23 09:00 History gram/dose oral powder (Miralax) white petrolatum 46.5 % topical 1 appl topical BEDTIME Dry Skin 03/26/23 10/09/23 10/08/23 09:00 History ointment (CeraVe Healing) omeprazole 20 mg capsule,delayed 20 mg PO QAM 04/13/23 10/09/23 10/08/23 09:00 History release atorvastatin 40 mg tablet 40 mg PO DAILY 04/14/23 10/09/23 10/08/23 09:00 History metoprolol succinate 50 mg 50 mg PO BEDTIME 10/09/23 10/09/23 10/08/23 History tablet,extended release 24 hr Physical Exam 2 Vital Signs: Vital Signs: Last Vital Signs Temp 98.4 F 10/09/23 08:32 Pulse 67 10/09/23 08:32 Resp 19 10/09/23 08:32 BP 177/81 H 10/09/23 08:32 Pulse Ox 97 10/09/23 08:32 O2 Del Method Room Air 10/09/23 08:32 BMI result Body Mass Index 26.6 Const: Other: Awake alert no acute distress Resp: Other: Clear to auscultation bilaterally no rales rhonchi or wheezes Cardio: Other: No S4; positive S1-S2; no S3 murmurs rubs or gallops GI: Other: Soft nontender nondistended. No right upper quadrant rebound or guarding appreciated. Bowel sounds quiet Extrem: Other: No edema bilaterally Results Labs 10/11/23 05:22 10/11/23 05:22 Labs: Short CBC 10/08/23 10/09/23 10/09/23 Range/Units 13:43 04:54 07:34 WBC 6.7 6.2 6.5 (4.8-10.8) X10*3/uL Hgb 12.3 L 13.1 L 12.7 L (14.0-18.0) g/dl Hct 37.0 L 38.5 L 37.9 L (42.0-52.0) % Plt Count 138 L 138 L 136 L (160-400) X10*3/uL BMP 10/08/23 10/09/23 10/09/23 13:43 04:54 07:34 Sodium 136 135 135 Potassium 3.8 4.0 3.5 Chloride 103 104 102 Carbon Dioxide 23 23 25 BUN 23 H 19 H 17 H Creatinine 1.11 0.92 0.92 Calcium 8.8 9.0 8.5 Liver Function 10/08/23 10/09/23 Range/Units 13:43 07:34 Total Bilirubin 2.5 H 1.5 H (0.0-1.0) mg/dL AST 318 H 178 H (5-37) U/L ALT 76 H 131 H (0-40) U/L Alkaline Phosphatase 523 H 517 H (39-117) U/L Albumin 3.4 L 3.3 L (3.5-5.0) g/dL Urine 10/08/23 Range/Units 16:10 Urine Color Dark Yellow Urine Appearance Turbid Urine pH 6.0 (5.0-9.0) Ur Specific [place] 1.015 (1.005-1.025) Urine Protein Negative (Neg-Trace) mg/dL Urine Glucose (UA) Negative (Negative) mg/dL Assessment and Plan (1) Choledocholithiasis: Status: Acute (2) Transaminitis: Status: Acute (3) Cholelithiasis: Qualifiers: Biliary obstruction: with biliary obstruction Cholecystitis presence: w ithout cholecystitis Cholelithiasis location: gallbladder and bile duct Qualified Code(s): K80.71 - Calculus of gallbladder and bile duct without cholecystitis with obstruction Status: Acute Plan 87 YM with history of CVA, Parkinson's disease, Chavarria's esophagus, GERD, second-degree AV rodrigo block, history of prostate cancer, hyperlipidemia seen at [facility] on 10/08/23 with RUQ pain and nausea. Labs in the ED showed elevated LFTs - improved on FU labs today. Abd CT scan showed cholelithiasis and a 0.5 mm stone in the CBD without CBD dilation - pt has likely passed the stone since abdominal pain has resolved and LFTs are improving. HIDA scan showed a patent CBD with nonvisualization of the gallbladder suggestive of an obstructive cystic duct with acute or chronic cholecystitis, RECOMMENDATIONS: 1. Agree with IV pain medications and anti-emetics prn 2. Repeat LFTs in the am. 3. If LFTs continue to improve, pt can proceed with Lap Tammie (if considered a reasonable surgical candidate) versus conservative treatment 4. ERCP is not needed since CBD stone appears to have passed spontaneously.. Procedures Date of Service Date of Service: 10/11/23
--- NOTE | 2023-10-09 11:06 | PC.NURSE ---
pt off unit to [facility] for HIDA scan
--- NOTE | 2023-10-09 13:33 | PC.NURSE ---
pt to go upstairs following HIDA scan, informed Ryan S3 RN to give AM meds per Dr. Bear request
[2023-10-09 13:39] VITALS: BP 150/90; PULSE 78; RESP 18; TEMP 36.2; O2SAT 96
[2023-10-09] MEDS: Aspirin Enteric Coated 81 MG TABLET.DR PO (14:15)
[2023-10-09] MEDS: bisacodyL 5 MG TABLET.DR PO (14:16)
[2023-10-09] MEDS: Metoprolol Succinate ER 50 MG TAB.ER.24H PO (14:16)
[2023-10-09] MEDS: Carbidopa/Levodopa 25/100 TABLET 2 TAB PO ×2 (14:17→20:46)
[2023-10-09 14:20] VITALS: BMI 26.6
--- NOTE | 2023-10-09 14:20 | HO.PM.IMPN ---
Subjective Subjective Date of Service: 10/09/23 Interval History: No acute issues overnight. Tolerating HIDA scan without issue Review of Systems Denies chest pain Denies shortness of breath Denies nausea vomiting diarrhea Denies fever chills Physical Exam Vital Signs: Vital Signs: Last Vital Signs Temp 97.2 F 10/09/23 13:39 Pulse 78 10/09/23 13:39 Resp 18 10/09/23 13:39 BP 150/90 H 10/09/23 13:39 Pulse Ox 96 10/09/23 13:39 O2 Del Method Room Air 10/09/23 13:39 BMI result Body Mass Index 26.6 Const: Other: Awake alert no acute distress Resp: Other: Clear to auscultation bilaterally no rales rhonchi or wheezes Cardio: Other: No S4; positive S1-S2; no S3 murmurs rubs or gallops GI: Other: Soft nontender nondistended. No right upper quadrant rebound or guarding appreciated. Bowel sounds quiet Extrem: Other: No edema bilaterally Objective Data Active Medications Acetaminophen (Acetaminophen 325 Mg Tablet) 650 mg PO Q6H PRN PRN Reason: Pain, Mild (Pain Scale 1-3) Albuterol Sulfate (Albuterol Sulfate 90 Mcg 8 Gm Inhaler) 2 puff INHALE RQID PRN PRN Reason: Shortness Of Breath Or Wheezing Aspirin (Aspirin Enteric Coated 81 Mg Tablet.) 81 mg PO DAILY [facility] Last Admin: 10/09/23 14:15 Dose: 81 mg Documented By: SHANICE Bisacodyl (Bisacodyl 5 Mg Tablet.) 5 mg PO DAILY [facility] Last Admin: 10/09/23 14:16 Dose: 5 mg Documented By: SHANICE Calcitriol (Calcitriol 0.25 Mcg Capsule) 0.5 mcg PO DAILY [facility] Carbidopa/Levodopa (Carbidopa/Levodopa 25/100 Tablet) 2 tab PO TID [facility] Last Admin: 10/09/23 14:17 Dose: 2 tab Documented By: SHANICE Docusate Sodium (Docusate Sodium 100 Mg Capsule) 100 mg PO BEDTIME [facility] Last Admin: 10/08/23 21:27 Dose: 100 mg Documented By: ROHAN Heparin Sodium (Porcine) (Heparin Sodium,Porcine 5,000 Unit/Ml Vial) 5,000 unit SUBCUT Q12H [facility] Last Admin: 10/09/23 08:44 Dose: 5,000 unit Documented By: VLADIMIR Ipratropium [place] (Ipratropium [place] Rj 0.03 % 30 Ml [place]) 2 spray NOSTRIL-B BID PRN PRN Reason: Allergy Symptoms Melatonin (Melatonin 3 Mg Tablet) 6 mg PO BEDTIME [facility] Last Admin: 10/08/23 21:27 Dose: 6 mg Documented By: ROHAN Metoprolol Succinate (Metoprolol Succinate Er 50 Mg Tab.Er.24h) 50 mg PO DAILY [facility]; Protocol Last Admin: 10/09/23 14:16 Dose: 50 mg Documented By: SHANICE Ondansetron HCl (Ondansetron Hcl 4 Mg/2 Ml Vial) 4 mg IVPUSH Q8H PRN PRN Reason: Nausea and Vomiting Polyethylene Glycol (Polyethylene Glycol 3350 17 Gm Powd.Pack) 17 gm PO DAILY PRN PRN Reason: Constipation Senna (Sennosides 8.6 Mg Tablet) 17.2 mg PO BEDTIME PRN PRN Reason: Constipation Sodium Chloride (0.9 % Sodium Chloride Flush 3 Ml Syringe) 3 ml IVFLUSH QSHIFT [facility] Last Admin: 10/09/23 08:45 Dose: 3 ml Documented By: VLADIMIR Labs 10/09/23 07:34 10/09/23 07:34 Labs: Laboratory Results - last 24 hr 10/08/23 10/08/23 10/08/23 13:43 16:10 20:20 MCV MCH MCHC RDW Plt Count MPV Immature Gran % (Auto) Neut % (Auto) Lymph % (Auto) [place] % (Auto) Eos % (Auto) Baso % (Auto) Lymph # (Auto) [place] # (Auto) Eos # (Auto) Baso # (Auto) Abs Immat Gran (auto) Absolute Neuts (auto) Absolute Nucleated RBC Nucleated RBC % (auto) Anion Gap Estim Creat Clear Calc Estimated GFR POC Glucose 131 H Random Glucose Calcium Total Bilirubin AST ALT Alkaline Phosphatase Total Protein Albumin Lipase Urine Color Dark Yellow Urine Appearance Turbid Urine pH 6.0 Ur Specific [place] 1.015 Urine Protein Negative Urine Glucose (UA) Negative Urine Ketones Negative Urine Blood Negative Urine Nitrite Negative Ur Leukocyte Esterase Trace H Urine RBC 0-2 Urine WBC 0-5 Ur Squamous Epith Cells 0-2 Urine Bacteria 3+ Hyaline Casts 0-2 Influenza Type A (PCR) NEGATIVE Influenza Type B (PCR) NEGATIVE RSV RNA Qual (PCR) NEGATIVE SARS-CoV-2 RNA (RT-PCR) NEGATIVE 10/09/23 10/09/23 04:54 07:34 MCV 92.1 92.4 MCH 31.3 31.0 MCHC 34.0 33.5 RDW 13.8 13.8 Plt Count 138 L 136 L MPV 9.7 9.7 Immature Gran % (Auto) 0.3 0.5 H Neut % (Auto) 71.6 74.9 H Lymph % (Auto) 11.1 L 8.5 L [place] % (Auto) 12.4 H 11.9 H Eos % (Auto) 4.0 3.7 Baso % (Auto) 0.6 0.5 Lymph # (Auto) 0.7 L 0.6 L [place] # (Auto) 0.8 0.8 Eos # (Auto) 0.3 0.2 Baso # (Auto) 0.0 0.0 Abs Immat Gran (auto) 0.02 0.03 Absolute Neuts (auto) 4.5 4.9 Absolute Nucleated RBC 0.000 0.000 Nucleated RBC % (auto) 0.0 0.0 Anion Gap 12 12 Estim Creat Clear Calc 53.6 53.6 Estimated GFR > 60 > 60 POC Glucose Random Glucose 84 90 Calcium 9.0 8.5 Total Bilirubin 1.5 H AST 178 H ALT 131 H Alkaline Phosphatase 517 H Total Protein 6.4 L Albumin 3.3 L Lipase 15 Urine Color Urine Appearance Urine pH Ur Specific [place] Urine Protein Urine Glucose (UA) Urine Ketones Urine Blood Urine Nitrite Ur Leukocyte Esterase Urine RBC Urine WBC Ur Squamous Epith Cells Urine Bacteria Hyaline Casts Influenza Type A (PCR) Influenza Type B (PCR) RSV RNA Qual (PCR) SARS-CoV-2 RNA (RT-PCR) Assessment and Plan (1) Choledocholithiasis: Status: Acute Plan 79-year-old male with history of CVA, Parkinson's disease, Chavarria's esophagus, GERD, second-degree AV rodrigo block s/p pacemaker, history of prostate cancer, hyperlipidemia admitted for choledocolithiasis. Essentially pain-free this a.m. 1.Acute choledocolithiasis Underwent HIDA scan this a.m.. Nonvisualization of the gallbladder suggested an obstructive cystic duct and acute cholecystitis. Patient remains pain-free without nausea or vomiting -discussed with Dr. Yun (GI). .. NPO after midnight for ERCP in a.m. -resume diet until that time -follow CMP/CBC daily 2.Parkinsons disease At baseline per family. Has 28/02 care at independent living -continue sinemet as ordered 3.HTN -Acceptable control on current therapies -adjust as indicated Sequentials Full code Patient requires ongoing hospitalization for specialists intervention including ERCP in a.m. Quality Stroke Does the patient have a stroke diagnosis?: No VTE Prior VTE?: No VTE Risk Level:: Medical - moderate - high VTE Device Contraindication: Treatment Not Indicated VTE Drug Contraindication: N/A - Med Ordered
[2023-10-09] MEDS: calcitrioL 0.25 MCG CAPSULE 0.5 MCG PO (15:32)
[2023-10-09 19:19] VITALS: BP 165/80; PULSE 75; RESP 18; TEMP 36.4; O2SAT 95
[2023-10-09] MEDS: Docusate Sodium 100 MG CAPSULE PO (20:46)
[2023-10-09] MEDS: Melatonin 3 MG TABLET 6 MG PO (20:46)
--- NOTE | 2023-10-10 00:09 | PC.NURSE ---
Left elbow skin tear. according to family it happened in the ED. according to [facility], pt is easily bruises and skin is fragile.
[2023-10-10 03:25] VITALS: BP 164/88; PULSE 67; RESP 16; TEMP 36.7; O2SAT 94
[2023-10-10 07:12] LABS: Eosinophils Absolute Auto 0.3 X10*3/uL (0.0-0.4); Imm Gran Abs Auto 0.02 X10*3/uL (0.00-0.03); Imm Gran Pct Auto 0.3 % (0.0-0.4); MANUAL DIFF FLAG SCAN; Mean Corpuscular Volume 93.3 fL (80.0-98.0); PLT CLUMP 1; SCAN SMEAR FLAG 1
[2023-10-10 07:15] LABS: Basophils Percent Auto 0.3 % (0-2); Eosinophils Percent Auto 4.4 % (0-4); Hematocrit 37.3 % (42.0-52.0); Hemoglobin 12.3 g/dl (14.0-18.0); Lymphocytes Absolute Auto 0.7 X10*3/uL (1.2-4.9); Lymphocytes Percent Auto 10.6 % (20-40); Mean Corpuscular Hemoglobin 30.8 pg (27.0-33.0); Monocytes Absolute Auto 0.9 X10*3/uL (0.1-1.2); Monocytes Percent Auto 14.8 % (2-11); Neutrophils Absolute Auto 4.3 x10*3/uL (2.0-8.3); Neutrophils Percent Auto 69.6 % (45-73); Red Cell Distribution Width 13.6 % (11.0-16.0)
[2023-10-10 07:23] LABS: Alanine Aminotransferase 60 U/L (0-40); Albumin Level 3.1 g/dL (3.5-5.0); Alkaline Phosphatase 450 U/L (39-117); Anion Gap 12 (12-20); Aspartate Amino Transferase 94 U/L (5-37); Blood Urea Nitrogen 19 mg/dL (9-16); Calcium 8.6 mg/dL (8.4-10.2); Carbon Dioxide 25 mmol/L (22-29); Chloride 104 mmol/L (96-108); Creatinine Clr Calc Pharmacy 53.6; Estimated Glomerular Filt Rate > 60; Glucose Fasting 82 mg/dL (60-99); Potassium 3.5 mmol/L (3.3-5.1); Sodium 137 mmol/L (135-145); Total Protein 6.4 g/dL (6.5-8.0)
[2023-10-10 07:41] VITALS: BP 194/77; PULSE 67; RESP 16; TEMP 36.3; O2SAT 94
[2023-10-10 08:06] LABS: Mean Platelet Volume 10.3 fL (9.4-12.4); Platelet Count 136 X10*3/uL (160-400); White Blood Count 6.2 X10*3/uL (4.8-10.8)
[2023-10-10 08:07] LABS: SLIDE REVIEW VERIFIED
[2023-10-10 09:03] VITALS: BP 148/69
[2023-10-10] MEDS: Metoprolol Succinate ER 50 MG TAB.ER.24H PO (09:25)
[2023-10-10] MEDS: Carbidopa/Levodopa 25/100 TABLET 2 TAB PO ×3 (09:25→20:47)
[2023-10-10] MEDS: calcitrioL 0.25 MCG CAPSULE 0.5 MCG PO (09:25)
[2023-10-10] MEDS: 0.9 % Sodium Chloride Flush 3 ML SYRINGE IVFLUSH ×3 (09:26→21:00)
--- NOTE | 2023-10-10 10:02 | P.PNGS_ITS ---
Subjective Subjective Date of Service: 10/10/23 Patient reports: no new complaints Physical Exam 2 Vital Signs: Vital Signs: Last Vital Signs Temp 97.4 F 10/10/23 07:41 Pulse 67 10/10/23 07:41 Resp 16 10/10/23 07:41 BP 148/69 H 10/10/23 09:03 Pulse Ox 94 10/10/23 07:41 O2 Del Method Room Air 10/10/23 07:41 BMI result Body Mass Index 26.6 Const: General: no acute distress and confusion Nutritional Appearance: w ell nourished Orientation/consciousness: confusion Resp: Effort & Inspection: normal respiratory effort, no audible wheezes and no cough GI: Palpation (GI): Soft to palpation, nontender, no guarding and not rigid Neuro: General: confusion Extrem: General: No edema Objective Data Active Medications Acetaminophen (Acetaminophen 325 Mg Tablet) 650 mg PO Q6H PRN PRN Reason: Pain, Mild (Pain Scale 1-3) Albuterol Sulfate (Albuterol Sulfate 90 Mcg 8 Gm Inhaler) 2 puff INHALE RQID PRN PRN Reason: Shortness Of Breath Or Wheezing Aspirin (Aspirin Enteric Coated 81 Mg Tablet.) 81 mg PO DAILY [facility] Last Admin: 10/10/23 09:26 Dose: Not Given Documented By: PIPPA Non-Admin Reason: NPO Bisacodyl (Bisacodyl 5 Mg Tablet.) 5 mg PO DAILY [facility] Last Admin: 10/10/23 09:26 Dose: Not Given Documented By: PIPPA Non-Admin Reason: NPO Calcitriol (Calcitriol 0.25 Mcg Capsule) 0.5 mcg PO DAILY [facility] Last Admin: 10/10/23 09:25 Dose: 0.5 mcg Documented By: PIPPA Carbidopa/Levodopa (Carbidopa/Levodopa 25/100 Tablet) 2 tab PO TID [facility] Last Admin: 10/10/23 09:25 Dose: 2 tab Documented By: PIPPA Docusate Sodium (Docusate Sodium 100 Mg Capsule) 100 mg PO BEDTIME [facility] Last Admin: 10/09/23 20:46 Dose: 100 mg Documented By: HERNAN Ipratropium [place] (Ipratropium [place] Rj 0.03 % 30 Ml [place]) 2 spray NOSTRIL-B BID PRN PRN Reason: Allergy Symptoms Melatonin (Melatonin 3 Mg Tablet) 6 mg PO BEDTIME [facility] Last Admin: 10/09/23 20:46 Dose: 6 mg Documented By: HERNAN Metoprolol Succinate (Metoprolol Succinate Er 50 Mg Tab.Er.24h) 50 mg PO DAILY [facility]; Protocol Last Admin: 10/10/23 09:25 Dose: 50 mg Documented By: PIPPA Ondansetron HCl (Ondansetron Hcl 4 Mg/2 Ml Vial) 4 mg IVPUSH Q8H PRN PRN Reason: Nausea and Vomiting Polyethylene Glycol (Polyethylene Glycol 3350 17 Gm Powd.Pack) 17 gm PO DAILY PRN PRN Reason: Constipation Senna (Sennosides 8.6 Mg Tablet) 17.2 mg PO BEDTIME PRN PRN Reason: Constipation Sodium Chloride (0.9 % Sodium Chloride Flush 3 Ml Syringe) 3 ml IVFLUSH QSHIFT [facility] Last Admin: 10/10/23 09:26 Dose: 3 ml Documented By: PIPPA Labs 10/10/23 05:55 10/10/23 05:55 Labs: Laboratory Results - last 24 hr 10/10/23 05:55 MCV 93.3 MCH 30.8 MCHC 33.0 RDW 13.6 Plt Count 136 L MPV 10.3 Immature Gran % (Auto) 0.3 Neut % (Auto) 69.6 Lymph % (Auto) 10.6 L [place] % (Auto) 14.8 H Eos % (Auto) 4.4 H Baso % (Auto) 0.3 Lymph # (Auto) 0.7 L [place] # (Auto) 0.9 Eos # (Auto) 0.3 Baso # (Auto) 0.0 Abs Immat Gran (auto) 0.02 Absolute Neuts (auto) 4.3 Absolute Nucleated RBC 0.000 Nucleated RBC % (auto) 0.0 Smear Tech's Comments VERIFIED Anion Gap 12 Estim Creat Clear Calc 53.6 Estimated GFR > 60 Fasting Glucose 82 Calcium 8.6 Total Bilirubin 1.0 AST 94 H ALT 60 H Alkaline Phosphatase 450 H Total Protein 6.4 L Albumin 3.1 L Procedures Date of Service Date of Service: 10/10/23 Progress Note: A&P Assessment and plan (1) Cholelithiasis: Status: Acute Plan 87 year old male presenting with CBD stone on CT, HIDA with brisk flow of contrast into bowel. Non-visualization of gallbladder although patient has been NPO. Patient is asymptomatic and clinically with no evidence of acute cholecystitis. Patient has probably passed the gallstone. Given patient's overall health, may be best to avoid surgery at this time. Patient is NPO for possible ERCP but I am not sure it is indicated with the HIDA findings. Time Spent With Patient Time: Total time managing care of this patient today ____ minutes. Quality Stroke Does the patient have a stroke diagnosis?: No VTE Prior VTE?: No VTE Risk Level:: Medical - moderate - high VTE Device Contraindication: Treatment Not Indicated VTE Drug Contraindication: N/A - Med Ordered
--- NOTE | 2023-10-10 10:54 | HO.WOUND ---
Addendum entered by May Hoffmann RN 10/10/23 15:35: Direct care nurse requests assessment of buttock - Dark red purple intact tissue - remains blanchable throughout - no open wound beds noted. Of importance patient was noted to be in brief and was wet - brief removed. Barrier cream applied. Off Load Pressure and protect from friction and moisture with barrier creams. Original Note: Wound Consult: Initial 87yr old? M admitted to [facility] [place] on 10/08/23 - See progress notes and H&P for detailed history.? Wound consult placed for Left Elbow Skin tear.? Chart review and photo review provided by direct care nurse of left elbow skin tear prior to appropriate dressing application see below. Topical recommendations made below. ? Left Elbow Etiology: ??Skin Tear Wound Bed: partial flap noted - appears reapproximated Drainage / Odor: unknown Edges: ? irregular [place] wound: ? No Induration, Fluctuance or Warmth noted Goals of Treatment: ? Moist wound healing Recommendations: 1. Turn and Reposition every 2 hours and as needed for patient comfort.? Use pillows or wedges to support off loading positions. 2. Off Load all bony prominences with use of pillows and heel boots if needed.? Apply Preventative foams where needed. ? 3. Monitor for incontinence and moisture control, use barrier creams when needed for prevention and treatment. 4. Provide adequate and supplemental nutrition.? 5. Order or Continue low air loss mattress. 6. Left Elbow - Cleanse with normal saline, pat dry. ?Apply double layer Xeroform secure with Abd pads, gauze wrap and tape. ?Do not apply tape to patients skin.? Avoid Adhesive application to skin - when necessary, apply skin prep prior.? Re-consult wound care Nurse for wound deterioration or wound changes.
[2023-10-10] MEDS: Aspirin Enteric Coated 81 MG TABLET.DR PO (12:18)
--- NOTE | 2023-10-10 12:55 | MHC.CM.PN ---
CM SPOKE TO PTS SON/HCP GABBY PISANO [phone] HE REPORTS PT LIVES AT [facility] AND HAS 28/02 PRIVATE PAY CARE FROM [facility] THERE IS ALSO AN NURSE THAT CHECKS IN WEEKLY FROM THE SAME AGENCY PT USES A WALKER AT BASELINE, BUT A WHEEL CHAIR WHEN HE GOES OUT PT HAS A WHEEL CHAIR VAN HCP AND SHONA ON FILE PCP: SONIA LUIS IMM DELIVERED DCP: HOME, [facility] VIA PRIVATE TRANSPORT
--- NOTE | 2023-10-10 13:37 | HO.PM.IMPN ---
Subjective Subjective Date of Service: 10/10/23 Interval History: Continues to improve. Tolerating diet Review of Systems Denies chest pain Denies shortness of breath Denies nausea vomiting diarrhea Denies fever chills Physical Exam Vital Signs: Vital Signs: Last Vital Signs Temp 97.4 F 10/10/23 07:41 Pulse 67 10/10/23 07:41 Resp 16 10/10/23 07:41 BP 148/69 H 10/10/23 09:03 Pulse Ox 94 10/10/23 07:41 O2 Del Method Room Air 10/10/23 07:41 BMI result Body Mass Index 26.6 Const: Other: Awake alert no acute distress Resp: Other: Clear to auscultation bilaterally no rales rhonchi or wheezes Cardio: Other: No S4; positive S1-S2; no S3 murmurs rubs or gallops GI: Other: Soft nontender nondistended. No right upper quadrant rebound or guarding appreciated. Bowel sounds quiet Extrem: Other: No edema bilaterally Objective Data Active Medications Acetaminophen (Acetaminophen 325 Mg Tablet) 650 mg PO Q6H PRN PRN Reason: Pain, Mild (Pain Scale 1-3) Albuterol Sulfate (Albuterol Sulfate 90 Mcg 8 Gm Inhaler) 2 puff INHALE RQID PRN PRN Reason: Shortness Of Breath Or Wheezing Aspirin (Aspirin Enteric Coated 81 Mg Tablet.) 81 mg PO DAILY [facility] Last Admin: 10/10/23 12:18 Dose: 81 mg Documented By: PIPPA Bisacodyl (Bisacodyl 5 Mg Tablet.) 5 mg PO DAILY [facility] Last Admin: 10/10/23 09:26 Dose: Not Given Documented By: PIPPA Non-Admin Reason: NPO Calcitriol (Calcitriol 0.25 Mcg Capsule) 0.5 mcg PO DAILY [facility] Last Admin: 10/10/23 09:25 Dose: 0.5 mcg Documented By: PIPPA Carbidopa/Levodopa (Carbidopa/Levodopa 25/100 Tablet) 2 tab PO TID [facility] Last Admin: 10/10/23 09:25 Dose: 2 tab Documented By: PIPPA Docusate Sodium (Docusate Sodium 100 Mg Capsule) 100 mg PO BEDTIME [facility] Last Admin: 10/09/23 20:46 Dose: 100 mg Documented By: HERNAN Ipratropium [place] (Ipratropium [place] Rj 0.03 % 30 Ml [place]) 2 spray NOSTRIL-B BID PRN PRN Reason: Allergy Symptoms Melatonin (Melatonin 3 Mg Tablet) 6 mg PO BEDTIME [facility] Last Admin: 10/09/23 20:46 Dose: 6 mg Documented By: HERNAN Metoprolol Succinate (Metoprolol Succinate Er 50 Mg Tab.Er.24h) 50 mg PO DAILY [facility]; Protocol Last Admin: 10/10/23 09:25 Dose: 50 mg Documented By: PIPPA Ondansetron HCl (Ondansetron Hcl 4 Mg/2 Ml Vial) 4 mg IVPUSH Q8H PRN PRN Reason: Nausea and Vomiting Polyethylene Glycol (Polyethylene Glycol 3350 17 Gm Powd.Pack) 17 gm PO DAILY PRN PRN Reason: Constipation Senna (Sennosides 8.6 Mg Tablet) 17.2 mg PO BEDTIME PRN PRN Reason: Constipation Sodium Chloride (0.9 % Sodium Chloride Flush 3 Ml Syringe) 3 ml IVFLUSH QSHIFT [facility] Last Admin: 10/10/23 09:26 Dose: 3 ml Documented By: PIPPA Labs 10/10/23 05:55 10/10/23 05:55 Labs: Laboratory Results - last 24 hr 10/10/23 05:55 MCV 93.3 MCH 30.8 MCHC 33.0 RDW 13.6 Plt Count 136 L MPV 10.3 Immature Gran % (Auto) 0.3 Neut % (Auto) 69.6 Lymph % (Auto) 10.6 L [place] % (Auto) 14.8 H Eos % (Auto) 4.4 H Baso % (Auto) 0.3 Lymph # (Auto) 0.7 L [place] # (Auto) 0.9 Eos # (Auto) 0.3 Baso # (Auto) 0.0 Abs Immat Gran (auto) 0.02 Absolute Neuts (auto) 4.3 Absolute Nucleated RBC 0.000 Nucleated RBC % (auto) 0.0 Smear Tech's Comments VERIFIED Anion Gap 12 Estim Creat Clear Calc 53.6 Estimated GFR > 60 Fasting Glucose 82 Calcium 8.6 Total Bilirubin 1.0 AST 94 H ALT 60 H Alkaline Phosphatase 450 H Total Protein 6.4 L Albumin 3.1 L Assessment and Plan (1) Choledocholithiasis: Status: Acute Plan 79-year-old male with history of CVA, Parkinson's disease, Chavarria's esophagus, GERD, second-degree AV rodrigo block s/p pacemaker, history of prostate cancer, hyperlipidemia admitted for choledocolithiasis. Essentially pain-free this a.m. 1.Acute choledocolithiasis Markedly improved today. Tolerating diet without pain. Discussed with Dr. Villafana. Does not feel indication for ERCP at this time -continue diet as ordered -if tolerates times 24 hours likely be able to DC in a.m. 2.Parkinsons disease At baseline per family. Has 28/02 care at independent living -continue sinemet as ordered 3.HTN -Acceptable control on current therapies -adjust as indicated Sequentials Full code Patient requires ongoing hospitalization for specialists intervention Quality Stroke Does the patient have a stroke diagnosis?: No VTE Prior VTE?: No VTE Risk Level:: Medical - moderate - high VTE Device Contraindication: Treatment Not Indicated VTE Drug Contraindication: N/A - Med Ordered
[2023-10-10 15:13] VITALS: BP 163/72; PULSE 59; RESP 18; TEMP 36.4; O2SAT 65
[2023-10-10 18:59] VITALS: BP 180/86; PULSE 80; RESP 18; TEMP 37.2; O2SAT 95
[2023-10-10] MEDS: Melatonin 3 MG TABLET 6 MG PO (20:47)
[2023-10-10] MEDS: Docusate Sodium 100 MG CAPSULE PO (20:47)
[2023-10-11 03:23] VITALS: BP 134/62; PULSE 59; RESP 16; TEMP 36.4; O2SAT 93
[2023-10-11 05:31] LABS: MANUAL DIFF FLAG NO
[2023-10-11 05:39] LABS: Basophils Percent Auto 0.5 % (0-2); Eosinophils Absolute Auto 0.3 X10*3/uL (0.0-0.4); Eosinophils Percent Auto 4.4 % (0-4); Hematocrit 33.6 % (42.0-52.0); Hemoglobin 11.7 g/dl (14.0-18.0); Imm Gran Abs Auto 0.04 X10*3/uL (0.00-0.03); Imm Gran Pct Auto 0.6 % (0.0-0.4); Lymphocytes Absolute Auto 0.8 X10*3/uL (1.2-4.9); Lymphocytes Percent Auto 11.6 % (20-40); Mean Corpuscular HGB Conc 34.8 g/dl (31.0-36.0); Mean Corpuscular Hemoglobin 32.1 pg (27.0-33.0); Mean Corpuscular Volume 92.1 fL (80.0-98.0); Mean Platelet Volume 9.8 fL (9.4-12.4); Monocytes Absolute Auto 0.9 X10*3/uL (0.1-1.2); Neutrophils Absolute Auto 4.6 x10*3/uL (2.0-8.3); Neutrophils Percent Auto 69.9 % (45-73); Platelet Count 146 X10*3/uL (160-400); Red Blood Count 3.65 X10*6/uL (4.60-5.80); Red Cell Distribution Width 13.9 % (11.0-16.0); White Blood Count 6.5 X10*3/uL (4.8-10.8)
[2023-10-11 06:01] LABS: Alanine Aminotransferase 34 U/L (0-40); Alkaline Phosphatase 396 U/L (39-117); Anion Gap 9 (12-20); Aspartate Amino Transferase 62 U/L (5-37); Bilirubin Total 0.6 mg/dL (0.0-1.0); Blood Urea Nitrogen 25 mg/dL (9-16); Calcium 8.7 mg/dL (8.4-10.2); Carbon Dioxide 25 mmol/L (22-29); Chloride 104 mmol/L (96-108); Creatinine Clr Calc Pharmacy 48.4; Estimated Glomerular Filt Rate > 60; Glucose Fasting 106 mg/dL (60-99); Potassium 3.8 mmol/L (3.3-5.1); Sodium 134 mmol/L (135-145); Total Protein 6.1 g/dL (6.5-8.0)
[2023-10-11 07:12] VITALS: BP 123/64; PULSE 65; RESP 18; TEMP 36.4; O2SAT 95
[2023-10-11] MEDS: Carbidopa/Levodopa 25/100 TABLET 2 TAB PO ×2 (08:42→14:18)
[2023-10-11] MEDS: calcitrioL 0.25 MCG CAPSULE 0.5 MCG PO (08:42)
[2023-10-11] MEDS: Aspirin Enteric Coated 81 MG TABLET.DR PO (08:42)
[2023-10-11] MEDS: Metoprolol Succinate ER 50 MG TAB.ER.24H PO (08:42)
[2023-10-11] MEDS: 0.9 % Sodium Chloride Flush 3 ML SYRINGE IVFLUSH ×2 (08:43→14:29)
--- NOTE | 2023-10-11 13:04 | MHC.CM.PN ---
Addendum entered by Kitty Leal RN 10/11/23 14:56: PER PATIENT IS MEDICALLY CLEARED FOR DC. SON WILL TRANSPORT HOME AT 530 PM. PATIENT AND RN AWARE. [facility] MADE AWARE OF DC. Original Note: PT REC HOME W/ SERVICES. CM SPOKE WITH SON/HCP WHO PREFERS [facility]. REFERRAL PLACED, AWAITING RESPONSE. PER PATIENT TO DC TOMORROW. SON AWARE.
--- NOTE | 2023-10-11 15:10 | P.F2F_ITS ---
Service Date Service Date: 10/11/23 Encounter Date of encounter: 10/11/23 Encounter: Acute choledocolithiasis Reasons for Services Signs and symptoms assessed: abd pain ,elevated lft's Reason for [facility]: medication management, medication treatment and teach disease management Reason for physical therapy: home safety and mobility, therapeutic exercises, restore joint function, gait/transfer training, assess need for DME, ADL training, energy conservation and other MD Overseeing Care: Dante Thomas Homebound: Leaving the home is medically contraindicated at this time without the asist of a device and/or another person due th the listed conditions above and below. Reason homebound: weakness related to hospital stay Homebound supporting statement: Patient is generalized weak post hospitalization need help to go to appointments, lab draws, PT Certification: Based on the above findings, I certify that this patient is confined to the home and needs intermittent [facility] care, physical therapy and/or speech therapy, or continues to need occupational therapy. The patient is under my care, and I have initiated the establishment of the plan of care. The patient will be followed by a physician who will periodically review the plan of care. Time Spent With Patient Time: Total time managing care of this patient today ____ minutes.
--- NOTE | 2023-10-11 15:14 | PM.DS ---
DS: Providers Provider Date of Service: 10/11/23 Date of admission: 10/08/23 20:38 Date of discharge: 10/11/23 Primary care physician: Dante Thomas MD Consults: 10/08/23 20:51 Consult to Gastroenterology Routine Consulting Provider: Dillon Yun Reason for consultation: choledocolithiais, unable to order mrcp due to pacemaker 10/08/23 21:03 Consult to General Surgery Routine Consulting Provider: [facility] [place] General Surgeons Reason for consultation: choledocolithiasis 10/10/23 00:07 Consult to Wound Care Routine Reason for consultation: Left elbow skin tear Attending physician on discharge: Cleo Chi Discharging clinician: Cleo Chi DS: Diagnosis Discharge Diagnosis (1) Choledocholithiasis: Status: Acute (2) Transaminitis: Status: Acute (3) Cholelithiasis: Status: Acute DS: Summary Hospital Course Hospital Course: 79-year-old male with history of CVA, Parkinson's disease, Chavarria's esophagus, GERD, second-degree AV rodrigo block, history of prostate cancer, hyperlipidemia presents to the ED earlier today from [facility] with COACH DRIVER who assists with history reporting right upper quadrant pain. He has also had some nausea but no vomiting. Denies any radiation of the pain and currently reports as moderate. No fevers, chills, diarrhea, constipation, melena, hematochezia, urinary symptoms, shortness of breath, lightheadedness, palpitations, chest pain. Denies any changes in appetite. On arrival, vital signs stable though slightly hypertensive to 171/81 on admission. No leukocytosis. Baseline normocytic anemia. Renal function baseline, electrolyte levels normal. Total bilirubin 2.1, AST 318, ALT 76, alkaline phosphatase 523. Troponin 6.5. Urinalysis unremarkable. Negative for COVID-19, RSV, influenza. CXR shows bibasilar opacities consistent with pleural effusions, atelectasis, and/or airspace opacities. CT abdomen/pelvis shows distention of the rectum with rectal wall thickening but no evidence of high-grade small bowel obstruction or free air. There is also cholelithiasis and possibly calculus in the distal common bile duct. There is also an enlarging fat attenuating right flank wall mass and low-grade neoplasm of the flank can not be excluded. Abdominal ultrasound reveals poorly visualized gallbladder with gallstones not well seen on ultrasound. Gallbladder wall measuring 0.37 cm which is nonspecific possibly related to lack of distention. Negative Mary sign, can consider HIDA scan. CBD not visualized. Further evaluation with MRI/MRCP as clinically indicated. Of note, patient was also recently started on statin. Hospital course: Patient came to the hospital because of abdominal pain: CT abd/pelvis shows several gallstones and possibly in CBD without gallbladder distension or +mary sign. U/s poorly visualized gallbladder/cbd: Unable to perform MRCP due to pacemaker, patient was placed on bowel rest, monitored with pain medication and hydration-seems to be improved significantly-abdominal pain resolved, LFTs are improving. Surgery evaluated the patient and HIDA scan was done: With supportive care patient abdominal pain seems to be improved, Tolerating diet without pain. hida scanwith brisk flow of contrast into bowel:Discussed with Dr. Villafana, Does not feel indication for ERCP at this time. LFTs improving. Follow-up LFTs outpatient with PCP. Further management outpatient. Ct abd incidental findings:Enlarging fat attenuating right flank wall mass. Imaging cannot distinguish between low-grade fatty tumors. Specifically low-grade neoplasm of the flank cannot be excluded. Discussed with radiology and oncology(Dr osorio) -conisder outaptient MR study in 2-3 months. further management outpatient.Follow-up with surgery outpatient. Above management discussed with the patient and patient's son in detail length they understand and in agreement with the plan, time spent 50 minute. Time Attestation Discharge Coordination Time: discharge time of ____ minutes Quality: Safe Use of Opioids Does Pt have an Active Cancer Diagnosis on the Problem List?: No Quality: Stroke Does the patient have a stroke diagnosis?: No Physical Exam Vital Signs: Vital Signs: Last Vital Signs Temp 97.6 F 10/11/23 07:12 Pulse 65 10/11/23 07:12 Resp 18 10/11/23 07:12 BP 123/64 10/11/23 07:12 Pulse Ox 95 10/11/23 07:12 O2 Del Method Room Air 10/11/23 07:12 BMI result Body Mass Index 26.6 Appearance: Alert.? Oriented X3.? not in distress.? cvs: rrr, [id number] , no murmur res: clear to auscultation ,no rhonchii or wheezing abd: no rebound or guarding ,nt, bs present. ext pulses present , no cyanosis . neuro: axo3 , nonfocal. DS: Data Data Completed and Pending Labs on day of discharge: Laboratory Results - last 24 hr 10/11/23 05:22 WBC 6.5 RBC 3.65 L Hgb 11.7 L Hct 33.6 L MCV 92.1 MCH 32.1 MCHC 34.8 RDW 13.9 Plt Count 146 L MPV 9.8 Immature Gran % (Auto) 0.6 H Neut % (Auto) 69.9 Lymph % (Auto) 11.6 L [place] % (Auto) 13.0 H Eos % (Auto) 4.4 H Baso % (Auto) 0.5 Lymph # (Auto) 0.8 L [place] # (Auto) 0.9 Eos # (Auto) 0.3 Baso # (Auto) 0.0 Abs Immat Gran (auto) 0.04 H Absolute Neuts (auto) 4.6 Absolute Nucleated RBC 0.000 Nucleated RBC % (auto) 0.0 Sodium 134 L Potassium 3.8 Chloride 104 Carbon Dioxide 25 Anion Gap 9 L BUN 25 H Creatinine 1.02 Estim Creat Clear Calc 48.4 Estimated GFR > 60 Fasting Glucose 106 H Calcium 8.7 Total Bilirubin 0.6 AST 62 H ALT 34 Alkaline Phosphatase 396 H Total Protein 6.1 L Albumin 3.0 L Imaging Chest x-ray: Radiologist's impression: ITS Impressions Chest X-Ray 10/08/23 14:14 IMPRESSION: Bibasilar opacities consistent with pleural effusions, atelectasis and/or airspace opacities. Abdomen/Pelvis CT 10/08/23 16:26 IMPRESSION: The study is limited by motion. There is distention of the rectum with rectal wall thickening. No evidence of high-grade small bowel obstruction or free intraperitoneal gas. There is cholelithiasis. There may be a calculus in the distal common bile duct Enlarging fat attenuating right flank wall mass. Imaging cannot distinguish between low-grade fatty tumors. Specifically low-grade neoplasm of the flank cannot be excluded. Fleischner guidelines were followed. Abdomen Ultrasound 10/08/23 18:35 IMPRESSION: Technically very limited study. Very difficult examination due to body habitus, bowel gas. Structures are not reliably evaluated. 1. The gallbladder is not well seen, appearing contracted. CT demonstrated gallstones, not well seen on ultrasound. Gallbladder wall is prominent measuring 0.37 cm, nonspecific. This could be related to lack of distention. Technologist reports no tenderness in the area of the gallbladder. If there is clinical concern for cholecystitis, further evaluation with HIDA scan can be obtained. 2. Pancreas not visualized. 3. CBD not visualized. Further evaluation with MRI/MRCP as clinically indicated. 4. Right kidney is not visualized. Hepatobiliary Scan Nuclear Medicine 10/09/23 13:20 IMPRESSION: Nonvisualization of the gallbladder suggests an obstructive cystic duct and acute cholecystitis, although findings could also be related with chronic cholecystitis. Patient refused the 4 hours delayed imaging which would be helpful in further distinguish acute versus chronic cholecystitis. The common bile duct is patent. Liver function appears normal. Discharge Plan Discharge Anticipated Discharge Date/Time: 10/11/23 14:47 Patient Disposition: Home, Self-Care Discharge Diagnosis: Acute choledocolithiasis-symptoms and lft's impoved. Referrals: Dante Thomas MD [Primary Care Provider] - 1 Week Discharge Medications: Continued calcitriol 0.5 mcg capsule 0.5 mcg PO DAILY aspirin 81 mg Tablet,Delayed Release (Dr/Ec) 81 mg PO QAM carbidopa-levodopa 25-100 mg tablet 2 tab PO TID omeprazole 20 mg capsule,delayed release(DR/EC) 20 mg PO QAM metoprolol succinate 50 mg tablet extended release 24 hr 50 mg PO BEDTIME acetaminophen [Tylenol] 325 mg Tablet 325 mg PO BEDTIME PRN (Reason: Fever Or Pain) polyethylene glycol 3350 [Miralax] 17 gram/dose Powder 17 g PO DAILY PRN (Reason: Constipation) albuterol sulfate 90 mcg/actuation HFA aerosol inhaler 2 puff inhalation QID PRN (Reason: Shortness Of Breath Or Wheezing) ipratropium bromide 21 mcg (0.03 %) spray,non-aerosol 2 spray intranasal BID PRN (Reason: Allergy Symptoms) CeraVe Healing 46.5 % ointment 1 appl topical BEDTIME melatonin 5 mg capsule 5 mg PO BEDTIME cranberry 400 mg capsule 400 mg PO DAILY Rx Instructions: administer with a meal docusate sodium [Stool Softener] 100 mg capsule 100 mg PO BID Held atorvastatin 40 mg tablet 40 mg PO DAILY Hold Instructions: Resume on 10/24/23. Rx Instructions: family gives at lunch time Discharge Orders: Discharge Order (Routine); Ordered 10/11/23 Ordered By: Cleo Chi Diet: Advance to usual diet Activity on Discharge: As tolerated Stand Alone Forms: Patient Portal Discharge page Care Plan Goals: Patient came to the hospital because of abdominal pain: CT abd/pelvis shows several gallstones and possibly in CBD without gallbladder distension or +mary sign. U/s poorly visualized gallbladder/cbd: Unable to perform MRCP due to pacemaker, patient was placed on bowel rest, monitored with pain medication and hydration-seems to be improved significantly-abdominal pain resolved, LFTs are improving. Surgery evaluated the patient and HIDA scan was done: With supportive care patient abdominal pain seems to be improved, Tolerating diet without pain. hida scanwith brisk flow of contrast into bowel:Discussed with Dr. Villafana, Does not feel indication for ERCP at this time. LFTs improving. Follow-up LFTs outpatient with PCP. Further management outpatient. Ct abd incidental findings:Enlarging fat attenuating right flank wall mass. Imaging cannot distinguish between low-grade fatty tumors. Specifically low-grade neoplasm of the flank cannot be excluded. Discussed with radiology and oncology(Dr osorio) -conisder outaptient MR study in 2-3 months. further management outpatient. Follow-up with surgery outpatient Health Concerns: As above. Plan of Treatment: As above. Assessment: As above.
[2023-10-11 15:42] VITALS: BP 131/62; PULSE 65; RESP 18; TEMP 37; O2SAT 92
== END 2023-10-11 18:24 | disposition home or self-care (01) | DRG 446 ==
LOC: HO.ED 20:36 → HO.EDOVER 20:49 → HO.S3 10-09 12:39
PROVIDERS: Hospitalist; Admitting Provider Physician Assistant; Emergency Provider Emergency Medicine; PCP Internal Medicine; Visit Provider Internal Medicine
DX: K80.70 Calculus of gallbladder and bile duct without cholecystitis without obstruction (principal); G20.A1 Parkinson's disease without dyskinesia, without mention of fluctuations; F02.80 Dementia in other diseases classified elsewhere, unspecified severity, without behavioral disturbance, psychotic disturbance, mood disturbance, and anxiety; E78.5 Hyperlipidemia, unspecified; I10 Essential (primary) hypertension; K21.9 Gastro-esophageal reflux disease without esophagitis; Z20.822 Contact with and (suspected) exposure to COVID-19; Z95.0 Presence of cardiac pacemaker; Z85.46 Personal history of malignant neoplasm of prostate; Z79.82 Long term (current) use of aspirin; Z79.899 Other long term (current) drug therapy
CPT/HCPCS: 0241U; 36415; 71045; 74176; 76705; 78226; 80048; 80053; 81001; 82947; 83690; 84484; 85025; 93005; 97162; 99285; A9537; J1644

== ENCOUNTER → 2023-10-08 13:32 | Outpatient (BNV) | payer MEDICARE, SELFPAY | PROVIDERS: Admitting Provider Physician Assistant; Emergency Provider Emergency Medicine; Visit Provider Internal Medicine | DX: R53.1 Weakness (principal) | CPT/HCPCS: 93010 ==

== ENCOUNTER → 2023-10-08 13:46 | Outpatient (BNV) | payer MEDICARE, SELFPAY | PROVIDERS: Emergency Provider Emergency Medicine; Visit Provider Surgery | DX: K80.71 Calculus of gallbladder and bile duct without cholecystitis with obstruction (principal) | CPT/HCPCS: 99222; 99232 ==

== ENCOUNTER → 2023-10-08 20:38 | Outpatient (BNV) | payer MEDICARE, SELFPAY | PROVIDERS: Admitting Provider Physician Assistant; Emergency Provider Emergency Medicine; PCP Internal Medicine; Visit Provider Internal Medicine Gastroenterology | DX: K80.50 Calculus of bile duct without cholangitis or cholecystitis without obstruction (principal); R74.01 Elevation of levels of liver transaminase levels; K80.71 Calculus of gallbladder and bile duct without cholecystitis with obstruction | CPT/HCPCS: 99222 ==

== ENCOUNTER → 2023-10-08 20:38 | Outpatient (BNV) | payer MEDICARE, SELFPAY | PROVIDERS: Admitting Provider Physician Assistant; Emergency Provider Emergency Medicine; Visit Provider Physician Assistant | DX: K80.50 Calculus of bile duct without cholangitis or cholecystitis without obstruction (principal); K80.71 Calculus of gallbladder and bile duct without cholecystitis with obstruction; R74.01 Elevation of levels of liver transaminase levels | CPT/HCPCS: 99223; 99232; 99233; 99239; G0180 ==

== ENCOUNTER → 2023-12-29 23:59 | Outpatient (BNV) | payer MEDICARE, SELFPAY ==
--- NOTE | 2024-01-03 19:54 | MHC.OFFVIS ---
Intake Visit Reasons: REmote device check- [facility] Allergies lisinopril Allergy (Unknown, Verified 10/08/23 13:29) Unknown [facility] Medical History CVA (cerebral vascular accident) Parkinsons disease History of back pain Hiatal hernia Barretts esophagus GERD (gastroesophageal reflux disease) TIA (transient ischemic attack) History of prostate cancer Hypercholesterolemia Second degree heart block HTN (hypertension) Heart block Normally functioning cardiac pacemaker present Surgical History History of eye surgery Hx of right cataract extraction History of repair of hip fracture Hx of colonoscopy History of esophagogastroduodenoscopy (EGD) History of parathyroidectomy History of tonsillectomy Hx of prostatectomy History of permanent cardiac pacemaker placement Family History Father No problems noted. Mother No problems noted. 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 Overall normal device function. [id number] Cardiac Device Interrogation, pacemaker Procedure code (CPT) selection complete Assessment & Plan Assessment & Plan (1) Heart block: Code(s): I45.9 - Conduction disorder, unspecified Category: Medical Plan x Coding Level of Care Code Procedure Only Diagnoses Heart block I45.9 CPT Codes Cardiac Device Check - Cardiac Device 12: [id number] Cardiac Device Interrogation, pacemaker ([id number])
== END ==
PROVIDERS: PCP Internal Medicine; Visit Provider Internal Medicine
DX: I45.9 Conduction disorder, unspecified (principal); Z95.0 Presence of cardiac pacemaker
CPT/HCPCS: 93294

== ENCOUNTER → 2024-03-29 23:59 | Outpatient (BNV) | payer MEDICARE, SELFPAY ==
--- NOTE | 2024-04-03 09:09 | MHC.OFFVIS ---
Intake Visit Reasons: Remote device check- [facility] Allergies lisinopril Allergy (Unknown, Verified 10/08/23 13:29) Unknown [facility] Medical History CVA (cerebral vascular accident) Parkinsons disease History of back pain Hiatal hernia Barretts esophagus GERD (gastroesophageal reflux disease) TIA (transient ischemic attack) History of prostate cancer Hypercholesterolemia Second degree heart block HTN (hypertension) Heart block Normally functioning cardiac pacemaker present Surgical History History of eye surgery Hx of right cataract extraction History of repair of hip fracture Hx of colonoscopy History of esophagogastroduodenoscopy (EGD) History of parathyroidectomy History of tonsillectomy Hx of prostatectomy History of permanent cardiac pacemaker placement Family History Father No problems noted. Mother No problems noted. 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 Overall normal device function. [id number] Cardiac Device Interrogation, pacemaker Procedure code (CPT) selection complete Assessment & Plan Assessment & Plan (1) Heart block: Code(s): I45.9 - Conduction disorder, unspecified Category: Medical Plan x Coding Level of Care Code Procedure Only Diagnoses Heart block I45.9 CPT Codes Cardiac Device Check - Cardiac Device 12: [id number] Cardiac Device Interrogation, pacemaker ([id number])
== END ==
PROVIDERS: PCP Internal Medicine; Visit Provider Internal Medicine
DX: I45.9 Conduction disorder, unspecified (principal); Z95.0 Presence of cardiac pacemaker
CPT/HCPCS: 93294

== ENCOUNTER → 2024-06-28 23:59 | Outpatient (BNV) | payer MEDICARE, SELFPAY ==
--- NOTE | 2024-07-08 18:59 | MHC.OFFVIS ---
Intake Visit Reasons: Remote device check- [facility] Allergies lisinopril Allergy (Unknown, Verified 10/08/23 13:29) Unknown [facility] Medical History CVA (cerebral vascular accident) Parkinsons disease History of back pain Hiatal hernia Barretts esophagus GERD (gastroesophageal reflux disease) TIA (transient ischemic attack) History of prostate cancer Hypercholesterolemia Second degree heart block HTN (hypertension) Heart block Normally functioning cardiac pacemaker present Surgical History History of eye surgery Hx of right cataract extraction History of repair of hip fracture Hx of colonoscopy History of esophagogastroduodenoscopy (EGD) History of parathyroidectomy History of tonsillectomy Hx of prostatectomy History of permanent cardiac pacemaker placement Family History Father No problems noted. Mother No problems noted. 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 Overall normal device function. [id number] Cardiac Device Interrogation, pacemaker Procedure code (CPT) selection complete Assessment & Plan Assessment & Plan (1) Normally functioning cardiac pacemaker present: Code(s): Z95.0 - Presence of cardiac pacemaker Category: Medical (2) Heart block: Code(s): I45.9 - Conduction disorder, unspecified Category: Medical Plan x Coding Level of Care Code Procedure Only Diagnoses Normally functioning cardiac pacemaker present Z95.0 Heart block I45.9 CPT Codes Cardiac Device Check - Cardiac Device 12: [id number] Cardiac Device Interrogation, pacemaker ([id number])
== END ==
PROVIDERS: PCP Internal Medicine; Visit Provider Internal Medicine
DX: I45.9 Conduction disorder, unspecified (principal); Z95.0 Presence of cardiac pacemaker
CPT/HCPCS: 93294